=== PATIENT | male | born 1940 | race Caucasian/White ===

== ENCOUNTER 2016-12-07 12:02 | Emergency (ER) | payer BC, OTHER ==
[~2016-12-07] VITALS: Ht 170.2 cm; Wt 98.4 kg
[~2016-12-07 12:02] MED LIST: ALLO300T2 PO; CHOL100010 PO; CYAN100020 PO; FRS/40 PO; GLC/500 PO; LOSA50TA6 PO; NAPR1TAB9 PO; OMEP20CA9 PO; POTA10CA28 PO; SPIR25TA PO; maxair INH
[2016-12-07 12:09] VITALS: Ht 170.2 cm; Wt 98.4 kg
[2016-12-07] MEDS ORDERED: MECL1TAB40 PO (12:48)
[2016-12-07] MEDS ORDERED: ZLF/100 PO (12:48)
[2016-12-07] MEDS ORDERED: RBX500 PO (12:48)
[2016-12-07] MEDS ORDERED: LPR25 PO (12:48)
[2016-12-07] MEDS ORDERED: PSYL48.59 PO (12:50)
[2016-12-07] MEDS ORDERED: ASPI81TA28 PO (12:50)
[2016-12-07] MEDS ORDERED: SODIUM CHLORIDE 0.9% 1000ML 1,000 ML IV STA (13:46)
--- NOTE | 2016-12-07 14:16 | DIAGNOSTIC IMAGING REPORT ---
CHEST ONE VIEW PORTABLE CLINICAL HISTORY: Altered mental status. Weakness. Severe headache. Chills. COMPARISON STUDY: December 2014 FINDINGS: The heart is at the upper limits of normal in size. There are postsurgical changes of a midline sternotomy. Slight indistinctness of the left heart border is felt to be chronic. There is no failure. There is no focal pulmonary consolidation. There are no pleural effusions.[ IMPRESSION: No active disease in the chest. Electronically signed by: Gary East M.D. 12/07/2016 2:15 PM Dictated Date/Time: 12/07/2016 2:14 PM
--- NOTE | 2016-12-07 14:40 | DIAGNOSTIC IMAGING REPORT ---
HEAD CT NONCONTRAST CT DOSE: 614.27 mGy.cm HISTORY: Mental status change EVALUATE ALTERED MENTAL STATUS/WEAKNESS TECHNIQUE: Multiaxial CT images of the head were performed without the use of intravenous contrast. Comparison: None. Findings: The paranasal sinuses and mastoid air cells are clear. The calvarium and skull base are intact. The ventricles and sulci are within normal limits. There is no mass, hematoma, midline shift, or acute infarct. Impression: No acute intracranial abnormality. Electronically signed by: Hadley Paige M.D. 12/07/2016 2:38 PM Dictated Date/Time: 12/07/2016 2:37 PM
[2016-12-07 14:44] LABS: BASO % 0.3 %; BASO ABS # 0.03 K/uL (0-0.2); COMPLETE YES; EOS % 0.8 %; HEMATOCRIT 46.3 % (42-52); IG% 0.3 %; LYMPH % 16.7 %; MEAN CELL VOLUME 86.2 fL (80-100); MEAN CORPUSCULAR HEMOGLOBIN 28.7 pg (25-34); MEAN CORPUSCULAR HGB CONC 33.3 g/dl (32-36); MEAN PLATELET VOLUME 8.9 fL (7.4-10.4); MONO % 10.7 %; NEUT % 71.2 %; PLATELET COUNT 302 K/uL (130-400); RED BLOOD COUNT 5.37 M/uL (4.7-6.1)
[2016-12-07 14:45] LABS: PARTIAL THROMBOPLASTIN RATIO 1.1; PROTHROMBIN TIME (PATIENT) 10.9 SECONDS (9.0-12.0)
[2016-12-07 14:58] LABS: ALT/SGPT 27 U/L (12-78); AST/SGOT 17 U/L (15-37); BLOOD UREA NITROGEN 21 mg/dl (7-18); BUN/CREATININE RATIO 15.2 (10-20); CALCIUM 9.5 mg/dl (8.5-10.1); CARBON DIOXIDE 26 mmol/L (21-32); CHLORIDE 99 mmol/L (98-107); GLUCOSE 113 mg/dl (70-99); MAGNESIUM 2.1 mg/dl (1.8-2.4); POTASSIUM 3.8 mmol/L (3.5-5.1); SODIUM 136 mmol/L (136-145)
[2016-12-07 15:05] LABS: ALKALINE PHOSPHATASE 69 U/L (45-117); CKMB/CK RATIO 1.6 (0-3.0)
[2016-12-07 16:33] LABS: URINE APPEARANCE CLEAR (CLEAR); URINE COLOR DK YELLOW; URINE EPITHELIAL CELL AUTO 20-30 /lpf (0-5); URINE NITRITE NEG (NEG); URINE PH 5.5 (4.5-7.5); URINE SPECIFIC GRAVITY 1.032 (1.000-1.030); UROBILINOGEN NEG (NEG); ZZUR CULT IF INDIC CLEAN CATCH NO
[2016-12-07 16:43] LABS: MANUAL MICROSCOPIC REQUIRED? NO; REVIEW REQ? NO; URINE BILIRUBIN NEG (NEG)
--- NOTE | 2016-12-07 16:54 | EMERGENCY ROOM VISIT NOTE ---
History Report prepared by Jagjit: Roxanne Deluna Under the Supervision of: Dr. Italo Harris D.O. First contact with patient: 13:41 Chief Complaint: HEADACHE Stated Complaint: SEVERE SANCHEZ SINCE SUNDAY, CHILLS History of Present Illness The patient is a 76 year old male who presents to the Emergency Room with complaints of an intermittent headache for the past 2 days. The patient was mowing the grass [place] at [facility] two days ago. He was in a tractor with a roof on it, so he was not in direct sunlight, but he states that it was very hot that day. Around 9am he started to feel unwell, so he came home from work early. The patient reports dizziness, lightheadedness, and visual symptoms. He has felt off balance and reports seeing "yellow splotches." He lay in bed and rested throughout the day. His took his temperature and he had a fever of 102. The patient reports an intermittent headache since then. His pain goes up the back of his neck and into his ears bilaterally. He has occasional pain in the left ear. The patient had some urinary incontinence over the past couple of days. He denies cough, dysuria, rash, nausea, and vomiting. The patient rates her pain as a 7/10 in severity. Source of History: patient, spouse/significant other Onset: 2 days ago Position: head Symptom Intensity: 7/10 Timing: intermittent Associated Symptoms: + fevers, + neck pain, + urinary symptoms (+ incontinence, denies dysuria), No cough, No nausea, No vomiting, No rash Note: Pt notes dizziness, lightheadedness, and visual symptoms. Review of Systems See HPI for pertinent positives & negatives. A total of 10 systems reviewed and were otherwise negative. 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 Family History Unobtainable due to patient's condition Social History Smoking Status: Former Smoker Alcohol Use: occasionally Marital Status: Housing Status: lives with family Occupation Status: retired Current/Historical Medications Scheduled Allopurinol (Zyloprim), 1 TAB PO DAILY Aspirin (Aspirin Ec), 81 MG PO DAILY Cholecalciferol (Vitamin D), 1,000 INTER.UNIT PO DAILY Cyanocobalamin (Vitamin B12), 1 TAB PO DAILY Furosemide (Lasix), 40 MG PO DAILY Metformin Hcl (Glucophage), 500 MG PO BID Methocarbamol (Methocarbamol), 500 MG PO QPM Metoprolol Tartrate (Lopressor), 25 MG PO BID Omeprazole (Prilosec), 1 CAP PO QAM Potassium Chloride (Micro-K Ext Rel), 10 MEQ PO DAILY Psyllium (Metamucil), 1 DOSE PO QPM Sertraline HCl (Sertraline HCl), 100 MG PO DAILY Spironolactone (Aldactone), 25 MG PO DAILY Scheduled PRN Meclizine HCl (Meclizine HCl), 12.5 MG PO TID PRN for Dizziness or Vertigo Allergies Coded Allergies: Atorvastatin (Verified Allergy, Unknown, MUSCLE ACHES, 12/07/16) Statins (Unverified Allergy, Unknown, unknown, 12/07/16) Simvastatin (Verified Adverse Reaction, Mild, muscle weakness, 12/07/16) Aspirin (Verified Adverse Reaction, Unknown, GI UPSET, 12/07/16) Physical Exam Vital Signs Date Time Temp Pulse Resp B/P (MAP) Pulse Ox O2 Delivery O2 Flow Rate FiO2 12/07/16 17:25 36.4 78 18 161/78 96 12/07/16 16:35 78 18 161/78 12/07/16 14:54 161/81 12/07/16 14:46 161/81 12/07/16 14:30 64 12/07/16 13:17 58 18 134/67 96 Room Air 12/07/16 13:15 134/67 12/07/16 12:09 36.4 72 18 141/88 94 Room Air Physical Exam CONSTITUTIONAL/VITAL SIGNS: Reviewed / noted above. GENERAL: Non-toxic in appearance. INTEGUMENTARY: Warm, dry, and [place]. HEAD: Normocephalic. EYES: without scleral icterus or trauma. ENT/OROPHARYNX: clear and moist. LYMPHADENOPATHY/NECK: Is supple without lymphadenopathy or meningismus. RESPIRATORY: Lungs clear and equal. CARDIOVASCULAR: Regular rate and rhythm. GI/ABDOMEN: Soft and nontender. No organomegaly or pulsatile mass. No rebound or guarding. Normal bowel sounds. EXTREMITIES: Warm and well perfused. BACK: No CVA tenderness. NEUROLOGICAL: Intact without focal deficits. PSYCHIATRIC: normal affect. MUSCULOSKELETAL: Normally developed with good muscle tone. Medical Decision & Procedures ER Provider Diagnostic Interpretation: Radiology results as stated below per my review and radiologist interpretation: HEAD CT NONCONTRAST CT DOSE: 614.27 mGy.cm HISTORY: Mental status change EVALUATE ALTERED MENTAL STATUS/WEAKNESS TECHNIQUE: Multiaxial CT images of the head were performed without the use of intravenous contrast. Comparison: None. Findings: The paranasal sinuses and mastoid air cells are clear. The calvarium and skull base are intact. The ventricles and sulci are within normal limits. There is no mass, hematoma, midline shift, or acute infarct. Impression: No acute intracranial abnormality. Electronically signed by: Hadley Paige M.D. 12/07/2016 2:38 PM Dictated Date/Time: 12/07/2016 2:37 PM CHEST ONE VIEW PORTABLE CLINICAL HISTORY: Altered mental status. Weakness. Severe headache. Chills. COMPARISON STUDY: December 2014 FINDINGS: The heart is at the upper limits of normal in size. There are postsurgical changes of a midline sternotomy. Slight indistinctness of the left heart border is felt to be chronic. There is no failure. There is no focal pulmonary consolidation. There are no pleural effusions.[ IMPRESSION: No active disease in the chest. Electronically signed by: Gary East M.D. 12/07/2016 2:15 PM Dictated Date/Time: 12/07/2016 2:14 PM Laboratory Results 12/07/16 14:20 Red Blood Count 5.37, Mean Corpuscular Volume 86.2, Mean Corpuscular Hemoglobin 28.7, Mean Corpuscular Hemoglobin Concent 33.3, Mean Platelet Volume 8.9, Neutrophils (%) (Auto) 71.2, Lymphocytes (%) (Auto) 16.7, Monocytes (%) (Auto) 10.7, Eosinophils (%) (Auto) 0.8, Basophils (%) (Auto) 0.3, Neutrophils # (Auto ) 8.57, Lymphocytes # (Auto) 2.00, Monocytes # (Auto) 1.28, Eosinophils # (Auto ) 0.09, Basophils # (Auto) 0.03 12/07/16 14:20 Test 12/07/16 14:10 12/07/16 14:20 Urine Color DK YELLOW Urine Appearance CLEAR (CLEAR) Urine pH 5.5 (4.5-7.5) Urine Specific [place] 1.032 (1.000-1.030) Urine Protein TRACE (NEG) Urine Glucose (UA) NEG (NEG) Urine Ketones TRACE (NEG) Urine Occult Blood NEG (NEG) Urine Nitrite NEG (NEG) Urine Bilirubin NEG (NEG) Urine Urobilinogen NEG (NEG) Urine Leukocyte Esterase NEG (NEG) Urine WBC (Auto) 1-5 /hpf (0-5) Urine RBC (Auto) 0-4 /hpf (0-4) Urine Hyaline Casts (Auto) 5-10 /lpf (0-5) Urine Epithelial Cells (Auto) 20-30 /lpf (0-5) Urine Bacteria (Auto) NEG (NEG) White Blood Count 12.00 K/uL (4.8-10.8) Red Blood Count 5.37 M/uL (4.7-6.1) Hemoglobin 15.4 g/dL (14.0-18.0) Hematocrit 46.3 % (42-52) Mean Corpuscular Volume 86.2 fL (80-100) Mean Corpuscular Hemoglobin 28.7 pg (25-34) Mean Corpuscular Hemoglobin Concent 33.3 g/dl (32-36) Platelet Count 302 K/uL (130-400) Mean Platelet Volume 8.9 fL (7.4-10.4) Neutrophils (%) (Auto) 71.2 % Lymphocytes (%) (Auto) 16.7 % Monocytes (%) (Auto) 10.7 % Eosinophils (%) (Auto) 0.8 % Basophils (%) (Auto) 0.3 % Neutrophils # (Auto) 8.57 K/uL (1.4-6.5) Lymphocytes # (Auto) 2.00 K/uL (1.2-3.4) Monocytes # (Auto) 1.28 K/uL (0.11-0.59) Eosinophils # (Auto) 0.09 K/uL (0-0.5) Basophils # (Auto) 0.03 K/uL (0-0.2) RDW Standard Deviation 48.6 fL (36.4-46.3) RDW Coefficient of Variation 15.4 % (11.5-14.5) Immature Granulocyte % (Auto) 0.3 % Immature Granulocyte # (Auto) 0.03 K/uL (0.00-0.02) Prothrombin Time 10.9 SECONDS (9.0-12.0) Prothromb Time International Ratio 1.0 (0.9-1.1) Activated Partial Thromboplast Time 28.2 SECONDS (21.0-31.0) Partial Thromboplastin Ratio 1.1 Anion Gap 11.0 mmol/L (3-11) Est Creatinine Clear Calc Drug Dose 49.4 ml/min Estimated GFR () 55.8 Estimated GFR (Non- 48.1 BUN/Creatinine Ratio 15.2 (10-20) Calcium Level 9.5 mg/dl (8.5-10.1) Magnesium Level 2.1 mg/dl (1.8-2.4) Total Bilirubin 0.4 mg/dl (0.2-1) Direct Bilirubin 0.1 mg/dl (0-0.2) Aspartate Amino Transf (AST/SGOT) 17 U/L (15-37) Alanine Aminotransferase (ALT/SGPT) 27 U/L (12-78) Alkaline Phosphatase 69 U/L (45-117) Total Creatine Kinase 70 U/L (39-308) Creatine Kinase MB 1.1 ng/ml (0.5-3.6) Creatine Kinase MB Ratio 1.6 (0-3.0) Troponin I < 0.015 ng/ml (0-0.045) Total Protein 8.5 gm/dl (6.4-8.2) Albumin 3.4 gm/dl (3.4-5.0) Lipase 107 U/L (73-393) Thyroid Stimulating Hormone (TSH) 2.700 uIu/ml (0.300-4.500) Laboratory results as stated above per my review. Medications Administered Medications (Trade) Dose Ordered Sig/Rubén Route Start Time Stop Time Status Last Admin Dose Admin Sodium Chloride 1,000 ml @ 200 mls/hr Q5H STAT IV 12/07/16 13:46 12/07/16 18:45 12/07/16 13:46 200 MLS/HR ECG Indication: weakness Rate (beats per minute): 74 Rhythm: normal sinus Findings: no acute ischemic change, no ectopy ED Course 1341: Previous medical records were reviewed. The patient was evaluated in room A10. A complete history and physical examination was performed. 1346: NSS 1000 ml @ 200 mls/hr IV 1654: I reassessed the patient at this time. He is feeling better and resting comfortably. I discussed the results and treatment plan with the patient. I answered all pertaining questions that he had. He expressed understanding and verbalized agreement. The patient will be discharged home. Medical Decision Differential includes acute coronary syndrome, myocardial infarction, CVA, TIA, anemia, infection, pneumonia, UTI, pyelonephritis, poor nutrition, dehydration, electrolyte disturbance, hypoglycemia. Medication Reconciliation: I attest that I have personally reviewed the patient' s current medication list. Patient was found to have a slightly elevated blood pressure due to circumstances. I do not believe that the patient requires hypertension monitoring. This is a 76-year-old male who presents to the ED with a chief complaint of some dizziness that started Sunday around 9 AM in the morning. He reported some loss of balance and feeling lightheaded. He states that he had a headache over his whole head but this is actually gone now. He states the headache comes and goes. He reports that he had a fever of 102 on Sunday. It was 101 yesterday according to the . He had some urinary incontinence on Sunday as well. The patient's vital signs here are normal. He is afebrile. His physical exam was unremarkable. A CT scan of the brain did not show acute disease. Chest x-ray was clear. White blood cell count was 12. Complete metabolic panel is normal. The BUN is 21 and there are trace ketones in the urine. No evidence of urinary tract infection. Troponin is negative. The patient was hydrated with IV fluids. He was told the results of the test. He is felt to be stable for discharge and outpatient follow-up. Impression Primary Impression: Dehydration Scribe Attestation The scribe's documentation has been prepared under my direction and personally reviewed by me in its entirety. I confirm that the note above accurately reflects all work, treatment, procedures, and medical decision making performed by me. Departure Information Dispostion Home / Self-Care Referrals Tulio Azevedo D.O. (PCP) Forms HOME CARE DOCUMENTATION FORM, IMPORTANT VISIT INFORMATION Patient Instructions Dehydration, My [facility] Additional Instructions Follow-up with your doctor for further care and evaluation in 1-2 days. Return to the emergency department for worsening or new symptoms or any concerns. You have been examined and treated today on an emergency basis only. This is not a substitute for, or an effort to provide, complete comprehensive medical care. It is impossible to recognize and treat all injuries or illnesses in a single emergency department visit. It is therefore important that you follow up closely with your doctor. Call as soon as possible for an appointment. Increase daily fluid intake.
[2016-12-07 17:25] VITALS: BP 161/78; PULSE 78; TEMP 36.4; O2SAT 96
== END 2016-12-07 17:26 | disposition home or self-care (01) ==
LOC: C.EDB 12:07 → C.EDA 17:26
DX: E86.0 Dehydration (principal); J45.909 Unspecified asthma, uncomplicated; E11.9 Type 2 diabetes mellitus without complications; M51.36 Other intervertebral disc degeneration, lumbar region; K21.9 Gastro-esophageal reflux disease without esophagitis; E78.5 Hyperlipidemia, unspecified; I10 Essential (primary) hypertension; Z85.060 Personal history of malignant carcinoid tumor of small intestine; Z87.891 Personal history of nicotine dependence; Z96.659 Presence of unspecified artificial knee joint; Z79.82 Long term (current) use of aspirin; Z79.84 Long term (current) use of oral hypoglycemic drugs

== ENCOUNTER → 2017-10-24 | Day surgery (SDC) | payer BC ==
[2017-10-16 07:38] VITALS: Ht 172.7 cm; Wt 100.0 kg
[~2017-10-24] VITALS: Ht 172.7 cm; Wt 100.0 kg
[~2017-10-24] MED LIST changes: +500ML BSS 0.3ML EPI 1:1000PF IRRIG ONE; +ACETAMINOPHEN 325 MG TAB PO PRN; +AMOX500C3 PO; +AMVISC PLUS 0.8ML SYRINGE INT OCU ONE; +ASPI81TA28 PO; +ATROPINE SULFATE 0.1 MG/ML 5ML SYR IV PRN; +BSS FLUSH ONE; +CHOL1000 PO; -CHOL100010 PO; -CYAN100020 PO; +CYCLOPENTOLATE HCL 1% OP SOLN PER DROP CHARGE OPR ONE; +ENDOCOAT 0.85ML SYRINGE INT OCU ONE; +EpHEDrine SULFATE INJ 50 MG/ML AMP IV PRN; +EpINEphrine INJ 1MG/ML AMP 1 MG/ML AMP ONE; +FENTANYL CITRATE INJ 50 MCG/1 ML 2 ML VIAL ONE; +LACTATED RINGER'S 1000ML 500 ML IV SCH; +LIDOCAINE 4% OP SOLN DROP CHARGE ONE; +LIDOCAINE HCL 1% MPF 2 ML VIAL ONE; -LOSA50TA6 PO; +LPR25 PO; +MIDAZOLAM HCL 1 MG/ML 2ML VIAL ONE; +MIX: 4ML BSS 1ML EPI 1:1000 PF TOP ONE; +MOXIFLOXACIN OPH SOLN PER DROP CHARGE ONE; -NAPR1TAB9 PO; +NURSING VERBAL MED ORDER ONE; +OMEG10002 PO; +PHENYLEPHRINE HCL 10% OP SOLN PER DROP CHARGE OPR ONE; +POVIDONE-IODINE OP SOLN 30 ML BTL ONE; +PROPARACAINE 0.5% OP SOLN PER DROP CHARGE OPR SCH; +PSYL48.59 PO; +RBX500 PO; +TOBRAMYCIN/DEXAMETHASONE OPH OINT PER APPLN CHARGE ONE; +TROPICAMIDE 1% OP SOLN PER DROP CHARGE OPR ONE; +ZLF/100 PO; -maxair INH
[2017-10-24] MEDS: PHENYLEPHRINE HCL 10% OP SOLN PER DROP CHARGE OPR SCH ×3 (10:19→10:29)
[2017-10-24] MEDS: TROPICAMIDE 1% OP SOLN PER DROP CHARGE OPR SCH ×3 (10:20→10:30)
[2017-10-24] MEDS: CYCLOPENTOLATE HCL 1% OP SOLN PER DROP CHARGE OPR SCH ×3 (10:21→10:31)
[2017-10-24] MEDS: MOXIFLOXACIN OPH SOLN PER DROP CHARGE OPR SCH ×3 (10:22→10:32)
--- NOTE | 2017-10-24 10:28 | History & Physical Bridge - SC ---
H&P Re-Evaluation Bridge Note: I have examined the patient, reviewed the History & Physical and in the interval since the performance of the History & Physical I have noted the following changes of clinical significance: No changes noted
[2017-10-24] MEDS: LIDOCAINE 4% OP SOLN DROP CHARGE OPR SCH ×2 (10:33→10:40)
--- NOTE | 2017-10-24 11:39 | [facility] Post Operative Brief Note ---
Immediate Operative Summary Operative Date October 24, 2017. Pre-Operative Diagnosis Right Eye Cataract Post-Operative Diagnosis Same Procedure(s) Performed Right Eye Cataract Phacoemulsification With Intraocular Lens Implant Surgeon Dr. Cai [employer] Ware[employer] Supervisor Surgeon(s) None Estimated Blood Loss None Findings Consistent with Post-Op Diagnosis Specimens None Anesthesia Type MAC Complication(s) none Disposition Accompanied Pt To Recovery: no Disposition:
[2017-10-24 11:40] VITALS: TEMP 36.3
--- NOTE | 2017-10-24 11:42 | [facility] Operative Report ---
Operative Report Date of Service October 24, 2017. Operative Report DATE OF OPERATION: 10/24/17 PREOPERATIVE DIAGNOSIS: Senile nuclear cataract and astigmatism, right eye POSTOPERATIVE DIAGNOSIS: Senile nuclear cataract and astigmatism, right eye PROCEDURE PERFORMED: Phacoemulsification with toric intraocular lens implantation, right eye SURGEON: Dr. Ajit Cai ANESTHESIA: Topical with 1% intracameral lidocaine and monitored anesthesia care COMPLICATIONS: None DESCRIPTION OF PROCEDURE: After positively identifying the patient both verbally and by wristband in the preoperative area, the right eye was marked as the operative eye. Using a Robomarker, the 172 degree axis was marked after placing a drop of proparacaine. The patient was then brought back to the operating room by the anesthesia and nursing staff where they were given a drop of tetracaine and betadine into the operative eye. They were then sterilely prepped and draped in the standard fashion typical for ophthalmic surgery. Steri-strips were placed along the upper eyelids to keep the lashes back, and a lid speculum was placed into the operative eye. At this point, a documented time out was performed with members of the ophthalmology, nursing, and anesthesia staffs all agreeing upon the correct patient, correct location for surgery, correct procedure, and correct type and power of intraocular lens to be implanted. The microscope was then swung into position. Then, a paracentesis wound was made using a sideport blade. Then, in sequence, 1% preservative-free lidocaine followed by Endocoat viscoelastic was injected into the anterior chamber. Next , the main incision was made with a keratome blade in triplanar fashion. A Malyugin ring was inserted due to poor pupil dilation. A sharp cystotome was introduced into the eye and used to create a tear in the anterior capsule, which was directed into a continuous curvilinear capsulorrhexis using Utrata forceps. Hydrodissection was then performed with BSS on a flat-tip cannula. Next, the phacoemulsification handpiece was introduced into the eye and used to remove the nucleus in a [id number] fashion. This was done without complication and then the irrigation-aspiration handpiece was introduced into the eye and used to remove all remaining cortical and epinuclear material. Amvisc was then injected into the anterior chamber as well as into the capsular bag and using the lens injector system, a [id number] 19.5 D lens, serial number [id number], and expiration date 05/2019 was injected into the capsular bag and rotated into the correct position to correctly line up with the toric marking. The Malyugin ring was removed after removing the Amvisc posterior to the lens with the irrigation-aspiration handpiece. The toric lens was lined up with the marking, and then the I/A handpiece was used to remove all remaining Amvisc. BSS was used to hydrate the main wound, and then BSS was injected into the paracentesis site to reach physiologic pressure and then the main wound was checked and found to be watertight. The patient was given drops of Vigamox and tobradex ointment into the operative eye, and then the surrounding area was cleaned and dried. A clear plastic shield was placed over the eye and the patient was then sat up and taken from the operating room by the anesthesia staff having tolerated the procedure well and suffering no complications. DISPOSITION: The patient was returned to the recovery room in stable condition. I attest to the content of the Intraoperative Record and any orders documented therein. Any exceptions are noted below.
--- NOTE | 2017-10-24 11:43 | Discharge Instructions-SurgCtr ---
Discharge Instructions Date of Service October 24, 2017. Visit Reason for Visit: Cataract Right Eye Discharge Discharge Diagnosis / Problem: right cataract Discharge Goals Goal(s): Decrease discomfort, Improve function Medications Stopped Medications Name(s): METFORMIN LAST DOSE 2 DAYS AGO Activity Recommendations Activity Limitations: as noted below Anesthesia . Post Anesthesia Instructions: If you have had General Anesthesia or IV Sedation: * Do not drive today. * Resume driving when surgeon permits. * Do not make important decisions or sign legal documents today. * Call surgeon for: 1. Temperature elevations greater than 101 degrees F. 2. Uncontrollable pain. 3. Excessive bleeding. 4. Persistent nausea and vomiting. 5. Medication intolerance (nausea, vomiting or rash). * For nausea and vomiting use only clear liquids such as: tea, soda, bouillon until nausea subsides, then gradually increase diet as tolerated. * If you have any concerns or questions, call your surgeon's office. If physician is unavailable and it is an emergency, call 911 or go to the nearest emergency room. . Instructions / Follow-Up Instructions / Follow-Up ACTIVITY RECOMMENDATIONS: * Light activities. * You may walk outside, read, watch television. * You may notice redness on the white part of the eye and some blurry vision - this is normal. MEDICATIONS: Resume previous medications unless instructed otherwise by your surgeon. Start all eye drops at 2 pm today: * Eye drops (today): Prednisone - one drop in operative eye every 2 hours while awake Ofloxacin - one drop in operative eye every 2 hours while awake Ketorolac - one drop in operative eye 4 times daily SPECIAL CARE INSTRUCTIONS: * Tape plastic shield over eye to sleep at night. Call your doctor at with any concerns or problems. FOLLOW UP VISIT: Follow-up with Dr Cai at [place] office as scheduled. Diet Recommendations Home Diet: no limitations Procedures Procedures Performed: Right Eye Cataract Phacoemulsification With Intraocular Lens Implant Pending Studies Studies pending at discharge: no Medical Emergencies . Who to Call and When: Medical Emergencies: If at any time you feel your situation is an emergency, please call 911 immediately. . Non-Emergent Contact Non-Emergency issues call your: Surgeon . . "Provider Documentation" section prepared by Ajit Cai. .
--- NOTE | 2017-10-24 12:02 | Anesthesia Progress Nt - [facility] ---
Anesthesia Post Op Note Date & Time October 24, 2017 at 12:02 Vital Signs Pain Intensity: 0 Vital Signs Past 12 Hours Date Time Temp Pulse Resp B/P (MAP) Pulse Ox O2 Delivery O2 Flow Rate FiO2 10/24/17 11:40 36.3 69 12 187/103 (131) 96 Room Air 10/24/17 10:10 36.5 52 22 166/99 (121) 95 Room Air Notes Mental Status: alert / awake / arousable, participated in evaluation Pt Amnestic to Procedure: Yes Nausea / Vomiting: adequately controlled Pain: adequately controlled Airway Patency, RR, SpO2: stable & adequate BP & HR: stable & adequate Hydration State: stable & adequate Anesthetic Complications: no major complications apparent
[2017-10-24 12:07] VITALS: BP 163/71; PULSE 55; O2SAT 94
== END | disposition home or self-care (01) ==
LOC: X.SURG 09:36
PROVIDERS: ATTEND Ophthalmology
DX: H25.11 Age-related nuclear cataract, right eye (principal); I10 Essential (primary) hypertension; E11.9 Type 2 diabetes mellitus without complications; E78.00 Pure hypercholesterolemia, unspecified; I25.10 Atherosclerotic heart disease of native coronary artery without angina pectoris; G47.33 Obstructive sleep apnea (adult) (pediatric); K21.9 Gastro-esophageal reflux disease without esophagitis; Z88.8 Allergy status to other drugs, medicaments and biological substances; Z79.84 Long term (current) use of oral hypoglycemic drugs; I50.9 Heart failure, unspecified; Z95.5 Presence of coronary angioplasty implant and graft; M19.90 Unspecified osteoarthritis, unspecified site

== ENCOUNTER 2019-10-26 13:52 | Inpatient (IN) ==
--- OUTSIDE RECORDS SUMMARY | 2019-10-26 13:54 | External Medical Summary | Continuity of Care Document ---
:1940 Author Name Chris Petty, Provider Address Unavailable Unavailable , Care Team Providers Name Role Phone Umair Arita [email or web address] PCP, UNKNOWN Unavailable Unavailable Problems Active medical history not documented Allergies and Adverse Reactions Allergy history not documented Medications Medications not documented Procedures Procedures not documented Immunizations Immunizations not documented Plan of Treatment Planned Observations Planned Goals not documented Results No Known Results Results not documented
--- OUTSIDE RECORDS SUMMARY | 2019-10-26 13:54 | External Medical Summary | Continuity of Care Document ---
:1940 Author Name Chris Petty, Provider Address Unavailable Unavailable , Care Team Providers Name Role Phone Umair Arita [email or web address] PCP, UNKNOWN Unavailable Unavailable Problems Active medical history not documented Allergies and Adverse Reactions Allergy history not documented Medications Medications not documented Procedures Procedures not documented Immunizations Immunizations not documented Plan of Treatment Planned Observations Planned Goals not documented Results No Known Results Results not documented
--- NOTE | 2019-10-26 14:18 | Emergency Department Note ---
Impression & Plan Generalized weakness, Nausea, Epigastric abdominal pain ED Provider Note NAME: FADI BRIGGS AGE: 79 SEX: M ARRIVES VIA: Walk-In INFORMANT: [Patient] ED PROVIDER(S): Peng Escobedo MD CHIEF COMPLAINT: Generalized weakness PLAN: Disposition: Admitted Condition: [Good] MEDICAL DECISION MAKING: Patient presented with complaints of generalized weakness. He also had some abdominal discomfort on examination. He underwent blood work and CT imaging. His blood work was unremarkable. Chest x-ray was negative. CT imaging raised concerns for partial large bowel obstruction with a mass at the sigmoid. 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 I did discuss this with the patient. He will need further management in the hospital. I did consult with general surgery, Boo Be PA-C. He will consult with Dr. Dane Chand. I did discuss the case with Dr. Evans of internal medicine. He will admit the patient. Triage Nursing notes reviewed and agree them. Vital Signs: reviewed and remarkable for mild hypertension Differential diagnosis: Infection, dehydration, metabolic abnormality, intra-abdominal process, hypo/hyperglycemia, electrolyte disturbance, anemia, hypoxia, cardiac sources, intracerebral event, toxicologic, neurologic, as well as other pathologies. ER treatment provided: Saline hydration Patient declined analgesia Diagnostics interpreted by me: ECG: Rate: 72 Rhythm: SKIN: No lesions or rash, normal skin turgor. Thomas: Left axis deviation QRS: Normal ST segements: Anterior T wave inversions Other: Inferior posterior Q waves, no PACs or PVCs Cardiac Monitoring: Cardiac monitoring ordered by me: The patient was placed on continuous cardiac monitoring and observed. It revealed a normal sinus rhythm at 77 beats per minute without ectopy or evidence of dysrhythmia. Laboratory studies: [See below] an unremarkable CBC, chemistry panel, LFTs, lipase, troponin, and total CK. Lyme IgM negative. IgG positive. Imaging studies: CT imaging of the abdomen pelvis is concerning for large bowel obstruction, partial, likely related to mass in the sigmoid. I refer you to the EMR for further details. Consultation(s): General surgery Internal medicine See above HPI:The patient is a 79 year old male who presents to the Emergency Room with complaints of generalized weakness. This started today and is worsening. The patient also notes the following associated symptoms, nausea, epigastric abdominal pain, chronic cough. The patient has found no relieving factors. Current pain is rated as 2/10. Patient states he thinks he overdid it working in the garden 2 days ago. No known sick contacts for novel coronavirus. Pt denies LOC, headache, fevers, chills, diaphoresis, visual changes, neck pain, chest pain, breathing difficulties, vomiting,back pain, melena, hematochezia, urinary symptoms, numbness, , lymphadenopathy, rash, or other complaints. ROS: See above HPI for pertinent positives & negatives. A total of [10] systems reviewed and were otherwise negative. PAST MEDICAL HISTORY:[See Below] CAD PAST SURGICAL HISTORY:[See Below]CAB[facility] FAMILY HISTORY:[See Below] SOCIAL HISTORY:[See Below] lives with family HOME MEDICATIONS:[See Below] ALLERGIES:[See Below] VITALS:[See Below] PHYSICAL EXAMINATION: GENERAL: Awake, alert, well-appearing, in no distress HENT: Normocephalic, atraumatic. Oropharynx unremarkable. EYES: Normal conjunctiva. Sclera non-icteric. NECK: Inspection normal. Non-tender. Supple. No nuchal rigidity. FROM. No masses. RESPIRATORY: Clear to auscultation. No wheezes. No rales. Normal respiratory effort. CARDIAC: Normal rate. Normal rhythm. No murmurs. No rubs. Extremities warm and well perfused. Pulses equal. No JVD. GI: Soft, non-distended. Epigastric tenderness to palpation. No rebound or guarding. No masses. RECTAL: Deferred. MUSCULOSKELETAL: Atraumatic. Chest examination reveals no tenderness. The back is symmetrical on inspection without obvious abnormality. There is no CVA tenderness to palpation. No joint edema. LOWER EXTREMITIES: Calves are equal size bilaterally and non-tender. No edema. No discoloration. NEURO: Normal sensorium. No sensory or motor deficits noted. SKIN: No rash or jaundice noted. ED COURSE: [Critical Care:] [None] Peng Escobedo MD Past Med/Surg History Medical History (Updated 10/26/19 @ 19:47 by Guillermo Sifuentes RN) Family hx of colon cancer Fusion of spine Surgical History (Updated 10/26/19 @ 19:47 by Guillermo Sifuentes RN) History of carpal tunnel release 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 History of laminectomy History of prostatectomy History of total knee replacement Social History Preferred Language: Wolof Communication Ability: Effective Beliefs That Will Affect Care: None Current Living Situation: Spouse Other Information That Helps Us Care for You: No Feels Safe at Home: Yes Safety Concerns: Feels Safe At This Time Smoking Status: Former smoker Tobacco Type: pipe ; Smoking End Date: 1980 ; Second Hand Exposure: No ; Tobacco Cessation Education Requested by Patient: No Hx Alcohol Use: Yes Alcohol type: beer Hx Substance Use: No Allergies Allergies Allergy/AdvReac Type Severity Reaction Status Date / Time simvastatin AdvReac Mild muscle Verified 10/26/19 15:05 weakness aspirin AdvReac Unknown GI UPSET Verified 10/26/19 15:05 IN HIGH DOSES atorvastatin AdvReac Unknown MUSCLE Verified 10/26/19 15:05 ACHES [id number] Reductase AdvReac Unknown MUSCLE Unverified 10/26/19 15:05 Inhibitor ACHES AND WEAKNESS/DIARRHEA Home Meds Home Medications Medication Instructions Recorded Confirmed allopurinol 300 mg PO DAILY 10/26/19 10/26/19 aspirin [Aspir-81] 81 mg PO DAILY 10/26/19 10/26/19 furosemide 20 mg PO DAILY 10/26/19 10/26/19 gabapentin 300 mg PO HS 10/26/19 10/26/19 metoprolol succinate 25 mg PO DAILY 10/26/19 10/26/19 omeprazole 20 mg PO BID 10/26/19 10/26/19 sertraline 100 mg PO DAILY 10/26/19 10/26/19 spironolactone 25 mg PO DAILY 10/26/19 10/26/19 Results & Data (ED) Vital Signs Vital Signs - 24 hr 10/26/19 13:57 10/26/19 14:12 10/26/19 14:15 Temperature 36.8 C Temperature Source Oral Pulse Rate - Lying Pulse Rate - Sitting Pulse Rate - Standing Pulse Rate 75 83 72 Pulse Rate [Apical] Pulse Rate from SpO2 Sensor 83 73 Respiratory Rate 20 16 23 Respiratory Effort / Characteristics Non-Labored Spontaneous Respiratory Depth Normal Respiratory Pattern Regular Blood Pressure - Lying Blood Pressure - Sitting Blood Pressure- Standing Blood Pressure 185/87 H 146/93 H Blood Pressure [Left Arm] Blood Pressure Mean 119 122 Blood Pressure Mean [Left Arm] Blood Pressure Position Sitting Pulse Oximetry 95 95 94 Oxygen Delivery Method Room Air Sepsis Recent Fever Within 48 Hours No Sepsis New/Unexplained Change in Mental Status No Sepsis Action Taken by Nursing No Action Required 10/26/19 14:20 10/26/19 14:25 10/26/19 14:30 Temperature Temperature Source Pulse Rate - Lying 82 Pulse Rate - Sitting 88 Pulse Rate - Standing 90 Pulse Rate 75 75 Pulse Rate [Apical] 90 Pulse Rate from SpO2 Sensor 75 75 Respiratory Rate 15 17 Respiratory Effort / Characteristics Respiratory Depth Respiratory Pattern Blood Pressure - Lying 156/94 H Blood Pressure - Sitting 166/92 H Blood Pressure- Standing 160/88 H Blood Pressure 156/94 H Blood Pressure [Left Arm] 156/94 H Blood Pressure Mean 99 Blood Pressure Mean [Left Arm] 114 Blood Pressure Position Pulse Oximetry 96 96 93 Oxygen Delivery Method Room Air Room Air Sepsis Recent Fever Within 48 Hours Sepsis New/Unexplained Change in Mental Status Sepsis Action Taken by Nursing 10/26/19 14:40 10/26/19 14:50 10/26/19 14:51 Temperature Temperature Source Pulse Rate - Lying Pulse Rate - Sitting Pulse Rate - Standing Pulse Rate 79 79 70 Pulse Rate [Apical] Pulse Rate from SpO2 Sensor 79 76 70 Respiratory Rate 16 18 17 Respiratory Effort / Characteristics Respiratory Depth Respiratory Pattern Blood Pressure - Lying Blood Pressure - Sitting Blood Pressure- Standing Blood Pressure 166/112 H Blood Pressure [Left Arm] Blood Pressure Mean 133 Blood Pressure Mean [Left Arm] Blood Pressure Position Pulse Oximetry 93 94 94 Oxygen Delivery Method Sepsis Recent Fever Within 48 Hours Sepsis New/Unexplained Change in Mental Status Sepsis Action Taken by Nursing 10/26/19 15:00 10/26/19 15:10 10/26/19 15:20 Temperature Temperature Source Pulse Rate - Lying Pulse Rate - Sitting Pulse Rate - Standing Pulse Rate 67 74 78 Pulse Rate [Apical] Pulse Rate from SpO2 Sensor 72 72 78 Respiratory Rate 17 17 16 Respiratory Effort / Characteristics Respiratory Depth Respiratory Pattern Blood Pressure - Lying Blood Pressure - Sitting Blood Pressure- Standing Blood Pressure 167/109 H Blood Pressure [Left Arm] Blood Pressure Mean 123 Blood Pressure Mean [Left Arm] Blood Pressure Position Pulse Oximetry 94 94 96 Oxygen Delivery Method Sepsis Recent Fever Within 48 Hours Sepsis New/Unexplained Change in Mental Status Sepsis Action Taken by Nursing 10/26/19 15:30 10/26/19 15:40 10/26/19 15:50 Temperature Temperature Source Pulse Rate - Lying Pulse Rate - Sitting Pulse Rate - Standing Pulse Rate 69 73 73 Pulse Rate [Apical] Pulse Rate from SpO2 Sensor 70 76 76 Respiratory Rate 15 18 16 Respiratory Effort / Characteristics Respiratory Depth Respiratory Pattern Blood Pressure - Lying Blood Pressure - Sitting Blood Pressure- Standing Blood Pressure 144/90 H Blood Pressure [Left Arm] Blood Pressure Mean 92 Blood Pressure Mean [Left Arm] Blood Pressure Position Pulse Oximetry 95 94 95 Oxygen Delivery Method Sepsis Recent Fever Within 48 Hours Sepsis New/Unexplained Change in Mental Status Sepsis Action Taken by Nursing 10/26/19 16:00 10/26/19 16:10 10/26/19 16:20 Temperature Temperature Source Pulse Rate - Lying Pulse Rate - Sitting Pulse Rate - Standing Pulse Rate 83 68 77 Pulse Rate [Apical] Pulse Rate from SpO2 Sensor 82 63 75 Respiratory Rate 23 16 17 Respiratory Effort / Characteristics Respiratory Depth Respiratory Pattern Blood Pressure - Lying Blood Pressure - Sitting Blood Pressure- Standing Blood Pressure 135/109 H Blood Pressure [Left Arm] Blood Pressure Mean 117 Blood Pressure Mean [Left Arm] Blood Pressure Position Pulse Oximetry 95 94 95 Oxygen Delivery Method Sepsis Recent Fever Within 48 Hours Sepsis New/Unexplained Change in Mental Status Sepsis Action Taken by Nursing 10/26/19 16:30 10/26/19 16:49 10/26/19 16:50 Temperature Temperature Source Pulse Rate - Lying Pulse Rate - Sitting Pulse Rate - Standing Pulse Rate 80 82 85 Pulse Rate [Apical] Pulse Rate from SpO2 Sensor 81 81 Respiratory Rate 18 13 19 Respiratory Effort / Characteristics Respiratory Depth Respiratory Pattern Blood Pressure - Lying Blood Pressure - Sitting Blood Pressure- Standing Blood Pressure 168/123 H Blood Pressure [Left Arm] Blood Pressure Mean 147 Blood Pressure Mean [Left Arm] Blood Pressure Position Pulse Oximetry 94 96 Oxygen Delivery Method Sepsis Recent Fever Within 48 Hours Sepsis New/Unexplained Change in Mental Status Sepsis Action Taken by Nursing 10/26/19 17:00 10/26/19 17:10 10/26/19 17:20 Temperature Temperature Source Pulse Rate - Lying Pulse Rate - Sitting Pulse Rate - Standing Pulse Rate 81 84 85 Pulse Rate [Apical] Pulse Rate from SpO2 Sensor 79 83 81 Respiratory Rate 16 16 16 Respiratory Effort / Characteristics Respiratory Depth Respiratory Pattern Blood Pressure - Lying Blood Pressure - Sitting Blood Pressure- Standing Blood Pressure 152/91 H Blood Pressure [Left Arm] Blood Pressure Mean 97 Blood Pressure Mean [Left Arm] Blood Pressure Position Pulse Oximetry 93 94 93 Oxygen Delivery Method Sepsis Recent Fever Within 48 Hours Sepsis New/Unexplained Change in Mental Status Sepsis Action Taken by Nursing 10/26/19 17:30 10/26/19 17:40 10/26/19 17:50 Temperature Temperature Source Pulse Rate - Lying Pulse Rate - Sitting Pulse Rate - Standing Pulse Rate 79 80 83 Pulse Rate [Apical] Pulse Rate from SpO2 Sensor 81 79 Respiratory Rate 15 15 18 Respiratory Effort / Characteristics Respiratory Depth Respiratory Pattern Blood Pressure - Lying Blood Pressure - Sitting Blood Pressure- Standing Blood Pressure 149/78 H Blood Pressure [Left Arm] Blood Pressure Mean 96 Blood Pressure Mean [Left Arm] Blood Pressure Position Pulse Oximetry 93 94 Oxygen Delivery Method Sepsis Recent Fever Within 48 Hours Sepsis New/Unexplained Change in Mental Status Sepsis Action Taken by Nursing 10/26/19 18:00 10/26/19 18:10 10/26/19 18:20 Temperature Temperature Source Pulse Rate - Lying Pulse Rate - Sitting Pulse Rate - Standing Pulse Rate 88 84 76 Pulse Rate [Apical] Pulse Rate from SpO2 Sensor Respiratory Rate 20 13 17 Respiratory Effort / Characteristics Respiratory Depth Respiratory Pattern Blood Pressure - Lying Blood Pressure - Sitting Blood Pressure- Standing Blood Pressure 152/111 H Blood Pressure [Left Arm] Blood Pressure Mean 140 Blood Pressure Mean [Left Arm] Blood Pressure Position Pulse Oximetry Oxygen Delivery Method Sepsis Recent Fever Within 48 Hours Sepsis New/Unexplained Change in Mental Status Sepsis Action Taken by Nursing Laboratory Data Result diagrams: 10/26/19 14:09 10/26/19 15:58 Lab Results 10/26/19 10/26/19 10/26/19 Range/Units 14:09 14:09 14:09 WBC 9.60 (4.8-10.8) K/uL RBC 5.58 (4.7-6.1) M/uL Hgb 16.3 (14.0-18.0) g/dL Hct 48.4 (42-52) % MCV 86.7 (80-100) fL MCH 29.2 (25-34) pg MCHC 33.7 (32-36) g/dL RDW Std Deviation 47.7 H (36.4-46.3) fL RDW Coeff of Jeanette 15.1 H (11.5-14.5) % Plt Count 324 (130-400) K/uL MPV 9.1 (7.4-10.4) fL Immature Gran % (Auto) 0.2 % Neut % (Auto) 77.6 % Lymph % (Auto) 15.6 % Craig % (Auto) 5.5 % Eos % (Auto) 0.9 % Baso % (Auto) 0.2 % Immature Gran # (Auto) 0.02 (0.00-0.02) K/uL Neut # (Auto) 7.44 H (1.4-6.5) K/uL Lymph # (Auto) 1.50 (1.2-3.4) K/uL Craig # (Auto) 0.53 (0.11-0.59) K/uL Eos # (Auto) 0.09 (0-0.5) K/uL Baso # (Auto) 0.02 (0-0.2) K/uL Sodium 134 L (136-145) mmol/L Potassium (3.5-5.1) mmol/L Chloride 99 (98-107) mmol/L Carbon Dioxide 26 (21-32) mmol/L Anion Gap 9.0 (3-11) BUN 16 (7-18) mg/dl Creatinine 1.15 (0.6-1.4) mg/dl Est Cr Clr Drug Dosing 55.9 ml/min Est GFR ( Amer) 69.3 Est GFR (Non-Af Amer) 59.8 BUN/Creatinine Ratio 13.9 (10-20) Glucose 148 H (70-99) mg/dl Calcium 9.2 (8.5-10.1) mg/dl Magnesium (1.8-2.4) mg/dl Total Bilirubin 0.9 (0.2-1) mg/dl AST (15-37) U/L ALT 16 (12-78) U/L Alkaline Phosphatase 86 (45-117) U/L Total Creatine Kinase (39-308) U/L Troponin I < 0.015 (0-0.045) ng/ml Total Protein 8.2 (6.4-8.2) gm/dl Albumin 3.4 (3.4-5.0) gm/dl Globulin 4.8 H (2.5-4.0) gm/dl Albumin/Globulin Ratio 0.7 L (0.9-2) Lipase (73-393) U/L TSH 3.450 (0.300-4.500) uIu/ml Lyme Disease IgG Ab Positive A (Negative) Lyme Disease IgM Ab Negative (Negative) 10/26/19 Range/Units 15:58 WBC (4.8-10.8) K/uL RBC (4.7-6.1) M/uL Hgb (14.0-18.0) g/dL Hct (42-52) % MCV (80-100) fL MCH (25-34) pg MCHC (32-36) g/dL RDW Std Deviation (36.4-46.3) fL RDW Coeff of Jeanette (11.5-14.5) % Plt Count (130-400) K/uL MPV (7.4-10.4) fL Immature Gran % (Auto) % Neut % (Auto) % Lymph % (Auto) % Craig % (Auto) % Eos % (Auto) % Baso % (Auto) % Immature Gran # (Auto) (0.00-0.02) K/uL Neut # (Auto) (1.4-6.5) K/uL Lymph # (Auto) (1.2-3.4) K/uL Craig # (Auto) (0.11-0.59) K/uL Eos # (Auto) (0-0.5) K/uL Baso # (Auto) (0-0.2) K/uL Sodium (136-145) mmol/L Potassium 4.5 (3.5-5.1) mmol/L Chloride (98-107) mmol/L Carbon Dioxide (21-32) mmol/L Anion Gap (3-11) BUN (7-18) mg/dl Creatinine (0.6-1.4) mg/dl Est Cr Clr Drug Dosing ml/min Est GFR ( Amer) Est GFR (Non-Af Amer) BUN/Creatinine Ratio (10-20) Glucose (70-99) mg/dl Calcium (8.5-10.1) mg/dl Magnesium 2.0 (1.8-2.4) mg/dl Total Bilirubin (0.2-1) mg/dl AST 10 L (15-37) U/L ALT (12-78) U/L Alkaline Phosphatase (45-117) U/L Total Creatine Kinase 40 (39-308) U/L Troponin I (0-0.045) ng/ml Total Protein (6.4-8.2) gm/dl Albumin (3.4-5.0) gm/dl Globulin (2.5-4.0) gm/dl Albumin/Globulin Ratio (0.9-2) Lipase 55 L (73-393) U/L TSH (0.300-4.500) uIu/ml Lyme Disease IgG Ab (Negative) Lyme Disease IgM Ab (Negative) Administered Medications Sodium Chloride (Nss 1000ml) 1,000 mls @ 125 mls/hr IV .Q8H LISA Stop: 11/25/19 18:44 Last Admin: 10/26/19 19:13 Dose: 125 mls/hr Documented by: [id number] Discharge Plan Visit Data *Final* Discharge Date/Time: 10/26/19 18:42 Chief Complaint: Weakness Stated Complaint: WEAKNESS,ACHY ED Provider: Peng Escobedo Discharge Problem: Generalized weakness, Nausea, Epigastric abdominal pain Patient Disposition: Admitted As Inpatient Discharge Instructions Interventions: ED Discharge Assessment Last Done: 10/26/19 18:42
[2019-10-26 14:34] LABS: Basophils # (auto) 0.02 K/uL (0-0.2); Basophils % (auto) 0.2 %; Eosinophils # (auto) 0.09 K/uL (0-0.5); Eosinophils % (auto) 0.9 %; Hematocrit (blood only) 48.4 % (42-52); Hemoglobin 16.3 g/dL (14.0-18.0); Immature Granulocytes # (auto) 0.02 K/uL (0.00-0.02); Immature Granulocytes % (auto) 0.2 %; Lymphocytes % (auto) 15.6 %; Mean Corpuscular Hemoglobin 29.2 pg (25-34); Mean Corpuscular Hgb Conc 33.7 g/dL (32-36); Mean Corpuscular Volume 86.7 fL (80-100); Mean Platelet Volume 9.1 fL (7.4-10.4); Monocytes # (auto) 0.53 K/uL (0.11-0.59); Monocytes % (auto) 5.5 %; Neutrophils # (auto) 7.44 K/uL (1.4-6.5); Neutrophils % (auto) 77.6 %; Platelet Count 324 K/uL (130-400); RDW Coefficient of Variation 15.1 % (11.5-14.5); RDW Standard Deviation 47.7 fL (36.4-46.3); Red Blood Count 5.58 M/uL (4.7-6.1)
--- NOTE | 2019-10-26 14:57 | XRay Report ---
XR chest 1V portable HISTORY: weakness COMPARISON: Chest 12/07/2016. FINDINGS: No pneumothorax. No pleural effusions. The lungs are clear. No evidence for pulmonary edema . The heart is normal in size. Poststernotomy changes. Cervical spinal fusion hardware is partially v isualized. IMPRESSION: No significant change compared to the prior study. No acute process. ACT 112: Negative or not required by law. Electronically signed by: Bruce Jaramillo M.D. 10/26/2019 2:56 PM
[2019-10-26 15:21] LABS: Alanine Aminotransferase 16 U/L (12-78); Albumin Globulin Ratio 0.7 (0.9-2); Albumin Level 3.4 gm/dl (3.4-5.0); Alkaline Phosphatase 86 U/L (45-117); BUN Creatinine Ratio 13.9 (10-20); Bilirubin,Total 0.9 mg/dl (0.2-1); Blood Urea Nitrogen 16 mg/dl (7-18); Calcium 9.2 mg/dl (8.5-10.1); Carbon Dioxide 26 mmol/L (21-32); Chloride 99 mmol/L (98-107); Creatinine Clr Calc Pharmacy 55.9 ml/min; Est GFR (African American) 69.3; Est GFR (Non-African American) 59.8; Globulin 4.8 gm/dl (2.5-4.0); Glucose 148 mg/dl (70-99); Sodium 134 mmol/L (136-145); Total Protein 8.2 gm/dl (6.4-8.2); Troponin I < 0.015 ng/ml (0-0.045)
[2019-10-26 16:15] LABS: Lyme Ab IgM w/WB Rflx Negative (Negative)
[2019-10-26 16:26] LABS: Potassium 4.5 mmol/L (3.5-5.1)
[2019-10-26 16:29] LABS: Lyme Ab IgG w/WB Rflx Positive (Negative)
--- NOTE | 2019-10-26 17:02 | CT Scan Report ---
ABDOMEN AND PELVIS CT WITHOUT CONTRAST CT DOSE: 899.98 mGy.cm HISTORY: upper abd pain TECHNIQUE: Multiaxial CT images of the abdomen and pelvis were performed without contrast. A dose lo wering technique was utilized adhering to the principles of ALARA. COMPARISON STUDY: Abdomen and pelvis CT 02/19/2011. FINDINGS: The lung bases are clear. No pneumoperitoneum. No pneumatosis. No suspicious lytic are imtiaz tic osseous lesions. The unenhanced liver, spleen, adrenal glands, and pancreas are unremarkable. Nor mal caliber common bile duct. Distended gallbladder. No gallbladder wall thickening. No gallstones id entified. No retroperitoneal lymphadenopathy. Calcified plaque within the normal caliber abdominal ao rta. The bladder is unremarkable. The prostate gland is surgically absent. Small fat-containing bilat eral inguinal hernias. Left-sided nephrolithiasis. No hydronephrosis. Bilateral renal hypodense lesio ns are incompletely characterized on this noncontrast study but favor cysts. Partially calcified nodu le within the wall of the stomach best seen on image 111. This measures 1.6 cm. Moderate size fat-con taining midline ventral hernia. There is also a small amount of fluid and mild inflammatory change cordoba rrounding the ventral hernia. Prior right hemicolectomy with ileal colonic anastomosis. Gas and fluid -filled mildly distended loops of small bowel. No transition point identified. The majority of the co thao is also borderline distended and is filled with stool. There is thickening within the proximal si gmoid colon. Focal masslike area of thickening involving the mid sigmoid colon best seen on image 329 . This measures approximately 6 cm in length. Colonic diverticulosis. Mild inflammatory change surrou nding the thickened proximal colon. A few prominent pericolonic lymph nodes persist seen on image 319 with the largest measuring 7 mm. IMPRESSION: 1. Focal 6 cm segment of thickening within the mid sigmoid colon which is suspicious for a colonic ma ss. 2. Mildly dilated gas and fluid-filled loops of small bowel. The colon is also borderline distended w ith the transition point located at the masslike area of thickening within the mid sigmoid colon. The refore, findings favor a partial large bowel obstruction secondary to the suspected sigmoid mass. 3. There is also mild thickening within the proximal sigmoid colon with mild adjacent inflammatory ch edvonte. This raises the possibility of superimposed colitis. Follow-up colonoscopy recommended for furt her evaluation and decompression of the suspected large bowel obstruction. 4. Mildly distended gallbladder. No gallbladder wall thickening. 5. Left-sided nephrolithiasis. No hydronephrosis. 6. Partially calcified 1.6 cm mass within the gastric wall. [facility] 7. Additional findings as described above. ACT 112: Negative or not required by law. Electronically signed by: Bruce Jaramillo M.D. 10/26/2019 5:00 PM
[2019-10-26] MEDS ORDERED: D5W AND NSS 1,000 ML IV SCH (18:30)
--- NOTE | 2019-10-26 18:45 | History & Physical Report ---
Date of Service October 26, 2019 Assessment & Plan (1) Large bowel obstruction: 2 days history of constipation and abdominal distention with nausea CT of the abdomen and pelvis showed 6 cm sigmoid mass with partial obstruction of the intestine Will be admitted to telemetry unit with history of CAD and CABG Keep him n.p.o. and give intravenous fluid, antibiotic management Surgery has been consulted (2) Colonic mass: History of carcinoid tumor status post removal about 10 inch of colon about 10 years ago Current sigmoid mass could be a recurrence or new colonic mass rule out for any malignancy No associated symptoms of carcinoid tumor. We will consult GI for possible colonoscopy down the line (3) Epigastric abdominal pain: Complaint left lower cysts chest/epigastric pain without any associated symptoms EKG shows sinus rhythm rate of 72/min partial right bundle branch block with T inversion in anterior leads. No prior EKG to compare Doubt any ACS We will admit to telemetry unit and will get serial cardiac enzymes to rule out possibility of ACS (4) CAD (coronary artery disease): History of CAD and GA status post CABG x3 Minor epigastric/lower central discomfort but no angina (5) HTN (hypertension): Blood pressure seems to be elevated We will continue with intravenous Lopressor (6) Diabetes type 2, controlled: We will put him on sliding scale insulin coverage DVT prophylaxis Subcu heparin CODE STATUS Full Discussed with the son in detail History of Present Illness Chief Complaint: Abdominal discomfort with no bowel movement for last 2 days and lower chest tightness. 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 Apparently he has not had a bowel movement for the same period within normal bowel movement daily without any alteration of bowel habit. He complains some abdominal discomfort with nausea but no vomiting. He also complains to have lower central chest pressure associated with the symptoms but denies to have any chest pain. Denies any shortness of breath with usual activities. No fever and/or chills, no rash and no history of flushing or postural hypotension. Recently he has had cough without any fever and has been finishing tapering dose of steroid. Does not have any fever and/or chills or any increasing shortness of breath as of today. CT scan of the abdomen and pelvis did show sigmoid mass with partial obstruction of the colon from that point he was admitted to hospital for continuation of care. Allergies Allergy/AdvReac Type Severity Reaction Status Date / Time simvastatin AdvReac Mild muscle Verified 10/26/19 15:05 weakness aspirin AdvReac Unknown GI UPSET Verified 10/26/19 15:05 IN HIGH DOSES atorvastatin AdvReac Unknown MUSCLE Verified 10/26/19 15:05 ACHES Elvwvws-Xsk-Vch Reductase AdvReac Unknown MUSCLE Unverified 10/26/19 15:05 Inhibitor ACHES AND WEAKNESS/DIARRHEA Home Medications Home Medications Medication Instructions Recorded Confirmed Type allopurinol 300 mg PO DAILY 10/26/19 10/26/19 History aspirin [Aspir-81] 81 mg PO DAILY 10/26/19 10/26/19 History furosemide 20 mg PO DAILY 10/26/19 10/26/19 History gabapentin 300 mg PO HS 10/26/19 10/26/19 History metoprolol succinate 25 mg PO DAILY 10/26/19 10/26/19 History omeprazole 20 mg PO BID 10/26/19 10/26/19 History sertraline 100 mg PO DAILY 10/26/19 10/26/19 History spironolactone 25 mg PO DAILY 10/26/19 10/26/19 History Past Med/Surg History Social History Preferred Language: Icelandic Feels Safe at Home: Yes Smoking Status: Former smoker Review of Systems Review of Systems: All systems reviewed & are unremarkable except as noted in HPI & below Physical Exam Physical Exam: Lying in bed comfortably but looks anxious Constitutional: well developed, well nourished, + ill appearing and + obese; no acute distress Eyes: PERRL, conjunctivae normal, anicteric sclerae ENMT: external ear and nose normal, oropharynx normal Neck: trachea midline, no thyromegaly Respiratory: normal respiratory effort; no respiratory distress Auscultation: lungs clear to auscultation bilaterally Cardiovascular: Rate/Rhythm: regular rate and regular rhythm Heart Sounds: no murmur Extremities: + pedal edema (1+ bilateral) Gastrointestinal (Abdomen): Inspection/Auscultation: + abdomen distended and normal bowel sounds Percussion/Palpation: abdomen soft; abdomen nontender Has ventral hernia without any obstructive symptoms Musculoskeletal: No acute arthritis involving any joint Neurologic: moves all extremities; no focal motor deficits Lymphatic: no cervical or axillary lymphadenopathy Results & Data Results & Data ([facility]) Vital Signs (Past 12 Hours) Vital Signs Temp Pulse Pulse Resp BP BP Pulse Ox 10/26/19 16:50 85 19 96 10/26/19 16:49 82 13 10/26/19 16:30 80 18 168/123 H 94 10/26/19 16:20 77 17 95 10/26/19 16:10 68 16 94 10/26/19 16:00 83 23 135/109 H 95 10/26/19 15:50 73 16 95 10/26/19 15:40 73 18 94 10/26/19 15:30 69 15 144/90 H 95 10/26/19 15:20 78 16 96 10/26/19 15:10 74 17 94 10/26/19 15:00 67 17 167/109 H 94 10/26/19 14:51 70 17 94 10/26/19 14:50 79 18 166/112 H 94 10/26/19 14:40 79 16 93 10/26/19 14:30 75 90 17 156/94 H 156/94 H 93 10/26/19 14:25 96 10/26/19 14:20 75 15 96 10/26/19 14:15 72 23 94 10/26/19 14:12 83 16 146/93 H 95 10/26/19 13:57 36.8 C 75 20 185/87 H 95 Laboratory Results Short CBC 10/26/19 Range/Units 14:09 WBC 9.60 (4.8-10.8) K/uL Hgb 16.3 (14.0-18.0) g/dL Hct 48.4 (42-52) % Plt Count 324 (130-400) K/uL BMP 10/26/19 10/26/19 14:09 15:58 Sodium 134 L Potassium 4.5 Chloride 99 Carbon Dioxide 26 BUN 16 Creatinine 1.15 Glucose 148 H Calcium 9.2 Cardiac Enzymes 10/26/19 10/26/19 Range/Units 14:09 15:58 Total Creatine Kinase 40 (39-308) U/L Troponin I < 0.015 (0-0.045) ng/ml Liver Function 05/03/20 05/03/20 Range/Units 14:09 15:58 Total Bilirubin 0.9 (0.2-1) mg/dl AST 10 L (15-37) U/L ALT 16 (12-78) U/L Alkaline Phosphatase 86 (45-117) U/L Albumin 3.4 (3.4-5.0) gm/dl Medications Administered Current Inpatient Medications Heparin Sodium (Porcine) (Heparin Sodium (Porcine)) 5,000 units SQ Q12 LISA Stop: 11/25/19 20:59 Dextrose/Sodium Chloride (D5w And Nss) 1,000 mls @ 125 mls/hr IV .Q8H LISA Stop: 11/25/19 18:29 Pantoprazole Sodium 40 mg/ (Syringe) 10 mls @ 5 mls/min IV DAILY@1100 LISA Stop: 11/26/19 10:59 Metoprolol Tartrate (Lopressor) 5 mg IV Q6 LISA Stop: 11/26/19 00:00 Code Status & VTE Plan VTE Prophylaxis Plan VTE Prophylaxis will be ordered: Yes
[2019-10-26] MEDS: SODIUM CHLORIDE 0.9% 1000ML 1,000 ML IV SCH (19:13)
[2019-10-26] MEDS ORDERED: HYDROmorphone INJ 0.5 MG/0.5 ML SYR IV PRN (19:40)
[2019-10-26] MEDS: INSULIN ASPART 100 UNITS/ML 3 ML PEN SC SCH (19:55)
[2019-10-26] MEDS: PANTOprazole 40 MG in SYRINGE 0 ML IV SCH (19:56)
[2019-10-26] MEDS: HEPARIN SOD 5,000 UNIT/0.5 ML VIAL SQ SCH (20:00)
[2019-10-26] MEDS: ONDANSETRON INJ 2 MG/ML 2 ML VIAL IV SCH (20:03)
[2019-10-26 21:09] LABS: Appearance Urine Clear (Clear); Bacteria Urine Automated Negative (Negative); Blood Urine Negative (Negative); Color Urine Dark Yellow; Glucose Urine UA Negative (Negative); Ketones Urine Trace (Negative); Leukocyte Esterase Urine Negative (Negative); Nitrite Urine Negative (Negative); Protein Urine Trace (Negative); RBC Urine Automated 0-4 /hpf (0-4); Urobilinogen Urine Negative (Negative)
[2019-10-26 21:11] LABS: Bilirubin Urine Negative (Negative); Ictotest Urine Negative (Negative)
[2019-10-26] MEDS: METOPROLOL TARTRATE 1 MG/ML VIAL IV SCH (23:41)
[2019-10-27] MEDS: ONDANSETRON INJ 2 MG/ML 2 ML VIAL IV SCH ×4 (02:30→19:25)
[2019-10-27] MEDS: SODIUM CHLORIDE 0.9% 1000ML 1,000 ML IV SCH ×3 (02:30→19:24)
[2019-10-27 04:40] LABS: Basophils # (auto) 0.01 K/uL (0-0.2); Basophils % (auto) 0.1 %; Eosinophils # (auto) 0.11 K/uL (0-0.5); Eosinophils % (auto) 1.2 %; Hematocrit (blood only) 44.7 % (42-52); Hemoglobin 14.9 g/dL (14.0-18.0); Immature Granulocytes # (auto) 0.02 K/uL (0.00-0.02); Immature Granulocytes % (auto) 0.2 %; Lymphocytes # (auto) 1.56 K/uL (1.2-3.4); Lymphocytes % (auto) 17.5 %; Mean Corpuscular Hgb Conc 33.3 g/dL (32-36); Mean Platelet Volume 9.1 fL (7.4-10.4); Monocytes # (auto) 0.72 K/uL (0.11-0.59); Monocytes % (auto) 8.1 %; Neutrophils # (auto) 6.47 K/uL (1.4-6.5); Neutrophils % (auto) 72.9 %; Platelet Count 337 K/uL (130-400); Red Blood Count 5.14 M/uL (4.7-6.1); White Blood Count 8.89 K/uL (4.8-10.8)
[2019-10-27 05:06] LABS: Albumin Level 3.1 gm/dl (3.4-5.0); BUN Creatinine Ratio 17.2 (10-20); Calcium 8.7 mg/dl (8.5-10.1); Creatinine Clr Calc Pharmacy 63.8 ml/min; Est GFR (African American) 80.1; Est GFR (Non-African American) 69.1; Magnesium 1.8 mg/dl (1.8-2.4)
[2019-10-27] MEDS: METOPROLOL TARTRATE 1 MG/ML VIAL IV SCH ×4 (05:08→23:36)
[2019-10-27 05:11] LABS: Albumin Globulin Ratio 0.8 (0.9-2); Bilirubin,Total 0.9 mg/dl (0.2-1); Globulin 3.7 gm/dl (2.5-4.0); Total Protein 6.8 gm/dl (6.4-8.2)
[2019-10-27 06:43] LABS: Estimated Average Glucose 154 mg/dl
[2019-10-27] MEDS: INSULIN ASPART 100 UNITS/ML 3 ML PEN SC SCH ×4 (07:18→23:37)
--- NOTE | 2019-10-27 08:54 | Electrocardiogram Report ---
Test Reason : Blood Pressure : / mmHG Vent. 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
[2019-10-27] MEDS ORDERED: PANTOprazole 40 MG in SYRINGE 0 ML IV SCH (09:00)
--- NOTE | 2019-10-27 09:15 | Surgery Consultation ---
Date of Consultation October 27, 2019 Assessment & Plan (1) Colonic mass: Partially obstructing sigmoid mass, hopefully will tolerate prep for colonoscopy/sigmoidoscopy. Plan for eventual resection. Seen with Dr. Chand. History of Present Illness Attending Physician: Trevor Evans MD History of Present Illness 79 y/o male admitted last evening for 2 days constipation, bloating and nausea. Had TI carcinoid removed in 2009, and had one colonoscopy shortly after surgery at [facility] but was not able to tolerate the prep the next time. Appears now to have mass of sigmoid colon on CT. Allergies Allergy/AdvReac Type Severity Reaction Status Date / Time simvastatin AdvReac Mild muscle Verified 10/26/19 15:05 weakness aspirin AdvReac Unknown GI UPSET Verified 10/26/19 15:05 IN HIGH DOSES atorvastatin AdvReac Unknown MUSCLE Verified 10/26/19 15:05 ACHES Aebkbkf-Zzw-Sto Reductase AdvReac Unknown MUSCLE Unverified 10/26/19 15:05 Inhibitor ACHES AND WEAKNESS/DIARRHEA Home Medications Home Medications Medication Instructions Recorded Confirmed Type allopurinol 300 mg PO DAILY 10/26/19 10/26/19 History aspirin [Aspir-81] 81 mg PO DAILY 10/26/19 10/26/19 History furosemide 20 mg PO DAILY 10/26/19 10/26/19 History gabapentin 300 mg PO HS 10/26/19 10/26/19 History metoprolol succinate 25 mg PO DAILY 10/26/19 10/26/19 History omeprazole 20 mg PO BID 10/26/19 10/26/19 History sertraline 100 mg PO DAILY 10/26/19 10/26/19 History spironolactone 25 mg PO DAILY 10/26/19 10/26/19 History Patient History Medical History Family hx of colon cancer Fusion of spine Surgical History History of carpal tunnel release 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 History of laminectomy History of prostatectomy History of total knee replacement Social History Preferred Language: Japanese Communication Ability: Effective Beliefs That Will Affect Care: None Current Living Situation: Spouse Other Information That Helps Us Care for You: No Feels Safe at Home: Yes Safety Concerns: Feels Safe At This Time Smoking Status: Former smoker Tobacco Type: pipe ; Smoking End Date: 1980 ; Second Hand Exposure: No ; Tobacco Cessation Education Requested by Patient: No Hx Alcohol Use: Yes Alcohol type: beer Hx Substance Use: No Review of Systems Constitutional: no fever and no chills Gastrointestinal: + bloating, + nausea and + constipation Physical Exam Constitutional: WD/WN, vitals as above Respiratory: normal respiratory effort; no respiratory distress Cardiovascular: Rate/Rhythm: regular rate Gastrointestinal (Abdomen): Inspection/Auscultation: + abdomen distended (minimal) Percussion/Palpation: abdomen soft Results & Data Vital Signs (Past 12 Hours) Vital Signs Temp Pulse Resp BP Pulse Ox 10/27/19 08:00 67 15 91 10/27/19 07:59 37.0 C 66 15 148/88 H 92 10/27/19 07:00 71 15 96 10/27/19 06:59 69 16 146/76 H 92 10/27/19 06:45 68 15 92 10/27/19 04:02 36.8 C 74 22 94 10/27/19 04:01 80 18 158/149 H 95 10/27/19 03:59 86 15 97 10/27/19 03:50 78 19 92 10/27/19 03:40 82 16 92 10/27/19 03:30 80 21 92 10/27/19 03:20 80 22 93 10/27/19 03:10 71 20 94 10/27/19 03:00 75 18 92 10/27/19 02:59 74 22 151/88 H 92 10/27/19 02:50 76 20 92 10/27/19 02:40 72 16 93 10/27/19 02:30 76 15 93 10/27/19 02:20 70 18 93 10/27/19 02:10 75 16 93 10/27/19 02:00 83 23 92 10/27/19 01:59 81 18 132/80 91 10/27/19 01:50 83 18 92 10/27/19 01:40 86 14 93 10/27/19 01:30 81 18 92 10/27/19 01:20 82 26 H 92 10/27/19 01:10 81 22 92 05/04/20 01:00 76 17 93 10/27/19 00:59 72 14 147/91 H 96 10/27/19 00:50 97 H 21 94 10/27/19 00:40 85 20 93 10/27/19 00:30 85 19 91 10/27/19 00:20 66 17 91 10/27/19 00:10 70 14 91 10/27/19 00:00 36.8 C 72 20 94 10/26/19 23:59 78 23 130/69 95 10/26/19 23:50 74 18 92 10/26/19 23:41 54 L 10/26/19 23:40 85 20 93 10/26/19 23:30 73 17 93 10/26/19 23:20 78 17 90 10/26/19 23:10 67 23 93 10/26/19 23:01 54 L 14 95 10/26/19 23:00 71 18 116/70 93 10/26/19 22:50 70 20 92 10/26/19 22:40 75 26 H 91 10/26/19 22:30 74 18 91 10/26/19 22:20 71 17 93 10/26/19 22:10 75 18 90 10/26/19 22:00 70 17 92 10/26/19 21:59 73 21 126/67 94 10/26/19 21:50 70 19 93 10/26/19 21:40 88 16 94 10/26/19 21:30 94 H 19 95 10/26/19 21:20 79 15 91 10/26/19 21:10 79 16 94 PG Care Time/CCT Total # of Minutes Spent Total Time Spent with Patient: Total time spent is greater than 50% in coordination of care (as documented) at patient's floor/unit and/or counseling patient: Coding Level of Care Code 20530 Initial Inpt Care Lvl 1 Diagnoses Colonic mass K63.89
--- NOTE | 2019-10-27 09:28 | Hospitalist Progress Note ---
Date of Service October 27, 2019 Assessment & Plan (1) Large bowel obstruction: 2 days history of constipation and abdominal distention with nausea CT of the abdomen and pelvis showed 6 cm sigmoid mass with partial obstruction of the intestine Will be admitted to telemetry unit with history of CAD and CABG Keep him n.p.o. and give intravenous fluid, antibiotic management Surgery has been consulted-appreciate input and recommendation Denies any significant obstructive symptoms-we will continue current management (2) Colonic mass: History of carcinoid tumor status post removal about 10 inch of colon about 10 years ago Current sigmoid mass could be a recurrence or new colonic mass rule out for any malignancy No associated symptoms of carcinoid tumor. We will consult GI for possible colonoscopy down the line Appreciate GI input and recommendation Possible sigmoidoscopy and/or colonoscopy for therapeutic and/or diagnostic purposes (3) Epigastric abdominal pain: Complaint left lower cysts chest/epigastric pain without any associated symptoms EKG shows sinus rhythm rate of 72/min partial right bundle branch block with T inversion in anterior leads. No prior EKG to compare Doubt any ACS We will admit to telemetry unit and will get serial cardiac enzymes to rule out possibility of ACS Serial cardiac enzymes remained unremarkable for any ACS Return next dose has been increased (4) CAD (coronary artery disease): History of CAD and [place] status post CABG x3 Minor epigastric/lower central discomfort but no angina No cardiac symptoms (5) HTN (hypertension): Blood pressure seems to be elevated We will continue with intravenous Lopressor (6) Diabetes type 2, controlled: We will put him on sliding scale insulin coverage DVT prophylaxis Subcu heparin CODE STATUS Full Discussed with the son in detail Admission and Anticipated Discharge Date Admission Date: October 26, 2019 Subjective 10/27/2019 The patient was seen and examined in ICUtelemetry status He complains today of some nausea but denies any abdominal pain No chest pain and/or shortness of breath Has been passing gas but no bowel movement Review of Systems Review of Systems: All systems reviewed and are unremarkable except as noted below Gastrointestinal: + bloating and + nausea; no abdominal pain and no vomiting Physical Exam Physical Exam: Lying in bed comfortably Constitutional: well developed, well nourished, + ill appearing and + obese; no acute distress Eyes: PERRL, conjunctivae normal, anicteric sclerae ENMT: external ear and nose normal, oropharynx normal Neck: trachea midline, no thyromegaly Respiratory: normal respiratory effort; no respiratory distress Auscultation: lungs clear to auscultation bilaterally Cardiovascular: Rate/Rhythm: regular rate and regular rhythm Heart Sounds: no murmur Extremities: + pedal edema (1+ bilateral) Gastrointestinal (Abdomen): Inspection/Auscultation: + abdomen distended; + abnormal bowel sounds (Decreased bowel sounds) Percussion/Palpation: abdomen soft; abdomen nontender Musculoskeletal: No acute arthritis in any joints Neurologic: moves all extremities; no focal motor deficits Lymphatic: no cervical or axillary lymphadenopathy Results & Data Results & Data ([facility]) Vital Signs (Past 12 Hours) Vital Signs Temp Pulse Resp BP Pulse Ox 10/27/19 08:00 67 15 91 10/27/19 07:59 37.0 C 66 15 148/88 H 92 10/27/19 07:00 71 15 96 10/27/19 06:59 69 16 146/76 H 92 10/27/19 06:45 68 15 92 10/27/19 04:02 36.8 C 74 22 94 10/27/19 04:01 80 18 158/149 H 95 10/27/19 03:59 86 15 97 10/27/19 03:50 78 19 92 10/27/19 03:40 82 16 92 10/27/19 03:30 80 21 92 10/27/19 03:20 80 22 93 10/27/19 03:10 71 20 94 10/27/19 03:00 75 18 92 10/27/19 02:59 74 22 151/88 H 92 10/27/19 02:50 76 20 92 10/27/19 02:40 72 16 93 10/27/19 02:30 76 15 93 10/27/19 02:20 70 18 93 10/27/19 02:10 75 16 93 10/27/19 02:00 83 23 92 10/27/19 01:59 81 18 132/80 91 10/27/19 01:50 83 18 92 10/27/19 01:40 86 14 93 10/27/19 01:30 81 18 92 10/27/19 01:20 82 26 H 92 10/27/19 01:10 81 22 92 10/27/19 01:00 76 17 93 10/27/19 00:59 72 14 147/91 H 96 05/04/20 00:50 97 H 21 94 05/04/20 00:40 85 20 93 10/27/19 00:30 85 19 91 10/27/19 00:20 66 17 91 10/27/19 00:10 70 14 91 10/27/19 00:00 36.8 C 72 20 94 10/26/19 23:59 78 23 130/69 95 10/26/19 23:50 74 18 92 10/26/19 23:41 54 L 10/26/19 23:40 85 20 93 10/26/19 23:30 73 17 93 10/26/19 23:20 78 17 90 10/26/19 23:10 67 23 93 10/26/19 23:01 54 L 14 95 10/26/19 23:00 71 18 116/70 93 10/26/19 22:50 70 20 92 10/26/19 22:40 75 26 H 91 10/26/19 22:30 74 18 91 10/26/19 22:20 71 17 93 10/26/19 22:10 75 18 90 10/26/19 22:00 70 17 92 10/26/19 21:59 73 21 126/67 94 10/26/19 21:50 70 19 93 10/26/19 21:40 88 16 94 10/26/19 21:30 94 H 19 95 Laboratory Results Short CBC 10/26/19 10/27/19 Range/Units 14:09 04:18 WBC 9.60 8.89 (4.8-10.8) K/uL Hgb 16.3 14.9 (14.0-18.0) g/dL Hct 48.4 44.7 (42-52) % Plt Count 324 337 (130-400) K/uL BMP 10/26/19 10/26/19 10/27/19 14:09 15:58 04:18 Sodium 134 L 137 Potassium 4.5 4.0 Chloride 99 104 Carbon Dioxide 26 25 BUN 16 18 Creatinine 1.15 1.02 Glucose 148 H 142 H Calcium 9.2 8.7 Cardiac Enzymes 10/26/19 10/26/19 10/26/19 Range/Units 14:09 15:58 21:56 Total Creatine Kinase 40 (39-308) U/L Troponin I < 0.015 < 0.015 (0-0.045) ng/ml 10/27/19 Range/Units 04:18 Total Creatine Kinase (39-308) U/L Troponin I < 0.015 (0-0.045) ng/ml Liver Function 10/26/19 10/26/19 10/27/19 Range/Units 14:09 15:58 04:18 Total Bilirubin 0.9 0.9 (0.2-1) mg/dl AST 10 L 11 L (15-37) U/L ALT 16 13 (12-78) U/L Alkaline Phosphatase 86 70 (45-117) U/L Albumin 3.4 3.1 L (3.4-5.0) gm/dl Urine 10/26/19 Range/Units 20:36 Urine Color Dark Yellow Urine Appearance Clear (Clear) Urine pH 5.0 (4.5-7.5) Ur Specific [place] 1.030 (1.000-1.030) Urine Protein Trace H (Negative) Urine Glucose (UA) Negative (Negative) Medications Administered Current Inpatient Medications Heparin Sodium (Porcine) (Heparin Sodium (Porcine)) 5,000 units SQ Q12 LISA Stop: 11/25/19 20:59 Last Admin: 10/26/19 20:00 Dose: 5,000 units Documented by: Hydromorphone HCl (Dilaudid) 0.5 mg IV Q4H PRN PRN Reason: Pain Stop: 11/09/19 19:39 Pantoprazole Sodium 40 mg/ (Syringe) 10 mls @ 5 mls/min IV DAILY@2100 LISA Stop: 11/25/19 20:59 Last Admin: 10/26/19 19:56 Dose: 5 mls/min Documented by: Sodium Chloride (Nss 1000ml) 1,000 mls @ 125 mls/hr IV .Q8H LISA Stop: 11/25/19 18:44 Last Admin: 10/27/19 02:30 Dose: 125 mls/hr Documented by: Insulin Aspart (Novolog Flexpen) 0 units SC ACHS LISA Stop: 11/25/19 20:59 Last Admin: 10/27/19 07:18 Dose: Not Given Documented by: Metoprolol Tartrate (Lopressor) 5 mg IV Q6 LISA Stop: 11/26/19 00:00 Last Admin: 10/27/19 05:08 Dose: Not Given Documented by: Ondansetron HCl (Zofran) 4 mg IV Q6H LISA Stop: 11/25/19 19:59 Last Admin: 10/27/19 07:18 Dose: 4 mg Documented by:
--- NOTE | 2019-10-27 09:31 | Gastrointestinal Consultation ---
Date of Consultation October 27, 2019 Assessment & Plan (1) Large bowel obstruction: (2) Colonic mass: Pt is a 79 male currently admitted w partial large bowel obstruction, found to have 6cm sigmoid mass, also 1.6cm calcified gastric mass on non contrasted CT scan. He has hx of TI neuroendocrine tumor s/p resection in 2009 ,prostate ca. - Protonix 40mg IV lida y - Keep NPO - If N/V place NGT to decompress stomach - Kub today; if no sign of significant bowel distension/full obstruction, may try slow bowel prep today for potential EGD/colonoscopy tomorrow - Surgery following, appreciate recs Supervising Physician Co-Signing Physician Notes Attending attestation I have seen, examined this patient, and agree with the findings and above by our mid-level provider MILLIE Mercado, with the following additions -Soft but mildly distended abdomen, non-tympanetic, passing flatus. Has a history of Carcinoid tumor with right hemicolectomy. -Now with sigmoid transition concerning for neoplasm -Does not appear obstructed -Will plan on slow prep assuming he can tolerate it, if not stop. Plan on Colonosocpy tomorrow and EGD given calcified lesion in gastric area -If has any trouble with prep, then please stop and will do with Enemas only History of Present Illness Reason for Consultation: Colonic mass, hx of colon ca Requesting Physician: Dr. Trevor Evans Attending Physician: Dr. Daniele Odell History of Present Illness Pt is a 79 y/o male w hx of CABG, dyslipidemia, prostate ca, TI neuroendocrine tumor s/p resection in 2009 who presented w c/o constipation, diffuse abd pain, nausea w/o vomiting x 3 days. He denies any fever, chills, CP, SOB. He reports stools prior to 3 days ago was "flaky", denies any black tarry stools, rectal bleeding. CT abd/pelvis w.o contrast: 1. Focal 6 cm segment of thickening within the mid sigmoid colon which is suspicious for a colonic mass. 2. Mildly dilated gas and fluid-filled loops of small bowel. The colon is also borderline distended with the transition point located at the masslike area of thickening within the mid sigmoid colon. Therefore, findings favor a partial large bowel obstruction secondary to the suspected sigmoid mass. 3. There is also mild thickening within the proximal sigmoid colon with mild adjacent inflammatory change. This raises the possibility of superimposed colitis. Follow-up colonoscopy recommended for further evaluation and decompression of the suspected large bowel obstruction. 4. Mildly distended gallbladder. No gallbladder wall thickening. 5. Left-sided nephrolithiasis. No hydronephrosis. 6. Partially calcified 1.6 cm mass within the gastric wall. Follow-up endoscopy recommended for further evaluation. He denies significant weight loss. He is currently having mild diffuse abd pain, abd does appear distended but he report it being about same size as normal. He is passing flatus, no stools x 3 days Allergies Allergy/AdvReac Type Severity Reaction Status Date / Time simvastatin AdvReac Mild muscle Verified 10/26/19 15:05 weakness aspirin AdvReac Unknown GI UPSET Verified 10/26/19 15:05 IN HIGH DOSES atorvastatin AdvReac Unknown MUSCLE Verified 10/26/19 15:05 ACHES Rumcgxc-Xyu-Ibe Reductase AdvReac Unknown MUSCLE Unverified 10/26/19 15:05 Inhibitor ACHES AND WEAKNESS/DIARRHEA Home Medications Home Medications Medication Instructions Recorded Confirmed Type allopurinol 300 mg PO DAILY 10/26/19 10/26/19 History aspirin [Aspir-81] 81 mg PO DAILY 10/26/19 10/26/19 History furosemide 20 mg PO DAILY 10/26/19 10/26/19 History gabapentin 300 mg PO HS 10/26/19 10/26/19 History metoprolol succinate 25 mg PO DAILY 10/26/19 10/26/19 History omeprazole 20 mg PO BID 10/26/19 10/26/19 History sertraline 100 mg PO DAILY 10/26/19 10/26/19 History spironolactone 25 mg PO DAILY 10/26/19 10/26/19 History Patient History Medical History Family hx of colon cancer Fusion of spine Surgical History History of carpal tunnel release 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 History of laminectomy History of prostatectomy History of total knee replacement Social History Preferred Language: Norwegian Communication Ability: Effective Beliefs That Will Affect Care: None marital status: Current Living Situation: Spouse Other Information That Helps Us Care for You: No Feels Safe at Home: Yes Safety Concerns: Feels Safe At This Time Smoking Status: Former smoker Tobacco Type: pipe ; Smoking End Date: 1980 ; Second Hand Exposure: No ; Tobacco Cessation Education Requested by Patient: No Hx Alcohol Use: Yes Alcohol type: beer Hx Substance Use: No Review of Systems Review of Systems: All systems reviewed & are unremarkable except as noted in HPI & below Physical Exam Constitutional: WD/WN, vitals as above well groomed, cooperative and comfortable Eyes: PERRL, conjunctivae normal, anicteric sclerae ENMT: external ear and nose normal, oropharynx normal Respiratory: normal respiratory effort, lungs clear to auscultation Cardiovascular: RRR, no murmur, no edema Gastrointestinal (Abdomen): Inspection/Auscultation: + abdomen distended and + hypoactive bowel sounds Percussion/Palpation: + abdomen tender Skin: no rashes, warm and dry no jaundice Neurologic: Motor/Sensory: no asterixis Psychiatric: A+Ox3, euthymic affect Lymphatic: no lymphedema Results & Data ([facility]) Vital Signs (Past 12 Hours) Vital Signs Temp Pulse Resp BP Pulse Ox 10/27/19 08:00 67 15 91 10/27/19 07:59 37.0 C 66 15 148/88 H 92 10/27/19 07:00 71 15 96 10/27/19 06:59 69 16 146/76 H 92 10/27/19 06:45 68 15 92 10/27/19 04:02 36.8 C 74 22 94 10/27/19 04:01 80 18 158/149 H 95 10/27/19 03:59 86 15 97 10/27/19 03:50 78 19 92 10/27/19 03:40 82 16 92 10/27/19 03:30 80 21 92 10/27/19 03:20 80 22 93 10/27/19 03:10 71 20 94 10/27/19 03:00 75 18 92 10/27/19 02:59 74 22 151/88 H 92 10/27/19 02:50 76 20 92 10/27/19 02:40 72 16 93 10/27/19 02:30 76 15 93 10/27/19 02:20 70 18 93 10/27/19 02:10 75 16 93 05 02:00 83 23 92 05 01:59 81 18 132/80 91 05 01:50 83 18 92 05 01:40 86 14 93 05 01:30 81 18 92 10/27/19 01:20 82 26 H 92 05 01:10 81 22 92 05 01:00 76 17 93 10/27/19 00:59 72 14 147/91 H 96 10/27/19 00:50 97 H 21 94 10/27/19 00:40 85 20 93 05 00:30 85 19 91 05 00:20 66 17 91 05 00:10 70 14 91 10/27/19 00:00 36.8 C 72 20 94 10/26/19 23:59 78 23 130/69 95 0503 23:50 74 18 92 05 23:41 54 L 10/26/19 23:40 85 20 93 10/26/19 23:30 73 17 93 05 23:20 78 17 90 05 23:10 67 23 93 10/26/19 23:01 54 L 14 95 10/26/19 23:00 71 18 116/70 93 10/26/19 22:50 70 20 92 0520 22:40 75 26 H 91 20 22:30 74 18 91 050320 22:20 71 17 93 0503 22:10 75 18 90 05 22:00 70 17 92 0503 21:59 73 21 126/67 94 050320 21:50 70 19 93 050320 21:40 88 16 94 050320 21:30 94 H 19 95
--- NOTE | 2019-10-27 10:06 | XRay Report ---
XR KUB/Abdomen 1 view CLINICAL HISTORY: 79 years-old Male presenting with re-eval bowel obstruction, colonic distension. TECHNIQUE: Single supine view of the abdomen was obtained. COMPARISON: CT from 10/26/2019 and abdominal radiograph from 05/15/2010. FINDINGS: Mild gaseous distention of small bowel with a stacked configuration and evidence of mild wall thicken ing. This corresponds to the findings on CT from yesterday. Mild gaseous distention of large bowel. N o gross pneumoperitoneum. Surgical clips project over the pelvis indicating prior prostatectomy. Allowing for bowel gas and stool, no calcifications to suggest nephrolithiasis. Degenerative changes of the spine. Median sternotomy wires and mediastinal surgical clips. Lung bases clear. IMPRESSION: 1. Persistent gaseous distention of small bowel with suspected wall edema. An obstructive pattern wa s suspected on yesterday's CT with an obstruction at the level of the large bowel. Findings suggest p ersistent obstruction or small bowel ileus on today's study though only of mild large bowel distentio n is present radiographically. Radiographic findings do not strongly suggest a large bowel obstructio n. Follow-up advised. ACT 112: Negative or not required by law. Electronically signed by: Frederick Ham M.D. 10/27/2019 10:05 AM
[2019-10-27] MEDS ORDERED: bisacodyL 5 MG TABEC PO ONE (17:06)
[2019-10-27] MEDS ORDERED: Nursing to Pharmacy Communication ONE (19:16)
[2019-10-27] MEDS: HEPARIN SOD 5,000 UNIT/0.5 ML VIAL SQ SCH (20:14)
[2019-10-27] MEDS: PANTOprazole 40 MG in SYRINGE 0 ML IV SCH (20:15)
[2019-10-28] MEDS: SODIUM CHLORIDE 0.9% 1000ML 1,000 ML IV SCH ×2 (02:05→10:19)
[2019-10-28] MEDS: ONDANSETRON INJ 2 MG/ML 2 ML VIAL IV SCH ×4 (02:05→20:15)
[2019-10-28 04:24] LABS: Basophils # (auto) 0.01 K/uL (0-0.2); Basophils % (auto) 0.1 %; Eosinophils % (auto) 1.3 %; Hematocrit (blood only) 42.1 % (42-52); Hemoglobin 13.9 g/dL (14.0-18.0); Immature Granulocytes # (auto) 0.01 K/uL (0.00-0.02); Immature Granulocytes % (auto) 0.1 %; Lymphocytes # (auto) 1.38 K/uL (1.2-3.4); Lymphocytes % (auto) 18.5 %; Mean Corpuscular Hemoglobin 28.8 pg (25-34); Mean Corpuscular Volume 87.2 fL (80-100); Mean Platelet Volume 9.1 fL (7.4-10.4); Monocytes # (auto) 0.97 K/uL (0.11-0.59); Neutrophils # (auto) 4.98 K/uL (1.4-6.5); Platelet Count 311 K/uL (130-400); RDW Coefficient of Variation 15.1 % (11.5-14.5); RDW Standard Deviation 48.4 fL (36.4-46.3); Red Blood Count 4.83 M/uL (4.7-6.1); White Blood Count 7.45 K/uL (4.8-10.8)
[2019-10-28 04:41] LABS: BUN Creatinine Ratio 15.3 (10-20); Calcium 8.1 mg/dl (8.5-10.1); Creatinine Clr Calc Pharmacy 62.6 ml/min; Est GFR (African American) 78.2; Est GFR (Non-African American) 67.5; Magnesium 1.7 mg/dl (1.8-2.4); Phosphorus 2.4 mg/dl (2.5-4.9); Potassium 3.9 mmol/L (3.5-5.1)
[2019-10-28] MEDS: INSULIN ASPART 100 UNITS/ML 3 ML PEN SC SCH ×4 (05:19→20:16)
[2019-10-28] MEDS: METOPROLOL TARTRATE 1 MG/ML VIAL IV SCH ×2 (05:20→12:16)
--- NOTE | 2019-10-28 08:31 | Anesthesiology Consultation ---
Date of Service October 28, 2019 Assessment & Plan Chart Review Chart Review: Acceptable Risk for Surgery Consults Requested none History Surgery Operation Date: 10/28/19 08:30 Proposed Procedures p Colonoscopy EGD Dr Cass Odell Height/Weight Height: 5 ft 8 in Weight: 95.8 kg Allergies Allergy/AdvReac Type Severity Reaction Status Date / Time simvastatin AdvReac Mild muscle Verified 10/26/19 15:05 weakness aspirin AdvReac Unknown GI UPSET Verified 10/26/19 15:05 IN HIGH DOSES atorvastatin AdvReac Unknown MUSCLE Verified 10/26/19 15:05 ACHES Ubnycpw-Zar-Thd Reductase AdvReac Unknown MUSCLE Unverified 10/26/19 15:05 Inhibitor ACHES AND WEAKNESS/DIARRHEA Medications Home Medications Medication Instructions Recorded Confirmed Last Taken allopurinol 300 mg PO DAILY 10/26/19 10/26/19 Unknown aspirin [Aspir-81] 81 mg PO DAILY 10/26/19 10/26/19 Unknown furosemide 20 mg PO DAILY 10/26/19 10/26/19 Unknown gabapentin 300 mg PO HS 10/26/19 10/26/19 Unknown metoprolol succinate 25 mg PO DAILY 10/26/19 10/26/19 Unknown omeprazole 20 mg PO BID 10/26/19 10/26/19 Unknown sertraline 100 mg PO DAILY 10/26/19 10/26/19 Unknown spironolactone 25 mg PO DAILY 10/26/19 10/26/19 Unknown Active Medications Generic Name Dose Route Start Last Admin Trade Name Freq PRN Reason Stop Dose Admin Heparin Sodium (Porcine) 5,000 units 10/26/19 21:00 10/27/19 20:14 Heparin Sodium (Porcine) SQ 11/25/19 20:59 5,000 units Q12 LISA Administration Pantoprazole Sodium 40 mg/ 10 mls @ 5 mls/min 10/26/19 21:00 10/27/19 20:15 Syringe IV 11/25/19 20:59 5 mls/min DAILY@2100 LISA Administration Sodium Chloride 1,000 mls @ 125 mls/hr 10/26/19 18:45 10/28/19 02:05 Nss 1000ml IV 11/25/19 18:44 125 mls/hr .Q8H LISA Administration Insulin Aspart 0 units 10/28/19 00:00 10/28/19 05:19 Novolog Flexpen SC 11/27/19 00:00 Not Given Q6 LISA Metoprolol Tartrate 5 mg 10/27/19 00:00 10/28/19 05:20 Lopressor IV 11/26/19 00:00 5 mg Q6 LISA Administration Ondansetron HCl 4 mg 10/26/19 20:00 10/28/19 07:12 Zofran IV 11/25/19 19:59 4 mg Q6H LISA Administration NPO Date Last Intake of Fluids: 10/27/19 Time Last Intake of Fluids: 19:00 Date Last Intake of Solids: 10/25/19 Time Last Intake of Solids: 18:00 Past Medical History Medical History Family hx of colon cancer Fusion of spine Past Surgical History Surgical History History of carpal tunnel release 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 History of laminectomy History of prostatectomy History of total knee replacement Social History Smoking Status: Former smoker tobacco type: pipe Smoking End Date: 1980 Hx Alcohol Use: Yes Alcohol type: beer alcohol intake frequency: holidays/special occasions only Hx Substance Use: No substance use type: does not use Physical Exam Vital Signs Last Vital Signs Temp 36.7 C 10/28/19 08:05 Pulse 83 10/28/19 05:20 Resp 18 10/28/19 08:05 BP 130/71 10/28/19 08:05 Pulse Ox 96 10/28/19 08:05 Testing Laboratory Results 10/28/19 04:10 10/28/19 04:10 Hemoglobin A1c 7.0 % (4.5-5.6) H 10/27/19 04:18 Urine Color Dark Yellow 10/26/19 20:36 Urine Appearance Clear (Clear) 10/26/19 20:36 Urine pH 5.0 (4.5-7.5) 10/26/19 20:36 Ur Specific [place] 1.030 (1.000-1.030) 10/26/19 20:36 Urine Protein Trace (Negative) H 10/26/19 20:36 Urine Glucose (UA) Negative (Negative) 10/26/19 20:36 Urine Ketones Trace (Negative) H 10/26/19 20:36 Urine Nitrite Negative (Negative) 10/26/19 20:36 Ur Leukocyte Esterase Negative (Negative) 10/26/19 20:36 Urine WBC (Auto) 1-5 /hpf (0-5) 10/26/19 20:36 Urine RBC (Auto) 0-4 /hpf (0-4) 10/26/19 20:36 U Hyaline Cast (Auto) 1-5 /lpf (0-5) 10/26/19 20:36 U Epithel Cells (Auto) 10-20 /lpf (0-5) H 10/26/19 20:36 Urine Bacteria (Auto) Negative (Negative) 10/26/19 20:36 10/28/19 10/27/19 05:18 23:24 POC Glucose 104 H 122 H
--- NOTE | 2019-10-28 08:48 | Gastroenterology Progress Note ---
Date of Service October 28, 2019 Assessment & Plan (1) Colonic mass: Plan for colonosocpy today, plan for EGD based upon the calcified lesion which is likely submucosal on CT. Admission and Anticipated Discharge Date Admission Date: October 26, 2019 Subjective did well overnight, tolerated prep well Physical Exam Constitutional: WD/WN, vitals as above Cardiovascular: RRR, no murmur, no edema Gastrointestinal (Abdomen): normal bowel sounds, soft, nontender, no hepatosplenomegaly Results & Data ([facility]) Vital Signs (Past 12 Hours) Vital Signs Temp Pulse Pulse Resp BP BP BP 10/28/19 08:05 36.7 C 18 130/71 10/28/19 05:20 83 133/71 10/28/19 04:00 36.8 C 91 H 22 140/81 10/27/19 23:59 90 10/27/19 23:56 36.8 C 91 H 22 140/81 10/27/19 23:36 90 140/81 Pulse Ox 10/28/19 08:05 96 10/28/19 05:20 10/28/19 04:00 92 10/27/19 23:59 10/27/19 23:56 92 10/27/19 23:36
[2019-10-28] MEDS: HEPARIN SOD 5,000 UNIT/0.5 ML VIAL SQ SCH ×2 (08:53→20:15)
[2019-10-28] MEDS ORDERED: LIDOCAINE HCL 2% 2 ML VIAL/AMP(20MG/ML) INFIL ONE (09:11)
[2019-10-28] MEDS ORDERED: PROPOFOL IV EMULSION 10 MG/ML 20 ML VIAL IV ONE (09:11)
--- NOTE | 2019-10-28 09:26 | GI REPORT ---
Patient Name: Bo Casey Procedure Date: 10/28/2019 8:16 AM Date of : 1940 Admit Type: Inpatient Age: 79 Gender: Male Attending MD: Daniele Odell MD Procedure: Upper GI endoscopy Providers: Daniele Odell MD Referring MD: Dane Meyers Indications: Abnormal CT of the GI tract Medicines: Monitored Anesthesia Care Complications: No immediate complications. Estimated blood loss: None. Estimated Blood Loss: Estimated blood loss: none. Procedure: Pre-Anesthesia Assessment: - Pre-Anesthesia Assessment: - Prior to the procedure, a History and Physical was performed, and patient medications, allergies and sensitivities were reviewed. The patient's tolerance of previous anesthesia was reviewed. Please see [employer] for complete details. - The risks and benefits of the procedure and the sedation options and risks were discussed with the patient. All questions were answered and informed consent was obtained. - Patient identification and proposed procedure were verified prior to the procedure by the physician and the nurse. The procedure was verified in the pre-procedure area in the procedure room. After obtaining informed consent, the endoscope was passed carefully and meticuously under direct vision and only advanced when the lumen was clearly identified, C02 insuflation was utilized throughout the entirity of the procedure. Throughout the procedure, the patient's blood pressure, pulse, and oxygen saturations were monitored continuously. After obtaining informed consent, the endoscope was passed under direct vision. Throughout the procedure, the patient's blood pressure, pulse, and oxygen saturations were monitored continuously. The Endoscope was introduced through the mouth, and advanced to the second part of duodenum. The upper GI endoscopy was accomplished without difficulty. The patient tolerated the procedure well. Findings: The examined esophagus was normal. The entire examined stomach was normal. The examined duodenum was normal. Impression: - Normal esophagus. - Normal stomach. - Normal examined duodenum. - No specimens collected. Recommendation: - Return patient to [facility] for [facility] care. - Consider non-urgent outpatient EUS pending patients' desire and plan of surgery for sigmoid findings. Daniele Odell MD 10/28/2019 9:26:09 AM This report has been signed electronically. Note Initiated On: 10/28/2019 8:16 AM Number of Addenda: 0 I attest to the content of the Intraoperative Record and orders documented therein, exceptions below {[id number]}
--- NOTE | 2019-10-28 09:31 | GI REPORT ---
Patient Name: Bo Casey Procedure Date: 10/28/2019 8:14 AM Date of : 1940 Admit Type: Inpatient Age: 79 Gender: Male Attending MD: Daniele Odell MD Procedure: Colonoscopy Providers: Daniele Odell MD Referring MD: Dane Meyers Indications: Abnormal CT of the GI tract Medicines: Monitored Anesthesia Care Complications: No immediate complications. Estimated blood loss: None. Estimated Blood Loss: Estimated blood loss: none. Procedure: Pre-Anesthesia Assessment: - Pre-Anesthesia Assessment: - Prior to the procedure, a History and Physical was performed, and patient medications, allergies and sensitivities were reviewed. The patient's tolerance of previous anesthesia was reviewed. Please see [employer] for complete details. - The risks and benefits of the procedure and the sedation options and risks were discussed with the patient. All questions were answered and informed consent was obtained. - Patient identification and proposed procedure were verified prior to the procedure by the physician and the nurse. The procedure was verified in the pre-procedure area in the procedure room. After obtaining informed consent, the endoscope was passed carefully and meticuously under direct vision and only advanced when the lumen was clearly identified, C02 insuflation was utilized throughout the entirity of the procedure. Throughout the procedure, the patient's blood pressure, pulse, and oxygen saturations were monitored continuously. After I obtained informed consent, the scope was passed under direct vision. Throughout the procedure, the patient's blood pressure, pulse, and oxygen saturations were monitored continuously. The Colonoscope was introduced through the anus and advanced to the ileocolonic anastomosis. The colonoscopy was performed without difficulty. The patient tolerated the procedure well. The quality of the bowel preparation was poor. Findings: The terminal ileum appeared normal. Multiple small-mouthed diverticula were found in the sigmoid colon. A benign-appearing, intrinsic moderate stenosis/narrowing measuring 1 cm (in length) x 9 mm (inner diameter) was found at 20 cm proximal to the anus and was traversed. This was in the area of diverticuli and there appeared to be an area of transition consitent with CT findings. Mucosa was edematous, but not worrisome in appearances. The lumen seemed to have a transition point wtih an almost twisting of the lumen. Biopsies were taken with a cold forceps for histology. Internal hemorrhoids were found during retroflexion. The exam was otherwise without abnormality on direct and retroflexion views. Impression: - Preparation of the colon was poor. - The examined portion of the ileum was normal. - Diverticulosis in the sigmoid colon. - Stricture at 20 cm proximal to the anus. Biopsied. - Internal hemorrhoids. - The examination was otherwise normal on direct and retroflexion views. Recommendation: - Return patient to [facility] for ongoing care. - Bowel regimen with miralax once or twice daily. - Further care for possible determination of surgery pending surgical team opinion and biopsy results. Daniele Odell MD 10/28/2019 9:31:12 AM This report has been signed electronically. Note Initiated On: 10/28/2019 8:14 AM Number of Addenda: 0 I attest to the content of the Intraoperative Record and orders documented therein, exceptions below {[id number]}
--- NOTE | 2019-10-28 09:59 | Anesthesiology Progress Note ---
Date of Service October 28, 2019 Anesthesia Post Procedure Vital Signs Vital Signs: Temp Pulse Pulse Pulse Resp BP BP 10/28/19 09:41 63 18 10/28/19 09:26 72 18 10/28/19 08:05 36.7 C 18 10/28/19 07:00 36.8 C 76 12 10/28/19 06:45 79 13 10/28/19 05:20 83 133/71 10/28/19 04:00 36.8 C 91 H 22 140/81 10/27/19 23:59 90 10/27/19 23:56 36.8 C 91 H 22 140/81 10/27/19 23:36 90 140/81 10/27/19 19:36 36.6 C 67 16 152/80 H 10/27/19 18:20 73 18 10/27/19 18:10 66 19 10/27/19 18:00 73 17 10/27/19 17:50 80 17 10/27/19 17:45 71 16 10/27/19 17:35 73 160/89 H 10/27/19 17:30 68 17 10/27/19 17:25 101 H 19 10/27/19 17:10 70 19 10/27/19 17:00 81 17 10/27/19 16:50 83 18 10/27/19 16:40 75 15 10/27/19 16:30 80 17 10/27/19 16:20 77 20 10/27/19 16:10 73 17 10/27/19 16:01 69 16 10/27/19 15:59 72 14 160/89 H 10/27/19 15:50 70 16 10/27/19 15:40 95 H 25 H 10/27/19 15:30 81 21 10/27/19 15:20 68 17 10/27/19 15:10 71 15 10/27/19 15:00 37.0 C 77 16 160/89 H 10/27/19 14:02 59 L 18 10/27/19 13:00 56 L 18 10/27/19 12:23 58 L 123/73 10/27/19 12:00 65 15 10/27/19 11:30 62 20 10/27/19 11:25 62 17 10/27/19 11:24 65 21 123/73 10/27/19 11:00 65 18 10/27/19 10:59 36.6 C 66 17 164/95 H 10/27/19 10:00 67 15 BP Pulse Ox 10/28/19 09:41 131/67 98 10/28/19 09:26 106/63 97 10/28/19 08:05 130/71 96 10/28/19 07:00 96 10/28/19 06:45 10/28/19 05:20 10/28/19 04:00 92 10/27/19 23:59 10/27/19 23:56 92 10/27/19 23:36 10/27/19 19:36 92 10/27/19 18:20 10/27/19 18:10 10/27/19 18:00 10/27/19 17:50 10/27/19 17:45 10/27/19 17:35 10/27/19 17:30 10/27/19 17:25 10/27/19 17:10 10/27/19 17:00 10/27/19 16:50 10/27/19 16:40 10/27/19 16:30 10/27/19 16:20 10/27/19 16:10 10/27/19 16:01 10/27/19 15:59 10/27/19 15:50 10/27/19 15:40 10/27/19 15:30 10/27/19 15:20 10/27/19 15:10 10/27/19 15:00 96 10/27/19 14:02 10/27/19 13:00 10/27/19 12:23 10/27/19 12:00 10/27/19 11:30 10/27/19 11:25 10/27/19 11:24 94 10/27/19 11:00 96 10/27/19 10:59 92 10/27/19 10:00 92 Transfer of Care Handoff Completed per policy Notes Mental Status: alert / awake / arousable and participated in evaluation Patient Amnestic to Procedure: Yes Nausea / Vomiting: adequately controlled Pain: adequately controlled Airway Patency, RR, SpO2: stable & adequate BP & HR: stable & adequate Hydration State: stable & adequate Anesthetic Complications: no major complications apparent
--- NOTE | 2019-10-28 11:09 | Surgery Progress Note ---
Date of Service October 28, 2019 Assessment & Plan (1) Large bowel obstruction: Pt here with with abdominal pain and CT evidence w/ concern for colonic mass causing bowel obstruction - Today pt is s/p EGD and Colonoscopy with GI, please see below for full reports - Colonoscopy revealed a normal terminal ileum, multiple sigmoid diverticuli with a stricture proximal to the anus with an area of transition point with an almost twisting of the lumen, mucosa was edematous but did not seem worrisome in appearance, biopsies taken - Patient clinically feeling improvement in his symptoms - Will discuss colonoscopy findings with our surgeons. Prior to c-scope findings we have tentatively placed pt on the schedule for this for lap. sigmoidectomy for presumed sigmoid mass - We will continue to follow, would not advance diet further than clears for now Subjective Pt seen s/p EGD and colonoscopy. States he is feeling well. Denies nausea/vomiting or abdominal pain. Passing BM's now after prep, not much flatus. Physical Exam Physical Exam: awake/alert Respiratory: normal respiratory effort Gastrointestinal (Abdomen): Inspection/Auscultation: + abdomen distended (minimal) and + abdominal surgical scar Percussion/Palpation: abdomen soft; abdomen nontender Results & Data Vital Signs (Past 12 Hours) Vital Signs Temp Pulse Pulse Pulse Resp BP BP 10/28/19 09:59 63 18 10/28/19 09:41 63 18 10/28/19 09:26 72 18 10/28/19 08:05 36.7 C 18 10/28/19 07:00 36.8 C 76 12 10/28/19 06:45 79 13 10/28/19 05:20 83 133/71 10/28/19 04:00 36.8 C 91 H 22 140/81 10/27/19 23:59 90 10/27/19 23:56 36.8 C 91 H 22 140/81 10/27/19 23:36 90 140/81 BP Pulse Ox 10/28/19 09:59 107/69 97 10/28/19 09:41 131/67 98 10/28/19 09:26 106/63 97 10/28/19 08:05 130/71 96 10/28/19 07:00 96 10/28/19 06:45 10/28/19 05:20 10/28/19 04:00 92 10/27/19 23:59 10/27/19 23:56 92 10/27/19 23:36 Procedure: Colonoscopy Providers: Daniele Odell MD Referring MD: Dane Meyers Indications: Abnormal CT of the GI tract Medicines: Monitored Anesthesia Care Complications: No immediate complications. Estimated blood loss: None. Estimated Blood Loss: Estimated blood loss: none. Procedure: Pre-Anesthesia Assessment: - Pre-Anesthesia Assessment: - Prior to the procedure, a History and Physical was performed, and patient medications, allergies and sensitivities were reviewed. The patient's tolerance of previous anesthesia was reviewed. Please see [facility] for complete details. - The risks and benefits of the procedure and the sedation options and risks were discussed with the patient. All questions were answered and informed consent was obtained. - Patient identification and proposed procedure were verified prior to the procedure by the physician and the nurse. The procedure was verified in the pre-procedure area in the procedure room. After obtaining informed consent, the endoscope was passed carefully and meticuously under direct vision and only advanced when the lumen was clearly identified, C02 insuflation was utilized throughout the entirity of the procedure. Throughout the procedure, the patient's blood pressure, pulse, and oxygen saturations were monitored continuously. After I obtained informed consent, the scope was passed under direct vision. Throughout the procedure, the patient's blood pressure, pulse, and oxygen saturations were monitored continuously. The Colonoscope was introduced through the anus and advanced to the ileocolonic anastomosis. The colonoscopy was performed without difficulty. The patient tolerated the procedure well. The quality of the bowel preparation was poor. Findings: The terminal ileum appeared normal. Multiple small-mouthed diverticula were found in the sigmoid colon. A benign-appearing, intrinsic moderate stenosis/narrowing measuring 1 cm (in length) x 9 mm (inner diameter) was found at 20 cm proximal to the anus and was traversed. This was in the area of diverticuli and there appeared to be an area of transition consitent with CT findings. Mucosa was edematous, but not worrisome in appearances. The lumen seemed to have a transition point wtih an almost twisting of the lumen. Biopsies were taken with a cold forceps for histology. Internal hemorrhoids were found during retroflexion. The exam was otherwise without abnormality on direct and retroflexion views. Impression: - Preparation of the colon was poor. - The examined portion of the ileum was normal. - Diverticulosis in the sigmoid colon. - Stricture at 20 cm proximal to the anus. Biopsied. - Internal hemorrhoids. - The examination was otherwise normal on direct and retroflexion views. Recommendation: - Return patient to [facility] for [facility] care. - Bowel regimen with miralax once or twice daily. - Further care for possible determination of surgery pending surgical team opinion and biopsy results. Daniele Odell MD 10/28/2019 9:31:12 AM Procedure: Upper GI endoscopy Providers: Daniele Odell MD Referring MD: Dane Meyers Indications: Abnormal CT of the GI tract Medicines: Monitored Anesthesia Care Complications: No immediate complications. Estimated blood loss: None. Estimated Blood Loss: Estimated blood loss: none. Procedure: Pre-Anesthesia Assessment: - Pre-Anesthesia Assessment: - Prior to the procedure, a History and Physical was performed, and patient medications, allergies and sensitivities were reviewed. The patient's tolerance of previous anesthesia was reviewed. Please see [facility] for complete details. - The risks and benefits of the procedure and the sedation options and risks were discussed with the patient. All questions were answered and informed consent was obtained. - Patient identification and proposed procedure were verified prior to the procedure by the physician and the nurse. The procedure was verified in the pre-procedure area in the procedure room. After obtaining informed consent, the endoscope was passed carefully and meticuously under direct vision and only advanced when the lumen was clearly identified, C02 insuflation was utilized throughout the entirity of the procedure. Throughout the procedure, the patient's blood pressure, pulse, and oxygen saturations were monitored continuously. After obtaining informed consent, the endoscope was passed under direct vision. Throughout the procedure, the patient's blood pressure, pulse, and oxygen saturations were monitored continuously. The Endoscope was introduced through the mouth, and advanced to the second part of duodenum. The upper GI endoscopy was accomplished without difficulty. The patient tolerated the procedure well. Findings: The examined esophagus was normal. The entire examined stomach was normal. The examined duodenum was normal. Impression: - Normal esophagus. - Normal stomach. - Normal examined duodenum. - No specimens collected. Recommendation: - Return patient to [facility] for ongoing care. - Consider non-urgent outpatient EUS pending patients' desire and plan of surgery for sigmoid findings. Daniele Odell MD 10/28/2019 9:26:09 AM PG Care Time/CCT Total # of Minutes Spent Total Time Spent with Patient: Total time spent is greater than 50% in coordination of care (as documented) at patient's floor/unit and/or counseling patient: Coding Level of Care Code 61567 Subseq Hosp Care Lvl 1 Diagnoses Large bowel obstruction K56.609
--- NOTE | 2019-10-28 11:55 | Hospitalist Progress Note ---
Date of Service October 28, 2019 Assessment & Plan (1) Large bowel obstruction: 2 days history of constipation and abdominal distention with nausea CT of the abdomen and pelvis showed 6 cm sigmoid mass with partial obstruction of the intestine Will be admitted to telemetry unit with history of CAD and CABG Keep him n.p.o. 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 We will consult GI for possible colonoscopy down the line Appreciate GI input and recommendation Status post colonoscopy which showed benign looking stricture about 20 cm proximal to the anus, biopsy taken Will start clear liquids today (3) Epigastric abdominal pain: Complaint left lower cysts chest/epigastric pain without any associated symptoms EKG shows sinus rhythm rate of 72/min partial right bundle branch block with T inversion in anterior leads. No prior EKG to compare Doubt any ACS We will admit to telemetry unit and will get serial cardiac enzymes to rule out possibility of ACS Serial cardiac enzymes remained unremarkable for any ACS Return next dose has been increased Status post EGD-unremarkable Remains free of symptoms (4) CAD (coronary artery disease): History of CAD and CT status post CABG x3 Minor epigastric/lower central discomfort but no angina No cardiac symptoms (5) HTN (hypertension): Blood pressure seems to be elevated We will continue with intravenous Lopressor (6) Diabetes type 2, controlled: We will put him on sliding scale insulin coverage DVT prophylaxis Subcu heparin CODE STATUS Full Discussed with the son in detail We will transfer patient to medical floor to continue care Admission and Anticipated Discharge Date Admission Date: October 26, 2019 Subjective 10/27/2019 The patient was seen and examined in ICUtelemetry status He complains today of some nausea but denies any abdominal pain No chest pain and/or shortness of breath Has been passing gas but no bowel movement 10/28/2019 The patient was seen in telemetry unit He is a status post EGD and colonoscopy Denies any significant symptoms Will start clears orally and advance as tolerated Review of Systems Review of Systems: All systems reviewed and are unremarkable except as noted below Gastrointestinal: no abdominal pain, no bloating, no nausea and no vomiting Physical Exam Physical Exam: Lying in bed comfortably Constitutional: well developed, well nourished, + ill appearing and + obese; no acute distress Eyes: PERRL, conjunctivae normal, anicteric sclerae ENMT: external ear and nose normal, oropharynx normal Neck: trachea midline, no thyromegaly Respiratory: normal respiratory effort; no respiratory distress Auscultation: lungs clear to auscultation bilaterally Cardiovascular: Rate/Rhythm: regular rate and regular rhythm Heart Sounds: no murmur Extremities: + pedal edema (1+ bilateral) Gastrointestinal (Abdomen): Inspection/Auscultation: + abdomen distended and normal bowel sounds Percussion/Palpation: abdomen soft; abdomen nontender Musculoskeletal: No acute arthritis in any joints Neurologic: moves all extremities; no focal motor deficits Lymphatic: no cervical or axillary lymphadenopathy Results & Data Results & Data ([facility]) Vital Signs (Past 12 Hours) Vital Signs Temp Pulse Pulse Pulse Resp BP BP 10/28/19 09:59 63 18 10/28/19 09:41 63 18 10/28/19 09:26 72 18 10/28/19 08:05 36.7 C 18 10/28/19 07:00 36.8 C 76 12 10/28/19 06:45 79 13 10/28/19 05:20 83 133/71 10/28/19 04:00 36.8 C 91 H 22 140/81 10/27/19 23:59 90 10/27/19 23:56 36.8 C 91 H 22 140/81 BP Pulse Ox 10/28/19 09:59 107/69 97 10/28/19 09:41 131/67 98 10/28/19 09:26 106/63 97 10/28/19 08:05 130/71 96 10/28/19 07:00 96 10/28/19 06:45 10/28/19 05:20 10/28/19 04:00 92 10/27/19 23:59 10/27/19 23:56 92 Laboratory Results Short CBC 10/28/19 Range/Units 04:10 WBC 7.45 (4.8-10.8) K/uL Hgb 13.9 L (14.0-18.0) g/dL Hct 42.1 (42-52) % Plt Count 311 (130-400) K/uL BMP 10/28/19 04:10 Sodium 141 Potassium 3.9 Chloride 111 H Carbon Dioxide 22 BUN 16 Creatinine 1.04 Glucose 112 H Calcium 8.1 L Medications Administered Current Inpatient Medications Heparin Sodium (Porcine) (Heparin Sodium (Porcine)) 5,000 units SQ Q12 LISA Stop: 11/25/19 20:59 Last Admin: 10/28/19 08:53 Dose: Not Given Documented by: Hydromorphone HCl (Dilaudid) 0.5 mg IV Q4H PRN PRN Reason: Pain Stop: 11/09/19 19:39 Pantoprazole Sodium 40 mg/ (Syringe) 10 mls @ 5 mls/min IV DAILY@2100 LISA Stop: 11/25/19 20:59 Last Admin: 10/27/19 20:15 Dose: 5 mls/min Documented by: Sodium Chloride (Nss 1000ml) 1,000 mls @ 125 mls/hr IV .Q8H LISA Stop: 11/25/19 18:44 Last Admin: 10/28/19 10:19 Dose: 125 mls/hr Documented by: Insulin Aspart (Novolog Flexpen) 0 units SC Q6 LISA Stop: 11/27/19 00:00 Last Admin: 10/28/19 05:19 Dose: Not Given Documented by: Metoprolol Tartrate (Lopressor) 5 mg IV Q6 LISA Stop: 11/26/19 00:00 Last Admin: 10/28/19 05:20 Dose: 5 mg Documented by: Ondansetron HCl (Zofran) 4 mg IV Q6H LISA Stop: 11/25/19 19:59 Last Admin: 10/28/19 07:12 Dose: 4 mg Documented by:
[2019-10-28] MEDS ORDERED: Nursing to Pharmacy Communication ONE (14:19)
[2019-10-28] MEDS: METOPROLOL SUCC 25MG EXT REL TAB PO SCH (14:24)
[2019-10-28] MEDS: GABAPENTIN 300 MG CAP PO SCH (20:15)
[2019-10-28] MEDS: PANTOprazole 40 MG TAB PO SCH (20:16)
[2019-10-29] MEDS: ONDANSETRON INJ 2 MG/ML 2 ML VIAL IV SCH ×4 (01:48→20:21)
[2019-10-29] MEDS ORDERED: CALCIUM CARBONATE 500 MG CHEWABLE TAB PO PRN (04:46)
[2019-10-29 06:37] LABS: Hematocrit (blood only) 41.4 % (42-52); Hemoglobin 13.6 g/dL (14.0-18.0); Mean Corpuscular Hgb Conc 32.9 g/dL (32-36); Mean Corpuscular Volume 88.3 fL (80-100); Mean Platelet Volume 8.9 fL (7.4-10.4); Platelet Count 294 K/uL (130-400); RDW Coefficient of Variation 15.2 % (11.5-14.5); RDW Standard Deviation 48.9 fL (36.4-46.3); Red Blood Count 4.69 M/uL (4.7-6.1); White Blood Count 6.15 K/uL (4.8-10.8)
[2019-10-29] MEDS: ASPIRIN 81 MG ECTAB PO SCH (08:14)
[2019-10-29] MEDS: allopurinoL 300 MG TAB PO SCH (08:14)
[2019-10-29] MEDS: PANTOprazole 40 MG TAB PO SCH ×2 (08:14→20:25)
[2019-10-29] MEDS: SERTRALINE HCL 100 MG TABLET PO SCH (08:14)
[2019-10-29] MEDS: METOPROLOL SUCC 25MG EXT REL TAB PO SCH (08:14)
[2019-10-29] MEDS: HEPARIN SOD 5,000 UNIT/0.5 ML VIAL SQ SCH ×2 (08:15→20:23)
[2019-10-29] MEDS: INSULIN ASPART 100 UNITS/ML 3 ML PEN SC SCH ×4 (08:16→20:21)
[2019-10-29] MEDS ORDERED: SPIRONOLACTONE 25 MG TAB PO SCH (09:00)
[2019-10-29] MEDS ORDERED: FUROSEMIDE 20 MG TAB PO SCH (09:00)
--- NOTE | 2019-10-29 10:28 | Surgery Progress Note ---
Date of Service October 29, 2019 Assessment & Plan (1) Large bowel obstruction: Pt here with with abdominal pain and CT evidence w/ concern for colonic mass causing bowel obstruction - Colonoscopy yesterday revealed a normal terminal ileum, multiple sigmoid diverticuli with a stricture proximal to the anus with an area of transition point with an almost twisting of the lumen, mucosa was edematous but did not seem worrisome in appearance, biopsies taken - Patient clinically feeling improvement in his symptoms - Biopsies have been rushed and hopefully will be back in next 24-48 hrs - Options have been explained to pt with operative vs non-operative management. At this time he is opting to try conservative measures, we will advance him to low fiber diet and start on a bowel regimen (miralax qd, senna bid) - We will continue to follow as above. pt seen. case discussed with Dr. Odell. suspect benign biopsies though still pending. pt has not had chronic issues with cramping/small caliber stools..it was relatively acute. feeling fine now. we discussed resection of the strictured area vs attempt at conservative management. with his age, comorbidities, and relatively mild symptoms, I think an attempt at conservative management first would be the best course. will add stool softeners bid, mild laxative daily, increased fluid intake and low residue diet. will have dieticians see him as well. if symptoms recur/worsen we would then have to seriously consider resection of the structured area. pt agrees with plan. will continue to follow along now as well as after discharge. Subjective Pt feeling well. Tolerating liquids without nausea/vomiting or abdominal pain. Passing loose stools after bowel prep. Physical Exam Physical Exam: awake/alert Gastrointestinal (Abdomen): Percussion/Palpation: abdomen soft; abdomen nontender Results & Data Vital Signs (Past 12 Hours) Vital Signs Temp Pulse Pulse Resp BP BP Pulse Ox 10/29/19 07:51 79 10/29/19 07:22 36.8 C 74 18 150/83 H 95 10/29/19 03:02 36.7 C 72 18 110/53 L 92 10/29/19 00:03 37.0 C 76 20 129/76 91 10/28/19 23:55 72 PG Care Time/CCT Total # of Minutes Spent Total Time Spent with Patient: Total time spent is greater than 50% in coordination of care (as documented) at patient's floor/unit and/or counseling patient: Coding Level of Care Code 07553 Subseq Hosp Care Lvl 1 Diagnoses Large bowel obstruction K56.609
--- NOTE | 2019-10-29 10:47 | Gastroenterology Progress Note ---
Date of Service October 29, 2019 Assessment & Plan (1) Large bowel obstruction: (2) Colonic mass: Pt is a 79 male currently admitted w partial large bowel obstruction, found to have 6cm sigmoid mass, also 1.6cm calcified gastric mass on non contrasted CT scan. He has hx of TI neuroendocrine tumor s/p resection in 2009 ,prostate ca. EGD/Colonoscopy performed 10/28/2019: EGD unremarkable. Colonoscopy showed normal ileum, diverticulosis at sigmoid colon w stricture/narrowing 20cm proximal to an us (bx pending), w twisting of lumen, int hemorrhoids. No signs of concerning mass lesion. - Awaiting colon bx results - Surgery following, pt opted for conservative measure and bowel regimen had be en ordered - Plan for outpt upper EUS To further eval calcified gastric mass not seen on EGD but noted on prior CT scan. - No new GI plans at this time Admission and Anticipated Discharge Date Admission Date: October 26, 2019 Supervising Physician Co-Signing Physician Notes Attending attestation I have seen, examined this patient, and agree with the findings and above by our mid-level provider MILLIE Mercado, with the following additions: - Doing well, eating solid food and having no signs of obstruction - Pathology pending - Surgical dispostion per symptoms and surgical follow up - Would do outpt visit prior to potential EUS for gastric nodule Subjective Pt reports feeling well, continued to pass yellowish liquid stools yesterday. Denies any abd pain, n/v. Colonoscopy bx not back yet. Review of Systems Review of Systems: All systems reviewed & are unremarkable except as noted in HPI & below Physical Exam Constitutional: WD/WN, vitals as above well groomed, cooperative and comfortable Eyes: PERRL, conjunctivae normal, anicteric sclerae ENMT: external ear and nose normal, oropharynx normal Respiratory: normal respiratory effort, lungs clear to auscultation Cardiovascular: RRR, no murmur, no edema Gastrointestinal (Abdomen): Inspection/Auscultation: + abdomen distended and normal bowel sounds Percussion/Palpation: abdomen nontender Skin: no rashes, warm and dry no jaundice Psychiatric: A+Ox3, euthymic affect Lymphatic: no lymphedema Results & Data ([facility]) Vital Signs (Past 12 Hours) Vital Signs Temp Pulse Pulse Resp BP BP Pulse Ox 10/29/19 07:51 79 10/29/19 07:22 36.8 C 74 18 150/83 H 95 10/29/19 03:02 36.7 C 72 18 110/53 L 92 10/29/19 00:03 37.0 C 76 20 129/76 91 10/28/19 23:55 72
[2019-10-29] MEDS: SENNA 8.6 MG TAB PO SCH ×2 (11:26→20:26)
--- NOTE | 2019-10-29 18:23 | Hospitalist Progress Note ---
Date of Service October 29, 2019 Assessment & Plan (1) Large bowel obstruction: per Dr. Evans's notes (previous attending): 2 days history of constipation and abdominal distention with nausea CT of the abdomen and pelvis showed 6 cm sigmoid mass with partial obstruction of the intestine Colonoscopy did not show any any significant mass 10/29/19 Biopsy of colonic stricture: no malignancy diet advanced Gen surg: conservative management for now, laxatives, outpatient ff up (2) Colonic mass: Status post colonoscopy which showed benign looking stricture about 20 cm proximal to the anus, biopsy taken Biopsy: negative for malignancy (3) Epigastric abdominal pain: per Dr. Evans's notes (previous attending): Complaint left lower cysts chest/epigastric pain without any associated symptoms EKG shows sinus rhythm rate of 72/min partial right bundle branch block with T inversion in anterior leads. No prior EKG to compare Serial cardiac enzymes remained unremarkable for any ACS Return next dose has been increased Status post EGD-unremarkable 10/29/19 ACS ruled out EGD unremarkable resolved (4) CAD (coronary artery disease): History of CAD and SC status post CABG x3 ACS ruled out (5) HTN (hypertension): improved continue usual Metoprolol PO (6) Diabetes type 2, controlled: ISS DVT prophylaxis Subcu heparin possible d/c home tomorrow when cleared by Gen Surg and GI Admission and Anticipated Discharge Date Admission Date: October 26, 2019 Subjective ff up for large bowel obstruction seen sitting up in bedside chair, comfortable not in distress states he feels improved today had 3 loose BMS so far, no blood no abdominal pain denies other symptoms Review of Systems Review of Systems: All systems reviewed & are unremarkable except as noted in HPI & below Physical Exam Physical Exam: General- oriented x 3, not in distress, speaks in sentences with no effort or accessory muscle use Head- atraumatic Eyes- PERRL, EOMI, anicteric ENT- oropharynx clear Neck- supple, no JVD, no adenopathy, no thyromegaly; carotids +2/2, no bruits appreciated Lungs-mild crackles at the bases, no wheezing Heart- normal rate, regular rhythm; no murmur, no gallop, no rub appreciated Abdomen- hypoactive bowel sounds, nondistended, soft, nontender, no masses or hepatosplenomegaly Extremities- no pretibial edema, no calf tenderness; peripheral pulses intact Neuro- alert, oriented x 3; CN 2-12 grossly intact; motor 5/5 bilaterally;sensation 100% on all extremities; no other gross focal neurologic deficits Skin- warm & dry Results & Data Results & Data ([facility]) Vital Signs (Past 12 Hours) Vital Signs Temp Pulse Pulse Resp BP BP Pulse Ox 10/29/19 16:25 36.6 C 73 18 152/77 H 96 10/29/19 15:29 67 10/29/19 11:33 36.4 C L 57 L 18 121/72 94 10/29/19 07:51 79 10/29/19 07:22 36.8 C 74 18 150/83 H 95 Laboratory Results Laboratory Results - last 24 hr 10/28/19 10/29/19 10/29/19 19:46 06:06 07:32 WBC 6.15 RBC 4.69 L Hgb 13.6 L Hct 41.4 L MCV 88.3 MCH 29.0 MCHC 32.9 RDW Std Deviation 48.9 H RDW Coeff of Jeanette 15.2 H Plt Count 294 MPV 8.9 POC Glucose 113 H 93 10/29/19 10/29/19 11:47 16:43 WBC RBC Hgb Hct MCV MCH MCHC RDW Std Deviation RDW Coeff of Jeanette Plt Count MPV POC Glucose 129 H 86
[2019-10-29] MEDS: GABAPENTIN 300 MG CAP PO SCH (20:23)
[2019-10-29] MEDS ORDERED: ACETAMINOPHEN 325 MG TAB PO PRN (22:30)
--- NOTE | 2019-10-29 22:46 | XRay Report ---
XR chest 1V portable CLINICAL HISTORY: fever COMPARISON STUDY: 10/26/2019 FINDINGS: Prior median sternotomy. Diaphragms are smooth. Lungs are clear. IMPRESSION: No acute process. No change from the prior exam. ACT 112: Negative or not required by law. The above report was generated using voice recognition software. It may contain grammatical, syntax or spelling errors. Electronically signed by: Hadley Paige M.D. 10/29/2019 10:45 PM
[2019-10-29 23:45] LABS: BUN Creatinine Ratio 10.4 (10-20); Calcium 8.5 mg/dl (8.5-10.1); Creatinine Clr Calc Pharmacy 65.5 ml/min; Est GFR (Non-African American) 69.9; Magnesium 1.4 mg/dl (1.8-2.4); Potassium 3.2 mmol/L (3.5-5.1)
[2019-10-30 00:05] LABS: Appearance Urine Clear (Clear); Bilirubin Urine Negative (Negative); Blood Urine Negative (Negative); Color Urine Yellow; Glucose Urine UA Negative (Negative); Ketones Urine Trace (Negative); Leukocyte Esterase Urine Negative (Negative); Nitrite Urine Negative (Negative); Protein Urine Negative (Negative); Specific Gravity Urine 1.018 (1.000-1.030); Urobilinogen Urine Negative (Negative)
--- NOTE | 2019-10-30 02:07 | Communication Note ---
Date of Service: October 30, 2019 Made aware by RN of fever spike. No other complaints as per RN. UA showed ketones AP Fever ? Secondary to clinical dehydration IVF Hold home diuretics for now until volume status improved. Will relay to AM provider.
[2019-10-30] MEDS: ONDANSETRON INJ 2 MG/ML 2 ML VIAL IV SCH ×3 (02:29→14:02)
[2019-10-30] MEDS ORDERED: POTASSIUM CHLORIDE 40 MEQ in SODIUM CHLORIDE 0.9% 1000ML 1,000 ML IV ONE (02:30)
[2019-10-30] MEDS: INSULIN ASPART 100 UNITS/ML 3 ML PEN SC SCH ×2 (08:32→13:07)
[2019-10-30] MEDS: HEPARIN SOD 5,000 UNIT/0.5 ML VIAL SQ SCH (08:33)
[2019-10-30] MEDS: allopurinoL 300 MG TAB PO SCH (08:34)
[2019-10-30] MEDS: SENNA 8.6 MG TAB PO SCH (08:34)
[2019-10-30] MEDS: METOPROLOL SUCC 25MG EXT REL TAB PO SCH (08:34)
[2019-10-30] MEDS: SERTRALINE HCL 100 MG TABLET PO SCH (08:34)
[2019-10-30] MEDS: ASPIRIN 81 MG ECTAB PO SCH (08:34)
[2019-10-30] MEDS: PANTOprazole 40 MG TAB PO SCH (08:35)
[2019-10-30] MEDS ORDERED: POLYETHYLENE (MIRALAX) 17 GM PACK PO SCH (09:00)
--- NOTE | 2019-10-30 09:12 | Surgery Progress Note ---
Date of Service October 30, 2019 Assessment & Plan (1) Stricture of sigmoid colon: doing well clinically home on bowel regiment--senna bid +/- miralax qday. low residue diet and increased fluid intake f/u with me in office bx benign. surgery only if becomes more asymptomatic Subjective pt feeling well. no abdominal pain or distension Physical Exam Physical Exam: alert. nad abd: soft. nt. nd. Results & Data Vital Signs (Past 12 Hours) Vital Signs Temp Pulse Pulse Resp BP BP Pulse Ox 10/30/19 07:26 37 C 91 H 18 105/64 91 10/30/19 03:41 95 H 10/30/19 03:27 36.9 C 75 18 114/69 93 10/29/19 22:25 38.5 C H 96 H 18 154/79 H 94 PG Care Time/CCT Total # of Minutes Spent Total Time Spent with Patient: Total time spent is greater than 50% in coordination of care (as documented) at patient's floor/unit and/or counseling patient: Coding Level of Care Code 22767 Subseq Hosp Care Lvl 2 Diagnoses Stricture of sigmoid colon K56.699
[2019-10-30 09:45] LABS: 18KDIGG Band REACTIVE; 23KDIGG Band REACTIVE; 23KDIGM Band NON-REACTIVE; 28KDIGG Band NON-REACTIVE; 30KDIGG Band NON-REACTIVE; 39KDIGG Band NON-REACTIVE; 39KDIGM Band NON-REACTIVE; 41KDIGG Band NON-REACTIVE; 41KDIGM Band NON-REACTIVE; 45KDIGG Band NON-REACTIVE; 58KDIGG Band NON-REACTIVE; 66KDIGG Band NON-REACTIVE; 93KDIGG Band REACTIVE; Lyme Antibodies, WB IgG NEGATIVE (NEGATIVE); Lyme Antibodies, WB IgM NEGATIVE (NEGATIVE)
[2019-10-30] MEDS ORDERED: DOXYCYCLINE HYCLATE 100 MG CAP PO SCH (09:45)
[2019-10-30 10:27] LABS: Basophils # (auto) 0.02 K/uL (0-0.2); Basophils % (auto) 0.3 %; Eosinophils # (auto) 0.02 K/uL (0-0.5); Eosinophils % (auto) 0.3 %; Hematocrit (blood only) 40.7 % (42-52); Hemoglobin 13.5 g/dL (14.0-18.0); Immature Granulocytes # (auto) 0.04 K/uL (0.00-0.02); Immature Granulocytes % (auto) 0.6 %; Lymphocytes # (auto) 0.72 K/uL (1.2-3.4); Lymphocytes % (auto) 10.4 %; Mean Corpuscular Hemoglobin 28.9 pg (25-34); Mean Corpuscular Hgb Conc 33.2 g/dL (32-36); Mean Corpuscular Volume 87.2 fL (80-100); Mean Platelet Volume 8.9 fL (7.4-10.4); Monocytes % (auto) 10.1 %; Neutrophils # (auto) 5.44 K/uL (1.4-6.5); Neutrophils % (auto) 78.3 %; Platelet Count 288 K/uL (130-400); RDW Coefficient of Variation 15.2 % (11.5-14.5); RDW Standard Deviation 48.4 fL (36.4-46.3); Red Blood Count 4.67 M/uL (4.7-6.1); White Blood Count 6.94 K/uL (4.8-10.8)
[2019-10-30 10:51] LABS: BUN Creatinine Ratio 9.7 (10-20); Calcium 8.4 mg/dl (8.5-10.1); Creatinine Clr Calc Pharmacy 62.6 ml/min; Est GFR (African American) 77.3; Est GFR (Non-African American) 66.7; Potassium 3.2 mmol/L (3.5-5.1)
--- NOTE | 2019-10-30 12:58 | Hospitalist Progress Note ---
Date of Service October 30, 2019 Assessment & Plan (1) Large bowel obstruction: 2 days history of constipation and abdominal distention with nausea hx of TI neuroendocrine tumor s/p resection in 2009 ,prostate ca. CT of the abdomen and pelvis showed 6 cm sigmoid mass with partial obstruction of the intestine s/p Colonoscopy: - Preparation of the colon was poor. - The examined portion of the ileum was normal. - Diverticulosis in the sigmoid colon. - Stricture at 20 cm proximal to the anus. Biopsied. - Internal hemorrhoids. - The examination was otherwise normal on direct and retroflexion views. Biopsy of colonic stricture: no malignancy clinically improved, diet advanced Gen surg: conservative management for now- bowel regimen with laxatives, low res idue diet, outpatient ff up ff up with Gen Surg in 1-[address] Ramirez Babcock [facility] [place] Surgeon (2) Epigastric abdominal pain: per Dr. Evans's notes (previous attending): Complaint left lower cysts chest/epigastric pain without any associated symptoms EKG shows sinus rhythm rate of 72/min partial right bundle branch block with T inversion in anterior leads. No prior EKG to compare Serial cardiac enzymes remained unremarkable ACS ruled out CT abdomen/pelvis: Partially calcified 1.6 cm mass within the gastric wall. GI consulted s/p EGD: Normal esophagus. - Normal stomach. - Normal examined duodenum. - No specimens collected. Plan for outpt upper EUS To further eval calcified gastric mass not seen on EGD but noted on prior CT scan. ff up with GI in 1-2 weeks (3) CAD (coronary artery disease): History of CAD and [place] status post CABG x3 ACS ruled out (4) HTN (hypertension): improved continue usual Metoprolol PO hold Lasix and Spironolactone x 2 days monitor as outpatient (5) Diabetes type 2, controlled: a1c 7.0 outpatient ff up d/c home ff up with PCP in 1 week ff up with General Surgeon and GI in 1-2 weeks Admission and Anticipated Discharge Date Admission Date: October 26, 2019 Subjective ff up for large bowel obstruction seen resting in bed, comfortable in good spirits states he feels fine overall tolerating diet well last BM yesterday no abdominal pain ,nausea, melena/hematochezia no cough, sputum, chills, problems with urination, headache no other symptoms states he is ready and would like to be discharged today Review of Systems Review of Systems: All systems reviewed & are unremarkable except as noted in HPI & below Physical Exam Physical Exam: General- oriented x 3, not in distress, speaks in sentences with no effort or accessory muscle use Eyes- anicteric Neck- no JVD Lungs- clear breath sounds bilaterally, no rales/wheezes Heart- normal rate, regular rhythm; no murmurs Abdomen- normal bowel sounds, nondistended, soft, nontender Extremities- no pretibial edema, no calf tenderness Neuro- alert, oriented x 3; no gross focal neurologic deficits Skin- warm & dry Results & Data Results & Data ([facility]) Vital Signs (Past 12 Hours) Vital Signs Temp Pulse Pulse Resp BP BP Pulse Ox 10/30/19 12:04 36.8 C 79 18 139/73 91 10/30/19 07:26 37 C 91 H 18 105/64 91 10/30/19 03:41 95 H 10/30/19 03:27 36.9 C 75 18 114/69 93
[2019-10-30] MEDS ORDERED: POTASSIUM CHLORIDE 20 MEQ TABCR PO STA (14:43)
--- NOTE | 2019-10-30 14:50 | Discharge Summary ---
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 Apparently he has not had a bowel movement for the same period within normal bowel movement daily without any alteration of bowel habit. He complains some abdominal discomfort with nausea but no vomiting. He also complains to have lower central chest pressure associated with the symptoms but denies to have any chest pain. Denies any shortness of breath with usual activities. No fever and/or chills, no rash and no history of flushing or postural hypotension. Recently he has had cough without any fever and has been finishing tapering dose of steroid. Does not have any fever and/or chills or any increasing shortness of breath as of today. CT scan of the abdomen and pelvis did show sigmoid mass with partial obstruction of the colon from that point he was admitted to hospital for continuation of care. Admission Exam Per Admitting Provider Physical Exam: Lying in bed comfortably but looks anxious Constitutional: well developed, well nourished, + ill appearing and + obese; no acute distress Eyes: PERRL, conjunctivae normal, anicteric sclerae ENMT: external ear and nose normal, oropharynx normal Neck: trachea midline, no thyromegaly Respiratory: normal respiratory effort; no respiratory distress Auscultation: lungs clear to auscultation bilaterally Cardiovascular: Rate/Rhythm: regular rate and regular rhythm Heart Sounds: no murmur Extremities: + pedal edema (1+ bilateral) Gastrointestinal (Abdomen): Inspection/Auscultation: + abdomen distended and normal bowel sounds Percussion/Palpation: abdomen soft; abdomen nontender Has ventral hernia without any obstructive symptoms Musculoskeletal: No acute arthritis involving any joint Neurologic: moves all extremities; no focal motor deficits Lymphatic: no cervical or axillary lymphadenopathy Principal Diagnosis PARTIAL LARGE BOWEL OBSTRUCTIONS, COLONIC STRICTURE Discharge Exam General- oriented x 3, not in distress, speaks in sentences with no effort or accessory muscle use Eyes- anicteric Neck- no JVD Lungs- clear breath sounds bilaterally, no rales/wheezes Heart- normal rate, regular rhythm; no murmurs Abdomen- normal bowel sounds, nondistended, soft, nontender Extremities- no pretibial edema, no calf tenderness Neuro- alert, oriented x 3; no gross focal neurologic deficits Skin- warm & dry Discharge Data Allergies Allergy/AdvReac Type Severity Reaction Status Date / Time simvastatin AdvReac Mild muscle Verified 10/26/19 15:05 weakness aspirin AdvReac Unknown GI UPSET Verified 10/26/19 15:05 IN HIGH DOSES atorvastatin AdvReac Unknown MUSCLE Verified 10/26/19 15:05 ACHES Sudgigv-Xez-Lhd Reductase AdvReac Unknown MUSCLE Unverified 10/26/19 15:05 Inhibitor ACHES AND WEAKNESS/DIARRHEA Consultations 10/26/19 17:58 ED Decision to Admit Stat 10/26/19 18:59 Consult Gastroenterology Routine Consult General Surgery Routine Procedures Performed Operation Date: 10/28/19 08:30 Actual Procedures p Esophagogastroduodenoscopy - Daniele Odell s Colonoscopy Biopsy Cytology - Daniele Odell Operation Date: 10/30/19 08:10 <No data on this case meets the specified criteria> Ordered Studies 10/26/19 15:47 CT abd pelvis wo con Stat FINDINGS: The lung bases are clear. No pneumoperitoneum. No pneumatosis. No suspicious lytic are blastic osseous lesions. The unenhanced liver, spleen, adrenal glands, and pancreas are unremarkable. Normal caliber common bile duct. Distended gallbladder. No gallbladder wall thickening. No gallstones identified. No retroperitoneal lymphadenopathy. Calcified plaque within the normal caliber abdominal aorta. The bladder is unremarkable. The prostate gland is surgically absent. Small fat-containing bilateral inguinal hernias. Left-sided nephrolithiasis. No hydronephrosis. Bilateral renal hypodense lesions are incompletely characterized on this noncontrast study but favor cysts. Partially calcified nodule within the wall of the stomach best seen on image 111. This measures 1.6 cm. Moderate size fat-containing midline ventral hernia. There is also a small amount of fluid and mild inflammatory change surrounding the ventral hernia. Prior right hemicolectomy with ileal colonic anastomosis. Gas and fluid-filled mildly distended loops of small bowel. No transition point identified. The majority of the colon is also borderline distended and is filled with stool. There is thickening within the proximal sigmoid colon. Focal masslike area of thickening involving the mid sigmoid colon best seen on image 329. This measures approximately 6 cm in length. Colonic diverticulosis. Mild inflammatory change surrounding the thickened proximal colon. A few prominent pericolonic lymph nodes persist seen on image 319 with the largest measuring 7 mm. IMPRESSION: 1. Focal 6 cm segment of thickening within the mid sigmoid colon which is suspicious for a colonic mass. 2. Mildly dilated gas and fluid-filled loops of small bowel. The colon is also borderline distended with the transition point located at the masslike area of thickening within the mid sigmoid colon. Therefore, findings favor a partial large bowel obstruction secondary to the suspected sigmoid mass. 3. There is also mild thickening within the proximal sigmoid colon with mild adjacent inflammatory change. This raises the possibility of superimposed colitis. Follow-up colonoscopy recommended for further evaluation and decompress ion of the suspected large bowel obstruction. 4. Mildly distended gallbladder. No gallbladder wall thickening. 5. Left-sided nephrolithiasis. No hydronephrosis. 6. Partially calcified 1.6 cm mass within the gastric wall. Follow-up endoscopy recommended for further evaluation. 7. Additional findings as described above. Hospital Course (1) Large bowel obstruction: 2 days history of constipation and abdominal distention with nausea hx of TI neuroendocrine tumor s/p resection in 2009 ,prostate ca. CT of the abdomen and pelvis showed 6 cm sigmoid mass with partial obstruction of the intestine s/p Colonoscopy: - Preparation of the colon was poor. - The examined portion of the ileum was normal. - Diverticulosis in the sigmoid colon. - Stricture at 20 cm proximal to the anus. Biopsied. - Internal hemorrhoids. - The examination was otherwise normal on direct and retroflexion views. Biopsy of colonic stricture: no malignancy clinically improved, diet advanced Gen surg consulted: conservative management for now- bowel regimen with laxatives, low residue diet, outpatient ff up ff up with Gen Surg in 1-[address] Ramirez Babcock [facility] [place] (2) Epigastric abdominal pain: per Dr. Evans's notes (previous attending): Complaint left lower cysts chest/epigastric pain without any associated symptoms EKG shows sinus rhythm rate of 72/min partial right bundle branch block with T inversion in anterior leads. No prior EKG to compare Serial cardiac enzymes remained unremarkable ACS ruled out CT abdomen/pelvis: Partially calcified 1.6 cm mass within the gastric wall. GI consulted - Dr. Odell s/p EGD: Normal esophagus. - Normal stomach. - Normal examined duodenum. - No specimens collected. Plan for outpt upper EUS To further eval calcified gastric mass not seen on EGD but noted on prior CT scan. ff up with GI in 1-2 weeks (3) Hypokalemia: mild, 3.2 Mg 1.4 given IV and PO K Mg supplement prescribed likely from being NPO, clear liquids while inpatient repeat BMP and Mg on ff up with PCP as outpatient (4) CAD (coronary artery disease): History of CAD and [place] status post CABG x3 ACS ruled out (5) HTN (hypertension): improved continue usual Metoprolol PO patient on the dry side, hold Lasix and Spironolactone x 2 days monitor as outpatient (6) Diabetes type 2, controlled: a1c 7.0 outpatient ff up (7) Fever, low grade: 1 episode of fever 38.5, the night prior to discharge day no signs of infection identified no leukocytosis Total Time Total Time Spent Total Time Spent (In Minutes): 60 minutes Discharge Plan Discharge Items Patient Disposition: Home - Self-Care Reason For Visit: PARTIAL LARGE BOWEL OBSTRUCTION,SIGMOID COLON MASS Discharge Diagnosis: PARTIAL LARGE BOWEL OBSTRUCTION SECONDARY TO COLONIC STRICTURE Activity: Resume your previous activity Activity Comment: gradually as tolerated Lifting: Wait until after follow-up appointment Exercise/Sports: Wait until after follow-up appointment Driving/Machine Use: no driving until re-evaluated and allowed by primary care physician Non-emergency contact: Primary Care Provider Call non-emergency contact if: you have any medication questions, your symptoms worsen and you have a fever Follow-up/Referrals: Ramirez Babcock DO [Surgeon] - (Call to make an appt in 2 weeks ) Daniele Odell [Physician] - Tulio Azevedo DO [Primary Care Provider] - 11/05/19 12:00 pm (11/05/2019 12:00 PM Irving Bueno MD General Internal Medicine [facility] ) Diet: Low Fiber Fluids: 2000ml (8 cups) Addtl Attending Provider Instructions: Increase your fluid intake You should take senna twice daily and miralax as needed if you can tolerate it. Hold Lasix and Spironolactone x 2 days. Resume on Saturday November 02, 2019 or earlier if you are having leg swelling. Call your primary care physician or return to the ER immediately if you are having worsening of symptoms, constipation for more than 2 days, abdominal pain or distention, nausea/vomiting, fever/chills, black or bloody stools. Follow up with your Primary care provider next week as noted above. Follow up with General Surgeon Dr. Babcock and [employer] Dr. Odell in 1-2 weeks. Please call their office to set up an appointment. Contact information as outlined above. Pending Studies at Discharge: Yes Studies:: Endoscopic Ultrasound c/o [facility] Stand-Alone Forms: My [facility], Smoking Cessation Medications and DC Order Prescriptions: New sennosides [senna] 8.6 mg tablet 8.6 mg PO BID Qty: 60 RF: 0 polyethylene glycol 3350 [Miralax] 17 gram powder in packet 17 gm PO DAILY PRN (Reason: constipation) Qty: 30 RF: 0 Continued sertraline 100 mg tablet 100 mg PO DAILY RF: 0 gabapentin 300 mg capsule 300 mg PO HS RF: 0 omeprazole 20 mg capsule,delayed release(DR/EC) 20 mg PO BID RF: 0 allopurinol 300 mg tablet 300 mg PO DAILY RF: 0 metoprolol succinate 25 mg tablet extended release 24 hr 25 mg PO DAILY RF: 0 aspirin [Aspir-81] 81 mg Tablet,Delayed Release (Dr/Ec) 81 mg PO DAILY RF: 0 Discontinued spironolactone 25 mg tablet 25 mg PO DAILY RF: 0 furosemide 20 mg tablet 20 mg PO DAILY RF: 0 Discharge Orders: Discharge Order (Routine); Ordered 10/30/19 Ordered By: Kike Javed/Other Patient Handouts: Hyperglycemia, Hypoglycemia, Diabetes Type 2 Managing, Blood Sugar Check Admission Data Admit Date/Time: 10/26/19 18:24 Attending Provider: Kike Dacosta Admit Provider: Trevor Evans Primary Care Provider: Tulio Azevedo Other Providers: Trevor Evans ; Anastasia Grimes ; Lory Sewell ; Gonzalez Florian ; Yessica Klein ; Daniele Odell ; Arthur Dolan ; Anna Marcial ; Bertha Daniels ; Adrián Umana ; Tulio Chavez ; Avril Alex ; Mary Lou Cordova ; Amparo Griffith ; Karla Layton ; Kathe Reynolds ; Dane Chand Other Interventions: Discharge Summary Assessment (RN) Last Done: 10/30/19 14:45 DC Date/Time DO NOT enter until pt leaves facility: 10/30/19 15:10
[2019-10-31] MEDS ORDERED: FUROSEMIDE 20 MG TAB PO SCH (09:00)
[2019-10-31] MEDS ORDERED: SPIRONOLACTONE 25 MG TAB PO SCH (09:00)
== END 2019-10-30 15:10 | disposition home or self-care (01) | DRG 390 ==
LOC: ED 13:52 → SUATTDRO 18:24 → 1E 18:24 → 2N 10-28 11:55

== ENCOUNTER 2020-11-10 21:48 | Inpatient (IN) ==
[2020-11-10] MEDS ORDERED: ONDANSETRON INJ 2 MG/ML 2 ML VIAL IV STA (21:59)
--- NOTE | 2020-11-10 22:04 | Emergency Department Note ---
History of Present Illness General Chief complaint: Illness Time Seen by Provider: 11/10/20 21:53 Source: patient Mode of arrival: EMS History of Present Illness Provider complaint: Vomiting and abdominal pain Onset (ago): day(s) Location: abdomen Radiation: non-radiation Pain Consistency: + constant Quality: + aching Relieved By: + other (After vomiting) Associated symptoms: + nausea/vomiting; no chest pain, no cough, no fever/chills and no shortness of breath This is an 80-year-old male who presents with abdominal pain with vomiting for the past 2 days. He states his pain is in the epigastric region and feels like an ache. It is better after he vomits. He states that he last had a bowel movement about 2 days ago which was normal. He denies any melena or blood in hi s stool. He denies any chest pain or shortness of breath. He has had no fever cough or cold symptoms or urinary symptoms other than problems initiating a stream from prostate issues. He stated that he had a colonoscopy and this demonstrated scar tissue in his colon. He states that he feels generalized weakness as he has not been able to eat or drink very much over the past 2 days. He does state that he has been able to pass a small amount of gas today. Home Medications Medication Instructions Recorded Confirmed Type metoprolol succinate 25 mg PO DAILY 10/26/19 11/10/20 History omeprazole 20 mg PO [facility] 10/26/19 11/10/20 History sertraline 100 mg PO DAILY 10/26/19 11/10/20 History aspirin [Aspirin Low Dose] 81 mg PO AMP 11/10/20 11/10/20 History docusate sodium 100 mg PO DAILY 11/10/20 11/10/20 History furosemide 20 mg PO DAILY 11/10/20 11/10/20 History ibuprofen 200 mg PO 11/10/20 11/10/20 History melatonin 10 mg PO 11/10/20 11/10/20 History potassium chloride 20 meq PO DAILY 11/10/20 11/10/20 History ropinirole 1 mg PO 11/10/20 11/10/20 History spironolactone 25 mg PO DAILY 11/10/20 11/10/20 History tamsulosin 0.4 mg PO DAILY 11/10/20 11/10/20 History Allergies Allergy/AdvReac Type Severity Reaction Status Date / Time simvastatin AdvReac Mild muscle Verified 11/10/20 23:30 weakness aspirin AdvReac Unknown GI UPSET Verified 11/10/20 23:30 IN HIGH DOSES atorvastatin AdvReac Unknown MUSCLE Verified 11/10/20 23:30 ACHES Sslqjjg-Egu-Anq Reductase AdvReac Unknown MUSCLE Unverified 11/10/20 23:30 Inhibitor ACHES AND WEAKNESS/DIARRHEA Past Med/Surg History Medical History (Updated 11/10/20 @ 23:39 by Cornelio Cedeño MD) Family hx of colon cancer Fusion of spine Surgical History History of carpal tunnel release 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 and A total of 10 systems reviewed and were otherwise negative Physical Exam Vital Signs Vital Signs - 24 hr 11/10/20 21:54 11/10/20 21:57 11/10/20 22:00 Temperature Temperature Source Pulse Rate 88 91 H 92 H Pulse Rate from SpO2 Sensor 88 91 H 92 H Pulse Rhythm Pulse Strength Respiratory Rate 17 18 24 Respiratory Effort / Characteristics Respiratory Depth Respiratory Pattern Blood Pressure 164/85 H 139/113 H Blood Pressure Mean 111 121 Blood Pressure Position Pulse Oximetry 98 97 97 Oxygen Delivery Method Room Air Sepsis Recent Fever Within 48 Hours Sepsis New/Unexplained Change in Mental Status Sepsis Action Taken by Nursing 11/10/20 22:24 11/10/20 22:25 11/10/20 22:27 Temperature Temperature Source Pulse Rate 87 90 88 Pulse Rate from SpO2 Sensor 79 76 85 Pulse Rhythm Pulse Strength Respiratory Rate 22 20 21 Respiratory Effort / Characteristics Respiratory Depth Respiratory Pattern Blood Pressure 149/97 H 144/88 H 138/91 Blood Pressure Mean 114 106 106 Blood Pressure Position Pulse Oximetry 91 96 96 Oxygen Delivery Method Sepsis Recent Fever Within 48 Hours Sepsis New/Unexplained Change in Mental Status Sepsis Action Taken by Nursing 11/10/20 22:29 11/10/20 22:30 11/10/20 22:32 Temperature Temperature Source Pulse Rate 87 87 87 Pulse Rate from SpO2 Sensor 77 81 75 Pulse Rhythm Pulse Strength Respiratory Rate 22 23 18 Respiratory Effort / Characteristics Respiratory Depth Respiratory Pattern Blood Pressure 144/89 H 142/94 H Blood Pressure Mean 107 110 Blood Pressure Position Pulse Oximetry 96 94 97 Oxygen Delivery Method Sepsis Recent Fever Within 48 Hours Sepsis New/Unexplained Change in Mental Status Sepsis Action Taken by Nursing 11/10/20 22:37 11/10/20 23:00 Temperature 36.4 C L Temperature Source Oral Pulse Rate 87 88 Pulse Rate from SpO2 Sensor 84 Pulse Rhythm Regular Pulse Strength Normal Respiratory Rate 16 19 Respiratory Effort / Characteristics Non-Labored Spontaneous Accessory Muscle Use Respiratory Depth Normal Respiratory Pattern Regular Blood Pressure 152/89 H 126/87 Blood Pressure Mean 110 100 Blood Pressure Position Sitting Pulse Oximetry 98 97 Oxygen Delivery Method Room Air Sepsis Recent Fever Within 48 Hours No Sepsis New/Unexplained Change in Mental Status No Sepsis Action Taken by Nursing No Action Required Constitutional: Vital signs reviewed. Eyes: Pupils are equal round reactive to light. Conjunctiva are noninjected. ENT: Pharynx is clear without erythema or exudate. Mucous membranes are slightly dry. Neck supple without meningeal signs. Respiratory: Clear to auscultation bilaterally. Breath sounds are equal bilaterally. Cardiovascular: Regular rate and rhythm. No rubs or gallops. GI: Soft, nondistended and nontender. Bowel sounds are present. Musculoskeletal: No peripheral edema. No lower extremity tenderness. Integumentary: No cyanosis. or jaundice. Neurological: The patient is awake and alert. No focal deficits. Psychiatric: Normal affect. Not anxious appearing. Course Administered Medications Discontinued Medications Ondansetron HCl (Ondansetron Inj 2 Mg/Ml 2 Ml Vial) 4 mg IV NOW STA Stop: 11/10/20 22:00 Last Admin: 11/10/20 22:16 Dose: 4 mg Documented by: [id number] Medical Decision Making Differential Diagnosis Gastritis, dehydration, bowel obstruction, constipation, fecal impaction, panc reatitis Medical Records Attestation: I reviewed the patient's medical records. I did perform a limited focused review of portions of the patient's old chart on the electronic medical record. The patient was admitted a year ago for partial large bowel obstruction. He had a colonoscopy on October 28, 2019 which showed a stricture at 20 cm proximal to the anus.. This was biopsied and found to be benign without malignancy. Home Medications Current Medication List: was personally reviewed by me Laboratory Data Attestation: I reviewed the patient's lab results. Result diagrams: 11/10/20 22:30 11/10/20 22:30 Lab Results 11/10/20 11/10/20 Range/Units 22:30 22:30 WBC 12.83 H (4.8-10.8) K/uL RBC 6.30 H (4.7-6.1) M/uL Hgb 18.4 H (14.0-18.0) g/dL Hct 53.0 H (42-52) % MCV 84.1 (80-100) fL MCH 29.2 (25-34) pg MCHC 34.7 (32-36) g/dL RDW Std Deviation 44.6 (36.4-46.3) fL RDW Coeff of Jeanette 14.4 (11.5-14.5) % Plt Count 375 (130-400) K/uL MPV 9.8 (7.4-10.4) fL Immature Gran % (Auto) 0.4 % Neut % (Auto) 79.6 % Lymph % (Auto) 13.3 % Alcorn % (Auto) 6.6 % Eos % (Auto) 0.0 % Baso % (Auto) 0.1 % Neut # (Auto) 10.22 H (1.4-6.5) K/uL Lymph # (Auto) 1.70 (1.2-3.4) K/uL Alcorn # (Auto) 0.85 H (0.11-0.59) K/uL Eos # (Auto) 0.00 (0-0.5) K/uL Baso # (Auto) 0.01 (0-0.2) K/uL Immature Gran # (Auto) 0.05 H (0.00-0.02) K/uL Sodium 137 (136-145) mmol/L Chloride 104 (98-107) mmol/L Carbon Dioxide 22 (21-32) mmol/L Anion Gap 11.0 (3-11) BUN 23 H (7-18) mg/dl Creatinine 1.06 (0.6-1.4) mg/dl Est Cr Clr Drug Dosing 53.8 ml/min Est GFR ( Amer) 75.9 ml/min Est GFR (Non-Af Amer) 65.5 ml/min BUN/Creatinine Ratio 21.4 H (10-20) Glucose 147 H (70-99) mg/dl Calcium 9.7 (8.5-10.1) mg/dl Total Bilirubin 1.5 H (0.2-1) mg/dl ALT 53 (12-78) U/L Alkaline Phosphatase 285 H (45-117) U/L Troponin I < 0.015 (0-0.045) ng/ml Total Protein 8.2 (6.4-8.2) gm/dl Albumin 3.6 (3.4-5.0) gm/dl Globulin 4.6 H (2.5-4.0) gm/dl Albumin/Globulin Ratio 0.8 L (0.9-2) Lipase 58 L (73-393) U/L Imaging Data Radiologist's Impression: Preliminary Findings Only See Final Report For Complete Findings CT ABDOMEN & PELVIS Without Contrast: Compared to 10/26/19 As noted previously, there is a region of masslike thickening to the sigmoid colon. Resulting high-grade bowel obstruction with distention extending back to the proximal small bowel. Intact ileocolic anastomosis. Prostatectomy. No pathologic urinary bladder distention or hydronephrosis. Nonobstructing upper pole left renal calculus. 8 cm mid zone right renal cyst. Redemonstrated fatty inguinal and paraumbilical ventral hernias. Radiologist: Brandon Galaviz M.D. Study ready at 22:58 and initial results transmitted at 23:39 Communications: Clear Time Type Notes 11/10/20 23:23 Call Doctor Regarding Above results, called Dr. Cedeño on 11/10 23:23 (-04:00) ECG Data Attestation: I personally reviewed and interpreted this ECG as follows: Indication: + abdominal pain Rate (beats per minute): 86 Rhythm: + normal sinus ECG [place]: + Left axis deviation ECG ST segments: + T-wave inversions; no ST elevation ECG Findings: + PVCs Comparison ECG Date: from (October 26, 2019) Change: no significant change MDM Narrative I did evaluate the patient as noted above. The patient is presenting with vomiting and epigastric pain for the past 2 days. IV access was established. I did treat him with Zofran IV. I did place an order for continuous cardiac monitoring. The monitor showed normal sinus rhythm at a rate of 87 bpm. I did order and personally review the patient's 12-lead EKG as described above. He has a PVC without any acute ischemic changes. There are some T wave inversions which were present on his previous EKG from October 2019. I did order and review the patient's blood work as noted in the electronic medical record. His white count is elevated at 12.8. Hemoglobin is 18.4. Electrolytes are unremarkable although potassium hemolyzed. I did order a CT of the abdomen and pelvis. I di d review the images myself as well as the radiology report as described above. He has a high-grade obstruction from scarring in the colon. I did discuss the results with the radiologist over the telephone. I did inform the patient. On reassessment he states he is feeling better. I did discuss the test results with the patient. An NG tube was placed. I did consult surgery who will evaluate him in the ED. I did discuss case with the hospitalist and disease case manager. A Covid test was ordered. Impression & Plan Large bowel obstruction Discharge Plan Visit Data Chief Complaint: Illness ED Provider: Cornelio Cedeño Discharge Problem: Large bowel obstruction Patient Disposition: Being Evaluated by Surgeon Forms Stand Alone Forms: My [facility] Prescriptions Prescriptions: No Action sertraline 100 mg tablet 100 mg PO DAILY RF: 0 omeprazole 20 mg capsule,delayed release(DR/EC) 20 mg PO QAM RF: 0 metoprolol succinate 25 mg tablet extended release 24 hr 25 mg PO DAILY RF: 0 spironolactone 25 mg tablet 25 mg PO DAILY RF: 0 tamsulosin 0.4 mg capsule 0.4 mg PO DAILY RF: 0 furosemide 20 mg tablet 20 mg PO DAILY RF: 0 ropinirole 1 mg tablet 1 mg PO HS RF: 0 aspirin [Aspirin Low Dose] 81 mg Tablet,Delayed Release (Dr/Ec) 81 mg PO AMPM RF: 0 potassium chloride 20 mEq tablet,ER particles/crystals 20 meq PO DAILY RF: 0 ibuprofen 200 mg Tablet 200 mg PO HS RF: 0 docusate sodium 100 mg Capsule 100 mg PO DAILY RF: 0 melatonin 10 mg Tablet 10 mg PO HS RF: 0 Referrals Referrals: Tulio Azevedo DO [Primary Care Provider] -
[2020-11-10 22:40] LABS: Basophils # (auto) 0.01 K/uL (0-0.2); Basophils % (auto) 0.1 %; Hemoglobin 18.4 g/dL (14.0-18.0); Immature Granulocytes # (auto) 0.05 K/uL (0.00-0.02); Immature Granulocytes % (auto) 0.4 %; Lymphocytes % (auto) 13.3 %; Mean Corpuscular Hemoglobin 29.2 pg (25-34); Mean Corpuscular Hgb Conc 34.7 g/dL (32-36); Mean Corpuscular Volume 84.1 fL (80-100); Mean Platelet Volume 9.8 fL (7.4-10.4); Monocytes # (auto) 0.85 K/uL (0.11-0.59); Monocytes % (auto) 6.6 %; Neutrophils # (auto) 10.22 K/uL (1.4-6.5); Neutrophils % (auto) 79.6 %; Platelet Count 375 K/uL (130-400); RDW Coefficient of Variation 14.4 % (11.5-14.5); RDW Standard Deviation 44.6 fL (36.4-46.3); White Blood Count 12.83 K/uL (4.8-10.8)
[2020-11-10 23:18] LABS: Alanine Aminotransferase 53 U/L (12-78); Albumin Globulin Ratio 0.8 (0.9-2); Albumin Level 3.6 gm/dl (3.4-5.0); Alkaline Phosphatase 285 U/L (45-117); BUN Creatinine Ratio 21.4 (10-20); Bilirubin,Total 1.5 mg/dl (0.2-1); Blood Urea Nitrogen 23 mg/dl (7-18); Calcium 9.7 mg/dl (8.5-10.1); Carbon Dioxide 22 mmol/L (21-32); Chloride 104 mmol/L (98-107); Creatinine Clr Calc Pharmacy 53.8 ml/min; Est GFR (African American) 75.9 ml/min; Est GFR (Non-African American) 65.5 ml/min; Globulin 4.6 gm/dl (2.5-4.0); Glucose 147 mg/dl (70-99); Lipase 58 U/L (73-393); Sodium 137 mmol/L (136-145); Total Protein 8.2 gm/dl (6.4-8.2); Troponin I < 0.015 ng/ml (0-0.045)
[2020-11-10 23:56] LABS: Aspartate Aminotransferase 25 U/L (15-37); Potassium 4.4 mmol/L (3.5-5.1)
--- NOTE | 2020-11-11 00:26 | Surgery Consultation ---
Date of Consultation November 11, 2020 Assessment & Plan (1) Large bowel obstruction: Patient's large bowel obstruction is likely due to previously noted sigmoid colon stricture. I discussed with the treating emergency room physician and he has requested the patient be admitted on the hospitalist service. We will proceed as follows: The treating emergency room physician has ordered an NG tube to be placed which will be placed to low continuous suction We will maintain the patient on n.p.o. status We will hydrate her with IV fluids Analgesics will be provided Antiemetics will be provided May be beneficial to consult gastroenterology to consider repeat colonoscopy to see if there have been any changes noted on the patient's colonoscopic examination At the present time the patient's abdomen is nondistended and he has no pain with palpation. Therefore emergency surgical intervention does not appear to be indicated Prior to entertaining any surgical resection of his sigmoid stricture will be ideal to have the patient undergo an appropriate bowel prep so if surgical resection is performed a 1 stage procedure can be attempted. We will continue to follow along with the patient is hospitalized Supervising Physician Co-Signing Physician Notes Patient seen and examined, labs and image reviewed, agree with above. 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 He was here a year ago and was treated with a colonoscopy which improved his symptoms. He was to follow-up with general surgery for an elective resection, however he was lost to follow-up. He presented with a few days of abdominal bloating and discomfort. Since admission he is has had a bowel movement and is passing small amount of flatus. On exam he is afebrile with stable vitals. His abdomen is soft, mildly distended, nontender. CT was personally reviewed and showed moderate bowel obstruction tapers down in the area of the known sigmoid stricture. I did review the pathology results from prior stay and it appears to be benign. 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 He also has a calcified nodule in his stomach. We have asked GI to see the patient for potential colonoscopy and decompression. I did discuss with him the recommendation for elective laparoscopic sigmoidectomy. It would greatly benefit us if the colon could be decompressed and he could have an appropriate bowel prep. Surgery will follow, plan for possible resection next week or as an outpatient if his symptoms improve. History of Present Illness Reason for Consultation: Colonic obstruction History of Present Illness This is an 80-year-old male who presented to the emergency department secondary to nausea vomiting and abdominal pain for approximately 3 days. Patient says that prior to 3 days ago he was in his usual state of health. He says that he had a normal appetite and his bowels were functioning normally for him. However approximately 3 days ago he developed some generalized abdominal pain with ensuing nausea vomiting. Patient says that he has not had a bowel movement approximately 3 days. He notes that for this time he has very limited oral intake as he has had nausea vomiting. Patient does not note any modifying factors with his discomfort and he also denies any radiation of the discomfort. He does note he is passing small amounts of flatus. Patient's records were reviewed and he had a similar presentation in October 2019. During this time the patient underwent an EGD which is essentially normal. He also underwent a colonoscopy which revealed a colonic stricture approximately 20 cm proximal to the anus. Biopsies were taken of this strictured area and pathology was negative for malignancy. Patient did not require surgery at that time. He was discharged home with plans to follow-up with Dr. Babcock in the office and at that time surgery was to be considered if patient became symptomatic. Despite recommendations to follow-up with general surgery the patient did not follow-up with Dr. Babcock. Patient does note that he has been doing fine up until 3 days ago. In addition the patient says that he has not undergone any other endoscopic evaluation since that time. 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 This evening in the emergency department the patient had labs and imaging which I independently reviewed.CBC revealed a white blood cell count of 12.8. His hemoglobin and hematocrit are 18.4 and 53. Patient's platelet count was noted to be within normal range. Patient's chemistry profile revealed his sodium and potassium were both normal. BUN had a slight elevation at 23 with a normal creatinine. CT scan of the abdomen and pelvis was performed without any contrast. There is an area of masslike thickening noted in the sigmoid colon which was felt to result in a high-grade bowel obstruction with distention of the colon extending to the level of the small bowel. A Covid test has been requested and is pending. At the time of my interview the patient is resting comfortably in bed. He was not complaining abdominal pain at the time of my interview and he was in no distress. Allergies Allergy/AdvReac Type Severity Reaction Status Date / Time simvastatin AdvReac Mild muscle Verified 11/10/20 23:30 weakness aspirin AdvReac Unknown GI UPSET Verified 11/10/20 23:30 IN HIGH DOSES atorvastatin AdvReac Unknown MUSCLE Verified 11/10/20 23:30 ACHES Jdgvpiq-Oym-Qod Reductase AdvReac Unknown MUSCLE Unverified 11/10/20 23:30 Inhibitor ACHES AND WEAKNESS/DIARRHEA Home Medications Medication Instructions Recorded Confirmed Type metoprolol succinate 25 mg PO DAILY 10/26/19 11/10/20 History omeprazole 20 mg PO QAM 10/26/19 11/10/20 History sertraline 100 mg PO DAILY 10/26/19 11/10/20 History aspirin [Aspirin Low Dose] 81 mg PO AMPM 11/10/20 11/10/20 History docusate sodium 100 mg PO DAILY 11/10/20 11/10/20 History furosemide 20 mg PO DAILY 11/10/20 11/10/20 History ibuprofen 200 mg PO HS 11/10/20 11/10/20 History melatonin 10 mg PO HS 11/10/20 11/10/20 History potassium chloride 20 meq PO DAILY 11/10/20 11/10/20 History ropinirole 1 mg PO HS 11/10/20 11/10/20 History spironolactone 25 mg PO DAILY 11/10/20 11/10/20 History tamsulosin 0.4 mg PO DAILY 11/10/20 11/10/20 History Patient History Medical History (Updated 11/11/20 @ 11:30 by Catrachita Carrero DO) Family hx of colon cancer Fusion of spine Surgical History History of carpal tunnel release 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 History of laminectomy History of prostatectomy History of total knee replacement Social History Smoking Status: Former smoker Second Hand Exposure: No; Hx Alcohol Use: Yes Alcohol type: beer Hx Substance Use: No Preferred Language: Central [place] Communication Ability: Effective It Assistant Required: No Beliefs That Will Affect Care: None marital status: Current Living Situation: Alone How many Children do You have: 3 Feels Safe at Home: Yes Safety Concerns: Feels Safe At This Time Assistive Devices: Walker Review of Systems Constitutional: no fever and no chills Eyes: no diplopia Ear, Nose, Mouth, Throat: no ear pain Respiratory: no cough and no dyspnea Cardiovascular: no chest pain Gastrointestinal: + abdominal pain, + nausea, + vomiting and + constipation; no coffee ground emesis and no blood in stools Genitourinary: no dysuria Musculoskeletal: no back pain Integumentary: no rash Neurologic: no localized weakness Physical Exam Constitutional: well developed and well nourished; no acute distress Eyes: no conjunctival abnormality ENMT: Ears: no hearing impairment Neck: trachea midline Respiratory: normal respiratory effort, lungs clear to auscultation Cardiovascular: Rate/Rhythm: regular rate and regular rhythm Gastrointestinal (Abdomen): Patient's abdomen was soft and nondistended. Bowel sounds are present. There is no pain with palpation. There is no rebound tenderness or guarding. Patient had a well-healed midline incision from previous surgery. Was unable to palpate any hernias or fascial defects. Musculoskeletal: No calf tenderness Skin: no rashes, warm and dry Neurologic: moves all extremities Psychiatric: A+Ox3, euthymic affect Results & Data ([facility]) Vital Signs (Past 12 Hours) Vital Signs Temp Pulse Resp BP Pulse Ox 11/10/20 23:00 88 19 126/87 97 11/10/20 22:37 36.4 C L 87 16 152/89 H 98 11/10/20 22:32 87 18 97 11/10/20 22:30 87 23 142/94 H 94 11/10/20 22:29 87 22 144/89 H 96 11/10/20 22:27 88 21 138/91 96 11/10/20 22:25 90 20 144/88 H 96 11/10/20 22:24 87 22 149/97 H 91 11/10/20 22:00 92 H 24 139/113 H 97 11/10/20 21:57 91 H 18 97 11/10/20 21:54 88 17 164/85 H 98 PG Care Time/CCT Total # of Minutes Spent Total Time Spent with Patient: Total time spent is greater than 50% in coordination of care (as documented) at patient's floor/unit and/or counseling patient: Coding Level of Care Code 30288 Inpt Consult Level 5 Diagnoses Large bowel obstruction K56.609
--- NOTE | 2020-11-11 00:54 | History & Physical Report ---
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 Continue NGT decompression, bowel rest General surgery consult Re: Bowel obstruction (Patient already seen at the ER by provider machine stone polisher apprentice who recommends GI consultation for recurrent large bowel obstruction.) ISS BG goal 1 10-1 40 DVT prophylaxis per Lovenox subcu Full code Patient requests for his son to be updated by providers of plan of care. Mr. Hadley Casey, contact #[phone]. Text document was generated using [employer] voice recognition software. It may contain grammatical or spelling errors. Kindly contact undersigned for clarification of any documentation item in question. History of Present Illness Chief Complaint: Abdominal pain Primary Care Provider: Tulio Azevedo, History obtained from patient and records. 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 Last confinement October 2019 for large bowel obstruction. CT abdomen pelvis at that time showed 6 cm sigmoid mass with partial obstruction of the intestine. Colonoscopic biopsy done of stricture yielding no malignancy on pathology. Bowel obstruction resolved with conservative management. 3 days history of achy epigastric pain, nausea, dark brown emesis, constipation for 3 days without fever, chills. Patient denies chest pain, S OB. At the ER, NGT inserted for bowel obstruction. Medical History as above Abnormal LFTs noted on outpatient lab work 2 months ago. Gallbladder ultrasound last month showed 5.6 cm mass with vascularity in the gallbladder lumen. Neoplastic etiology is a consideration. Dilated CBD measuring 9 mm in diameter. Distal obstruction not excluded. No evidence of cholelithiasis or cholecystitis. Consider fatty infiltration of liver. Pancreas is not visualized. [facility] surgeon requested CT abdomen pelvis as additional work-up for possible gallbladder mass last month. CT abdomen pelvis results as follows : 1. No enhancing mass identified in the gallbladder by CT evaluation. Spe cifically, the filling defect seen on recent abdominal ultrasound is not identified. The finding on recent ultrasound may be related to tumefactive sludge with the apparent focal areas of increased vascularity artifactual related to focal calcifications/gallbladder calculi. Alternatively, this may be a true neoplasm which is not well evaluated on the CT scan. 2. Approximately 2.3 x 1.9 cm subtle isodense masslike area involving the pancreatic body, may represent a prominent normal pancreatic tissue, however, focal neoplasm is on the imaging differential diagnosis. Recommend further evaluation with MRI of the abdomen without and with contrast (pancreas mass protocol). Prominent peripancreatic lymph node, indeterminate. Patient given option between EUS versus MRI for work-up for pancreatic mass. Patient still contemplating options although EUS has been scheduled next month. Surgical History : Knee surgeries, CABG, neck surgery, radical prostatectomy Family History : Heart disease, stroke, prostate cancer Personal/Social history : Past pipe smoker, occasional EtOH intake, retired mailman Allergies Allergy/AdvReac Type Severity Reaction Status Date / Time simvastatin AdvReac Mild muscle Verified 11/10/20 23:30 weakness aspirin AdvReac Unknown GI UPSET Verified 11/10/20 23:30 IN HIGH DOSES atorvastatin AdvReac Unknown MUSCLE Verified 11/10/20 23:30 ACHES [id number] Reductase AdvReac Unknown MUSCLE Unverified 11/10/20 23:30 Inhibitor ACHES AND WEAKNESS/DIARRHEA Home Medications Medication Instructions Recorded Confirmed Type metoprolol succinate 25 mg PO DAILY 10/26/19 11/10/20 History omeprazole 20 mg PO [facility] 10/26/19 11/10/20 History sertraline 100 mg PO DAILY 10/26/19 11/10/20 History aspirin [Aspirin Low Dose] 81 mg PO AMP 11/10/20 11/10/20 History docusate sodium 100 mg PO DAILY 11/10/20 11/10/20 History furosemide 20 mg PO DAILY 11/10/20 11/10/20 History ibuprofen 200 mg PO HS 11/10/20 11/10/20 History melatonin 10 mg PO HS 11/10/20 11/10/20 History potassium chloride 20 meq PO DAILY 11/10/20 11/10/20 History ropinirole 1 mg PO HS 11/10/20 11/10/20 History spironolactone 25 mg PO DAILY 11/10/20 11/10/20 History tamsulosin 0.4 mg PO DAILY 11/10/20 11/10/20 History Past Med/Surg History Medical History Family hx of colon cancer Fusion of spine Surgical History History of carpal tunnel release 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 History of laminectomy History of prostatectomy History of total knee replacement Social History Smoking Status: Former smoker Second Hand Exposure: No; Hx Alcohol Use: Yes Alcohol type: beer Hx Substance Use: No Preferred Language: Mohawk Communication Ability: Effective Custodial Supervisor Required: No Beliefs That Will Affect Care: None marital status: Current Living Situation: Alone How many Children do You have: 3 Feels Safe at Home: Yes Safety Concerns: Feels Safe At This Time Assistive Devices: Denture - Upper and Denture - Lower Review of Systems Review of Systems: As per HPI, all 10 systems reviewed, all other ROS negative Physical Exam Physical Exam: GENERAL: Comfortable, pleasant, no respiratory distress SKIN: Normal color, warm HEENT: Alopecia, pink palpebral conjunctivae, no ptosis, dry buccal mucosa, NGT in place NECK : Supple, no tenderness CHEST : Decreased breath sounds, no tenderness HEART : RRR, no obvious murmurs ABDOMEN: Some distention, minimal central abdominal tenderness RECTAL : Intact sphincter, yellow brown stool (FOBT negative) EXTREMITIES : No LE swelling/tenderness, no other conspicuous deformities noted NEUROLOGIC : Coherent, no facial asymmetry, no other gross focality Results & Data Results & Data ([facility]) Vital Signs (Past 12 Hours) Vital Signs Temp Pulse Resp BP Pulse Ox 11/11/20 00:00 92 H 19 124/95 98 11/10/20 23:30 94 H 26 H 134/85 98 11/10/20 23:00 88 19 126/87 97 11/10/20 22:37 36.4 C L 87 16 152/89 H 98 11/10/20 22:32 87 18 97 11/10/20 22:30 87 23 142/94 H 94 05/19/21 22:29 87 22 144/89 H 96 11/10/20 22:27 88 21 138/91 96 11/10/20 22:25 90 20 144/88 H 96 11/10/20 22:24 87 22 149/97 H 91 11/10/20 22:00 92 H 24 139/113 H 97 11/10/20 21:57 91 H 18 97 11/10/20 21:54 88 17 164/85 H 98 Laboratory Results Laboratory Results WBC 12.83 K/uL (4.8-10.8) H 11/10/20 22:30 RBC 6.30 M/uL (4.7-6.1) H 11/10/20 22:30 Hgb 18.4 g/dL (14.0-18.0) H 11/10/20 22:30 Hct 53.0 % (42-52) H 11/10/20 22:30 MCV 84.1 fL (80-100) 11/10/20 22:30 MCH 29.2 pg (25-34) 11/10/20 22:30 MCHC 34.7 g/dL (32-36) 11/10/20 22:30 RDW Std Deviation 44.6 fL (36.4-46.3) 11/10/20 22:30 RDW Coeff of Jeanette 14.4 % (11.5-14.5) 11/10/20 22:30 Plt Count 375 K/uL (130-400) 11/10/20 22:30 MPV 9.8 fL (7.4-10.4) 11/10/20 22:30 Immature Gran % (Auto) 0.4 % 11/10/20 22:30 Neut % (Auto) 79.6 % 11/10/20 22:30 Lymph % (Auto) 13.3 % 11/10/20 22:30 [place] % (Auto) 6.6 % 11/10/20 22:30 Eos % (Auto) 0.0 % 11/10/20 22:30 Baso % (Auto) 0.1 % 11/10/20 22:30 Neut # (Auto) 10.22 K/uL (1.4-6.5) H 11/10/20 22:30 Lymph # (Auto) 1.70 K/uL (1.2-3.4) 11/10/20 22:30 [place] # (Auto) 0.85 K/uL (0.11-0.59) H 11/10/20 22:30 Eos # (Auto) 0.00 K/uL (0-0.5) 11/10/20 22:30 Baso # (Auto) 0.01 K/uL (0-0.2) 11/10/20 22:30 Immature Gran # (Auto) 0.05 K/uL (0.00-0.02) H 11/10/20 22:30 Sodium 137 mmol/L (136-145) 11/10/20 22:30 Potassium 4.4 mmol/L (3.5-5.1) 11/10/20 22:30 Chloride 104 mmol/L (98-107) 11/10/20 22: Carbon Dioxide 22 mmol/L (21-32) 11/10/20 22:30 Anion Gap 11.0 (3-11) 11/10/20:30 BUN 23 mg/dl (7-18) H 11/10/20 22:30 Creatinine 1.06 mg/dl (0.6-1.4) 11/10/20 22:30 Est Cr Clr Drug Dosing 53.8 ml/min 11/10/20 22:30 Est GFR ( Amer) 75.9 ml/min 11/10/20 22:30 Est GFR (Non-Af Amer) 65.5 ml/min 11/10/20 22:30 BUN/Creatinine Ratio 21.4 (10-20) H 11/10/20 22:30 Glucose 147 mg/dl (70-99) H 11/10/20 22:30 Calcium 9.7 mg/dl (8.5-10.1) 11/10/20 22:30 Total Bilirubin 1.5 mg/dl (0.2-1) H 11/10/20 22:30 AST 25 U/L (15-37) 11/10/20 22:30 ALT 53 U/L (12-78) 11/10/20 22:30 Alkaline Phosphatase 285 U/L (45-117) H 11/10/20 22:30 Troponin I < 0.015 ng/ml (0-0.045) 05/19/21 22:30 Total Protein 8.2 gm/dl (6.4-8.2) 11/10/20 22:30 Albumin 3.6 gm/dl (3.4-5.0) 11/10/20 22:30 Globulin 4.6 gm/dl (2.5-4.0) H 11/10/20 22:30 Albumin/Globulin Ratio 0.8 (0.9-2) L 11/10/20 22:30 Lipase 58 U/L (73-393) L 11/10/20 22:30 COVID-19 Eval Order Covid19 at [facility] 11/10/20 23:[address] abdomen pelvis initial read: As noted previously, there is a region of masslike thickening to the sigmoid colon. Resulting highgrade bowel obstruction with distention extending back to the proximal small bowel. Intact ileocolic anastomosis. Prostatectomy. No pathologic urinary bladder distention or hydronephrosis. Nonobstructing upper pole left renal calculus. 8 cm mid zone right renal cyst. Redemonstrated fatty inguinal and paraumbilical ventral hernias. EKG as per my interpretation rate 80, NSR, LAD, LAFB, diffuse T wave abnormalities
[2020-11-11] MEDS ORDERED: METOPROLOL TARTRATE 1 MG/ML VIAL IV STA (01:12)
[2020-11-11 02:07] LABS: Magnesium 1.9 mg/dl (1.8-2.4)
[2020-11-11] MEDS ORDERED: traMADol HCL 50 MG TABLET PO PRN (03:01)
[2020-11-11] MEDS ORDERED: MoRPHine SULFATE 2 MG/ML CARP IV PRN (03:01)
[2020-11-11] MEDS ORDERED: GLUCOSE 10 TABS/TUBE PO PRN (03:01)
[2020-11-11] MEDS ORDERED: GLUCOSE 40% GEL 15 GM TUBE PO PRN (03:01)
[2020-11-11] MEDS ORDERED: GLUCAGON FOR INJ 1 MG VIAL SQ PRN (03:01)
[2020-11-11] MEDS ORDERED: PROMETHAZINE HCL 6.25 MG in SODIUM CHLORIDE 0.9% 50 ML IV PRN (03:01)
[2020-11-11] MEDS ORDERED: ASPIRIN 81 MG ECTAB PO SCH (03:01)
[2020-11-11] MEDS ORDERED: bisacodyL 10 MG SUPP PR STA (03:01)
[2020-11-11] MEDS ORDERED: CARBOHYDRATES FOR HYPOGLYCEMIA PO PRN (03:01)
[2020-11-11] MEDS ORDERED: ACETAMINOPHEN 325 MG TAB PO PRN (03:01)
[2020-11-11] MEDS ORDERED: ACETAMINOPHEN 1,000 MG/100 ML VIAL IV PRN (03:01)
[2020-11-11] MEDS ORDERED: DEXTROSE 50% 50 ML SYRINGE IV PRN (03:01)
[2020-11-11] MEDS: SODIUM CHLORIDE 0.9% 1000ML 1,000 ML IV SCH ×2 (03:57→15:30)
[2020-11-11] MEDS: INSULIN ASPART 100 UNITS/ML 3 ML PEN SC SCH ×5 (04:01→23:41)
[2020-11-11] MEDS ORDERED: bisacodyL 10 MG SUPP PR ONE (05:31)
[2020-11-11] MEDS: METOPROLOL TARTRATE 1 MG/ML VIAL IV SCH ×4 (05:49→23:44)
[2020-11-11 07:09] LABS: Basophils # (auto) 0.02 K/uL (0-0.2); Basophils % (auto) 0.2 %; Eosinophils # (auto) 0.01 K/uL (0-0.5); Eosinophils % (auto) 0.1 %; Hematocrit (blood only) 51.2 % (42-52); Hemoglobin 17.6 g/dL (14.0-18.0); Immature Granulocytes # (auto) 0.03 K/uL (0.00-0.02); Immature Granulocytes % (auto) 0.3 %; Lymphocytes # (auto) 2.35 K/uL (1.2-3.4); Lymphocytes % (auto) 21.1 %; Mean Corpuscular Hgb Conc 34.4 g/dL (32-36); Mean Corpuscular Volume 84.3 fL (80-100); Mean Platelet Volume 9.8 fL (7.4-10.4); Monocytes # (auto) 1.05 K/uL (0.11-0.59); Monocytes % (auto) 9.4 %; Neutrophils # (auto) 7.66 K/uL (1.4-6.5); Neutrophils % (auto) 68.9 %; Platelet Count 375 K/uL (130-400); RDW Coefficient of Variation 14.5 % (11.5-14.5); RDW Standard Deviation 44.5 fL (36.4-46.3); Red Blood Count 6.07 M/uL (4.7-6.1); White Blood Count 11.12 K/uL (4.8-10.8)
[2020-11-11 07:40] LABS: BUN Creatinine Ratio 23.3 (10-20); Calcium 9.4 mg/dl (8.5-10.1); Creatinine Clr Calc Pharmacy 51.3 ml/min; Est GFR (African American) 71.8 ml/min; Est GFR (Non-African American) 61.9 ml/min; Potassium 3.8 mmol/L (3.5-5.1)
--- NOTE | 2020-11-11 08:00 | CT Scan Report ---
CT SCAN OF THE ABDOMEN AND PELVIS WITHOUT IV CONTRAST CLINICAL HISTORY: Generalized abdominal pain. Vomiting. COMPARISON STUDY: Abdominal CT dated 10/26/2019. TECHNIQUE: CT scan of the abdomen and pelvis is performed from the lung bases to the proximal femora. Images are reviewed in the axial, sagittal, and coronal planes. IV contrast was not administered for this examination. Note that the examination was performed in suboptimal fashion without oral and IV contrast. A dose lowering technique was utilized adhering to the principles of ALARA. CT DOSE: 496.80 mGy.cm FINDINGS: Lung bases: The patient is status post midline sternotomy. The heart is normal in size and without pe ricardial effusion. The coronary arteries are densely calcified. The lung bases are clear noting righ t basilar atelectasis. A small hiatal hernia is identified. Liver: The unenhanced liver is normal in size, contour, and attenuation. There is mild intrahepatic b iliary ductal dilatation. A calcified granuloma is noted in the left lobe. Gallbladder: Mildly distended but otherwise normal in appearance. Spleen: Normal in size and attenuation. Pancreas: The unenhanced pancreas is atrophic and grossly unremarkable. Adrenal glands: Unremarkable. Kidneys: The unenhanced kidneys are atrophic and without hydronephrosis. There is a 3 mm nonobstructi ng left renal calculus. No right renal calculi are identified. There are bilateral renal cysts. The l argest cyst is on the right and measures 8 cm. Abdominal vasculature: There is advanced atherosclerotic calcification and mild ectasia of the abdomi nal aorta. Bowel: Again seen is evidence of colonic obstruction at the level of the sigmoid. The transition poin t is best seen on axial image #309. The upstream colon is distended and fluid-filled. The small bowel loops are dilated with air-fluid levels, with small bowel loops measuring up to 4 cm diameter. There is diverticulosis of the sigmoid colon without CT evidence of acute diverticulitis. There is evidenc e of ileocecal anastomosis. The appendix is surgically absent. Question mild pneumatosis of the right colon. There is no portal venous or mesenteric venous gas. A 1.6 cm partially calcified gastric lesi on is again suggested on image #96. Peritoneum: There is no intraperitoneal free air or abdominal ascites. There is a large fat-containin g supraumbilical hernia. Lymphadenopathy: None. Pelvic viscera: The prostate gland is surgically absent. The bladder is normal as visualized. Surgica l clips are seen throughout the pelvis. There are bilateral fat-containing inguinal hernias. Skeletal structures: The skeletal structures are osteopenic. There is moderate to advanced lumbosacra l spondylosis. No lytic or blastic lesions are seen. IMPRESSION: 1. Findings are consistent with colonic obstruction at the level of the sigmoid. This is similar to t 10/26/2019 examination. Although this could be related to stricture, findings are concerning for und erlying neoplasm/obstructing mass. Correlation with colonoscopy is recommended. 2. There is persistent distention of the upstream colon and small bowel loops. 3. Question mild pneumatosis of the right colon. 4. No intraperitoneal free air is identified. 5. Left-sided nephrolithiasis. 6. A 1.6 cm partially calcified gastric lesion is again suggested. This can be further evaluated with endoscopy. 7. Additional findings as above. ACT 112: Negative or not required by law. Electronically signed by: Dillon Flores M.D. 11/11/2020 7:59 AM
[2020-11-11] MEDS: ENOXAPARIN INJ 30 MG/0.3 ML SYR SQ SCH (08:54)
[2020-11-11] MEDS: SERTRALINE HCL 100 MG TABLET PO SCH (08:55)
[2020-11-11] MEDS ORDERED: TAMSULOSIN HCL 0.4 MG CAP PO SCH (09:00)
[2020-11-11] MEDS ORDERED: PANTOprazole 40 MG TAB PO SCH (09:00)
--- NOTE | 2020-11-11 09:51 | Gastrointestinal Consultation ---
Date of Consultation November 11, 2020 Assessment & Plan (1) Large bowel obstruction: Pt is a 80 y/o male admitted w large bowel obstruction, at sigmoid level, also possible pneumatosis on R colon. 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 Currently also getting evaluation by GI surgery for possible gallbladder mass, pancreas mass, eventually getting upper EUS. He presented similarly 1 year ago, at that time colonoscopy revealed stenosis/narrowing 20cm from anus that is benign, sigmoid diverticulosis, possible twisting of lumen. No plans for repeat colonoscopy at this time. He is passing BM as of this AM but at risk for obstruction recurrence and thus would recommend surgery to consider surgical resection. Keeping pt NPO and NGT in place for now. Pls recall GI prn Supervising Physician Co-Signing Physician Notes I have seen and examined the patient with MILLIE Morales whose note reflects our findings and plan. Recurrent (1 yr ago for same presentation) sigmoid obstruction in patient who had EGD and colonoscopy 10/2019 - benign diverticular stricture. Patient opted for conservative mgt. Here now with obstructive symptoms and CT showing sigmoid obstruction and ?right colon pneumatosis. Passing stool today. No role for colonoscopy at t his time. Surgery following. Workup in progress as outpatient for calcified gastric mass, ?GB mass. has a history of carcinoid TI. History of Present Illness Reason for Consultation: Bowel obstruction Requesting Physician: Dr. Catrachita Carrero Attending Physician: Dr. Mary Lou Cordova History of Present Illness Pt is a 80 y/o male w significant PMHx including CAD s/p CABG, HTN, HLD, prostate ca, carcinoid tumor in distal ileum s/p resection in 2009, currently getting workup (established w GI surgery Dr. Kevyn Healy) for ? gallbladder mass and pancreas mass. He presented to ED yesterday w c/o achy abdominal pain, nausea, vomiting, and constipation. Denies fever, chills, CP, SOB. Labs w mild WBC elevation, LFTs normal w exception of elevated alk phos in 200s, lipase normal. CT abd/pelvis w findings of colonic obstruction in sigmoid level w distension of upstream colon, small bowel loops, ? mild pneumatosis of R colon but no intraperitoneal free air. 1.6cm partially calcified gastric lesion noted. Pt was admitted about 1 year for bowel obstruction symptoms. At that point, had EGD/Colonoscopy by Dr. Odell. EGD was unremarkable but recommended to have f/u EUS to further eval calcified gastric lesion seen on prior CT but pt declined f/u. Colonoscopy showed benign narrowing/stenosis 20cm from anus and diverticulosis of sigmoid colon, there also appears to be twisting of lumen. Pt recommended to have surgical eval for possible resection of that area. Seen by Dr. Babcock then, surgery was deferred. Overnight pt w/o acute events. Had NGT placement. He passes solid BM this AM w/o rectal bleeding but no flatus. Allergies Allergy/AdvReac Type Severity Reaction Status Date / Time simvastatin AdvReac Mild muscle Verified 11/10/20 23:30 weakness aspirin AdvReac Unknown GI UPSET Verified 11/10/20 23:30 IN HIGH DOSES atorvastatin AdvReac Unknown MUSCLE Verified 11/10/20 23:30 ACHES [id number]-[id number]-Mcc Reductase AdvReac Unknown MUSCLE Unverified 11/10/20 23:30 Inhibitor ACHES AND WEAKNESS/DIARRHEA Home Medications Medication Instructions Recorded Confirmed Type metoprolol succinate 25 mg PO DAILY 10/26/19 11/10/20 History omeprazole 20 mg PO QAM 10/26/19 11/10/20 History sertraline 100 mg PO DAILY 10/26/19 11/10/20 History aspirin [Aspirin Low Dose] 81 mg PO AMPM 11/10/20 11/10/20 History docusate sodium 100 mg PO DAILY 11/10/20 11/10/20 History furosemide 20 mg PO DAILY 11/10/20 11/10/20 History ibuprofen 200 mg PO HS 11/10/20 11/10/20 History melatonin 10 mg PO HS 11/10/20 11/10/20 History potassium chloride 20 meq PO DAILY 11/10/20 11/10/20 History ropinirole 1 mg PO HS 11/10/20 11/10/20 History spironolactone 25 mg PO DAILY 11/10/20 11/10/20 History tamsulosin 0.4 mg PO DAILY 11/10/20 11/10/20 History Patient History Medical History (Updated 11/11/20 @ 11:30 by Catrachita Carrero DO) Family hx of colon cancer Fusion of spine Surgical History History of carpal tunnel release 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 History of laminectomy History of prostatectomy History of total knee replacement Social History Smoking Status: Former smoker Second Hand Exposure: No; Hx Alcohol Use: Yes Alcohol type: beer Hx Substance Use: No Preferred Language: Ukrainian Communication Ability: Effective Opinion Polls Survey Worker Required: No Beliefs That Will Affect Care: None marital status: Current Living Situation: Alone How many Children do You have: 3 Feels Safe at Home: Yes Safety Concerns: Feels Safe At This Time Assistive Devices: Walker Review of Systems Review of Systems: All systems reviewed & are unremarkable except as noted in HPI & below Physical Exam Constitutional: WD/WN, vitals as above well groomed, cooperative and comfortable Eyes: PERRL, conjunctivae normal, anicteric sclerae ENMT: external ear and nose normal, oropharynx normal Respiratory: normal respiratory effort, lungs clear to auscultation Cardiovascular: RRR, no murmur, no edema Gastrointestinal (Abdomen): Percussion/Palpation: abdomen soft; abdomen nontender no bowel sounds Skin: no rashes, warm and dry no jaundice Psychiatric: A+Ox3, euthymic affect Lymphatic: no lymphedema Results & Data ([facility]) Vital Signs (Past 12 Hours) Vital Signs Temp Pulse Pulse Resp BP BP BP 11/11/20 09:28 36.5 C 57 L 18 166/91 H 11/11/20 08:07 36.4 C L 77 19 131/86 11/11/20 07:42 72 11/11/20 05:49 77 156/96 H 11/11/20 03:01 36.6 C 84 77 18 156/96 H 11/11/20 02:00 79 18 134/84 11/11/20 01:30 82 18 141/95 H 11/11/20 01:00 97 H 21 149/97 H 11/11/20 00:30 89 19 156/94 H 11/11/20 00:00 92 H 19 124/95 11/10/20 23:30 94 H 26 H 134/85 11/10/20 23:00 88 19 126/87 11/10/20 22:37 36.4 C L 87 16 152/89 H 11/10/20 22:32 87 18 11/10/20 22:30 87 23 142/94 H 11/10/20 22:29 87 22 144/89 H 11/10/20 22:27 88 21 138/91 11/10/20 22:25 90 20 144/88 H 11/10/20 22:24 87 22 149/97 H 11/10/20 22:00 92 H 24 139/113 H 11/10/20 21:57 91 H 18 11/10/20 21:54 88 17 164/85 H Pulse Ox Pulse Ox 11/11/20 09:28 99 11/11/20 08:07 93 11/11/20 07:42 11/11/20 05:49 11/11/20 03:01 97 97 11/11/20 02:00 94 11/11/20 01:30 97 11/11/20 01:00 92 11/11/20 00:30 11/11/20 00:00 98 11/10/20 23:30 98 11/10/20 23:00 97 11/10/20 22:37 98 11/10/20 22:32 97 11/10/20 22:30 94 11/10/20 22:29 96 11/10/20 22:27 96 11/10/20 22:25 96 11/10/20 22:24 91 11/10/20 22:00 97 11/10/20 21:57 97 11/10/20 21:54 98
--- NOTE | 2020-11-11 11:36 | Hospitalist Progress Note ---
Date of Service November 11, 2020 Assessment & Plan (1) Large bowel obstruction: Likely due to previously identified sigmoid colon stricture. Recent colonoscopy one month ago wtih biopsy of stricture area that was benign. GI not recommending repeat colonoscopy at this time and patient is moving his bowels this morning somewhat. However, he is at risk for recurring issues so surgical intervention must be considered. General Surgery did see patient this morning and feels emergency surgical intervention is not needed given the patient's abdomen is nondistended and he has no pain with palpation. May consider bowel prep followed by surgical resection of area in next few days. For now cont NPO status, NG tube to low intermittent suction , analgesics and antiemetics as needed. (2) Stricture of sigmoid colon: plan as above. 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 Will cont insulin coverage as needed. Last A1C one year ago was 7. Repeat in am. (6) HTN (hypertension): Around goal. Currently 153/97. Cont metoprolol via IV while NPO for now. Holding home Lasix and aldactone while NPO to avoid dehydration. (7) CAD (coronary artery disease): chronic, stable. Cont medical management with aspirin, BB. Noted statin allergy on file. (8) DVT prophylaxis: Lovenox Full Code Dispo-to home when medically stable. May need surgery, will await decision on that. Catrachita Carrero DO [facility] Hospitalist Admission and Anticipated Discharge Date Admission Date: November 11, 2020 Physical Exam Physical Exam: CONSTITUTIONAL: WNWD, vitals as above, generally well- appearing EYES: normal conjunctivae, no scleral icterus ENT: external ear and nose normal, MMM, +NG tube in place. RESPIRATORY: clear to auscultation bilaterally, no crackles, rales or wheezes, normal respiratory effort CARDIOVASCULAR: regular rate and rhythm, S1 and 2 heard without murmurs, gallops or rubs, no JVD, no peripheral edema GASTROINTESTINAL: soft, nontender, slight distension in periumbilical area, no guarding MUSCULOSKELETAL: strength 5/5 throughout, head is normocephalic and atraumatic SKIN: warm and dry NEUROLOGIC: CN 2-12 grossly intact, normal cognition, normal speech, no tremor, no gross focal deficits. PSYCHIATRIC: alert cooperative and oriented to person, place and time. Results & Data Results & Data ([facility]) Vital Signs (Past 12 Hours) Vital Signs Temp Pulse Pulse Resp BP BP BP 11/11/20 10:23 197/77 H 11/11/20 09:28 36.5 C 57 L 18 166/91 H 11/11/20 08:07 36.4 C L 77 19 131/86 11/11/20 07:42 72 11/11/20 05:49 77 156/96 H 11/11/20 03:01 36.6 C 84 77 18 156/96 H 11/11/20 02:00 79 18 134/84 11/11/20 01:30 82 18 141/95 H 11/11/20 01:00 97 H 21 149/97 H 11/11/20 00:30 89 19 156/94 H 11/11/20 00:00 92 H 19 124/95 11/10/20 23:30 94 H 26 H 134/85 Pulse Ox Pulse Ox 11/11/20 10:23 11/11/20 09:28 99 11/11/20 08:07 93 11/11/20 07:42 11/11/20 05:49 11/11/20 03:01 97 97 11/11/20 02:00 94 11/11/20 01:30 97 11/11/20 01:00 92 11/11/20 00:30 11/11/20 00:00 98 11/10/20 23:30 98 Laboratory Results Short CBC 11/10/20 11/11/20 Range/Units 22:30 06:31 WBC 12.83 H 11.12 H (4.8-10.8) K/uL Hgb 18.4 H 17.6 (14.0-18.0) g/dL Hct 53.0 H 51.2 (42-52) % Plt Count 375 375 (130-400) K/uL BMP 11/10/20 11/11/20 22:30 06:31 Sodium 137 138 Potassium 4.4 3.8 Chloride 104 104 Carbon Dioxide 22 26 BUN 23 H 26 H Creatinine 1.06 1.11 Glucose 147 H 121 H Calcium 9.7 9.4 Cardiac Enzymes 11/10/20 Range/Units 22:30 Troponin I < 0.015 (0-0.045) ng/ml Liver Function 11/10/20 Range/Units 22:30 Total Bilirubin 1.5 H (0.2-1) mg/dl AST 25 (15-37) U/L ALT 53 (12-78) U/L Alkaline Phosphatase 285 H (45-117) U/L Albumin 3.6 (3.4-5.0) gm/dl Medications Administered Current Inpatient Medications Acetaminophen (Acetaminophen 325 Mg Tab) 650 mg PO Q4H PRN PRN Reason: Pain or Fever Stop: 12/11/20 03:00 Aspirin (Aspirin 81 Mg Ectab) 81 mg PO BID LISA Stop: 12/11/20 03:00 Last Admin: 11/11/20 05:51 Dose: 81 mg Documented by: Dextrose (Dextrose 50% 50 Ml Syringe) 25 - 50 ml IV UD PRN; Protocol PRN Reason: Hypoglycemia Protocol Stop: 12/11/20 03:00 Enoxaparin Sodium (Enoxaparin Inj 30 Mg/0.3 Ml Syr) 30 mg SQ QAM LISA Stop: 12/11/20 08:59 Last Admin: 11/11/20 08:54 Dose: 30 mg Documented by: Glucagon (Glucagon For Inj 1 Mg Vial) 1 mg SQ UD PRN; Protocol PRN Reason: Hypoglycemia Protocol Stop: 12/11/20 03:00 Glucose (Glucose 10 Tabs/Tube) 4 - 8 tabs PO UD PRN; Protocol PRN Reason: Hypoglycemia Protocol Stop: 12/11/20 03:00 Glucose (Glucose 40% Gel 15 Gm Tube) 15 - 30 gm PO UD PRN; Protocol PRN Reason: Hypoglycemia Protocol Stop: 12/11/20 03:00 Sodium Chloride (Nss 1000ml) 1,000 mls @ 75 mls/hr IV .[id number] LISA Stop: 12/11/20 03:00 Last Admin: 11/11/20 03:57 Dose: 75 mls/hr Documented by: Promethazine HCl 6.25 mg/ (Sodium Chloride) 50.25 mls @ 201 mls/hr IV Q6H PRN PRN Reason: Nausea And Vomiting Stop: 12/11/20 03:00 Last Infusion: 11/11/20 04:15 Dose: Infused Documented by: Acetaminophen (Ofirmev) 1,000 mg in 100 mls @ 400 mls/hr IV Q8H PRN PRN Reason: pain/fever Stop: 11/14/20 03:00 Insulin Aspart (Insulin Aspart 100 Units/Ml 3 Ml Pen) 0 units SC Q6 LISA Stop: 12/11/20 03:00 Last Admin: 11/11/20 06:17 Dose: Not Given Documented by: Melatonin (Melatonin 3 Mg Tab) 9 mg PO HS [facility] Stop: 12/11/20 20:59 Metoprolol Tartrate (Metoprolol Tartrate 1 Mg/Ml Vial) 2.5 mg IV Q6 LISA Stop: 12/11/20 05:59 Last Admin: 11/11/20 05:49 Dose: 2.5 mg Documented by: Miscellaneous (Carbohydrates For Hypoglycemia ) 15 - 30 gm PO UD PRN PRN Reason: Hypoglycemia Protocol Stop: 12/11/20 03:00 Morphine Sulfate (Morphine Sulfate 2 Mg/Ml Carp) 2 mg IV Q6H PRN PRN Reason: Pain Stop: 11/25/20 03:00 Pantoprazole Sodium (Pantoprazole 40 Mg Tab) 40 mg PO QAM LISA Stop: 12/11/20 08:59 Last Admin: 11/11/20 08:55 Dose: 40 mg Documented by: Ropinirole HCl (Ropinirole Hcl 1 Mg Tablet) 1 mg PO HS [facility] Stop: 12/11/20 20:59 Sertraline HCl (Sertraline Hcl 100 Mg Tablet) 100 mg PO DAILY LISA Stop: 12/11/20 08:59 Last Admin: 11/11/20 08:55 Dose: 100 mg Documented by: Tamsulosin HCl (Tamsulosin Hcl 0.4 Mg Cap) 0.4 mg PO DAILY LISA Stop: 12/11/20 08:59 Last Admin: 11/11/20 08:55 Dose: 0.4 mg Documented by: Tramadol HCl (Tramadol Hcl 50 Mg Tablet) 25 mg PO Q4H PRN PRN Reason: Pain Stop: 12/11/20 03:00
--- NOTE | 2020-11-11 17:55 | Communication Note ---
Date of Service: November 11, 2020 Case discussed with regarding possible endoscopic colonic decompression. Will plan for a Flex sig tomorrow to re-evaluate the patient's stricture..
--- NOTE | 2020-11-11 18:35 | Electrocardiogram Report ---
Test Reason : Blood Pressure : / mmHG Vent. Rate : 086 BPM Atrial Rate : 086 BPM P-R Int : 142 ms QRS Dur : 084 ms QT Int : 394 ms P-R-T Axes : 029 -62 029 degrees QTc Int : 471 ms Poor data quality, interpretation may be adversely affected Sinus rhythm with occasional Premature ventricular complexes Left axis deviation Possible Lateral infarct , age undetermined Abnormal ECG When compared with ECG of 26-OCT-2019 14:09, Premature ventricular complexes are now Present Borderline criteria for Lateral infarct are now Present QT has lengthened Confirmed by Addi Handy ([id number]) on 11/11/2020 6:35:34 PM Referred By: REFERRED SELF Confirmed By:Nii Handy
--- NOTE | 2020-11-11 18:40 | Electrocardiogram Report ---
Test Reason : Blood Pressure : / mmHG Vent. Rate : 049 BPM Atrial Rate : 049 BPM P-R Int : 162 ms QRS Dur : 088 ms QT Int : 468 ms P-R-T Axes : 005 -50 069 degrees QTc Int : 422 ms Sinus bradycardia Left axis deviation Abnormal ECG When compared with ECG of 10-NOV-2020 22:20, (unconfirmed) Premature ventricular complexes are no longer Present Vent. rate has decreased BY 37 BPM Borderline criteria for Lateral infarct are no longer Present Inverted T waves have replaced nonspecific T wave abnormality in Lateral leads Confirmed by Addi Handy ([id number]) on 11/11/2020 6:39:47 PM Referred By: REFERRED SELF Confirmed By:Nii Handy
--- NOTE | 2020-11-11 19:43 | Communication Note ---
Date of Service: November 11, 2020 New onset atrial fibrillation with RVR began this evening. Patient is asymptomatic reporting no palpitations, chest pain or SOB. He is normotensive at 125/80. HR was 115 and Lopressor 2.5mg IV given with rate improved to 83. The patient admits to significant emotional stress since losing his in Jul. He is not currently septic, but has an NG tube in place. He is NPO in preparation for upcoming surgery to his bowel. He has a h/o CAD s/p CABG. Most recent echo was 2014 with preserved EF and no significant valve disease. On exam VSS, he is well appearing. NG tube is in place. Cardiac auscultation reveals irregular rhythm with a normal rate, S1/2 hears without murmurs, gallops or rubs, lungs are clear to auscultation throughout. Abdomen is soft with mild distension and no changes since morning exam. Euvolemic on exam. Labwork reveals a normal BMP anc CBC with a normal MG and Phos. TSH WNL and trop is negative. EKG without evidence of active ischemia. CXR reveals no acute intrapulmonary changes. Cardiology consult placed. Will continue Lopressor IV scheduled and cont telemetry overnight. Hold on any anticoagulation at this point given upcoming procedure in am. sleep medicine physician anticoagulation is indicated with CHADS Vasc score 5. I updated son by phone this evening who verbalized understanding of the plan. DO Magan
[2020-11-11 20:04] LABS: Hematocrit (blood only) 47.3 % (42-52); Hemoglobin 16.2 g/dL (14.0-18.0); Mean Corpuscular Hemoglobin 29.6 pg (25-34); Mean Corpuscular Hgb Conc 34.2 g/dL (32-36); Mean Corpuscular Volume 86.5 fL (80-100); Mean Platelet Volume 9.5 fL (7.4-10.4); Platelet Count 377 K/uL (130-400); RDW Coefficient of Variation 14.7 % (11.5-14.5); RDW Standard Deviation 46.9 fL (36.4-46.3); Red Blood Count 5.47 M/uL (4.7-6.1); White Blood Count 9.13 K/uL (4.8-10.8)
--- NOTE | 2020-11-11 20:11 | XRay Report ---
XR chest 1V portable HISTORY: 80 years-old Male new onset atrial fibrillation acute atypical chest pain with atrial fibri llation COMPARISON: Chest radiograph 10/29/2019 TECHNIQUE: Portable upright AP view of the chest FINDINGS: Cardiac silhouette is mildly enlarged. Prior median sternotomy with CABG. An enteric tube is present with side-port near the gastroesophageal junction and distal tip projected over the proximal stomach. No pneumothorax, pleural effusion, airspace consolidation or overt pulmonary edema. Bones appear carlos ssly intact. IMPRESSION: 1. Cardiomegaly without acute process. 2. Distal tip of enteric tube projects over the proximal stomach. ACT 112: Negative or not required by law. The above report was generated using voice recognition software. It may contain grammatical, syntax o r spelling errors. Electronically signed by: Du Ceballos M.D. 11/11/2020 8:09 PM
[2020-11-11 20:28] LABS: BUN Creatinine Ratio 27.7 (10-20); Blood Urea Nitrogen 28 mg/dl (7-18); Calcium 9.5 mg/dl (8.5-10.1); Carbon Dioxide 24 mmol/L (21-32); Chloride 103 mmol/L (98-107); Creatinine Clr Calc Pharmacy 56.9 ml/min; Est GFR (African American) 81.4 ml/min; Est GFR (Non-African American) 70.3 ml/min; Glucose 110 mg/dl (70-99); Magnesium 1.8 mg/dl (1.8-2.4); Potassium 3.5 mmol/L (3.5-5.1); Sodium 138 mmol/L (136-145)
[2020-11-11 20:38] LABS: Phosphorus 2.9 mg/dl (2.5-4.9); Troponin I < 0.015 ng/ml (0-0.045)
[2020-11-11] MEDS: rOPINIRole HCL 1 MG TABLET NG SCH (20:57)
[2020-11-11] MEDS: ASPIRIN 81 MG CHEW PO SCH (20:57)
[2020-11-11] MEDS ORDERED: rOPINIRole HCL 1 MG TABLET PO SCH (21:00)
[2020-11-11] MEDS ORDERED: MELATONIN 3 MG TAB PO SCH (21:00)
[2020-11-11 22:36] LABS: Appearance Urine Clear (Clear); Blood Urine Negative (Negative); Color Urine Dark Yellow; Glucose Urine UA Negative (Negative); Ketones Urine 1+ (Negative); Leukocyte Esterase Urine Negative (Negative); Nitrite Urine Negative (Negative); Protein Urine Negative (Negative); Specific Gravity Urine 1.028 (1.000-1.030); Urobilinogen Urine Negative (Negative); pH Urine 5.5 (4.5-7.5)
[2020-11-11 22:39] LABS: Bilirubin Urine 1+ (Negative)
[2020-11-12] MEDS: SODIUM CHLORIDE 0.9% 1000ML 1,000 ML IV SCH ×2 (03:57→15:54)
[2020-11-12] MEDS: INSULIN ASPART 100 UNITS/ML 3 ML PEN SC SCH ×4 (06:04→21:10)
[2020-11-12] MEDS: METOPROLOL TARTRATE 1 MG/ML VIAL IV SCH ×3 (06:18→18:06)
[2020-11-12 06:57] LABS: Hematocrit (blood only) 46.4 % (42-52); Hemoglobin 15.5 g/dL (14.0-18.0); Mean Corpuscular Hemoglobin 28.8 pg (25-34); Mean Corpuscular Hgb Conc 33.4 g/dL (32-36); Mean Corpuscular Volume 86.2 fL (80-100); Mean Platelet Volume 9.4 fL (7.4-10.4); Platelet Count 352 K/uL (130-400); RDW Coefficient of Variation 14.6 % (11.5-14.5); RDW Standard Deviation 46.7 fL (36.4-46.3); Red Blood Count 5.38 M/uL (4.7-6.1); White Blood Count 9.28 K/uL (4.8-10.8)
[2020-11-12 07:47] LABS: BUN Creatinine Ratio 29.4 (10-20); Calcium 9.1 mg/dl (8.5-10.1); Creatinine Clr Calc Pharmacy 71.2 ml/min; Est GFR (African American) 97.1 ml/min; Est GFR (Non-African American) 83.8 ml/min; Potassium 3.4 mmol/L (3.5-5.1)
[2020-11-12] MEDS: SERTRALINE HCL 100 MG TABLET PO SCH (08:09)
[2020-11-12] MEDS: ENOXAPARIN INJ 30 MG/0.3 ML SYR SQ SCH (08:09)
[2020-11-12] MEDS: LANSOPRAZOLE 30 MG SOLTAB NG SCH (08:09)
[2020-11-12] MEDS: ASPIRIN 81 MG CHEW PO SCH ×2 (08:12→21:09)
--- NOTE | 2020-11-12 09:35 | Gastroenterology Progress Note ---
Date of Service November 12, 2020 Assessment & Plan (1) Large bowel obstruction: Pt is a 80 y/o male admitted w large bowel obstruction, at sigmoid level, also possible pneumatosis on R colon. 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 Currently also getting evaluation by GI surgery for possible gallbladder mass, pancreas mass, eventually getting upper EUS. He presented similarly 1 year ago, at that time colonoscopy revealed stenosis/narrowing 20cm from anus that is benign, sigmoid diverticulosis, possible twisting of lumen. He is passing BM & flatus. Surgery would like re- evaluation of stricture area prior to surgical resection. - Keep NPO; NGT to LIS - Plan for flex sigmoidscopy w Dr. Reynolds today, prep w tap water enema prior - Surgery following Admission and Anticipated Discharge Date Admission Date: November 11, 2020 Supervising Physician Co-Signing Physician Notes I performed a history and physical examination of the patient today, including specifically on physical exam - soft abdomen. I have discussed the patient's management with the advanced practitioner. Please refer to the nurse practitioner's note for the documented findings and plan of care. Subjective Pt having some abdominal pressure discomfort. No n/v, is passing BM and flatus Review of Systems Review of Systems: All systems reviewed & are unremarkable except as noted in HPI & below Physical Exam Constitutional: WD/WN, vitals as above well groomed, cooperative and comfortable Eyes: PERRL, conjunctivae normal, anicteric sclerae ENMT: external ear and nose normal, oropharynx normal Respiratory: normal respiratory effort, lungs clear to auscultation Cardiovascular: RRR, no murmur, no edema Gastrointestinal (Abdomen): Percussion/Palpation: abdomen soft; abdomen nontender No BS noted Skin: no rashes, warm and dry no jaundice Psychiatric: A+Ox3, euthymic affect Lymphatic: no lymphedema Results & Data ([facility]) Vital Signs (Past 12 Hours) Vital Signs Temp Pulse Pulse Resp BP BP BP 11/12/20 07:21 36.5 C 64 18 125/73 11/12/20 06:18 81 129/75 11/12/20 06:13 81 129/75 11/12/20 03:54 36.5 C 77 20 129/77 11/12/20 03:39 83 11/11/20 23:44 85 114/79 11/11/20 23:42 85 114/79 11/11/20 23:17 36.3 C L 65 20 114/76 11/11/20 22:45 102 H Pulse Ox 11/12/20 07:21 93 11/12/20 06:18 11/12/20 06:13 11/12/20 03:54 91 11/12/20 03:39 11/11/20 23:44 11/11/20 23:42 11/11/20 23:17 92 11/11/20 22:45
--- NOTE | 2020-11-12 10:06 | Surgery Progress Note ---
Date of Service November 12, 2020 Assessment & Plan (1) Stricture of sigmoid colon: for flex sig today repeat KUB, can probably d/c NG and start clears after procedure Admission and Anticipated Discharge Date Admission Date: November 11, 2020 Supervising Physician Co-Signing Physician Notes Patient seen and examined, agree with above. Patient admitted with recurrent large bowel obstruction likely secondary to benign diverticular stricture. Plan for flex sig today by Dr. Jossie Ba. On exam he is afebrile with stable vitals. Abdomen is moderately distended but nontender. If patient has successful decompression with flex sig today, he may be able to have the NG tube removed and advance his diet. If he is doing well over the weekend, he may be discharged with plans for follow-up in the clinic for elective sigmoidectomy. Or he may choose to stay in-house and have the procedure sometime next week. Dr. Magdaleno reyes on the weekend. Subjective no abdominal symptoms, no BM since admission Physical Exam Gastrointestinal (Abdomen): Percussion/Palpation: abdomen soft; abdomen nontender NG 75 cc Results & Data ([facility]) Vital Signs (Past 12 Hours) Vital Signs Temp Pulse Pulse Resp BP BP BP 11/12/20 08:00 79 11/12/20 07:21 36.5 C 64 18 125/73 11/12/20 06:18 81 129/75 11/12/20 06:13 81 129/75 11/12/20 03:54 36.5 C 77 20 129/77 11/12/20 03:39 83 11/11/20 23:44 85 114/79 11/11/20 23:42 85 114/79 11/11/20 23:17 36.3 C L 65 20 114/76 11/11/20 22:45 102 H Pulse Ox 11/12/20 08:00 11/12/20 07:21 93 11/12/20 06:18 11/12/20 06:13 11/12/20 03:54 91 11/12/20 03:39 11/11/20 23:44 11/11/20 23:42 11/11/20 23:17 92 11/11/20 22:45 PG Care Time/CCT Total # of Minutes Spent Total Time Spent with Patient: Total time spent is greater than 50% in coordination of care (as documented) at patient's floor/unit and/or counseling patient: Coding Level of Care Code 47457 Subseq Hosp Care Lvl 1 Diagnoses Stricture of sigmoid colon K56.699
[2020-11-12] MEDS: POTASSIUM CHLORIDE / WTR 10 MEQ/100 ML PLCT IV SCH ×4 (10:30→13:44)
--- NOTE | 2020-11-12 10:55 | XRay Report ---
KUB CLINICAL HISTORY: colonic stricture COMPARISON STUDY: CT of the abdomen and pelvis November 10, 2020. FINDINGS: Tip of nasogastric tube is within the body of the stomach. Persistent small large bowel dil atation is noted. Gaseous distention of the colon has increased. Prostatectomy clips are noted. IMPRESSION: Increase in gaseous distention of the colon. Persistent small bowel dilatation. The find ings suggest a persistent colonic obstruction, likely at the sigmoid as shown on CT. ACT 112: Negative or not required by law. Electronically signed by: Tobi Santiago M.D. 11/12/2020 10:54 AM
--- NOTE | 2020-11-12 11:32 | Electrocardiogram Report ---
Test Reason : Blood Pressure : / mmHG Vent. Rate : 115 BPM Atrial Rate : 416 BPM P-R Int : 000 ms QRS Dur : 092 ms QT Int : 348 ms P-R-T Axes : 000 -57 023 degrees QTc Int : 481 ms Atrial fibrillation with rapid ventricular response with premature ventricular or aberrantly conducte d complexes Left anterior fascicular block Inferior-posterior infarct Abnormal ECG When compared with ECG of 11-NOV-2020 09:39, Atrial fibrillation has replaced Sinus rhythm Vent. rate has increased BY 66 BPM T wave inversion less evident in Anterolateral leads Confirmed by Addi Handy ([id number]) on 11/12/2020 11:32:01 AM Referred By: REFERRED SELF Confirmed By:Nii Handy
--- NOTE | 2020-11-12 11:48 | Cardiology Consultation ---
Date of Consultation November 12, 2020 Assessment & Plan (1) Paroxysmal atrial fibrillation: Telemetry reviewed demonstrating episodes of atrial flutter with ECG evidence of atrial fibrillation. Patient spontaneously converted at approximately 3 AM. Hypokalemia in the setting of bowel obstruction and emesis inciting events. Recommend electrolyte replacement and restarting of beta- carmen therapy. Titrate metoprolol to 5 mg IV every 6 hours. Resume 25 mg daily when able. continue to monitor telemetry. Refrain from adding anticoagulation at this time due to potential reversible causes and monitor telemetry. 2D transthoracic echocardiogram pending. (2) Atrial flutter, paroxysmal: As above. (3) Hypokalemia: Replace as indicated. (4) CAD (coronary artery disease): History of coronary artery bypass grafting. Currently stable without exertional anginal symptoms. (5) Large bowel obstruction: History of Present Illness Reason for Consultation: Paroxysmal atrial fibrillation Requesting Physician: Dr. Carrero Attending Physician: Catrachita Carrero, History of Present Illness 80-year-old patient with history of prior coronary artery bypass grafting presented to the emergency department 11/10/2020 with chief complaint of abdominal pain and vomiting. Diagnosed with large bowel obstruction and NG tube placed. 11/12/2019 when he developed atrial fibrillation/flutter with elevated heart rates. Denies any palpitations or lightheadedness. Spontaneously converted to sinus rhythm at approximately 3 AM. Electrolyte derangement in cluding hypokalemia and borderline hypomagnesemia noted. Patient reports "all my heart meds discontinued 1 month ago". Per review of records, it appears Toprol-XL was discontinued approximately 4 weeks ago. Currently resting comfortably. No chest discomfort or unusual shortness of breath. Prior to his current admission he was in his usual state of health and functional capacity. Able to complete activities of daily living and chores without restriction. No orthopnea, PND, or lower extremity edema. Denies any lightheadedness, dizziness, syncope, or near-syncope. Allergies Allergy/AdvReac Type Severity Reaction Status Date / Time simvastatin AdvReac Mild muscle Verified 11/10/20 23:30 weakness aspirin AdvReac Unknown GI UPSET Verified 11/10/20 23:30 IN HIGH DOSES atorvastatin AdvReac Unknown MUSCLE Verified 11/10/20 23:30 ACHES Anizywh-Rpt-Dvh Reductase AdvReac Unknown MUSCLE Unverified 11/10/20 23:30 Inhibitor ACHES AND WEAKNESS/DIARRHEA Home Medications Medication Instructions Recorded Confirmed Type metoprolol succinate 25 mg PO DAILY 10/26/19 11/10/20 History omeprazole 20 mg PO QAM 10/26/19 11/10/20 History sertraline 100 mg PO DAILY 10/26/19 11/10/20 History aspirin [Aspirin Low Dose] 81 mg PO AMPM 11/10/20 11/10/20 History docusate sodium 100 mg PO DAILY 11/10/20 11/10/20 History furosemide 20 mg PO DAILY 11/10/20 11/10/20 History ibuprofen 200 mg PO HS 11/10/20 11/10/20 History melatonin 10 mg PO HS 11/10/20 11/10/20 History potassium chloride 20 meq PO DAILY 11/10/20 11/10/20 History ropinirole 1 mg PO HS 11/10/20 11/10/20 History spironolactone 25 mg PO DAILY 11/10/20 11/10/20 History tamsulosin 0.4 mg PO DAILY 11/10/20 11/10/20 History Patient History Medical History (Updated 11/12/20 @ 11:45 by Cornelio Norwood DO) Family hx of colon cancer Fusion of spine Surgical History History of carpal tunnel release 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 History of laminectomy History of prostatectomy History of total knee replacement Social History Smoking Status: Former smoker Second Hand Exposure: No; Hx Alcohol Use: Yes Alcohol type: beer Hx Substance Use: No Preferred Language: Romanian Communication Ability: Effective Hand Profiler Required: No Beliefs That Will Affect Care: None marital status: Current Living Situation: Alone How many Children do You have: 3 Feels Safe at Home: Yes Safety Concerns: Feels Safe At This Time Assistive Devices: Walker Review of Systems Review of Systems: All systems reviewed & are unremarkable except as noted in Subjective Physical Exam Constitutional: well developed and well nourished; no acute distress Respiratory: normal respiratory effort; no respiratory distress and no labored breathing Auscultation: no crackles, no rales, no rhonchi and no wheezes Cardiovascular: Rate/Rhythm: regular rate and regular rhythm Heart Sounds: normal S1 and normal S2; no murmur Vessels: no JVD and no carotid bruit Extremities: no edema Gastrointestinal (Abdomen): Inspection/Auscultation: + abdomen distended; + abnormal bowel sounds (Hypoactive) Percussion/Palpation: abdomen nontender, no guarding and abdomen not rigid Neurologic: CN's II-XI intact bilaterally and moves all extremities; no focal motor deficits Motor/Sensory: no tremor Psychiatric: A+Ox3, euthymic affect Results & Data ([facility]) Vital Signs (Past 12 Hours) Vital Signs Temp Pulse Pulse Resp BP BP BP 11/12/20 11:33 84 128/82 11/12/20 11:28 36.4 C L 84 20 128/82 11/12/20 08:00 79 11/12/20 07:21 36.5 C 64 18 125/73 11/12/20 06:18 81 129/75 11/12/20 06:13 81 129/75 11/12/20 03:54 36.5 C 77 20 129/77 11/12/20 03:39 83 11/11/20 23:44 85 114/79 11/11/20 23:42 85 114/79 Pulse Ox 11/12/20 11:33 11/12/20 11:28 93 11/12/20 08:00 11/12/20 07:21 93 11/12/20 06:18 11/12/20 06:13 11/12/20 03:54 91 11/12/20 03:39 11/11/20 23:44 11/11/20 23:42
--- NOTE | 2020-11-12 14:37 | Hospitalist Progress Note ---
Date of Service November 12, 2020 Assessment & Plan (1) Large bowel obstruction: Likely due to previously identified sigmoid colon stricture. Recent colonoscopy one month ago wtih biopsy of stricture area that was benign. GI not recommending repeat colonoscopy at this time and patient is moving his bowels this morning somewhat. However, he is at risk for recurring issues so surgical intervention must be considered. General Surgery did see patient this morning and feels emergency surgical intervention is not needed given the patient's abdomen is nondistended and he has no pain with palpation. May consider bowel prep followed by surgical resection of area in next few days. For now cont NPO status, NG tube to low intermittent suction , analgesics and antiemetics as needed. (2) Stricture of sigmoid colon: plan as above. 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 Will cont insulin coverage as needed. Last A1C one year ago was 7. Repeat in am. (6) HTN (hypertension): Around goal. Currently 153/97. Cont metoprolol via IV while NPO for now. Holding home Lasix and aldactone while NPO to avoid dehydration. (7) CAD (coronary artery disease): chronic, stable. Cont medical management with aspirin, BB. Noted statin allergy on file. (8) DVT prophylaxis: Lovenox Full Code Dispo-to home when medically stable. May need surgery, will await decision on that. Catrachita Carrero DO [facility] Hospitalist Admission and Anticipated Discharge Date Admission Date: November 11, 2020 Physical Exam Physical Exam: CONSTITUTIONAL: WNWD, vitals as above, generally well- appearing EYES: normal conjunctivae, no scleral icterus ENT: external ear and nose normal, MMM, +NG tube in place. RESPIRATORY: clear to auscultation bilaterally, no crackles, rales or wheezes, normal respiratory effort CARDIOVASCULAR: regular rate and rhythm, S1 and 2 heard without murmurs, gallops or rubs, no JVD, no peripheral edema GASTROINTESTINAL: soft, nontender, slight distension in periumbilical area, no guarding MUSCULOSKELETAL: strength 5/5 throughout, head is normocephalic and atraumatic SKIN: warm and dry NEUROLOGIC: CN 2-12 grossly intact, normal cognition, normal speech, no tremor, no gross focal deficits. PSYCHIATRIC: alert cooperative and oriented to person, place and time. Results & Data Results & Data ([facility]) Vital Signs (Past 12 Hours) Vital Signs Temp Pulse Pulse Resp BP BP BP 11/12/20 11:33 84 128/82 11/12/20 11:28 36.4 C L 84 20 128/82 11/12/20 08:00 79 11/12/20 07:21 36.5 C 64 18 125/73 11/12/20 06:18 81 129/75 11/12/20 06:13 81 129/75 11/12/20 03:54 36.5 C 77 20 129/77 11/12/20 03:39 83 Pulse Ox 11/12/20 11:33 11/12/20 11:28 93 11/12/20 08:00 11/12/20 07:21 93 11/12/20 06:18 11/12/20 06:13 11/12/20 03:54 91 11/12/20 03:39 Laboratory Results Short CBC 11/11/20 11/12/20 Range/Units 19:55 06:29 WBC 9.13 9.28 (4.8-10.8) K/uL Hgb 16.2 15.5 (14.0-18.0) g/dL Hct 47.3 46.4 (42-52) % Plt Count 377 352 (130-400) K/uL BMP 11/11/20 11/12/20 19:55 06:29 Sodium 138 138 Potassium 3.5 3.4 L Chloride 103 106 Carbon Dioxide 24 24 BUN 28 H 24 H Creatinine 1.00 0.80 Glucose 110 H 98 Calcium 9.5 9.1 Cardiac Enzymes 11/11/20 Range/Units 19:55 Troponin I < 0.015 (0-0.045) ng/ml Urine 11/11/20 Range/Units 22:20 Urine Color Dark Yellow Urine Appearance Clear (Clear) Urine pH 5.5 (4.5-7.5) Ur Specific [place] 1.028 (1.000-1.030) Urine Protein Negative (Negative) Urine Glucose (UA) Negative (Negative) Medications Administered Current Inpatient Medications Aspirin (Aspirin 81 Mg Chew) 81 mg PO AMHS LISA Stop: 12/11/20 20:59 Last Admin: 11/12/20 08:12 Dose: 81 mg Documented by: Dextrose (Dextrose 50% 50 Ml Syringe) 25 - 50 ml IV UD PRN; Protocol PRN Reason: Hypoglycemia Protocol Stop: 12/11/20 03:00 Enoxaparin Sodium (Enoxaparin Inj 30 Mg/0.3 Ml Syr) 30 mg SQ QAM LISA Stop: 12/11/20 08:59 Last Admin: 11/12/20 08:09 Dose: 30 mg Documented by: Glucagon (Glucagon For Inj 1 Mg Vial) 1 mg SQ UD PRN; Protocol PRN Reason: Hypoglycemia Protocol Stop: 12/11/20 03:00 Glucose (Glucose 10 Tabs/Tube) 4 - 8 tabs PO UD PRN; Protocol PRN Reason: Hypoglycemia Protocol Stop: 12/11/20 03:00 Glucose (Glucose 40% Gel 15 Gm Tube) 15 - 30 gm PO UD PRN; Protocol PRN Reason: Hypoglycemia Protocol Stop: 12/11/20 03:00 Sodium Chloride (Nss 1000ml) 1,000 mls @ 75 mls/hr IV .[id number] [facility] Stop: 12/11/20 03:00 Last Admin: 11/12/20 03:57 Dose: 75 mls/hr Documented by: Promethazine HCl 6.25 mg/ (Sodium Chloride) 50.25 mls @ 201 mls/hr IV Q6H PRN PRN Reason: Nausea And Vomiting Stop: 12/11/20 03:00 Last Infusion: 11/11/20 04:15 Dose: Infused Documented by: Acetaminophen (Ofirmev) 1,000 mg in 100 mls @ 400 mls/hr IV Q8H PRN PRN Reason: pain/fever Stop: 11/14/20 03:00 Insulin Aspart (Insulin Aspart 100 Units/Ml 3 Ml Pen) 0 units SC Q6 LISA Stop: 12/11/20 03:00 Last Admin: 11/12/20 11:25 Dose: Not Given Documented by: Lansoprazole (Lansoprazole 30 Mg Soltab) 30 mg NG QAM [facility] Stop: 12/12/20 08:59 Last Admin: 11/12/20 08:09 Dose: 30 mg Documented by: Melatonin (Melatonin 3 Mg Tab) 9 mg PO HS [facility] Stop: 06/19/21 20:59 Metoprolol Tartrate (Metoprolol Tartrate 1 Mg/Ml Vial) 5 mg IV Q6 LISA Stop: 12/12/20 11:59 Last Admin: 11/12/20 11:33 Dose: 5 mg Documented by: Miscellaneous (Carbohydrates For Hypoglycemia ) 15 - 30 gm PO UD PRN PRN Reason: Hypoglycemia Protocol Stop: 12/11/20 03:00 Morphine Sulfate (Morphine Sulfate 2 Mg/Ml Carp) 2 mg IV Q6H PRN PRN Reason: Pain Stop: 11/25/20 03:00 Ropinirole HCl (Ropinirole Hcl 1 Mg Tablet) 1 mg NG HS LISA Stop: 12/11/20 20:59 Last Admin: 11/11/20 20:57 Dose: 1 mg Documented by: Sertraline HCl (Sertraline Hcl 100 Mg Tablet) 100 mg PO DAILY LISA Stop: 12/11/20 08:59 Last Admin: 11/12/20 08:09 Dose: 100 mg Documented by: Tamsulosin HCl (Tamsulosin Hcl 0.4 Mg Cap) 0.4 mg PO DAILY LISA Stop: 12/11/20 08:59 Last Admin: 11/11/20 08:55 Dose: 0.4 mg Documented by: Tramadol HCl (Tramadol Hcl 50 Mg Tablet) 25 mg PO Q4H PRN PRN Reason: Pain Stop: 12/11/20 03:00
--- NOTE | 2020-11-12 16:09 | History & Physical Bridge Note ---
Date of Service November 12, 2020 History & Physical Bridge Note I have examined the patient, reviewed the History & Physical and in the interval since the performance of the History & Physical I have noted the following changes of clinical significance: no changes noted
--- NOTE | 2020-11-12 17:03 | GI REPORT ---
Patient Name: Bo Casey Procedure Date: 11/12/2020 4:22 PM Date of : 1940 Admit Type: Inpatient Age: 80 Gender: Male Attending MD: Kathe Reynolds MD Procedure: Flexible Sigmoidoscopy Providers: Kathe Reynolds MD Referring MD: Catrachita Carrero Do, Lucas Graves Do Indications: Abnormal CT of the GI tract Medicines: None Complications: No immediate complications. Estimated Blood Loss: Estimated blood loss: none. Procedure: Pre-Anesthesia Assessment: - Prior to the procedure, a History and Physical was performed, and patient medications, allergies and sensitivities were reviewed. The patient's tolerance of previous anesthesia was reviewed. - The risks and benefits of the procedure and the sedation options and risks were discussed with the patient. All questions were answered and informed consent was obtained. - Patient identification and proposed procedure were verified prior to the procedure by the physician and the nurse. The procedure was verified in the procedure room. - Pre-procedure physical examination revealed no contraindications to sedation. After obtaining informed consent, the endoscope was passed under direct vision. Throughout the procedure, the patient's blood pressure, pulse, and oxygen saturations were monitored continuously. The Endoscope was introduced through the anus and advanced to the left transverse colon. The flexible sigmoidoscopy was accomplished without difficulty. The patient tolerated the procedure well. The quality of the bowel preparation was poor. Findings: The perianal and digital rectal examinations were normal. Multiple small and large-mouthed diverticula were found in the sigmoid colon. A benign-appearing, intrinsic mild luminal narrowing (diverticular related) was found at 25 cm proximal to the anus and was easily traversed. There was stool distal to this area indicating resolution of prior obstruction, likely had a transient obstruction from fecal impaction in this area. No upstream colonic dilation. Impression: - Preparation of the colon was poor. Stool in the rectum indicates resolution of prior obstruction. - Diverticulosis in the sigmoid colon. - No evidence of colonic obstruction. Similarly unchanged mild narrowing at 25 cm proximal to the anus, diverticular related. Recommendation: - Return patient to [facility] for ongoing care. - Remove the NG tube. - Advance diet as tolerated. - Miralax 1 capful (17 grams) in 8 ounces of water PO BID. This will prevent future fecal impaction in the narrowed area and help defer surgical resection. - Recall GI if needed. Kathe Reynolds MD 11/12/2020 5:02:50 PM This report has been signed electronically. Note Initiated On: 11/12/2020 4:22 PM Number of Addenda: 0 I attest to the content of the Intraoperative Record and orders documented therein, exceptions below {[id number]}
[2020-11-12] MEDS: POLYETHYLENE (MIRALAX) 17 GM PACK PO SCH (21:09)
[2020-11-12] MEDS: rOPINIRole HCL 1 MG TABLET NG SCH (21:09)
[2020-11-12] MEDS ORDERED: METOPROLOL TARTRATE 25 MG TAB PO STA (22:47)
--- NOTE | 2020-11-12 23:29 | Hospitalist Progress Note ---
Date of Service November 12, 2020 Assessment & Plan (1) Large bowel obstruction: Likely due to previously identified sigmoid colon stricture. Recent colonoscopy one month ago wt biopsy of stricture area that was benign. GI not recommending repeat colonoscopy at this time and patient is moving his bowels this morning somewhat. However, he is at risk for recurring issues so surgical intervention must be considered. Underwent flex sig with results pending. He feels much better and got the tube out of his nose. (2) Stricture of sigmoid colon: plan as above. 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 Will cont insulin coverage as needed. Last A1C one year ago was 7. Repeat in am. (6) HTN (hypertension): Around goal. Currently 153/97. Cont metoprolol via IV while NPO for now. Holding home Lasix and aldactone while NPO to avoid dehydration. (7) CAD (coronary artery disease): chronic, stable. Cont medical management with aspirin, BB. Noted statin allergy on file. (8) DVT prophylaxis: Lovenox Full Code Dispo-to home when medically stable. May need surgery, will await decision on that. Catrachita Carrero DO [facility] Hospitalist Admission and Anticipated Discharge Date Admission Date: November 11, 2020 Subjective 80 yo M with large bowel obstruction difficulty wtih NGT tube today NG tube was pulled in endo sweet after a bath. denies pain and feels abdomen is less boated. Review of Systems Review of Systems: All systems reviewed & are unremarkable except as noted in Subjective Physical Exam Physical Exam: CONSTITUTIONAL: WNWD, vitals as above, generally well- appearing EYES: normal conjunctivae, no scleral icterus ENT: external ear and nose normal, MMM, +NG tube in place. RESPIRATORY: clear to auscultation bilaterally, no crackles, rales or wheezes, normal respiratory effort CARDIOVASCULAR: regular rate and rhythm, S1 and 2 heard without murmurs, gallops or rubs, no JVD, no peripheral edema GASTROINTESTINAL: soft, nontender, slight distension in periumbilical area, no guarding MUSCULOSKELETAL: strength 5/5 throughout, head is normocephalic and atraumatic SKIN: warm and dry NEUROLOGIC: CN 2-12 grossly intact, normal cognition, normal speech, no tremor, no gross focal deficits. PSYCHIATRIC: alert cooperative and oriented to person, place and time. Results & Data Results & Data ([facility]) Vital Signs (Past 12 Hours) Vital Signs Temp Pulse Pulse Resp BP BP BP 11/12/20 23:15 82 147/80 H 11/12/20 19:29 36.5 C 58 L 17 151/65 H 11/12/20 18:06 83 140/70 11/12/20 16:51 88 16 136/95 11/12/20 16:13 36.6 C 86 16 157/75 H 11/12/20 16:00 63 11/12/20 15:30 36.7 C 80 20 143/84 H 11/12/20 11:33 84 128/82 11/12/20 11:28 36.4 C L 84 20 128/82 Pulse Ox 11/12/20 23:15 11/12/20 19:29 93 11/12/20 18:06 11/12/20 16:51 99 11/12/20 16:13 94 11/12/20 16:00 11/12/20 15:30 94 11/12/20 11:33 11/12/20 11:28 93
[2020-11-13 00:31] LABS: Basophils # (auto) 0.01 K/uL (0-0.2); Basophils % (auto) 0.1 %; Eosinophils # (auto) 0.04 K/uL (0-0.5); Eosinophils % (auto) 0.3 %; Hematocrit (blood only) 45.5 % (42-52); Hemoglobin 15.5 g/dL (14.0-18.0); Immature Granulocytes # (auto) 0.02 K/uL (0.00-0.02); Immature Granulocytes % (auto) 0.2 %; Lymphocytes # (auto) 0.55 K/uL (1.2-3.4); Lymphocytes % (auto) 4.7 %; Mean Corpuscular Hemoglobin 29.2 pg (25-34); Mean Corpuscular Hgb Conc 34.1 g/dL (32-36); Mean Corpuscular Volume 85.8 fL (80-100); Mean Platelet Volume 9.4 fL (7.4-10.4); Monocytes # (auto) 0.28 K/uL (0.11-0.59); Monocytes % (auto) 2.4 %; Neutrophils # (auto) 10.89 K/uL (1.4-6.5); Neutrophils % (auto) 92.3 %; Platelet Count 234 K/uL (130-400); RDW Coefficient of Variation 14.4 % (11.5-14.5); White Blood Count 11.79 K/uL (4.8-10.8)
[2020-11-13] MEDS: SODIUM CHLORIDE 0.9% 1000ML 1,000 ML IV SCH ×2 (05:37→18:25)
--- NOTE | 2020-11-13 06:52 | Hospitalist Progress Note ---
Date of Service November 13, 2020 Assessment & Plan (1) Large bowel obstruction: Likely due to previously identified sigmoid colon stricture/diverticular stricture. Recent colonoscopy one month ago with biopsy of stricture area that was benign. GI not recommending repeat colonoscopy at this time and patient is moving his bowels somewhat. However, he is at risk for recurring issues so surgical intervention must be considered. Underwent flex sig yesterday (11/12) with Dr. Reynolds - Impression: Stool in the rectum indicates resolution of prior obstruction. Diverticulosis in the sigmoid colon. No evidence of colonic obstruction. Similarly unchanged mild narrowing at 25 cm proximal to the anus, diverticular related. Recommendation: Advance diet as tolerated. Miralax 1 capful (17 grams) in 8 ounces of water PO BID. This will prevent future fecal impaction in the narrowed area and help defer surgical resection. Pt feels much better and NGT was removed Seen by surgery today (11/13), diet advanced to low fiber, patient on MiraLAX now (2) Stricture of sigmoid colon: plan as above. Hypokalemia -Current potassium 2.9 -Secondary to n.p.o. 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 Will cont insulin coverage as needed. A1C one year ago was 7. Current Hb A1c 7.0% (6) HTN (hypertension): Around goal/ low. Was on metoprolol via IV while NPO, now switched to PO. Holding home Lasix and aldactone for now to avoid dehydration. (7) CAD (coronary artery disease): chronic, stable. Cont medical management with aspirin, BB. Noted statin allergy on file. (8) DVT prophylaxis: Lovenox Full Code Dispo-to home when medically stable. May need surgery, will await decision on that. Admission and Anticipated Discharge Date Admission Date: November 11, 2020 Subjective Patient seen in follow-up of colonic obstruction Underwent flex sig yesterday with GI Currently feeling well, in acute distress Denies any abdominal pain, denies any fevers chills chest pain shortness of breath No BM yet after procedure Denies any nausea vomiting NGT removed yesterday Review of Systems Review of Systems: All systems reviewed & are unremarkable except as noted in HPI & below Constitutional: no fever and no chills Respiratory: no cough and no dyspnea Cardiovascular: no chest pain and no palpitations Gastrointestinal: no abdominal pain, no nausea and no vomiting Physical Exam 2 Physical Exam: CONSTITUTIONAL: WNWD male in NAD EYES: normal conjunctivae, no scleral icterus ENT: external ear and nose normal, MMM RESPIRATORY: clear to auscultation bilaterally, no crackles, rales or wheezes, normal respiratory effort CARDIOVASCULAR: regular rate and rhythm, S1 and 2 heard without murmurs, gallops or rubs, no JVD, no peripheral edema GASTROINTESTINAL: soft, nontender, slight distension in periumbilical area, no guarding, + bowel sounds MUSCULOSKELETAL: normocephalic, atraumatic, moves extremities w/o difficulty NEUROLOGIC: Alert and oriented x3, no facial asymmetry, speech fluent, moves extremities without difficulty SKIN: warm and dry Results & Data Results & Data ([facility]) Vital Signs (Past 12 Hours) Vital Signs Temp Pulse Pulse Resp BP Pulse Ox 11/13/20 04:03 36.6 C 81 20 112/63 98 11/12/20 23:34 36.6 C 87 20 147/80 H 95 11/12/20 23:15 82 147/80 H 11/12/20 22:20 81 11/12/20 19:29 36.5 C 58 L 17 151/65 H 93 Laboratory Results 11/13/20 11/13/20 11/13/20 Range/Units 11:44 07:21 07:21 WBC (4.8-10.8) K/uL RBC (4.7-6.1) M/uL Hgb (14.0-18.0) g/dL Hct (42-52) % MCV (80-100) fL MCH (25-34) pg MCHC (32-36) g/dL RDW Std Deviation (36.4-46.3) fL RDW Coeff of Jeanette (11.5-14.5) % Plt Count (130-400) K/uL MPV (7.4-10.4) fL Immature Gran % (Auto) % Neut % (Auto) % Lymph % (Auto) % [place] % (Auto) % Eos % (Auto) % Baso % (Auto) % Neut # (Auto) (1.4-6.5) K/uL Lymph # (Auto) (1.2-3.4) K/uL [place] # (Auto) (0.11-0.59) K/uL Eos # (Auto) (0-0.5) K/uL Baso # (Auto) (0-0.2) K/uL Immature Gran # (Auto) (0.00-0.02) K/uL Sodium 136 (136-145) mmol/L Potassium 2.9 L (3.5-5.1) mmol/L Chloride 106 (98-107) mmol/L Carbon Dioxide 21 (21-32) mmol/L Anion Gap 9.0 (3-11) BUN 16 (7-18) mg/dl Creatinine 0.77 (0.6-1.4) mg/dl Est Cr Clr Drug Dosing 73.9 ml/min Est GFR ( Amer) 98.6 ml/min Est GFR (Non-Af Amer) 85.1 ml/min BUN/Creatinine Ratio 21.0 H (10-20) Glucose 95 (70-99) mg/dl POC Glucose 100 H 99 (70-99) mg/dl Calcium 8.2 L (8.5-10.1) mg/dl 11/13/20 11/12/20 11/12/20 Range/Units 00:03 20:17 17:07 WBC 11.79 H (4.8-10.8) K/uL RBC 5.30 (4.7-6.1) M/uL Hgb 15.5 (14.0-18.0) g/dL Hct 45.5 (42-52) % MCV 85.8 (80-100) fL MCH 29.2 (25-34) pg MCHC 34.1 (32-36) g/dL RDW Std Deviation 45.0 (36.4-46.3) fL RDW Coeff of Jeanette 14.4 (11.5-14.5) % Plt Count 234 (130-400) K/uL MPV 9.4 (7.4-10.4) fL Immature Gran % (Auto) 0.2 % Neut % (Auto) 92.3 % Lymph % (Auto) 4.7 % [place] % (Auto) 2.4 % Eos % (Auto) 0.3 % Baso % (Auto) 0.1 % Neut # (Auto) 10.89 H (1.4-6.5) K/uL Lymph # (Auto) 0.55 L (1.2-3.4) K/uL [place] # (Auto) 0.28 (0.11-0.59) K/uL Eos # (Auto) 0.04 (0-0.5) K/uL Baso # (Auto) 0.01 (0-0.2) K/uL Immature Gran # (Auto) 0.02 (0.00-0.02) K/uL Sodium (136-145) mmol/L Potassium (3.5-5.1) mmol/L Chloride (98-107) mmol/L Carbon Dioxide (21-32) mmol/L Anion Gap (3-11) BUN (7-18) mg/dl Creatinine (0.6-1.4) mg/dl Est Cr Clr Drug Dosing ml/min Est GFR ( Amer) ml/min Est GFR (Non-Af Amer) ml/min BUN/Creatinine Ratio (10-20) Glucose (70-99) mg/dl POC Glucose 102 H 72 (70-99) mg/dl Calcium (8.5-10.1) mg/dl Medications Administered Current Inpatient Medications Aspirin (Aspirin 81 Mg Chew) 81 mg PO AMHS LISA Stop: 12/11/20 20:59 Last Admin: 11/12/20 21:09 Dose: 81 mg Documented by: Dextrose (Dextrose 50% 50 Ml Syringe) 25 - 50 ml IV UD PRN; Protocol PRN Reason: Hypoglycemia Protocol Stop: 12/11/20 03:00 Enoxaparin Sodium (Enoxaparin Inj 30 Mg/0.3 Ml Syr) 30 mg SQ QAM [facility]ISA Stop: 12/11/20 08:59 Last Admin: 11/12/20 08:09 Dose: 30 mg Documented by: Glucagon (Glucagon For Inj 1 Mg Vial) 1 mg SQ UD PRN; Protocol PRN Reason: Hypoglycemia Protocol Stop: 12/11/20 03:00 Glucose (Glucose 10 Tabs/Tube) 4 - 8 tabs PO UD PRN; Protocol PRN Reason: Hypoglycemia Protocol Stop: 12/11/20 03:00 Glucose (Glucose 40% Gel 15 Gm Tube) 15 - 30 gm PO UD PRN; Protocol PRN Reason: Hypoglycemia Protocol Stop: 12/11/20 03:00 Sodium Chloride (Nss 1000ml) 1,000 mls @ 75 mls/hr IV .[id number] LISA Stop: 12/11/20 03:00 Last Admin: 11/13/20 05:37 Dose: 75 mls/hr Documented by: Promethazine HCl 6.25 mg/ (Sodium Chloride) 50.25 mls @ 201 mls/hr IV Q6H PRN PRN Reason: Nausea And Vomiting Stop: 12/11/20 03:00 Last Infusion: 11/11/20 04:15 Dose: Infused Documented by: Acetaminophen (Ofirmev) 1,000 mg in 100 mls @ 400 mls/hr IV Q8H PRN PRN Reason: pain/fever Stop: 11/14/20 03:00 Insulin Aspart (Insulin Aspart 100 Units/Ml 3 Ml Pen) 0 units SC ACHS [facility] Stop: 12/12/20 20:59 Last Admin: 11/12/20 21:10 Dose: Not Given Documented by: Lansoprazole (Lansoprazole 30 Mg Soltab) 30 mg NG QAM [facility] Stop: 12/12/20 08:59 Last Admin: 11/12/20 08:09 Dose: 30 mg Documented by: Melatonin (Melatonin 3 Mg Tab) 9 mg PO HS [facility] Stop: 12/11/20 20:59 Metoprolol Succinate (Metoprolol Succ 25mg Ext Rel Tab) 25 mg PO QAM [facility] Stop: 12/13/20 08:59 Miscellaneous (Carbohydrates For Hypoglycemia ) 15 - 30 gm PO UD PRN PRN Reason: Hypoglycemia Protocol Stop: 12/11/20 03:00 Morphine Sulfate (Morphine Sulfate 2 Mg/Ml Carp) 2 mg IV Q6H PRN PRN Reason: Pain Stop: 11/25/20 03:00 Polyethylene Glycol (Polyethylene (Miralax) 17 Gm Pack) 17 gm PO BID [facility]ISA Stop: 12/12/20 20:59 Last Admin: 11/12/20 21:09 Dose: 17 gm Documented by: Ropinirole HCl (Ropinirole Hcl 1 Mg Tablet) 1 mg NG HS [facility] Stop: 12/11/20 20:59 Last Admin: 11/12/20 21:09 Dose: 1 mg Documented by: Sertraline HCl (Sertraline Hcl 100 Mg Tablet) 100 mg PO DAILY [facility] Stop: 12/11/20 08:59 Last Admin: 11/12/20 08:09 Dose: 100 mg Documented by: Tamsulosin HCl (Tamsulosin Hcl 0.4 Mg Cap) 0.4 mg PO DAILY [facility] Stop: 12/11/20 08:59 Last Admin: 11/11/20 08:55 Dose: 0.4 mg Documented by: Tramadol HCl (Tramadol Hcl 50 Mg Tablet) 25 mg PO Q4H PRN PRN Reason: Pain Stop: 12/11/20 03:00
[2020-11-13] MEDS: ASPIRIN 81 MG CHEW PO SCH ×2 (07:53→20:31)
[2020-11-13] MEDS: SERTRALINE HCL 100 MG TABLET PO SCH (07:53)
[2020-11-13] MEDS: METOPROLOL SUCC 25MG EXT REL TAB PO SCH (07:53)
[2020-11-13] MEDS: LANSOPRAZOLE 30 MG SOLTAB NG SCH (07:53)
[2020-11-13] MEDS: ENOXAPARIN INJ 30 MG/0.3 ML SYR SQ SCH (07:53)
[2020-11-13] MEDS: POLYETHYLENE (MIRALAX) 17 GM PACK PO SCH ×2 (07:53→20:31)
[2020-11-13 08:16] LABS: Calcium 8.2 mg/dl (8.5-10.1); Creatinine Clr Calc Pharmacy 73.9 ml/min; Est GFR (African American) 98.6 ml/min; Est GFR (Non-African American) 85.1 ml/min; Potassium 2.9 mmol/L (3.5-5.1)
[2020-11-13] MEDS: INSULIN ASPART 100 UNITS/ML 3 ML PEN SC SCH ×4 (08:19→20:32)
--- NOTE | 2020-11-13 11:57 | Surgery Progress Note ---
Date of Service November 13, 2020 Assessment & Plan (1) Stricture of sigmoid colon: Likely secondary to diverticular disease. Appeared to be nonobstructing at time of flex sig. Agree with advancement of diet (low fiber ordered) and miralax. Discussed importance of keeping stools soft to prevent fecal impaction. No new recommendations. Present on Admission?: Yes Admission and Anticipated Discharge Date Admission Date: November 11, 2020 Subjective Sitting at bedside. passing flatus but no bowel movement. tolerated diet. No nausea/ vomiting. Flex sig yesterday showed diverticular stricture which was easily traversed with camera. On miralax. Review of Systems Review of Systems: All systems reviewed & are unremarkable except as noted in HPI & below Physical Exam Constitutional: WD/WN, vitals as above Respiratory: normal respiratory effort, lungs clear to auscultation Gastrointestinal (Abdomen): Inspection/Auscultation: abdomen normal to inspection, + abdomen distended (mild) and normal bowel sounds Percussion/Palpation: abdomen soft; abdomen nontender and no guarding Neurologic: moves all extremities; no focal motor deficits Psychiatric: A+Ox3, euthymic affect Results & Data ([facility]) Vital Signs (Past 12 Hours) Vital Signs Temp Pulse Pulse Resp BP Pulse Ox 11/13/20 11:27 36.5 C 59 L 20 104/63 93 11/13/20 08:00 81 11/13/20 06:57 36.6 C 87 20 93/50 L 90 11/13/20 04:03 36.6 C 81 20 112/63 98 Laboratory Results Abnormal lab results 11/12/20 11/13/20 11/13/20 Range/Units 20:17 00:03 07:21 WBC 11.79 H (4.8-10.8) K/uL Neut # (Auto) 10.89 H (1.4-6.5) K/uL Lymph # (Auto) 0.55 L (1.2-3.4) K/uL Potassium 2.9 L (3.5-5.1) mmol/L BUN/Creatinine Ratio 21.0 H (10-20) POC Glucose 102 H (70-99) mg/dl Calcium 8.2 L (8.5-10.1) mg/dl 11/13/20 Range/Units 11:44 WBC (4.8-10.8) K/uL Neut # (Auto) (1.4-6.5) K/uL Lymph # (Auto) (1.2-3.4) K/uL Potassium (3.5-5.1) mmol/L BUN/Creatinine Ratio (10-20) POC Glucose 100 H (70-99) mg/dl Calcium (8.5-10.1) mg/dl
[2020-11-13] MEDS ORDERED: POTASSIUM CHLORIDE CRTAB 20 MEQ TABCR PO ONE (13:15)
[2020-11-13 13:36] LABS: Magnesium 1.5 mg/dl (1.8-2.4); Phosphorus 3.6 mg/dl (2.5-4.9)
[2020-11-13] MEDS: POTASSIUM CHLORIDE / WTR 10 MEQ/100 ML PLCT IV SCH ×2 (14:00→15:01)
--- NOTE | 2020-11-13 16:12 | Cardiology Progress Note ---
Date of Service November 13, 2020 Assessment & Plan (1) Paroxysmal atrial fibrillation: (2) Hypokalemia: (3) CAD (coronary artery disease): (1) Paroxysmal atrial fibrillation: -No additional A. fib noted since 11/11/2020. -Continue metoprolol succinate 25 mg daily. -Continue to observe on aspirin 81 mg daily without anticoagulation for now. (2) Hypokalemia: -Being replaced IV. (3) CAD (coronary artery disease): Status post CABG x3 with CASTELLON to LAD, SVG OM, SVG to PDA, December,, having completed and RCA territory infarct. -Patient has not had a repeat echocardiogram since shortly after CABG in 2014. We will update this admission. DVT prophylaxis: Continue Lovenox. Stricture of the sigmoid colon. General surgery updates noted and appreciated. Nonobstructive at time of flex sigmoidoscopy. Admission and Anticipated Discharge Date Admission Date: November 11, 2020 Subjective Patient seen in cardiology follow-up. He feels well. He had a regular diet earlier today. Telemetry reveals sinus rhythm in the 60s. Physical Exam Physical Exam: Temp Pulse Resp BP Pulse Ox 36.4 C L 65 20 136/79 100 11/13/20 15:33 11/13/20 15:33 11/13/20 15:33 11/13/20 15:33 11/13/20 15:33 Constitutional: WD/WN, vitals as above Respiratory: normal respiratory effort, lungs clear to auscultation Cardiovascular: RRR, no murmur, no edema Neurologic: PERRL, EOMI, accommodation nl, no face palsy, no dysarthria Results & Data ([facility]) Vital Signs (Past 12 Hours) Vital Signs Temp Pulse Pulse Resp BP Pulse Ox 11/13/20 15:33 36.4 C L 65 20 136/79 100 11/13/20 15:04 57 L 11/13/20 11:27 36.5 C 59 L 20 104/63 93 11/13/20 08:00 81 11/13/20 06:57 36.6 C 87 20 93/50 L 90 Laboratory Results CBC 11/13/20 Range/Units 00:03 WBC 11.79 H (4.8-10.8) K/uL RBC 5.30 (4.7-6.1) M/uL Hgb 15.5 (14.0-18.0) g/dL Hct 45.5 (42-52) % Plt Count 234 (130-400) K/uL Neut # (Auto) 10.89 H (1.4-6.5) K/uL Lymph # (Auto) 0.55 L (1.2-3.4) K/uL [place] # (Auto) 0.28 (0.11-0.59) K/uL Eos # (Auto) 0.04 (0-0.5) K/uL Baso # (Auto) 0.01 (0-0.2) K/uL Comprehensive Metabolic Panel 11/13/20 Range/Units 07:21 Sodium 136 (136-145) mmol/L Potassium 2.9 L (3.5-5.1) mmol/L Chloride 106 (98-107) mmol/L Carbon Dioxide 21 (21-32) mmol/L BUN 16 (7-18) mg/dl Creatinine 0.77 (0.6-1.4) mg/dl Glucose 95 (70-99) mg/dl Calcium 8.2 L (8.5-10.1) mg/dl Intake and Output 11/13/20 11/13/20 11/13/20 06:59 14:59 22:59 Intake Total 1240 / 2776.25 340 / 440 100 / 440 Output Total 450 / 650 Balance 790 / 2126.25 340 / 440 100 / 440 Intake: IV 1000 / 2296.25 100 / 100 Potassium Chloride / Wtr 10 meq 100 / 100 In 100 ml @ 100 mls/hr IV Q1H LISA Rx#:[id number] Sodium Chloride 0.9% 1000ML 1, 1000 / 1896.25 000 ml @ 75 mls/hr IV .[id number] LISA Rx#:[id number] Oral 240 / 480 340 / 340 Output: Urine 450 / 650 Other: Weight 78 kg Weight Measurement Method Built in [facility]
[2020-11-13] MEDS: rOPINIRole HCL 1 MG TABLET NG SCH (20:31)
[2020-11-14] MEDS: MAGNESIUM SULFATE / D5W 1 GM/100 ML BAG IV SCH ×2 (06:25→08:05)
[2020-11-14] MEDS: SODIUM CHLORIDE 0.9% 1000ML 1,000 ML IV SCH (06:26)
[2020-11-14 06:30] LABS: Hematocrit (blood only) 42.8 % (42-52); Hemoglobin 14.7 g/dL (14.0-18.0); Mean Corpuscular Hemoglobin 29.3 pg (25-34); Mean Corpuscular Hgb Conc 34.3 g/dL (32-36); Mean Corpuscular Volume 85.3 fL (80-100); Mean Platelet Volume 9.4 fL (7.4-10.4); Platelet Count 288 K/uL (130-400); RDW Coefficient of Variation 14.5 % (11.5-14.5); RDW Standard Deviation 45.2 fL (36.4-46.3); Red Blood Count 5.02 M/uL (4.7-6.1)
[2020-11-14 07:05] LABS: BUN Creatinine Ratio 18.7 (10-20); Calcium 8.8 mg/dl (8.5-10.1); Creatinine Clr Calc Pharmacy 75.1 ml/min; Est GFR (African American) 99.2 ml/min; Est GFR (Non-African American) 85.6 ml/min; Phosphorus 2.2 mg/dl (2.5-4.9); Potassium 3.8 mmol/L (3.5-5.1)
[2020-11-14] MEDS: ENOXAPARIN INJ 30 MG/0.3 ML SYR SQ SCH (08:02)
[2020-11-14] MEDS: LANSOPRAZOLE 30 MG SOLTAB NG SCH (08:02)
[2020-11-14] MEDS: SERTRALINE HCL 100 MG TABLET PO SCH (08:02)
[2020-11-14] MEDS: METOPROLOL SUCC 25MG EXT REL TAB PO SCH (08:02)
[2020-11-14] MEDS: POLYETHYLENE (MIRALAX) 17 GM PACK PO SCH (08:02)
[2020-11-14] MEDS: ASPIRIN 81 MG CHEW PO SCH (08:02)
[2020-11-14] MEDS: INSULIN ASPART 100 UNITS/ML 3 ML PEN SC SCH ×2 (08:04→11:41)
--- NOTE | 2020-11-14 09:43 | Surgery Progress Note ---
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 Appeared to be nonobstructing at time of flex sig. Tolerating diet (low fiber) and miralax. Discussed importance of keeping stools soft to prevent fecal impaction. No new recommendations. Stable for discharge from surgical standpoint. Admission and Anticipated Discharge Date Admission Date: November 11, 2020 Subjective Sitting in chair. Reports he tolerated diet. Had a bowel movement this morning. No complaints of bloating, abdominal pain or nausea. Feels ready to go home. Review of Systems Review of Systems: All systems reviewed & are unremarkable except as noted in HPI & below Physical Exam Constitutional: WD/WN, vitals as above Respiratory: normal respiratory effort, lungs clear to auscultation Gastrointestinal (Abdomen): Inspection/Auscultation: abdomen normal to inspection and normal bowel sounds; abdomen not distended Percussion/Palpation: abdomen soft; abdomen nontender and no guarding Neurologic: moves all extremities; no focal motor deficits Psychiatric: A+Ox3, euthymic affect Results & Data ([facility]) Vital Signs (Past 12 Hours) Vital Signs Temp Pulse Pulse Resp BP BP Pulse Ox 11/14/20 08:00 99 H 11/14/20 06:59 36.5 C 100 H 18 153/99 H 92 11/14/20 04:05 36.5 C 97 H 18 132/75 93 11/13/20 23:23 36.8 C 96 H 20 156/68 H 94 11/13/20 22:20 83 Laboratory Results Abnormal lab results 11/13/20 11/13/20 11/13/20 Range/Units 11:44 13:10 20:14 WBC (4.8-10.8) K/uL Chloride (98-107) mmol/L Glucose (70-99) mg/dl POC Glucose 100 H 103 H (70-99) mg/dl Phosphorus (2.5-4.9) mg/dl Magnesium 1.5 L (1.8-2.4) mg/dl 11/14/20 11/14/20 11/14/20 Range/Units 06:17 06:17 06:17 WBC 14.20 H (4.8-10.8) K/uL Chloride 108 H (98-107) mmol/L Glucose 110 H (70-99) mg/dl POC Glucose (70-99) mg/dl Phosphorus 2.2 L D (2.5-4.9) mg/dl Magnesium 1.6 L (1.8-2.4) mg/dl 11/14/20 Range/Units 07:35 WBC (4.8-10.8) K/uL Chloride (98-107) mmol/L Glucose (70-99) mg/dl POC Glucose 102 H (70-99) mg/dl Phosphorus (2.5-4.9) mg/dl Magnesium (1.8-2.4) mg/dl
[2020-11-14] MEDS ORDERED: MAGNESIUM SULFATE / D5W 1 GM/100 ML BAG IV STA (10:46)
[2020-11-14] MEDS ORDERED: POTASSIUM CHLORIDE CRTAB 20 MEQ TABCR PO STA (10:49)
--- NOTE | 2020-11-14 10:49 | Hospitalist Progress Note ---
Date of Service November 14, 2020 Assessment & Plan (1) Large bowel obstruction: Likely due to previously identified sigmoid colon stricture/diverticular stricture. Recent colonoscopy one month ago with biopsy of stricture area that was benign. GI not recommending repeat colonoscopy at this time and patient is moving his bowels somewhat. However, he is at risk for recurring issues so surgical intervention must be considered. Underwent flex sig (11/12) with Dr. Reynolds - Impression: Stool in the rectum indicates resolution of prior obstruction. Diverticulosis in the sigmoid colon. No evidence of colonic obstruction. Similarly unchanged mild narrowing at 25 cm proximal to the anus, diverticular related. Recommendation: Advance diet as tolerated. Miralax 1 capful (17 grams) in 8 ounces of water PO BID. This will prevent future fecal impaction in the narrowed area and help defer surgical resection. Pt feels much better and NGT was removed Seen by surgery today (11/13), diet advanced to low fiber, patient on MiraLAX now 11/14 -patient is tolerating diet, had BM this morning, feeling well, no bloating or abdominal pain (2) Stricture of sigmoid colon: plan as above. Hypokalemia -potassium 2.9 -Secondary to n.p.o. status -Replace and monitor closely, obtain Mag and Phos as well Hypokalemia resolved, magnesium low, replaced -We will start him on magnesium supplement, recommend to follow-up as outpatient Paroxysmal A. 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 Will cont insulin coverage as needed. A1C one year ago was 7. Current Hb A1c 7.0% Follow up as outp (6) HTN (hypertension): Around goal/ low. Was on metoprolol via IV while NPO, now switched to PO. Holding home Lasix and aldactone for now to avoid dehydration. (7) CAD (coronary artery disease): chronic, stable. Cont medical management with aspirin, BB. Noted statin allergy on file. (8) DVT prophylaxis: Lovenox Full Code Dispo-to home when medically stable. Admission and Anticipated Discharge Date Admission Date: November 11, 2020 Subjective Patient seen in follow-up of colonic obstruction Underwent flex sig with GI Currently feeling well, in acute distress, had BM this AM Denies any abdominal pain, denies any fevers chills chest pain shortness of breath Denies any nausea vomiting He is sitting in chair, comfortable, tolerating diet. Feels ready to go home. Per surgery, no outpatient follow-up at this point needed. Review of Systems Review of Systems: All systems reviewed & are unremarkable except as noted in HPI & below Constitutional: no fever and no chills Respiratory: no cough and no dyspnea Cardiovascular: no chest pain and no palpitations Gastrointestinal: no abdominal pain, no nausea and no vomiting Physical Exam Physical Exam: CONSTITUTIONAL: WNWD male in NAD EYES: normal conjunctivae, no scleral icterus ENT: external ear and nose normal, MMM RESPIRATORY: clear to auscultation bilaterally, no crackles, rales or wheezes, normal respiratory effort CARDIOVASCULAR: regular rate and rhythm, S1 and 2 heard without murmurs, gallops or rubs, no JVD, no peripheral edema GASTROINTESTINAL: soft, nontender, slight distension in periumbilical area, no guarding, + bowel sounds MUSCULOSKELETAL: normocephalic, atraumatic, moves extremities w/o difficulty NEUROLOGIC: Alert and oriented x3, no facial asymmetry, speech fluent, moves extremities without difficulty SKIN: warm and dry Results & Data Results & Data ([facility]) Vital Signs (Past 12 Hours) Vital Signs Temp Pulse Pulse Resp BP BP Pulse Ox 11/14/20 08:00 99 H 11/14/20 06:59 36.5 C 100 H 18 153/99 H 92 11/14/20 04:05 36.5 C 97 H 18 132/75 93 11/13/20 23:23 36.8 C 96 H 20 156/68 H 94 Laboratory Results 11/14/20 11/14/20 11/14/20 Range/Units 07:35 06:17 06:17 WBC 14.20 H (4.8-10.8) K/uL RBC 5.02 (4.7-6.1) M/uL Hgb 14.7 (14.0-18.0) g/dL Hct 42.8 (42-52) % MCV 85.3 (80-100) fL MCH 29.3 (25-34) pg MCHC 34.3 (32-36) g/dL RDW Std Deviation 45.2 (36.4-46.3) fL RDW Coeff of Jeanette 14.5 (11.5-14.5) % Plt Count 288 (130-400) K/uL MPV 9.4 (7.4-10.4) fL Sodium (136-145) mmol/L Potassium (3.5-5.1) mmol/L Chloride (98-107) mmol/L Carbon Dioxide (21-32) mmol/L Anion Gap (3-11) BUN (7-18) mg/dl Creatinine (0.6-1.4) mg/dl Est Cr Clr Drug Dosing ml/min Est GFR ( Amer) ml/min Est GFR (Non-Af Amer) ml/min BUN/Creatinine Ratio (10-20) Glucose (70-99) mg/dl POC Glucose 102 H (70-99) mg/dl Calcium (8.5-10.1) mg/dl Phosphorus (2.5-4.9) mg/dl Magnesium 1.6 L (1.8-2.4) mg/dl 11/14/20 11/13/20 11/13/20 Range/Units 06:17 20:14 16:20 WBC (4.8-10.8) K/uL RBC (4.7-6.1) M/uL Hgb (14.0-18.0) g/dL Hct (42-52) % MCV (80-100) fL MCH (25-34) pg MCHC (32-36) g/dL RDW Std Deviation (36.4-46.3) fL RDW Coeff of Jeanette (11.5-14.5) % Plt Count (130-400) K/uL MPV (7.4-10.4) fL Sodium 138 (136-145) mmol/L Potassium 3.8 D (3.5-5.1) mmol/L Chloride 108 H (98-107) mmol/L Carbon Dioxide 24 (21-32) mmol/L Anion Gap 6.0 (3-11) BUN 14 (7-18) mg/dl Creatinine 0.76 (0.6-1.4) mg/dl Est Cr Clr Drug Dosing 75.1 ml/min Est GFR ( Amer) 99.2 ml/min Est GFR (Non-Af Amer) 85.6 ml/min BUN/Creatinine Ratio 18.7 (10-20) Glucose 110 H (70-99) mg/dl POC Glucose 103 H 97 (70-99) mg/dl Calcium 8.8 (8.5-10.1) mg/dl Phosphorus 2.2 L D (2.5-4.9) mg/dl Magnesium (1.8-2.4) mg/dl 11/13/20 11/13/20 Range/Units 13:10 11:44 WBC (4.8-10.8) K/uL RBC (4.7-6.1) M/uL Hgb (14.0-18.0) g/dL Hct (42-52) % MCV (80-100) fL MCH (25-34) pg MCHC (32-36) g/dL RDW Std Deviation (36.4-46.3) fL RDW Coeff of Jeanette (11.5-14.5) % Plt Count (130-400) K/uL MPV (7.4-10.4) fL Sodium (136-145) mmol/L Potassium (3.5-5.1) mmol/L Chloride (98-107) mmol/L Carbon Dioxide (21-32) mmol/L Anion Gap (3-11) BUN (7-18) mg/dl Creatinine (0.6-1.4) mg/dl Est Cr Clr Drug Dosing ml/min Est GFR ( Amer) ml/min Est GFR (Non-Af Amer) ml/min BUN/Creatinine Ratio (10-20) Glucose (70-99) mg/dl POC Glucose 100 H (70-99) mg/dl Calcium (8.5-10.1) mg/dl Phosphorus 3.6 (2.5-4.9) mg/dl Magnesium 1.5 L (1.8-2.4) mg/dl Medications Administered Current Inpatient Medications Aspirin (Aspirin 81 Mg Chew) 81 mg PO AMHS LISA Stop: 12/11/20 20:59 Last Admin: 11/14/20 08:02 Dose: 81 mg Documented by: Dextrose (Dextrose 50% 50 Ml Syringe) 25 - 50 ml IV UD PRN; Protocol PRN Reason: Hypoglycemia Protocol Stop: 12/11/20 03:00 Enoxaparin Sodium (Enoxaparin Inj 30 Mg/0.3 Ml Syr) 30 mg SQ QAM [facility] Stop: 12/11/20 08:59 Last Admin: 11/14/20 08:02 Dose: 30 mg Documented by: Glucagon (Glucagon For Inj 1 Mg Vial) 1 mg SQ UD PRN; Protocol PRN Reason: Hypoglycemia Protocol Stop: 12/11/20 03:00 Glucose (Glucose 10 Tabs/Tube) 4 - 8 tabs PO UD PRN; Protocol PRN Reason: Hypoglycemia Protocol Stop: 12/11/20 03:00 Glucose (Glucose 40% Gel 15 Gm Tube) 15 - 30 gm PO UD PRN; Protocol PRN Reason: Hypoglycemia Protocol Stop: 12/11/20 03:00 Promethazine HCl 6.25 mg/ (Sodium Chloride) 50.25 mls @ 201 mls/hr IV Q6H PRN PRN Reason: Nausea And Vomiting Stop: 12/11/20 03:00 Last Infusion: 11/11/20 04:15 Dose: Infused Documented by: Magnesium Sulfate/Dextrose (Magnesium Sulfate / D5w) 1 gm in 100 mls @ 50 mls/hr IV Q2H STA Stop: 11/14/20 12:45 Insulin Aspart (Insulin Aspart 100 Units/Ml 3 Ml Pen) 0 units SC ACHS [facility] Stop: 12/12/20 20:59 Last Admin: 11/14/20 08:04 Dose: Not Given Documented by: Lansoprazole (Lansoprazole 30 Mg Soltab) 30 mg NG QAM [facility] Stop: 12/12/20 08:59 Last Admin: 11/14/20 08:02 Dose: 30 mg Documented by: Magnesium Oxide (Magnesium Oxide 400 Mg Tab) 400 mg PO QAM [facility] Stop: 12/15/20 08:59 Melatonin (Melatonin 3 Mg Tab) 9 mg PO HS [facility] Stop: 12/11/20 20:59 Metoprolol Succinate (Metoprolol Succ 25mg Ext Rel Tab) 25 mg PO QAM [facility] Stop: 12/13/20 08:59 Last Admin: 11/14/20 08:02 Dose: 25 mg Documented by: Miscellaneous (Carbohydrates For Hypoglycemia ) 15 - 30 gm PO UD PRN PRN Reason: Hypoglycemia Protocol Stop: 12/11/20 03:00 Morphine Sulfate (Morphine Sulfate 2 Mg/Ml Carp) 2 mg IV Q6H PRN PRN Reason: Pain Stop: 11/25/20 03:00 Polyethylene Glycol (Polyethylene (Miralax) 17 Gm Pack) 17 gm PO BID LISA Stop: 12/12/20 20:59 Last Admin: 11/14/20 08:02 Dose: 17 gm Documented by: Ropinirole HCl (Ropinirole Hcl 1 Mg Tablet) 1 mg NG HS LISA Stop: 12/11/20 20:59 Last Admin: 11/13/20 20:31 Dose: 1 mg Documented by: Sertraline HCl (Sertraline Hcl 100 Mg Tablet) 100 mg PO DAILY LISA Stop: 12/11/20 08:59 Last Admin: 11/14/20 08:02 Dose: 100 mg Documented by: Tamsulosin HCl (Tamsulosin Hcl 0.4 Mg Cap) 0.4 mg PO DAILY LISA Stop: 12/11/20 08:59 Last Admin: 11/11/20 08:55 Dose: 0.4 mg Documented by: Tramadol HCl (Tramadol Hcl 50 Mg Tablet) 25 mg PO Q4H PRN PRN Reason: Pain Stop: 12/11/20 03:00
--- NOTE | 2020-11-14 12:03 | Discharge Summary ---
Date of Service November 14, 2020 Admission HPI Per Admitting Provider History obtained from patient and records. 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 Last confinement October 2019 for large bowel obstruction. CT abdomen pelvis at that time showed 6 cm sigmoid mass with partial obstruction of the intestine. Colonoscopic biopsy done of stricture yielding no malignancy on pathology. Bowel obstruction resolved with conservative management. 3 days history of achy epigastric pain, nausea, dark brown emesis, constipation for 3 days without fever, chills. Patient denies chest pain, S OB. At the ER, NGT inserted for bowel obstruction. Medical History as above Abnormal LFTs noted on outpatient lab work 2 months ago. Gallbladder ultrasound last month showed 5.6 cm mass with vascularity in the gallbladder lumen. Neoplastic etiology is a consideration. Dilated CBD measuring 9 mm in diameter. Distal obstruction not excluded. No evidence of cholelithiasis or cholecystitis. Consider fatty infiltration of liver. Pancreas is not visualized. [facility] [place] surgeon requested CT abdomen pelvis as additional work-up for possible gallbladder mass last month. CT abdomen pelvis results as follows : 1. No enhancing mass identified in the gallbladder by CT evaluation. Specifically, the filling defect seen on recent abdominal ultrasound is not identified. The finding on recent ultrasound may be related to tumefactive sludge with the apparent focal areas of increased vascularity artifactual related to focal calcifications/gallbladder calculi. Alternatively, this may be a true neoplasm which is not well evaluated on the CT scan. 2. Approximately 2.3 x 1.9 cm subtle isodense masslike area involving the pancreatic body, may represent a prominent normal pancreatic tissue, however, focal neoplasm is on the imaging differential diagnosis. Recommend further evaluation with MRI of the abdomen without and with contrast (pancreas mass protocol). Prominent peripancreatic lymph node, indeterminate. Patient given option between EUS versus MRI for work-up for pancreatic mass. Patient still contemplating options although EUS has been scheduled next month. Surgical History : Knee surgeries, CABG, neck surgery, radical prostatectomy Family History : Heart disease, stroke, prostate cancer Personal/Social history : Past pipe smoker, occasional EtOH intake, retired mailman Admission Exam Per Admitting Provider GENERAL: Comfortable, pleasant, no respiratory distress SKIN: Normal color, warm HEENT: Alopecia, pink palpebral conjunctivae, no ptosis, dry buccal mucosa, NGT in place NECK : Supple, no tenderness CHEST : Decreased breath sounds, no tenderness HEART : RRR, no obvious murmurs ABDOMEN: Some distention, minimal central abdominal tenderness RECTAL : Intact sphincter, yellow brown stool (FOBT negative) EXTREMITIES : No LE swelling/tenderness, no other conspicuous deformities noted NEUROLOGIC : Coherent, no facial asymmetry, no other gross focality Principal Diagnosis Colonic obstruction, diverticular stricture of sigmoid colon Paroxysmal A. fib Hypokalemia, hypomagnesemia Discharge Exam CONSTITUTIONAL: WNWD male in NAD EYES: normal conjunctivae, no scleral icterus ENT: external ear and nose normal, MMM RESPIRATORY: clear to auscultation bilaterally, no crackles, rales or wheezes, normal respiratory effort CARDIOVASCULAR: regular rate and rhythm, S1 and 2 heard without murmurs, gallops or rubs, no JVD, no peripheral edema GASTROINTESTINAL: soft, nontender, slight distension in periumbilical area, no guarding, + bowel sounds MUSCULOSKELETAL: normocephalic, atraumatic, moves extremities w/o difficulty NEUROLOGIC: Alert and oriented x3, no facial asymmetry, speech fluent, moves extremities without difficulty SKIN: warm and dry Discharge Data Allergies Allergy/AdvReac Type Severity Reaction Status Date / Time simvastatin AdvReac Mild muscle Verified 11/10/20 23:30 weakness aspirin AdvReac Unknown GI UPSET Verified 11/10/20 23:30 IN HIGH DOSES atorvastatin AdvReac Unknown MUSCLE Verified 11/10/20 23:30 ACHES [id number] Reductase AdvReac Unknown MUSCLE Unverified 11/10/20 23:30 Inhibitor ACHES AND WEAKNESS/DIARRHEA Consultations 11/11/20 00:12 ED Decision to Admit Stat 11/11/20 03:01 Consult Gastroenterology Routine 11/11/20 21:47 Consult Cardiology Routine Procedures Performed Operation Date: 11/12/20 16:30 Actual Procedures p Flexible Sigmoidoscopy - Kathe Reynolds MD Ordered Studies 11/10/20 21:59 CT abd pelvis wo con Urgent IMPRESSION: 1. Findings are consistent with colonic obstruction at the level of the sigmoid. This is similar to the 10/26/2019 examination. Although this could be related to stricture, findings are concerning for underlying neoplasm/obstructing mass. Correlation with colonoscopy is recommended. 2. There is persistent distention of the upstream colon and small bowel loops. 3. Question mild pneumatosis of the right colon. 4. No intraperitoneal free air is identified. 5. Left-sided nephrolithiasis. 6. A 1.6 cm partially calcified gastric lesion is again suggested. This can be further evaluated with endoscopy. 7. Additional findings in full report Hospital Course (1) Large bowel obstruction: Likely due to previously identified sigmoid colon stricture/diverticular stricture. Recent colonoscopy one month ago with biopsy of stricture area that was benign. GI not recommending repeat colonoscopy at this time and patient is moving his bowels somewhat. However, he is at risk for recurring issues so surgical intervention must be considered. Underwent flex sig (11/12) with Dr. Reynolds - Impression: Stool in the rectum indicates resolution of prior obstruction. Diverticulosis in the sigmoid colon. No evidence of colonic obstruction. Similarly unchanged mild narrowing at 25 cm proximal to the anus, diverticular related. Recommendation: Advance diet as tolerated. Miralax 1 capful (17 grams) in 8 ounces of water PO BID. This will prevent future fecal impaction in the narrowed area and help defer surgical resection. Pt feels much better and NGT was removed Seen by surgery today (11/13), diet advanced to low fiber, patient on MiraLAX now 11/14 -patient is tolerating diet, had BM this morning, feeling well, no bloating or abdominal pain (2) Stricture of sigmoid colon: plan as above. Hypokalemia -potassium 2.9 -Secondary to n.p.o. status -Replace and monitor closely, obtain Mag and Phos as well Hypokalemia resolved, magnesium low, replaced -We will start him on magnesium supplement, recommend to follow-up as outpatient Paroxysmal A. 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 Will cont insulin coverage as needed. A1C one year ago was 7. Current Hb A1c 7.0% Follow up as outp (6) HTN (hypertension): Around goal/ low. Was on metoprolol via IV while NPO, now switched to PO. Holding home Lasix and aldactone for now to avoid dehydration. (7) CAD (coronary artery disease): chronic, stable. Cont medical management with aspirin, BB. Noted statin allergy on file. (8) DVT prophylaxis: Lovenox Dispo- Plsn to DC home and follow up w/ primary dosctor.. Total Time Total Time Spent Total Time Spent (In Minutes): 40 Total Time Includes: Examination of the Patient, Discharge Planning, Medication Reconciliation and Communication With Other Providers Discharge Plan Discharge Items Patient Disposition: Home - Self-Care Reason For Visit: TACHY, BOWEL OBS Discharge Diagnosis: Colonic obstruction, diverticular stricture of sigmoid colon Paroxysmal A. fib Hypokalemia, hypomagnesemia Activity: Per Instructions section Non-emergency contact: Primary Care Provider Call non-emergency contact if: you have any medication questions and your symptoms worsen Follow-up/Referrals: Tulio Azevedo, [Primary Care Provider] - Diet: Low Fiber Addtl Attending Provider Instructions: Follow-up with your primary care doctor, within 1 week. Take MiraLAX twice a day to make sure that your stools are soft. Make sure to take aspirin daily and metoprolol succinate daily as prescribed, for your heart. Magnesium supplement was also prescribed for you, please take it as directed. It is recommended that your family doctor checks your potassium and magnesium levels at your next visit. While you were in the hospital, you were not getting Lasix and spironolactone, to avoid dehydration. Do not take this medication at home until you see your primary care doctor and discuss this with them. If you are able to, please check your blood pressure at home and write down those numbers. Make sure you bring the log of these numbers to your family doctor. It is also recommended that you weigh yourself daily and record these numbers as well. Pending Studies at Discharge: No Stand-Alone Forms: My [employer], Smoking Cessation Medications and DC Order Prescriptions: New magnesium oxide 400 mg (241.3 mg magnesium) Tablet 400 mg PO QAM Qty: 14 RF: 0 polyethylene glycol 3350 [Miralax] 17 gram Powder In Packet 17 g PO BID Qty: 30 RF: 0 Continued sertraline 100 mg tablet 100 mg PO DAILY RF: 0 omeprazole 20 mg capsule,delayed release(DR/EC) 20 mg PO QAM RF: 0 metoprolol succinate 25 mg tablet extended release 24 hr 25 mg PO DAILY RF: 0 tamsulosin 0.4 mg capsule 0.4 mg PO DAILY RF: 0 ropinirole 1 mg tablet 1 mg PO HS RF: 0 aspirin [Aspirin Low Dose] 81 mg Tablet,Delayed Release (Dr/Ec) 81 mg PO AMPM RF: 0 ibuprofen 200 mg Tablet 200 mg PO HS RF: 0 melatonin 10 mg Tablet 10 mg PO HS RF: 0 Discontinued spironolactone 25 mg tablet 25 mg PO DAILY RF: 0 furosemide 20 mg tablet 20 mg PO DAILY RF: 0 potassium chloride 20 mEq tablet,ER particles/crystals 20 meq PO DAILY RF: 0 docusate sodium 100 mg Capsule 100 mg PO DAILY RF: 0 Discharge Orders: Discharge Order (Routine); Ordered 11/14/20 Ordered By: Dat Hong Admission Data Admit Date/Time: 11/11/20 01:16 Attending Provider: Dat Hong Admit Provider: Kevyn Garcia Primary Care Provider: Tulio Azevedo Other Providers: Kevyn Garcia ; Anastasia Grimes ; Lory Sewell ; Gonzalez Florian ; Yessica Klein ; Daniele Odell ; Arthur Dolan ; Anna Marcial ; Tulio Chavez ; Avril Alex ; Mary Lou Cordova ; Amparo Griffith ; Karla Layton ; Kathe Reynolds ; Cornelio Norwood Sabrina M.
--- NOTE | 2020-11-14 14:05 | Communication Note ---
Date of Service: November 14, 2020 Patient discharged earlier today. Per review of telemetry he reverted to a rate controlled atrial fibrillation / flutter a 21:50 on 11/13/20. This was present during echocardiogram today. Summary of echocardiogram: The study was technically adequate. Rate controlled atrial fibrillation / flutter was present during the echocardiogram. There is mild concentric left ventricular hypertrophy. There is a small sized posterior and basal inferior wall motion abnormality with hypokinesis to akinesis of the basal posterior and basal inferior segments. Left ventricular systolic function is normal. The LV Ejection Fraction = 55-60%. Mild valvular aortic stenosis. The aortic root and proximal ascending aorta are normal sized. -The posterior / basal inferior wall motion abnormality is not felt to be an acute change. -Will arrange outpatient cardiology follow up for reassessment of atrial arrhythmias. -Today is not an ideal time to start new anticoagulation , pending recovery from bowel obstruction.
[2020-11-15] MEDS ORDERED: MAGNESIUM OXIDE 400 MG TAB PO SCH (09:00)
== END 2020-11-14 13:45 | disposition home or self-care (01) | DRG 392 ==
LOC: ED 21:48 → SUATTDRO 11-11 01:16 → 2N 11-11 01:16

== ENCOUNTER 2021-08-04 21:29 | Inpatient (IN) ==
[2021-08-04] MEDS ORDERED: SODIUM CHLORIDE 0.9% 1000ML 1,000 ML IV STA (21:51)
[2021-08-04] MEDS ORDERED: ONDANSETRON INJ 2 MG/ML 2 ML VIAL IV STA (21:51)
--- NOTE | 2021-08-04 22:07 | XRay Report ---
XR chest 1V portable CLINICAL HISTORY: Nausea and vomiting. Evaluate lung bases. COMPARISON STUDY: 11/11/2020 TECHNIQUE: 1 view of the chest FINDINGS: Single frontal view of the chest demonstrates the cardiomediastinal silhouette to be within normal li mits. The patient is status post previous cardiothoracic surgery. The lungs are clear of alveolar opa cities. There is no evidence for pleural effusion. There is no evidence for vascular congestion. Ther e is no acute osseous pathology. IMPRESSION: No acute cardiopulmonary disease. ACT 112: Negative or not required by law. Electronically signed by: Maurice Frank M.D. 08/04/2021 10:06 PM
--- NOTE | 2021-08-04 22:14 | Emergency Department Note ---
Impression & Plan SBO (small bowel obstruction), Vomiting ED Provider Note NAME: FADI BRIGGS AGE: 80 SEX: M : 1940 ARRIVES VIA: Walk-In INFORMANT: Patient, ED PROVIDER(S): Adrián Li DO CHIEF COMPLAINT: Vomiting HPI: The patient is an 80-year-old male who presented to emergency department with his family member for an evaluation of abdominal pain. The patient describes lower abdominal pain which has been associated with nausea and vomiting. He denies having any chest pain. He denies having any difficulty breathing. He presented with his son who is very concerned because the patient appeared very diaphoretic and appeared to be having severe discomfort. He has had some loose bowel movements recently. He does have a history of a ventral hernia but this is not worse than usual. He denies having any inguinal swelling. He denies having any back pain or difficulty breathing. He states when the pain became worse he started having diaphoresis and has had multiple episodes of emesis. The pain is mildly improved after he has episodes of emesis. ROS: See above HPI for pertinent positives & negatives. A total of 10 systems reviewed and were otherwise negative. PAST MEDICAL HISTORY: See Below PAST SURGICAL HISTORY: See Below FAMILY HISTORY: See Below SOCIAL HISTORY: See Below HOME MEDICATIONS: See Below ALLERGIES: See Below VITALS: See Below PHYSICAL EXAMINATION: GENERAL: The patient is awake and alert. The patient is very anxious appearing and diaphoretic. EYES: The conjunctivae are clear. The pupils are round and reactive. EARS, NOSE, MOUTH AND THROAT: The nose is without any evidence of any deformity. . NECK: The neck is nontender and supple. RESPIRATORY: Normal respiratory effort is noted there is no evidence of wheezing rhonchi or rales CARDIOVASCULAR: Regular rate and rhythm noted there no murmurs rubs or gallops normal S1 normal S2. GASTROINTESTINAL: The abdomen was distended and diffusely tender. There is lower abdominal tenderness to palpation which is moderate. There is a ventral hernia noted which is not incarcerated. There is no skin changes overlying. MUSCULOSKELETAL/EXTREMITIES: There is no evidence of gross deformity full range of motion is noted in the hips and shoulders. SKIN: Pedal edema was noted bilaterally. Skin was diaphoretic and cold. NEUROLOGIC: Patient is awake alert and oriented x3. MEDICAL DECISION MAKING: The patient is an 80-year-old male who presented to emergency department for an evaluation of nausea vomiting. He presented with his family member. He appeared to be very uncomfortable. The patient's abdominal exam revealed significant distention but was not consistent with a surgical abdomen. I discussed the patient's laboratory and radiographic studies with him. He was found to have signs of small bowel obstruction on CT the abdomen pelvis. NG tube was placed. The patient was treated with IV fluids and IV antiemetics. He was also treated with IV antibiotics. He was reevaluated multiple times. I discussed this case with the on-call general surgical group [facility] They have agreed to evaluate the patient in the emergency department for further management and disposition. Triage Nursing notes reviewed. Prior medical records reviewed Vital Signs: reviewed and remarkable for hypertension. Differential diagnosis: Gastroenteritis, food borne illness, infections, appendicitis, diverticulitis, inflammatory bowel disease, obstruction, GI bleed, biliary pathology, volvulus, as well as other pathologies. ER treatment provided: See below Diagnostics interpreted by me: ECG: EKG was obtained in the emergency department. My interpretation is normal sinus rhythm at 66 bpm. There is no ectopy. Apical and lateral T wave inversions were noted. This was compared to a tracing from November 112020. The T wave abnormalities are new compared to the earlier tracing. Cardiac Monitoring: An order was placed for continuous cardiac monitoring. The monitor shows a rate of 65 bpm with sinus rhythm. Laboratory studies: As stated above and show below. Imaging studies: See below Consultation(s): I discussed this case with Ad Liang who is on for the general surgical group. He will evaluate the patient in the emergency department. I discussed this case with Dr. Grove [facility] He will evaluate the patient in the emergency department for further management and disposition. 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 History of laminectomy History of prostatectomy History of total knee replacement Social History Smoking Status: Never smoker Second Hand Exposure: No; Hx Alcohol Use: Yes Alcohol type: beer Hx Substance Use: No Preferred Language: Cuban Communication Ability: Effective Motion Picture Equipment Supervisor Required: No Beliefs That Will Affect Care: None marital status: Current Living Situation: Alone How many Children do You have: 3 Feels Safe at Home: Yes Assistive Devices: None Allergies Allergies Allergy/AdvReac Type Severity Reaction Status Date / Time enalapril Allergy Unknown Cough Verified 08/04/21 21:55 simvastatin AdvReac Mild muscle Verified 08/04/21 21:55 weakness aspirin AdvReac Unknown GI UPSET Verified 11/10/20 23:30 IN HIGH DOSES atorvastatin AdvReac Unknown MUSCLE Verified 08/04/21 21:55 ACHES [id number] Reductase AdvReac Unknown MUSCLE Unverified 08/04/21 21:55 Inhibitor ACHES AND [Vjbeblk-Mkc-Juv Reductase WEAKNESS/DIARRHEA Inhibitor] Home Meds Home Medications Medication Instructions Recorded Confirmed omeprazole 20 mg capsule,delayed 20 mg PO QAM 10/26/19 08/04/21 release sertraline 100 mg tablet 100 mg PO DAILY 10/26/19 08/04/21 aspirin 81 mg tablet,delayed 81 mg PO AMPM 11/10/20 08/04/21 release (Aspirin Low Dose) melatonin 10 mg tablet 10 mg PO HS 11/10/20 08/04/21 ropinirole 1 mg tablet 1 mg PO HS 11/10/20 08/04/21 tamsulosin 0.4 mg capsule 0.4 mg PO DAILY 11/10/20 08/04/21 albuterol sulfate 90 mcg/actuation 2 puff INHALATION Q4 PRN 08/04/21 08/04/21 aerosol inhaler (ProAir HFA) amoxicillin 500 mg capsule 2,000 mg PO ONCE PRN 08/04/21 08/04/21 apixaban 5 mg tablet (Eliquis) 5 mg PO BID 08/04/21 08/04/21 cholecalciferol (vitamin D3) 25 25 mcg PO DAILY 08/04/21 08/04/21 mcg (1,000 unit) tablet (Vitamin D3) docusate sodium 100 mg capsule 100 mg PO BID 08/04/21 08/04/21 furosemide 20 mg tablet See Rx Instructions .ROUTE .COMPLEX 08/04/21 08/04/21 metoprolol succinate 50 mg 50 mg PO DAILY 08/04/21 08/04/21 tablet,extended release 24 hr polyethylene glycol 3350 17 gram 17 g PO DAILY 08/04/21 08/04/21 oral powder packet (Miralax) spironolactone 25 mg tablet 25 mg PO DAILY 08/04/21 08/04/21 Results & Data (ED) Vital Signs Vital Signs - 24 hr 08/04/21 21:33 08/04/21 21:51 08/04/21 22:43 Temperature 35.2 C L Temperature Source Oral Pulse Rate 72 Pulse Rate [Apical] 65 Respiratory Rate 16 24 Respiratory Effort / Characteristics Non-Labored Spontaneous Respiratory Depth Normal Blood Pressure 126/75 Blood Pressure [Right Arm] 170/85 H Blood Pressure Mean 92 Blood Pressure Mean [Right Arm] 113 Blood Pressure Position Sitting Pulse Oximetry 94 97 99 Oxygen Delivery Method Room Air Sepsis Recent Fever Within 48 Hours No Sepsis New/Unexplained Change in Mental Status N/A Sepsis Action Taken by Nursing No Action Required Home Medications Current Medication List: was personally reviewed by me Laboratory Data Attestation: I reviewed the patient's lab results. Result diagrams: 08/04/21 22:10 08/04/21 22:10 Lab Results 08/04/21 08/04/21 08/04/21 Range/Units 22:10 22:10 22:10 WBC 26.66 H (4.8-10.8) K/uL RBC 6.05 (4.7-6.1) M/uL Hgb 18.3 H (14.0-18.0) g/dL POC Hgb (14.0-18.0) g/dl Hct 53.3 H (42-52) % POC Hct (42-52) % MCV 88.1 (80-100) fL MCH 30.2 (25-34) pg MCHC 34.3 (32-36) g/dL RDW Std Deviation 46.9 H (36.4-46.3) fL RDW Coeff of Jeanette 14.6 H (11.5-14.5) % Plt Count 318 (130-400) K/uL MPV 9.5 (7.4-10.4) fL Immature Gran % (Auto) 0.4 % Neut % (Auto) 90.1 % Lymph % (Auto) 6.9 % Lynn % (Auto) 2.5 % Eos % (Auto) 0.0 % Baso % (Auto) 0.1 % Neut # (Auto) 24.00 H (1.4-6.5) K/uL Lymph # (Auto) 1.85 (1.2-3.4) K/uL Lynn # (Auto) 0.67 H (0.11-0.59) K/uL Eos # (Auto) 0.01 (0-0.5) K/uL Baso # (Auto) 0.02 (0-0.2) K/uL Immature Gran # (Auto) 0.11 H (0.00-0.02) K/uL RBC Morphology Unremarkable PT Cancelled INR Cancelled APTT Cancelled PTT Ratio Cancelled POC Sodium (135-144) mmol/L Sodium 135 L (136-145) mmol/L POC Potassium (3.3-5.0) mmol/L Potassium (3.5-5.1) mmol/L POC Chloride (101-112) mmol/L Chloride 98 (98-107) mmol/L Carbon Dioxide 21 (21-32) mmol/L POC Total CO2 (24-31) mmol/L Anion Gap 16 H (3-11) POC Anion Gap (16-25) mmol/L POC BUN (7-18) mg/dl BUN 25 H (6-23) mg/dl Creatinine 0.98 (0.6-1.4) mg/dl POC Creatinine (0.6-1.3) mg/dl Est Cr Clr Drug Dosing Not Reportable Est GFR ( Amer) 83.5 ml/min Est GFR (Non-Af Amer) 72.0 ml/min BUN/Creatinine Ratio 25.5 H (10-20) Glucose 174 H (70-99(Fasting)) mg/dl POC Glucose (other) (70-99) mg/dl Calcium 9.5 (8.5-10.1) mg/dl POC Ioniz Calcium Dario (1.12-1.32) mmol/l Total Bilirubin 1.1 H (0.2-1.0) mg/dl AST (13-39) U/L ALT 10 (7-52) U/L Alkaline Phosphatase 49 (34-104) U/L Troponin I < 0.03 (0-0.04) ng/ml Total Protein 7.6 (6.0-8.3) gm/dl Albumin 4.2 (3.4-5.0) gm/dl Globulin 3.4 (2.5-4.0) gm/dl Albumin/Globulin Ratio 1.2 (0.9-2) Lipase 15 (11-82) U/L 08/04/21 Range/Units 22:34 WBC (4.8-10.8) K/uL RBC (4.7-6.1) M/uL Hgb (14.0-18.0) g/dL POC Hgb 19.4 H (14.0-18.0) g/dl Hct (42-52) % POC Hct 57 H (42-52) % MCV (80-100) fL MCH (25-34) pg MCHC (32-36) g/dL RDW Std Deviation (36.4-46.3) fL RDW Coeff of Jeanette (11.5-14.5) % Plt Count (130-400) K/uL MPV (7.4-10.4) fL Immature Gran % (Auto) % Neut % (Auto) % Lymph % (Auto) % Lynn % (Auto) % Eos % (Auto) % Baso % (Auto) % Neut # (Auto) (1.4-6.5) K/uL Lymph # (Auto) (1.2-3.4) K/uL Lynn # (Auto) (0.11-0.59) K/uL Eos # (Auto) (0-0.5) K/uL Baso # (Auto) (0-0.2) K/uL Immature Gran # (Auto) (0.00-0.02) K/uL RBC Morphology PT INR APTT PTT Ratio POC Sodium 133 L (135-144) mmol/L Sodium (136-145) mmol/L POC Potassium 6.4 H* (3.3-5.0) mmol/L Potassium (3.5-5.1) mmol/L POC Chloride 102 (101-112) mmol/L Chloride (98-107) mmol/L Carbon Dioxide (21-32) mmol/L POC Total CO2 23 L (24-31) mmol/L Anion Gap (3-11) POC Anion Gap 15.0 L (16-25) mmol/L POC BUN 39 H (7-18) mg/dl BUN (6-23) mg/dl Creatinine (0.6-1.4) mg/dl POC Creatinine 0.9 (0.6-1.3) mg/dl Est Cr Clr Drug Dosing Est GFR ( Amer) ml/min Est GFR (Non-Af Amer) ml/min BUN/Creatinine Ratio (10-20) Glucose (70-99(Fasting)) mg/dl POC Glucose (other) 176 H (70-99) mg/dl Calcium (8.5-10.1) mg/dl POC Ioniz Calcium Dario 0.95 L (1.12-1.32) mmol/l Total Bilirubin (0.2-1.0) mg/dl AST (13-39) U/L ALT (7-52) U/L Alkaline Phosphatase (34-104) U/L Troponin I (0-0.04) ng/ml Total Protein (6.0-8.3) gm/dl Albumin (3.4-5.0) gm/dl Globulin (2.5-4.0) gm/dl Albumin/Globulin Ratio (0.9-2) Lipase (11-82) U/L Administered Medications Discontinued Medications Sodium Chloride (Nss 1000ml) 1,000 mls @ 999 mls/hr IV .Q1H1M STA Stop: 08/04/21 22:51 Last Infusion: 08/04/21 23:42 Dose: 0 mls/hr Documented by: [id number] Admin: 08/04/21 22:12 Dose: 999 mls/hr Documented by: [id number] Piperacillin Sod/Tazobactam Sod (Zosyn) 4.5 gm in 120 mls @ 240 mls/hr IV NOW ONE Stop: 08/04/21 23:08 Last Infusion: 08/04/21 23:42 Dose: 0 mls/hr Documented by: [id number] Admin: 08/04/21 23:08 Dose: 240 mls/hr Documented by: [id number] Ioversol (Optiray 320 100ml) 96 ml IV ONCE ONE Stop: 08/04/21 23:00 Last Admin: 08/04/21 22:59 Dose: 1 ml Documented by: [id number] Ondansetron HCl (Ondansetron Inj 2 Mg/Ml 2 Ml Vial) 4 mg IV NOW STA Stop: 08/04/21 21:52 Last Admin: 08/04/21 22:12 Dose: 4 mg Documented by: [id number] Imaging Data Radiologist's Impression: Abdomen/Pelvis CT 08/04/21 21:51 CT abd pelvis IV con only CLINICAL HISTORY: Nausea and vomiting COMPARISON STUDY: 11/10/2020 CT DOSE: 516.43 mGy.cm TECHNIQUE: Standard CT of the Abdomen and Pelvis was performed with IV contrast. A dose lowering technique was utilized adhering to the principles of ALARA. Contrast Volume: Optiray 320, 95 ml. The patient did not receive oral contrast. FINDINGS: Lung base: The lung bases are clear. Heart size is mildly enlarged status post previous cardiothoracic surgery. Coronary artery calcifications present. Abdominal cavity: There is no evidence for abdominal mass, adenopathy or ascites. There is again a large ventral hernia containing mesenteric fat. No bowel loop herniation is seen. Liver: There is homogeneous attenuation of the liver parenchyma. There is no evidence for enhancing mass lesion. Spleen: There is homogeneous attenuation of the splenic parenchyma. There is no enhancing mass lesion. Pancreas: There is homogeneous attenuation of the pancreatic parenchyma. There is no evidence for mass lesion or peripancreatic fluid collection. Gall Bladder: The gallbladder is well distended with no evidence for intraluminal calculi, wall thickening or pericholecystic edema. There is dilatation of the common bile duct measuring 8 to 9 mm. It is unchanged. Adrenal glands: The adrenal glands are normal in size and attenuation. There is no evidence for enhancing mass lesion. Kidneys: There is homogeneous attenuation of the renal parenchyma bilaterally. There is no evidence for renal calculus or hydronephrosis. There is no evidence for enhancing mass. There are again bilateral renal cysts, right greater than left. Bowel: Compared to the previous examination, there is again evidence for partial colonic obstruction at the level of the sigmoid colon as seen on image 353. The transition is present with findings highly suspicious for an apple core lesion. The colon proximal to this site is again fluid-filled and distended. There is also again noted to be fluid-filled and distended small bowel. There are no inflammatory changes present. There is no evidence for free air. Bladder: The bladder is within normal limits with no evidence for focal mass, calculus or diverticulum. : There is no evidence for pelvic mass or adenopathy. There is no evidence for pelvic ascites. Vasculature: There is no evidence for aneurysmal dilatation of the abdominal aorta. Atherosclerotic calcification is present. Osseous structures: There is no acute osseous pathology. Degenerative changes are seen within the spine. IMPRESSION: 1. Compared to the previous examination, there is again evidence for an obstructing lesion of the sigmoid colon having the appearance of an apple core lesion. There is associated fluid-filled and dilated small and large bowel without evidence for disproportionate dilatation. 2. Additional nonacute findings are delineated above. ACT 112: Negative or not required by law. Electronically signed by: Maurice Frank M.D. 08/04/2021 11:16 PM Chest X-Ray 08/04/21 21:51 XR chest 1V portable CLINICAL HISTORY: Nausea and vomiting. Evaluate lung bases. COMPARISON STUDY: 11/11/2020 TECHNIQUE: 1 view of the chest FINDINGS: Single frontal view of the chest demonstrates the cardiomediastinal silhouette to be within normal limits. The patient is status post previous cardiothoracic surgery. The lungs are clear of alveolar opacities. There is no evidence for pleural effusion. There is no evidence for vascular congestion. There is no acute osseous pathology. IMPRESSION: No acute cardiopulmonary disease. ACT 112: Negative or not required by law. Electronically signed by: Maurice Frank M.D. 08/04/2021 10:06 PM Discharge Plan Visit Data Chief Complaint: GI Assessment Stated Complaint: WEAKNESS, VOMITING, ABD PAIN ED Provider: Adrián Li Discharge Problem: SBO (small bowel obstruction), Vomiting Patient Disposition: Being Evaluated by Hospitalist Forms Stand Alone Forms: [facility] Prescriptions Prescriptions: No Action sertraline 100 mg tablet 100 mg PO DAILY RF: 0 omeprazole 20 mg capsule,delayed release(DR/EC) 20 mg PO QAM RF: 0 tamsulosin 0.4 mg capsule 0.4 mg PO DAILY RF: 0 ropinirole 1 mg tablet 1 mg PO HS RF: 0 aspirin [Aspirin Low Dose] 81 mg Tablet,Delayed Release (Dr/Ec) 81 mg PO AMPM RF: 0 melatonin 10 mg Tablet 10 mg PO HS RF: 0 polyethylene glycol 3350 [Miralax] 17 gram powder in packet 17 g PO DAILY RF: 0 metoprolol succinate 50 mg tablet extended release 24 hr 50 mg PO DAILY RF: 0 spironolactone 25 mg tablet 25 mg PO DAILY RF: 0 Eliquis 5 mg tablet 5 mg PO BID RF: 0 amoxicillin [Amoxil] 500 mg Capsule 2,000 mg PO ONCE PRN (Reason: 1 hour prior to dentist) RF: 0 furosemide 20 mg tablet See Rx Instructions .ROUTE .COMPLEX RF: 0 albuterol sulfate [ProAir HFA] 90 mcg/actuation Hfa Aerosol Inhaler 2 puff INHALATION Q4 PRN (Reason: Wheezing) RF: 0 cholecalciferol (vitamin D3) [Vitamin D3] 25 mcg (1,000 unit) Tablet 25 mcg PO DAILY RF: 0 docusate sodium 100 mg Capsule 100 mg PO BID RF: 0 Referrals Referrals: Tulio Azevedo, [Primary Care Provider] -
[2021-08-04] MEDS: fentaNYL citrate 100 MCG/2 ML VIAL IV PRN (22:15)
[2021-08-04 22:26] LABS: Hematocrit (blood only) 53.3 % (42-52); Hemoglobin 18.3 g/dL (14.0-18.0); Mean Corpuscular Hemoglobin 30.2 pg (25-34); Mean Corpuscular Hgb Conc 34.3 g/dL (32-36); Mean Corpuscular Volume 88.1 fL (80-100); Mean Platelet Volume 9.5 fL (7.4-10.4); Platelet Count 318 K/uL (130-400); RDW Coefficient of Variation 14.6 % (11.5-14.5); RDW Standard Deviation 46.9 fL (36.4-46.3); Red Blood Count 6.05 M/uL (4.7-6.1); White Blood Count 26.66 K/uL (4.8-10.8)
[2021-08-04] MEDS ORDERED: PIPERACILLIN/TAZOBACTAM 4.5 GM/120 ML BAG IV ONE (22:39)
[2021-08-04] MEDS ORDERED: PIPERACILL/TAZOBAC CONSULT ACTIVE PRN (22:39)
[2021-08-04 22:43] LABS: Basophils # (auto) 0.02 K/uL (0-0.2); Basophils % (auto) 0.1 %; Eosinophils # (auto) 0.01 K/uL (0-0.5); Immature Granulocytes # (auto) 0.11 K/uL (0.00-0.02); Immature Granulocytes % (auto) 0.4 %; Lymphocytes # (auto) 1.85 K/uL (1.2-3.4); Lymphocytes % (auto) 6.9 %; Monocytes # (auto) 0.67 K/uL (0.11-0.59); Monocytes % (auto) 2.5 %; Neutrophils % (auto) 90.1 %; RBC Morphology Unremarkable
[2021-08-04 22:47] LABS: Troponin I < 0.03 ng/ml (0-0.04)
[2021-08-04 22:49] LABS: iSTAT Creatinine 0.9 mg/dl (0.6-1.3); iSTAT Hemoglobin 19.4 g/dl (14.0-18.0); iSTAT Ionized Calcium 0.95 mmol/l (1.12-1.32); iSTAT Potassium 6.4 mmol/L (3.3-5.0)
[2021-08-04] MEDS ORDERED: OPTIRAY 320 100ml IV ONE (22:59)
[2021-08-04 23:07] LABS: Alanine Aminotransferase 10 U/L (7-52); Albumin Globulin Ratio 1.2 (0.9-2); Albumin Level 4.2 gm/dl (3.4-5.0); Alkaline Phosphatase 49 U/L (34-104); Anion Gap 16 (3-11); BUN Creatinine Ratio 25.5 (10-20); Bilirubin,Total 1.1 mg/dl (0.2-1.0); Blood Urea Nitrogen 25 mg/dl (6-23); Calcium 9.5 mg/dl (8.5-10.1); Carbon Dioxide 21 mmol/L (21-32); Chloride 98 mmol/L (98-107); Est GFR (African American) 83.5 ml/min; Globulin 3.4 gm/dl (2.5-4.0); Glucose 174 mg/dl (70-99(Fasting)); Lipase 15 U/L (11-82); Sodium 135 mmol/L (136-145); Total Protein 7.6 gm/dl (6.0-8.3)
--- NOTE | 2021-08-04 23:17 | CT Scan Report ---
CT abd pelvis IV con only CLINICAL HISTORY: Nausea and vomiting COMPARISON STUDY: 11/10/2020 CT DOSE: 516.43 mGy.cm TECHNIQUE: Standard CT of the Abdomen and Pelvis was performed with IV contrast. A dose lowering fidencio hnique was utilized adhering to the principles of ALARA. Contrast Volume: Optiray 320, 95 ml. The patient did not receive oral contrast. FINDINGS: Lung base: The lung bases are clear. Heart size is mildly enlarged status post previous cardiothoraci c surgery. Coronary artery calcifications present. Abdominal cavity: There is no evidence for abdominal mass, adenopathy or ascites. There is again a la rge ventral hernia containing mesenteric fat. No bowel loop herniation is seen. Liver: There is homogeneous attenuation of the liver parenchyma. There is no evidence for enhancing m ass lesion. Spleen: There is homogeneous attenuation of the splenic parenchyma. There is no enhancing mass lesion . Pancreas: There is homogeneous attenuation of the pancreatic parenchyma. There is no evidence for mas s lesion or peripancreatic fluid collection. Gall Bladder: The gallbladder is well distended with no evidence for intraluminal calculi, wall thick ening or pericholecystic edema. There is dilatation of the common bile duct measuring 8 to 9 mm. It i s unchanged. Adrenal glands: The adrenal glands are normal in size and attenuation. There is no evidence for enhan cing mass lesion. Kidneys: There is homogeneous attenuation of the renal parenchyma bilaterally. There is no evidence f or renal calculus or hydronephrosis. There is no evidence for enhancing mass. There are again bilater al renal cysts, right greater than left. Bowel: Compared to the previous examination, there is again evidence for partial colonic obstruction at the level of the sigmoid colon as seen on image 353. The transition is present with findings highl y suspicious for an apple core lesion. The colon proximal to this site is again fluid-filled and dist ended. There is also again noted to be fluid-filled and distended small bowel. There are no inflammat ory changes present. There is no evidence for free air. Bladder: The bladder is within normal limits with no evidence for focal mass, calculus or diverticulu m. : There is no evidence for pelvic mass or adenopathy. There is no evidence for pelvic ascites. Vasculature: There is no evidence for aneurysmal dilatation of the abdominal aorta. Atherosclerotic c alcification is present. Osseous structures: There is no acute osseous pathology. Degenerative changes are seen within the spi ne. IMPRESSION: 1. Compared to the previous examination, there is again evidence for an obstructing lesion of the sig moid colon having the appearance of an apple core lesion. There is associated fluid-filled and dilate d small and large bowel without evidence for disproportionate dilatation. 2. Additional nonacute findings are delineated above. ACT 112: Negative or not required by law. Electronically signed by: Maurice Frank M.D. 08/04/2021 11:16 PM
[2021-08-04] MEDS ORDERED: SODIUM CHLORIDE 0.9% 1000ML 1,000 ML IV ONE (23:20)
--- NOTE | 2021-08-04 23:53 | Surgery Consultation ---
Date of Consultation August 04, 2021 Assessment & Plan (1) Large bowel obstruction: Patient is being admitted to the hospital service. We recommend proceeding as follows: The treating emergency room physician has ordered an NG tube. Recommend continuous modality with NG tube to low continuous suction for symptomatic relief Maintain n.p.o. status Provide antiemetics if needed Provide analgesics if needed Implement IV fluids for hydration We will initiate antibiotics in the form of Zosyn Follow serial labs Based on the patient's CAT scan it appears that patient's presenting symptoms are again likely noted to sigmoid colon stricture/lesion. I discussed with the patient and his son at bedside that prior to entertaining any surgical resection it would be preferable for patient to undergo an appropriate bowel prep which would allow for a 1 stage surgical procedure. That being said it may be beneficial to have gastroenterology evaluate the patient for possible decompression and/or colon stent placement in order for patient to undergo a bowel prep. Patient does have a previous history of coronary artery disease and paroxysmal atrial fibrillation we will ask the medical service to ensure that these conditions are optimized prior to entertaining any surgical intervention. Supervising Physician Co-Signing Physician Notes Dr. Torres-patient with recurrent colonic obstruction-last episode was October 2019 this is not felt to be a malignant lesion Does not appear to be larger in nature but obstruction is somewhat worse than last time. Patient does not have an acute abdomen He does not have any significant tenderness or pain. At the present time he has significant reflux. I have discussed with him the likelihood of surgery at some point and possibly a colostomy. He is very reluctant for any surgery which is why he did not return or have follow-up after the last episode.. He does not require an emergent operation and in all likelihood he will require a diverting colostomy. There is always a chance of stenting and delayed surgery with a 1 stage operation. He is also on Eliquis which we will obviously hold I will discuss the plan with the medical team and GI team I have ordered some Protonix and Maalox History of Present Illness Reason for Consultation: Colon obstruction History of Present Illness This is an 80-year-old male who is known to the surgical service. The patient was hospitalized in October 2019 secondary to a stricture of the sigmoid colon lo cated about 20 cm proximal to the anus.. He underwent endoscopic evaluation by gastroenterology and biopsies showed benign findings. Patient did not require surgery at that time and he was discharged home with plans to follow-up with Dr. Babcock of [facility] general surgery in order to discuss possible surgical intervention. Patient not follow-up with Dr. Babcock during that visit and was lost to follow-up and he was doing fine until October 2019. At that time the patient was admitted to [facility] secondary to nausea vomiting 3 days prior to admission. At that time the patient was found to have a large bowel obstruction felt to be likely related to patient's previously noted sigmoid colon stricture. During this course the patient underwent a flexible sigmoidoscopy with decompression. At this time narrowing of the sigmoid colon approximately 2024 cm proximal to the anus was noted. Gastroenterology recommended that the patient take MiraLAX twice daily to prevent future fecal impactions and also recommended surgical evaluation. Records were reviewed and patient has not followed up with [facility] general surgery. Patient presents to the emergency department today secondary to worsening nausea vomiting. I discussed with the patient he notes over the proximately past 2 to 3 weeks he has been having on and off nausea vomiting that usually self resolves. Patient notes that his nausea vomiting became worse over the past 24 hours so he presented to the emergency department. He does note some generalized abdominal pain without radiation or palliative or provocative factors. He notes that his abdomen is slightly distended/bloated compared to his normal state. He also notes that his most recent bowel movement was approximately 24 hours ago at which time he had this drained significantly in order to go and he notes that his feces at that time were very hard and formed. He denies any hematemesis. He denies any melena. He denies any bright red blood per rectum. In addition the patient denies any chest pain or shortness of breath. He denies any fevers, shakes, chills. Today in the emergency department the patient had labs and imaging which I independently reviewed. He did have a chest x-ray that showed no evidence of pneumonia or congestive heart failure. A CT scan of the abdomen and pelvis showed the patient had evidence for an obstructing lesion in the sigmoid colon that had the appearance of an apple core lesion. There is fluid-filled and dilated small and large bowel proximal to the above-noted lesion. No inflammatory changes were noted and there is no evidence of intraperitoneal free air. A ventral hernia was noted which did not contain any bowel or evidence of obstruction related to the hernia. Labs consisted of a CBC her white blood cell count was 26.6. Hemoglobin and hematocrit were 18.3 and 53.3. Platelet count was noted to be within normal range. Chemistry profile showed sodium was 133 and potassium 6.4. His BUN and creatinine were 25 and 0.9. There is no significant elevation of LFTs or lipase. A Covid test has been ordered and is pending. At the time of my interview the patient was resting in bed and he was in no distress. Allergies Allergy/AdvReac Type Severity Reaction Status Date / Time enalapril Allergy Unknown Cough Verified 08/04/21 21:55 simvastatin AdvReac Mild muscle Verified 08/04/21 21:55 weakness aspirin AdvReac Unknown GI UPSET Verified 11/10/20 23:30 IN HIGH DOSES atorvastatin AdvReac Unknown MUSCLE Verified 08/04/21 21:55 ACHES Zgtzcbz-GIH-JbT Reductase AdvReac Unknown MUSCLE Unverified 08/04/21 21:55 Inhibitor ACHES AND [Agvicte-Rot-Htn Reductase WEAKNESS/DIARRHEA Inhibitor] Home Medications Medication Instructions Recorded Confirmed Type omeprazole 20 mg capsule,delayed 20 mg PO QAM 10/26/19 08/04/21 History release sertraline 100 mg tablet 100 mg PO DAILY 10/26/19 08/04/21 History aspirin 81 mg tablet,delayed 81 mg PO AMPM 11/10/20 08/04/21 History release (Aspirin Low Dose) melatonin 10 mg tablet 10 mg PO HS 11/10/20 08/04/21 History ropinirole 1 mg tablet 1 mg PO HS 11/10/20 08/04/21 History tamsulosin 0.4 mg capsule 0.4 mg PO DAILY 11/10/20 08/04/21 History albuterol sulfate 90 mcg/actuation 2 puff INHALATION Q4 PRN 08/04/21 08/04/21 History aerosol inhaler (ProAir HFA) amoxicillin 500 mg capsule 2,000 mg PO ONCE PRN 08/04/21 08/04/21 History apixaban 5 mg tablet (Eliquis) 5 mg PO BID 08/04/21 08/04/21 History cholecalciferol (vitamin D3) 25 25 mcg PO DAILY 08/04/21 08/04/21 History mcg (1,000 unit) tablet (Vitamin D3) docusate sodium 100 mg capsule 100 mg PO BID 08/04/21 08/04/21 History furosemide 20 mg tablet See Rx Instructions .ROUTE .COMPLEX 08/04/21 08/04/21 History metoprolol succinate 50 mg 50 mg PO DAILY 08/04/21 08/04/21 History tablet,extended release 24 hr polyethylene glycol 3350 17 gram 17 g PO DAILY 08/04/21 08/04/21 History oral powder packet (Miralax) spironolactone 25 mg tablet 25 mg PO DAILY 08/04/21 08/04/21 History Patient History Medical History Family hx of colon cancer Fusion of spine Surgical History History of carpal tunnel release 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 History of laminectomy History of prostatectomy History of total knee replacement Social History Smoking Status: Never smoker Second Hand Exposure: No; Hx Alcohol Use: Yes Alcohol type: beer Hx Substance Use: No Preferred Language: Panamanian Communication Ability: Effective Conveyor Worker Required: No Beliefs That Will Affect Care: None marital status: Current Living Situation: Alone How many Children do You have: 3 Feels Safe at Home: Yes Assistive Devices: None Review of Systems Constitutional: no fever and no chills Eyes: no diplopia Ear, Nose, Mouth, Throat: no ear pain Respiratory: no cough and no dyspnea Cardiovascular: no chest pain Gastrointestinal: as per Subjective / HPI, + abdominal pain, + nausea, + vomiting and + change in bowel habits Genitourinary: no dysuria Musculoskeletal: no back pain Integumentary: no rash Neurologic: no localized weakness Physical Exam Constitutional: well developed and well nourished; no acute distress Eyes: no conjunctival abnormality ENMT: Ears: no hearing impairment Mouth: no oropharynx abnormality Neck: trachea midline Respiratory: normal respiratory effort; no respiratory distress and no labored breathing Cardiovascular: Rate/Rhythm: regular rate and regular rhythm Gastrointestinal (Abdomen): Abdomen is soft with mild to moderate distention. There is slightly tympanic to percussion. There is no rebound tenderness or guarding. Not appreciate any palpable hernias. There is a small amount of pain noted with palpation. Musculoskeletal: No calf tenderness Skin: no rashes Neurologic: moves all extremities Psychiatric: A+Ox3, euthymic affect Results & Data ([facility]) Vital Signs (Past 12 Hours) Vital Signs Temp Pulse Pulse Resp BP BP Pulse Ox 08/04/21 22:43 65 24 170/85 H 99 08/04/21 21:51 97 08/04/21 21:33 35.2 C L 72 16 126/75 94 PG Care Time/CCT Total # of Minutes Spent Total Time Spent with Patient: Total time spent is greater than 50% in coordination of care (as documented) at patient's floor/unit and/or counseling patient: Coding Level of Care Code 54958 Inpt Consult Level 5 Diagnoses Large bowel obstruction K56.609
[2021-08-05] MEDS ORDERED: METOPROLOL TARTRATE 1 MG/ML VIAL IV STA (00:05)
[2021-08-05 00:07] LABS: INR 1.1 (0.9-1.1); Partial Thromboplastin Time 26.2 Seconds (21.0-31.0); Prothrombin Time 10.9 Seconds (9.0-12.0)
[2021-08-05] MEDS ORDERED: PIPERACILL/TAZOBAC CONSULT ACTIVE PRN (00:12)
[2021-08-05 00:19] LABS: Potassium 4.5 mmol/L (3.5-5.1)
[2021-08-05 01:14] LABS: Appearance Urine Clear (Clear); Blood Urine Negative (Negative); Color Urine Dark Yellow; Glucose Urine UA Negative (Negative); Ketones Urine Trace (Negative); Leukocyte Esterase Urine Negative (Negative); Nitrite Urine Negative (Negative); Protein Urine Negative (Negative); Specific Gravity Urine > 1.045 (1.000-1.030); Urobilinogen Urine Negative (Negative)
[2021-08-05 01:17] LABS: Bilirubin Urine 1+ (Negative)
[2021-08-05] MEDS: fentaNYL citrate 100 MCG/2 ML VIAL IV PRN (01:26)
[2021-08-05] MEDS ORDERED: LACTATED RINGER'S 1,000 ML IV STA (03:54)
--- NOTE | 2021-08-05 04:20 | History & Physical Report ---
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 Continue NGT decompression, bowel rest General surgery consult Re: Bowel obstruction (Patient already seen at the ER by provider retention specialist who recommends Zosyn and GI consultation for recurrent large bowel obstruction.) Hold patient NOAC in anticipation of procedure. ISS BG goal 1 10-1 40 DVT prophylaxis. SCDs while anticoagulation on hold in anticipation of procedure. Full code Patient requests for his son to be updated by providers of plan of care. Mr. Hadley Casey, contact #[phone]. Text document was generated using [employer] voice recognition software. It may contain grammatical or spelling errors. Kindly contact undersigned for clarification of any documentation item in question. History of Present Illness Chief Complaint: Abdominal pain, vomiting Primary Care Provider: Tulio Azevedo DO History obtained from patient and records. 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 Last confinement October 2020 for large bowel obstruction secondary to sigmoid colon stricture/diverticular stricture. Patient underwent flex sigmoidoscopy. MiraLAX twice daily recommended. 3 weeks ago, patient noted nausea/emesis symptoms. The last few days, patient noted achy abdominal pain mostly upper with loose stools. No fever, no chills, no chest pain, no S OB. Patient brought to ER for evaluation. NGT inserted for bowel obstruction. IV Zosyn administered at the ER. Medical Historyas above Surgical History : Knee surgeries, CABG, neck surgery, radical prostatectomy Family History : Heart disease, stroke, prostate cancer Personal/Social history : Past pipe smoker, occasional EtOH intake, retired mailman Allergies Allergy/AdvReac Type Severity Reaction Status Date / Time enalapril Allergy Unknown Cough Verified 08/05/21 12:57 simvastatin AdvReac Mild muscle Verified 08/05/21 12:57 weakness aspirin AdvReac Unknown GI UPSET Verified 08/05/21 12:57 IN HIGH DOSES atorvastatin AdvReac Unknown MUSCLE Verified 08/05/21 12:57 ACHES Vkuckra-QHB-HoY Reductase AdvReac Unknown MUSCLE Verified 08/05/21 12:57 Inhibitor ACHES AND [Wqrbrdl-Wqy-Ozn Reductase WEAKNESS/DIARRHEA Inhibitor] Home Medications Medication Instructions Recorded Confirmed Type omeprazole 20 mg capsule,delayed 20 mg PO QAM 10/26/19 08/04/21 History release sertraline 100 mg tablet 100 mg PO DAILY 10/26/19 08/04/21 History aspirin 81 mg tablet,delayed 81 mg PO AMPM 11/10/20 08/04/21 History release (Aspirin Low Dose) melatonin 10 mg tablet 10 mg PO HS 11/10/20 08/04/21 History ropinirole 1 mg tablet 1 mg PO HS 11/10/20 08/04/21 History tamsulosin 0.4 mg capsule 0.4 mg PO DAILY 11/10/20 08/04/21 History albuterol sulfate 90 mcg/actuation 2 puff INHALATION Q4 PRN 08/04/21 08/04/21 History aerosol inhaler (ProAir HFA) amoxicillin 500 mg capsule 2,000 mg PO ONCE PRN 08/04/21 08/04/21 History apixaban 5 mg tablet (Eliquis) 5 mg PO BID 08/04/21 08/04/21 History cholecalciferol (vitamin D3) 25 25 mcg PO DAILY 08/04/21 08/04/21 History mcg (1,000 unit) tablet (Vitamin D3) docusate sodium 100 mg capsule 100 mg PO BID 08/04/21 08/04/21 History furosemide 20 mg tablet See Rx Instructions .ROUTE .COMPLEX 08/04/21 08/04/21 History metoprolol succinate 50 mg 50 mg PO DAILY 08/04/21 08/04/21 History tablet,extended release 24 hr polyethylene glycol 3350 17 gram 17 g PO DAILY 08/04/21 08/04/21 History oral powder packet (Miralax) spironolactone 25 mg tablet 25 mg PO DAILY 08/04/21 08/04/21 History Past Med/Surg History Medical History (Updated 08/05/21 @ 14:32 by Kevyn Garcia MD) Family hx of colon cancer Fusion of spine Surgical History History of carpal tunnel release 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 History of laminectomy History of prostatectomy History of total knee replacement Social History Smoking Status: Former smoker Second Hand Exposure: No; Do You Dip or Chew Tobacco: No; Tobacco Cessation Education Requested by Patient: No Hx Alcohol Use: Yes Alcohol type: hard liquor Hx Substance Use: No Preferred Language: Serbian Communication Ability: Effective Radiology Orderly Required: No Beliefs That Will Affect Care: None marital status: Current Living Situation: Family Current Living Situation Comment: lives with grandson and his family. How many Children do You have: 3 Other Information That Helps Us Care for You: No Feels Safe at Home: Yes Safety Concerns: Feels Safe At This Time Assistive Devices: Denture - Upper, Denture - Lower and Glasses Review of Systems Review of Systems: As per HPI, all 10 systems reviewed, all other ROS negative Physical Exam Physical Exam: GENERAL: Slightly uncomfortable, no respiratory distress SKIN: Normal color, warm HEENT: Alopecia, pink palpebral conjunctivae, no ptosis, dry buccal mucosa, NGT in place NECK : Supple, no tenderness CHEST : Decreased breath sounds, no tenderness HEART : RRR, no obvious murmurs ABDOMEN: Some distention, minimal central abdominal tenderness EXTREMITIES : No LE swelling/tenderness, no other conspicuous deformities noted NEUROLOGIC : Coherent, no facial asymmetry, no other gross focality Results & Data Results & Data ([facility]) Vital Signs (Past 12 Hours) Vital Signs Temp Pulse Pulse Resp BP BP Pulse Ox 08/05/21 02:00 67 18 152/77 H 97 08/05/21 01:29 68 162/93 H 08/05/21 00:43 66 18 158/85 H 95 08/04/21 22:43 65 24 170/85 H 99 08/04/21 21:51 97 08/04/21 21:33 35.2 C L 72 16 126/75 94 Laboratory Results Laboratory Results WBC 26.66 K/uL (4.8-10.8) H 08/04/21 22:10 RBC 6.05 M/uL (4.7-6.1) 08/04/21 22:10 Hgb 18.3 g/dL (14.0-18.0) H 08/04/21 22:10 POC Hgb 19.4 g/dl (14.0-18.0) H 08/04/21 22:34 Hct 53.3 % (42-52) H 08/04/21 22:10 POC Hct 57 % (42-52) H 08/04/21 22:34 MCV 88.1 fL (80-100) 08/04/21 22:10 MCH 30.2 pg (25-34) 08/04/21 22:10 MCHC 34.3 g/dL (32-36) 08/04/21 22:10 RDW Std Deviation 46.9 fL (36.4-46.3) H 08/04/21 22:10 RDW Coeff of Jeanette 14.6 % (11.5-14.5) H 08/04/21 22:10 Plt Count 318 K/uL (130-400) 08/04/21 22:10 MPV 9.5 fL (7.4-10.4) 08/04/21 22:10 Immature Gran % (Auto) 0.4 % 08/04/21 22:10 Neut % (Auto) 90.1 % 08/04/21 22:10 Lymph % (Auto) 6.9 % 08/04/21 22:10 [place] % (Auto) 2.5 % 08/04/21 22:10 Eos % (Auto) 0.0 % 08/04/21 22:10 Baso % (Auto) 0.1 % 08/04/21 22:10 Neut # (Auto) 24.00 K/uL (1.4-6.5) H 08/04/21 22:10 Lymph # (Auto) 1.85 K/uL (1.2-3.4) 08/04/21 22:10 [place] # (Auto) 0.67 K/uL (0.11-0.59) H 08/04/21 22:10 Eos # (Auto) 0.01 K/uL (0-0.5) 08/04/21 22:10 Baso # (Auto) 0.02 K/uL (0-0.2) 08/04/21 22:10 Immature Gran # (Auto) 0.11 K/uL (0.00-0.02) H 08/04/21 22:10 RBC Morphology Unremarkable 08/04/21 22:10 PT 10.9 Seconds (9.0-12.0) 08/04/21 23:42 INR 1.1 (0.9-1.1) 08/04/21 23:42 APTT 26.2 Seconds (21.0-31.0) 08/04/21 23:42 PTT Ratio 1.0 08/04/21 23:42 POC Sodium 133 mmol/L (135-144) L 08/04/21 22:34 Sodium 135 mmol/L (136-145) L 08/04/21 22:10 POC Potassium 6.4 mmol/L (3.3-5.0) H* 08/04/21 22:34 Potassium 4.5 mmol/L (3.5-5.1) 08/04/21 23:42 POC Chloride 102 mmol/L (101-112) 08/04/21 22:34 Chloride 98 mmol/L (98-107) 08/04/21 22:10 Carbon Dioxide 21 mmol/L (21-32) 08/04/21 22:10 POC Total CO2 23 mmol/L (24-31) L 08/04/21 22:34 Anion Gap 16 (3-11) H 08/04/21 22:10 POC Anion Gap 15.0 mmol/L (16-25) L 08/04/21 22:34 POC BUN 39 mg/dl (7-18) H 08/04/21 22:34 BUN 25 mg/dl (6-23) H 08/04/21 22:10 Creatinine 0.98 mg/dl (0.6-1.4) 08/04/21 22:10 POC Creatinine 0.9 mg/dl (0.6-1.3) 08/04/21 22:34 Est Cr Clr Drug Dosing Not Reportable 08/04/21 22:10 Est GFR ( Amer) 83.5 ml/min 08/04/21 22:10 Est GFR (Non-Af Amer) 72.0 ml/min 08/04/21 22:10 BUN/Creatinine Ratio 25.5 (10-20) H 08/04/21 22:10 Glucose 174 mg/dl (70-99(Fasting)) H 08/04/21 22:10 POC Glucose (other) 176 mg/dl (70-99) H 08/04/21 22:34 Calcium 9.5 mg/dl (8.5-10.1) 08/04/21 22:10 POC Ioniz Calcium Dario 0.95 mmol/l (1.12-1.32) L 08/04/21 22:34 Total Bilirubin 1.1 mg/dl (0.2-1.0) H 08/04/21 22:10 AST 11 U/L (13-39) L 08/04/21 23:42 ALT 10 U/L (7-52) 08/04/21 22:10 Alkaline Phosphatase 49 U/L (34-104) 08/04/21 22:10 Troponin I < 0.03 ng/ml (0-0.04) 08/04/21 22:10 Total Protein 7.6 gm/dl (6.0-8.3) 08/04/21 22:10 Albumin 4.2 gm/dl (3.4-5.0) 08/04/21 22:10 Globulin 3.4 gm/dl (2.5-4.0) 08/04/21 22:10 Albumin/Globulin Ratio 1.2 (0.9-2) 08/04/21 22:10 Lipase 15 U/L (11-82) 08/04/21 22:10 Procalcitonin < 0.05 ng/ml (0-0.5) 08/04/21 23:47 TSH 3.521 uIu/ml (0.300-4.500) 08/04/21 23:47 Urine Color Dark Yellow 08/05/21 00:50 Urine Appearance Clear (Clear) 08/05/21 00:50 Urine pH 5.0 (4.5-7.5) 08/05/21 00:50 Ur Specific [place] > 1.045 (1.000-1.030) H 08/05/21 00:50 Urine Protein Negative (Negative) 08/05/21 00:50 Urine Glucose (UA) Negative (Negative) 08/05/21 00:50 Urine Ketones Trace (Negative) H 08/05/21 00:50 Urine Blood Negative (Negative) 08/05/21 00:50 Urine Nitrite Negative (Negative) 08/05/21 00:50 Urine Bilirubin 1+ (Negative) H 08/05/21 00:50 Urine Urobilinogen Negative (Negative) 08/05/21 00:50 Ur Leukocyte Esterase Negative (Negative) 08/05/21 00:50 SARS-CoV-2, RNA, NAAT NEGATIVE (NEGATIVE) 08/04/21 23:33 Impressions Abdomen/Pelvis CT 08/04/21 21:51 CT abd pelvis IV con only CLINICAL HISTORY: Nausea and vomiting COMPARISON STUDY: 11/10/2020 CT DOSE: 516.43 mGy.cm TECHNIQUE: Standard CT of the Abdomen and Pelvis was performed with IV contrast. A dose lowering technique was utilized adhering to the principles of ALARA. Contrast Volume: Optiray 320, 95 ml. The patient did not receive oral contras t. FINDINGS: Lung base: The lung bases are clear. Heart size is mildly enlarged status post previous cardiothoracic surgery. Coronary artery calcifications present. Abdominal cavity: There is no evidence for abdominal mass, adenopathy or ascites. There is again a large ventral hernia containing mesenteric fat. No bowel loop herniation is seen. Liver: There is homogeneous attenuation of the liver parenchyma. There is no evidence for enhancing mass lesion. Spleen: There is homogeneous attenuation of the splenic parenchyma. There is no enhancing mass lesion. Pancreas: There is homogeneous attenuation of the pancreatic parenchyma. There is no evidence for mass lesion or peripancreatic fluid collection. Gall Bladder: The gallbladder is well distended with no evidence for intralumi nal calculi, wall thickening or pericholecystic edema. There is dilatation of the common bile duct measuring 8 to 9 mm. It is unchanged. Adrenal glands: The adrenal glands are normal in size and attenuation. There is no evidence for enhancing mass lesion. Kidneys: There is homogeneous attenuation of the renal parenchyma bilaterally. There is no evidence for renal calculus or hydronephrosis. There is no evidence for enhancing mass. There are again bilateral renal cysts, right greater than left. Bowel: Compared to the previous examination, there is again evidence for partial colonic obstruction at the level of the sigmoid colon as seen on image 353. The transition is present with findings highly suspicious for an apple core lesion. The colon proximal to this site is again fluid-filled and distended. There is also again noted to be fluid-filled and distended small bowel. There are no inflammatory changes present. There is no evidence for free air. Bladder: The bladder is within normal limits with no evidence for focal mass, calculus or diverticulum. : There is no evidence for pelvic mass or adenopathy. There is no evidence for pelvic ascites. Vasculature: There is no evidence for aneurysmal dilatation of the abdominal aorta. Atherosclerotic calcification is present. Osseous structures: There is no acute osseous pathology. Degenerative changes are seen within the spine. IMPRESSION: 1. Compared to the previous examination, there is again evidence for an obstructing lesion of the sigmoid colon having the appearance of an apple core lesion. There is associated fluid-filled and dilated small and large bowel without evidence for disproportionate dilatation. 2. Additional nonacute findings are delineated above. ACT 112: Negative or not required by law. Electronically signed by: Maurice Frank M.D. 08/04/2021 11:16 PM Chest X-Ray 08/04/21 21:51 XR chest 1V portable CLINICAL HISTORY: Nausea and vomiting. Evaluate lung bases. COMPARISON STUDY: 11/11/2020 TECHNIQUE: 1 view of the chest FINDINGS: Single frontal view of the chest demonstrates the cardiomediastinal silhouette to be within normal limits. The patient is status post previous cardiothoracic surgery. The lungs are clear of alveolar opacities. There is no evidence for pleural effusion. There is no evidence for vascular congestion. There is no acu te osseous pathology. IMPRESSION: No acute cardiopulmonary disease. ACT 112: Negative or not required by law. Electronically signed by: Maurice Frank M.D. 08/04/2021 10:06 PM Diagnostic Findings EKG as per my interpretation rate 65, NSR, LAD, LAFB, incomplete RBBB, diffuse T wave abnormalities
[2021-08-05] MEDS: PIPERACILLIN/TAZOBACTAM 3.375 GM in DEXTROSE 5% 100 ML IV SCH ×3 (04:22→20:10)
[2021-08-05] MEDS ORDERED: ACETAMINOPHEN 1,000 MG/100 ML VIAL IV PRN (05:46)
[2021-08-05] MEDS ORDERED: SODIUM CHLORIDE 0.9% 1000ML 1,000 ML IV SCH (05:46)
[2021-08-05] MEDS ORDERED: GLUCAGON FOR INJ 1 MG VIAL SQ PRN (05:46)
[2021-08-05] MEDS ORDERED: GLUCOSE 10 TABS/TUBE PO PRN (05:46)
[2021-08-05] MEDS ORDERED: GLUCOSE 40% GEL 15 GM TUBE PO PRN (05:46)
[2021-08-05] MEDS ORDERED: CARBOHYDRATES FOR HYPOGLYCEMIA PO PRN (05:46)
[2021-08-05] MEDS ORDERED: DEXTROSE 50% 50 ML SYRINGE IV PRN (05:46)
[2021-08-05] MEDS ORDERED: ALUMINUM/MAGNESIUM/SIMETH (MAALOX MAX) 30 ML UDC PO STA (06:00)
[2021-08-05] MEDS ORDERED: MELATONIN 3 MG TAB PO PRN (06:21)
[2021-08-05] MEDS: METOPROLOL TARTRATE 1 MG/ML VIAL IV SCH ×3 (06:32→18:21)
[2021-08-05] MEDS: INSULIN ASPART PER UNIT SC SCH ×3 (06:45→18:09)
[2021-08-05 07:59] LABS: Estimated Average Glucose 134 mg/dl; Hemoglobin A1C 6.3 % (4.5-5.6)
--- NOTE | 2021-08-05 08:11 | XRay Report ---
KUB CLINICAL HISTORY: Vomiting. COMPARISON STUDY: CT of the abdomen and pelvis August 04, 2021. FINDINGS: Tip of nasogastric tube is within the gastric fundus. There is persistent small and large b owel dilatation, better depicted on CT. Contrast within the bladder is from recent CT. Surgical clips from prostatectomy are noted. Sensitivity for detection of free air is diminished on this supine exa m. IMPRESSION: 1. Tip of nasogastric tube within the gastric fundus. 2. Persistent small and large bowel dilatation suggestive of a large bowel obstruction better depicte d on CT. ACT 112: Negative or not required by law. Electronically signed by: Tobi Santiago M.D. 08/05/2021 8:09 AM
[2021-08-05] MEDS: PANTOprazole 40 MG in SYRINGE 0 ML IV SCH ×2 (08:14→21:19)
--- NOTE | 2021-08-05 08:34 | Gastrointestinal Consultation ---
Date of Consultation August 05, 2021 Assessment & Plan (1) Large bowel obstruction: (2) Stricture of sigmoid colon: This is an 80 y/o male admitted w/ worsening n/v, abd discomfort. CT findings c/w sigmoid stricture/obstruction, ? apple core lesion. GI consulted for bowel obstruction. Abd soft but modertely distended, tender; not passing flatus or BM. Based on his history it seems his recurrent symptoms are likely due to known sigmoid stricture. - Keep NPO - NGT as per surgery service - ABX - IVF - Analgesia PRN - Will plan for flex sig today for possible decompression/stent - Tap water enema now and in 2 hours - Surgery also following for possible definitive therapy Thank you for allowing us to participate in the care of this patient. Please call with any acute changes, questions or concerns. Please see addendum below with additional recommendation from my supervising physician. Supervising Physician Co-Signing Physician Notes I performed a history and physical examination of the patient today, including specifically on physical exam - soft abdomen. I have discussed the patient's management with the advanced practitioner. Please refer to the nurse practitioner's note for the documented findings and plan of care. 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 Follow up with Surgery for resection. History of Present Illness Reason for Consultation: colon obstruction; Requesting Physician: Anastacio Liang PA-C Attending Physician: Brandan Sánchez DO History of Present Illness Pt is a 80 y/o male w significant PMHx including CAD s/p CABG, HTN, HLD, prostate ca, distal ileal carcinoid tumor s/p resection in 2009, history of ? gallbladder mass and pancreas mass, and others who presented to the ER w/ history of vomiting, abd discomfort, lack of BMs. N/v started several weeks ago and has been intermittent; worsening over the last few days. Last BM was yesterday. CT suggestive of sigmoid stricture/obstruction, ? apple core lesion. Labs notable for leukocytosis, elevated HGB, mild hyponatremia. He has been started on IVF, Zosyn, PPI. NGT placed. Currently he is not passing stool or flatus. Symptoms remain largely unchanged. Surgery is following. Has abd pain "all over." Did not eat today. Pt has been admitted here before for similar bowel obstruction symptoms. Last Flex sig and colonoscopy as below, c/w diverticular stricture. He has been referred to surgery multiple times to consider definitive tx. No hematemesis, melena, hematochezia, fever, chills, CP, SOB, dysphagia, falls, syncope. He does have some heartburn. Last GI procedures: Flex sig 11/2020: Preparation of the colon was poor. Stool in the rectum indicates resolution of prior obstruction. - Diverticulosis in the sigmoid colon. - No evidence of colonic obstruction. Similarly unchanged mild narrowing at 25 cm proximal to the anus, diverticular related Colonoscopy 2019: Preparation of the colon was poor. - The examined portion of the ileum was normal. - Diverticulosis in the sigmoid colon. - Stricture at 20 cm proximal to the anus. Biopsied. - Internal hemorrhoids. - The examination was otherwise normal on direct and retroflexion views. Impression: - Allergies Allergy/AdvReac Type Severity Reaction Status Date / Time enalapril Allergy Unknown Cough Verified 08/05/21 12:57 simvastatin AdvReac Mild muscle Verified 08/05/21 12:57 weakness aspirin AdvReac Unknown GI UPSET Verified 08/05/21 12:57 IN HIGH DOSES atorvastatin AdvReac Unknown MUSCLE Verified 08/05/21 12:57 ACHES [id number] Reductase AdvReac Unknown MUSCLE Verified 08/05/21 12:57 Inhibitor ACHES AND [Bcagbew-Uch-Fex Reductase WEAKNESS/DIARRHEA Inhibitor] Home Medications Medication Instructions Recorded Confirmed Type omeprazole 20 mg capsule,delayed 20 mg PO QAM 10/26/19 08/04/21 History release sertraline 100 mg tablet 100 mg PO DAILY 10/26/19 08/04/21 History aspirin 81 mg tablet,delayed 81 mg PO AMPM 11/10/20 08/04/21 History release (Aspirin Low Dose) melatonin 10 mg tablet 10 mg PO HS 11/10/20 08/04/21 History ropinirole 1 mg tablet 1 mg PO HS 11/10/20 08/04/21 History tamsulosin 0.4 mg capsule 0.4 mg PO DAILY 11/10/20 08/04/21 History albuterol sulfate 90 mcg/actuation 2 puff INHALATION Q4 PRN 08/04/21 08/04/21 History aerosol inhaler (ProAir HFA) amoxicillin 500 mg capsule 2,000 mg PO ONCE PRN 08/04/21 08/04/21 History apixaban 5 mg tablet (Eliquis) 5 mg PO BID 08/04/21 08/04/21 History cholecalciferol (vitamin D3) 25 25 mcg PO DAILY 08/04/21 08/04/21 History mcg (1,000 unit) tablet (Vitamin D3) docusate sodium 100 mg capsule 100 mg PO BID 08/04/21 08/04/21 History furosemide 20 mg tablet See Rx Instructions .ROUTE .COMPLEX 08/04/21 08/04/21 History metoprolol succinate 50 mg 50 mg PO DAILY 08/04/21 08/04/21 History tablet,extended release 24 hr polyethylene glycol 3350 17 gram 17 g PO DAILY 08/04/21 08/04/21 History oral powder packet (Miralax) spironolactone 25 mg tablet 25 mg PO DAILY 08/04/21 08/04/21 History Patient History Medical History Family hx of colon cancer Fusion of spine Surgical History History of carpal tunnel release 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 History of laminectomy History of prostatectomy History of total knee replacement Social History Smoking Status: Never smoker Second Hand Exposure: No; Hx Alcohol Use: Yes Alcohol type: beer Hx Substance Use: No Preferred Language: Tamazight Communication Ability: Effective Golf Course Keeper Required: No Beliefs That Will Affect Care: None marital status: Current Living Situation: Alone How many Children do You have: 3 Feels Safe at Home: Yes Assistive Devices: Cane and Walker Review of Systems Review of Systems: All systems reviewed & are unremarkable except as noted in HPI & below Physical Exam Constitutional: WD/WN, vitals as above Eyes: PERRL, conjunctivae normal, anicteric sclerae Neck: trachea midline, no thyromegaly Respiratory: normal respiratory effort, lungs clear to auscultation Cardiovascular: Rate/Rhythm: regular rate and regular rhythm Heart Sounds: normal S1, normal S2 and + murmur Extremities: no edema Gastrointestinal (Abdomen): Intermittent tinkling sounds, abd is soft but moderately distended, mild-moderate TTP diffusely but not focally. No rebound or guarding Skin: no rashes, warm and dry Psychiatric: A+Ox3, euthymic affect Results & Data ([facility]) Vital Signs (Past 12 Hours) Vital Signs Temp Pulse Pulse Resp BP BP Pulse Ox 08/05/21 08:29 72 20 142/81 H 96 08/05/21 06:32 70 171/118 H 08/05/21 06:02 65 18 176/102 H 95 08/05/21 05:53 68 18 148/88 H 95 08/05/21 04:00 68 18 122/97 95 08/05/21 02:00 67 18 152/77 H 97 08/05/21 01:29 68 162/93 H 08/05/21 00:43 66 18 158/85 H 95 08/04/21 22:43 65 24 170/85 H 99 08/04/21 21:51 97 08/04/21 21:33 35.2 C L 72 16 126/75 94 Pulse Ox 08/05/21 08:29 08/05/21 06:32 08/05/21 06:02 95 08/05/21 05:53 08/05/21 04:00 08/05/21 02:00 08/05/21 01:29 08/05/21 00:43 08/04/21 22:43 08/04/21 21:51 08/04/21 21:33 Laboratory Results 08/05/21 08/05/21 08/04/21 Range/Units 06:38 00:50 23:47 WBC (4.8-10.8) K/uL RBC (4.7-6.1) M/uL Hgb (14.0-18.0) g/dL POC Hgb (14.0-18.0) g/dl Hct (42-52) % POC Hct (42-52) % MCV (80-100) fL MCH (25-34) pg MCHC (32-36) g/dL RDW Std Deviation (36.4-46.3) fL RDW Coeff of Jeanette (11.5-14.5) % Plt Count (130-400) K/uL MPV (7.4-10.4) fL Immature Gran % (Auto) % Neut % (Auto) % Lymph % (Auto) % Divide % (Auto) % Eos % (Auto) % Baso % (Auto) % Neut # (Auto) (1.4-6.5) K/uL Lymph # (Auto) (1.2-3.4) K/uL Divide # (Auto) (0.11-0.59) K/uL Eos # (Auto) (0-0.5) K/uL Baso # (Auto) (0-0.2) K/uL Immature Gran # (Auto) (0.00-0.02) K/uL RBC Morphology PT INR APTT PTT Ratio POC Sodium (135-144) mmol/L Sodium (136-145) mmol/L POC Potassium (3.3-5.0) mmol/L Potassium (3.5-5.1) mmol/L POC Chloride (101-112) mmol/L Chloride (98-107) mmol/L Carbon Dioxide (21-32) mmol/L POC Total CO2 (24-31) mmol/L Anion Gap (3-11) POC Anion Gap (16-25) mmol/L POC BUN (7-18) mg/dl BUN (6-23) mg/dl Creatinine (0.6-1.4) mg/dl POC Creatinine (0.6-1.3) mg/dl Est Cr Clr Drug Dosing Est GFR ( Amer) ml/min Est GFR (Non-Af Amer) ml/min BUN/Creatinine Ratio (10-20) Glucose (70-99(Fasting)) mg/dl POC Glucose 187 H (70-99) mg/dl POC Glucose (other) (70-99) mg/dl Estimat Average Glucose 134 mg/dl Hemoglobin A1c 6.3 H (4.5-5.6) % Calcium (8.5-10.1) mg/dl POC Ioniz Calcium Dario (1.12-1.32) mmol/l Total Bilirubin (0.2-1.0) mg/dl AST (13-39) U/L ALT (7-52) U/L Alkaline Phosphatase (34-104) U/L Troponin I (0-0.04) ng/ml Total Protein (6.0-8.3) gm/dl Albumin (3.4-5.0) gm/dl Globulin (2.5-4.0) gm/dl Albumin/Globulin Ratio (0.9-2) Lipase (11-82) U/L Procalcitonin (0-0.5) ng/ml TSH (0.300-4.500) uIu/ml Urine Color Dark Yellow Urine Appearance Clear (Clear) Urine pH 5.0 (4.5-7.5) Ur Specific [place] > 1.045 H (1.000-1.030) Urine Protein Negative (Negative) Urine Glucose (UA) Negative (Negative) Urine Ketones Trace H (Negative) Urine Blood Negative (Negative) Urine Nitrite Negative (Negative) Urine Bilirubin 1+ H (Negative) Urine Urobilinogen Negative (Negative) Ur Leukocyte Esterase Negative (Negative) SARS-CoV-2, RNA, NAAT (NEGATIVE) 08/04/21 08/04/21 08/04/21 Range/Units 23:47 23:47 23:42 WBC (4.8-10.8) K/uL RBC (4.7-6.1) M/uL Hgb (14.0-18.0) g/dL POC Hgb (14.0-18.0) g/dl Hct (42-52) % POC Hct (42-52) % MCV (80-100) fL MCH (25-34) pg MCHC (32-36) g/dL RDW Std Deviation (36.4-46.3) fL RDW Coeff of Jeanette (11.5-14.5) % Plt Count (130-400) K/uL MPV (7.4-10.4) fL Immature Gran % (Auto) % Neut % (Auto) % Lymph % (Auto) % Divide % (Auto) % Eos % (Auto) % Baso % (Auto) % Neut # (Auto) (1.4-6.5) K/uL Lymph # (Auto) (1.2-3.4) K/uL Divide # (Auto) (0.11-0.59) K/uL Eos # (Auto) (0-0.5) K/uL Baso # (Auto) (0-0.2) K/uL Immature Gran # (Auto) (0.00-0.02) K/uL RBC Morphology PT INR APTT PTT Ratio POC Sodium (135-144) mmol/L Sodium (136-145) mmol/L POC Potassium (3.3-5.0) mmol/L Potassium 4.5 (3.5-5.1) mmol/L POC Chloride (101-112) mmol/L Chloride (98-107) mmol/L Carbon Dioxide (21-32) mmol/L POC Total CO2 (24-31) mmol/L Anion Gap (3-11) POC Anion Gap (16-25) mmol/L POC BUN (7-18) mg/dl BUN (6-23) mg/dl Creatinine (0.6-1.4) mg/dl POC Creatinine (0.6-1.3) mg/dl Est Cr Clr Drug Dosing Est GFR ( Amer) ml/min Est GFR (Non-Af Amer) ml/min BUN/Creatinine Ratio (10-20) Glucose (70-99(Fasting)) mg/dl POC Glucose (70-99) mg/dl POC Glucose (other) (70-99) mg/dl Estimat Average Glucose mg/dl Hemoglobin A1c (4.5-5.6) % Calcium (8.5-10.1) mg/dl POC Ioniz Calcium Dario (1.12-1.32) mmol/l Total Bilirubin (0.2-1.0) mg/dl AST 11 L (13-39) U/L ALT (7-52) U/L Alkaline Phosphatase (34-104) U/L Troponin I (0-0.04) ng/ml Total Protein (6.0-8.3) gm/dl Albumin (3.4-5.0) gm/dl Globulin (2.5-4.0) gm/dl Albumin/Globulin Ratio (0.9-2) Lipase (11-82) U/L Procalcitonin < 0.05 (0-0.5) ng/ml TSH 3.521 (0.300-4.500) uIu/ml Urine Color Urine Appearance (Clear) Urine pH (4.5-7.5) Ur Specific [place] (1.000-1.030) Urine Protein (Negative) Urine Glucose (UA) (Negative) Urine Ketones (Negative) Urine Blood (Negative) Urine Nitrite (Negative) Urine Bilirubin (Negative) Urine Urobilinogen (Negative) Ur Leukocyte Esterase (Negative) SARS-CoV-2, RNA, NAAT (NEGATIVE) 08/04/21 08/04/21 08/04/21 Range/Units 23:42 23:33 22:34 WBC (4.8-10.8) K/uL RBC (4.7-6.1) M/uL Hgb (14.0-18.0) g/dL POC Hgb 19.4 H (14.0-18.0) g/dl Hct (42-52) % POC Hct 57 H (42-52) % MCV (80-100) fL MCH (25-34) pg MCHC (32-36) g/dL RDW Std Deviation (36.4-46.3) fL RDW Coeff of Jeanette (11.5-14.5) % Plt Count (130-400) K/uL MPV (7.4-10.4) fL Immature Gran % (Auto) % Neut % (Auto) % Lymph % (Auto) % Divide % (Auto) % Eos % (Auto) % Baso % (Auto) % Neut # (Auto) (1.4-6.5) K/uL Lymph # (Auto) (1.2-3.4) K/uL Divide # (Auto) (0.11-0.59) K/uL Eos # (Auto) (0-0.5) K/uL Baso # (Auto) (0-0.2) K/uL Immature Gran # (Auto) (0.00-0.02) K/uL RBC Morphology PT 10.9 INR 1.1 APTT 26.2 PTT Ratio 1.0 POC Sodium 133 L (135-144) mmol/L Sodium (136-145) mmol/L POC Potassium 6.4 H* (3.3-5.0) mmol/L Potassium (3.5-5.1) mmol/L POC Chloride 102 (101-112) mmol/L Chloride (98-107) mmol/L Carbon Dioxide (21-32) mmol/L POC Total CO2 23 L (24-31) mmol/L Anion Gap (3-11) POC Anion Gap 15.0 L (16-25) mmol/L POC BUN 39 H (7-18) mg/dl BUN (6-23) mg/dl Creatinine (0.6-1.4) mg/dl POC Creatinine 0.9 (0.6-1.3) mg/dl Est Cr Clr Drug Dosing Est GFR ( Amer) ml/min Est GFR (Non-Af Amer) ml/min BUN/Creatinine Ratio (10-20) Glucose (70-99(Fasting)) mg/dl POC Glucose (70-99) mg/dl POC Glucose (other) 176 H (70-99) mg/dl Estimat Average Glucose mg/dl Hemoglobin A1c (4.5-5.6) % Calcium (8.5-10.1) mg/dl POC Ioniz Calcium Dario 0.95 L (1.12-1.32) mmol/l Total Bilirubin (0.2-1.0) mg/dl AST (13-39) U/L ALT (7-52) U/L Alkaline Phosphatase (34-104) U/L Troponin I (0-0.04) ng/ml Total Protein (6.0-8.3) gm/dl Albumin (3.4-5.0) gm/dl Globulin (2.5-4.0) gm/dl Albumin/Globulin Ratio (0.9-2) Lipase (11-82) U/L Procalcitonin (0-0.5) ng/ml TSH (0.300-4.500) uIu/ml Urine Color Urine Appearance (Clear) Urine pH (4.5-7.5) Ur Specific [place] (1.000-1.030) Urine Protein (Negative) Urine Glucose (UA) (Negative) Urine Ketones (Negative) Urine Blood (Negative) Urine Nitrite (Negative) Urine Bilirubin (Negative) Urine Urobilinogen (Negative) Ur Leukocyte Esterase (Negative) SARS-CoV-2, RNA, NAAT NEGATIVE (NEGATIVE) 08/04/21 08/04/21 08/04/21 Range/Units 22:10 22:10 22:10 WBC 26.66 H (4.8-10.8) K/uL RBC 6.05 (4.7-6.1) M/uL Hgb 18.3 H (14.0-18.0) g/dL POC Hgb (14.0-18.0) g/dl Hct 53.3 H (42-52) % POC Hct (42-52) % MCV 88.1 (80-100) fL MCH 30.2 (25-34) pg MCHC 34.3 (32-36) g/dL RDW Std Deviation 46.9 H (36.4-46.3) fL RDW Coeff of Jeanette 14.6 H (11.5-14.5) % Plt Count 318 (130-400) K/uL MPV 9.5 (7.4-10.4) fL Immature Gran % (Auto) 0.4 % Neut % (Auto) 90.1 % Lymph % (Auto) 6.9 % Divide % (Auto) 2.5 % Eos % (Auto) 0.0 % Baso % (Auto) 0.1 % Neut # (Auto) 24.00 H (1.4-6.5) K/uL Lymph # (Auto) 1.85 (1.2-3.4) K/uL Divide # (Auto) 0.67 H (0.11-0.59) K/uL Eos # (Auto) 0.01 (0-0.5) K/uL Baso # (Auto) 0.02 (0-0.2) K/uL Immature Gran # (Auto) 0.11 H (0.00-0.02) K/uL RBC Morphology Unremarkable PT Cancelled INR Cancelled APTT Cancelled PTT Ratio Cancelled POC Sodium (135-144) mmol/L Sodium 135 L (136-145) mmol/L POC Potassium (3.3-5.0) mmol/L Potassium (3.5-5.1) mmol/L POC Chloride (101-112) mmol/L Chloride 98 (98-107) mmol/L Carbon Dioxide 21 (21-32) mmol/L POC Total CO2 (24-31) mmol/L Anion Gap 16 H (3-11) POC Anion Gap (16-25) mmol/L POC BUN (7-18) mg/dl BUN 25 H (6-23) mg/dl Creatinine 0.98 (0.6-1.4) mg/dl POC Creatinine (0.6-1.3) mg/dl Est Cr Clr Drug Dosing Not Reportable Est GFR ( Amer) 83.5 ml/min Est GFR (Non-Af Amer) 72.0 ml/min BUN/Creatinine Ratio 25.5 H (10-20) Glucose 174 H (70-99(Fasting)) mg/dl POC Glucose (70-99) mg/dl POC Glucose (other) (70-99) mg/dl Estimat Average Glucose mg/dl Hemoglobin A1c (4.5-5.6) % Calcium 9.5 (8.5-10.1) mg/dl POC Ioniz Calcium Dario (1.12-1.32) mmol/l Total Bilirubin 1.1 H (0.2-1.0) mg/dl AST (13-39) U/L ALT 10 (7-52) U/L Alkaline Phosphatase 49 (34-104) U/L Troponin I < 0.03 (0-0.04) ng/ml Total Protein 7.6 (6.0-8.3) gm/dl Albumin 4.2 (3.4-5.0) gm/dl Globulin 3.4 (2.5-4.0) gm/dl Albumin/Globulin Ratio 1.2 (0.9-2) Lipase 15 (11-82) U/L Procalcitonin (0-0.5) ng/ml TSH (0.300-4.500) uIu/ml Urine Color Urine Appearance (Clear) Urine pH (4.5-7.5) Ur Specific [place] (1.000-1.030) Urine Protein (Negative) Urine Glucose (UA) (Negative) Urine Ketones (Negative) Urine Blood (Negative) Urine Nitrite (Negative) Urine Bilirubin (Negative) Urine Urobilinogen (Negative) Ur Leukocyte Esterase (Negative) SARS-CoV-2, RNA, NAAT (NEGATIVE) Diagnostic Findings CTAP: Lung base: The lung bases are clear. Heart size is mildly enlarged status post previous cardiothoracic surgery. Coronary artery calcifications present. Abdominal cavity: There is no evidence for abdominal mass, adenopathy or ascites. There is again a large ventral hernia containing mesenteric fat. No bowel loop herniation is seen. Liver: There is homogeneous attenuation of the liver parenchyma. There is no evidence for enhancing mass lesion. Spleen: There is homogeneous attenuation of the splenic parenchyma. There is no enhancing mass lesion. Pancreas: There is homogeneous attenuation of the pancreatic parenchyma. There is no evidence for mass lesion or peripancreatic fluid collection. Gall Bladder: The gallbladder is well distended with no evidence for intraluminal calculi, wall thickening or pericholecystic edema. There is dilatation of the common bile duct measuring 8 to 9 mm. It is unchanged. Adrenal glands: The adrenal glands are normal in size and attenuation. There is no evidence for enhancing mass lesion. Kidneys: There is homogeneous attenuation of the renal parenchyma bilaterally. There is no evidence for renal calculus or hydronephrosis. There is no evidence for enhancing mass. There are again bilateral renal cysts, right greater than left. Bowel: Compared to the previous examination, there is again evidence for partial colonic obstruction at the level of the sigmoid colon as seen on image [id number]. The transition is present with findings highly suspicious for an apple core lesion. The colon proximal to this site is again fluid-filled and distended. There is also again noted to be fluid-filled and distended small bowel. There are no inflammatory changes present. There is no evidence for free air. Bladder: The bladder is within normal limits with no evidence for focal mass, calculus or diverticulum. : There is no evidence for pelvic mass or adenopathy. There is no evidence for pelvic ascites. Vasculature: There is no evidence for aneurysmal dilatation of the abdominal aorta. Atherosclerotic calcification is present. Osseous structures: There is no acute osseous pathology. Degenerative changes are seen within the spine. IMPRESSION: 1. Compared to the previous examination, there is again evidence for an obstructing lesion of the sigmoid colon having the appearance of an apple core lesion. There is associated fluid-filled and dilated small and large bowel without evidence for disproportionate dilatation. 2. Additional nonacute findings are delineated above. KUB: FINDINGS: Tip of nasogastric tube is within the gastric fundus. There is persi stent small and large bowel dilatation, better depicted on CT. Contrast within the bladder is from recent CT. Surgical clips from prostatectomy are noted. Sensitivity for detection of free air is diminished on this supine exam. IMPRESSION: 1. Tip of nasogastric tube within the gastric fundus. 2. Persistent small and large bowel dilatation suggestive of a large bowel obstruction better depicted on CT. CXR: IMPRESSION: No acute cardiopulmonary disease.
--- NOTE | 2021-08-05 08:39 | Anesthesiology Consultation ---
Date of Service August 05, 2021 Assessment & Plan Chart Review Chart Review: manufacturing tech initiated History Height/Weight Height: 5 ft 8 in Weight: 81.8 kg Allergies Allergy/AdvReac Type Severity Reaction Status Date / Time enalapril Allergy Unknown Cough Verified 08/04/21 21:55 simvastatin AdvReac Mild muscle Verified 08/04/21 21:55 weakness aspirin AdvReac Unknown GI UPSET Verified 11/10/20 23:30 IN HIGH DOSES atorvastatin AdvReac Unknown MUSCLE Verified 08/04/21 21:55 ACHES Vzcodic-ZVD-BkN Reductase AdvReac Unknown MUSCLE Unverified 08/04/21 21:55 Inhibitor ACHES AND [Tavhodl-Sus-Zkg Reductase WEAKNESS/DIARRHEA Inhibitor] Medications Home Medications Medication Instructions Recorded Confirmed Last Taken omeprazole 20 mg capsule,delayed 20 mg PO QAM 10/26/19 08/04/21 11/10/20 release sertraline 100 mg tablet 100 mg PO DAILY 10/26/19 08/04/21 11/10/20 aspirin 81 mg tablet,delayed 81 mg PO AMPM 11/10/20 08/04/21 11/10/20 release (Aspirin Low Dose) melatonin 10 mg tablet 10 mg PO HS 11/10/20 08/04/21 11/09/20 ropinirole 1 mg tablet 1 mg PO HS 11/10/20 08/04/21 Unknown tamsulosin 0.4 mg capsule 0.4 mg PO DAILY 11/10/20 08/04/21 11/10/20 albuterol sulfate 90 mcg/actuation 2 puff INHALATION Q4 PRN 08/04/21 08/04/21 Unknown aerosol inhaler (ProAir HFA) amoxicillin 500 mg capsule 2,000 mg PO ONCE PRN 08/04/21 08/04/21 Unknown apixaban 5 mg tablet (Eliquis) 5 mg PO BID 08/04/21 08/04/21 Unknown cholecalciferol (vitamin D3) 25 25 mcg PO DAILY 08/04/21 08/04/21 Unknown mcg (1,000 unit) tablet (Vitamin D3) docusate sodium 100 mg capsule 100 mg PO BID 08/04/21 08/04/21 Unknown furosemide 20 mg tablet See Rx Instructions .ROUTE .COMPLEX 08/04/21 08/04/21 Unknown metoprolol succinate 50 mg 50 mg PO DAILY 08/04/21 08/04/21 Unknown tablet,extended release 24 hr polyethylene glycol 3350 17 gram 17 g PO DAILY 08/04/21 08/04/21 Unknown oral powder packet (Miralax) spironolactone 25 mg tablet 25 mg PO DAILY 08/04/21 08/04/21 Unknown Active Medications Generic Name Dose Route Start Last Admin Trade Name Kike PRN Reason Stop Dose Admin Piperacillin Sod/Tazobactam 115 mls @ 28.75 mls/hr 08/05/21 04:00 08/05/21 08:22 Sod 3.375 gm/ Dextrose IV 08/15/21 03:59 Infused Q8H LISA Infusion Protocol Lactated Ringer's 1,000 mls @ 60 mls/hr 08/05/21 03:54 08/05/21 04:21 Lr IV 08/05/21 20:33 60 mls/hr .[id number] STA Administration Pantoprazole Sodium 40 mg/ 10 mls @ 5 mls/min 08/05/21 07:00 08/05/21 08:14 Syringe IV 09/04/21 06:59 5 mls/min BID LISA Administration Insulin Aspart 0 units 08/05/21 06:15 08/05/21 06:45 Insulin Aspart Per Unit SC 09/04/21 06:14 2 units Q6 LISA Administration Metoprolol Tartrate 2.5 mg 08/05/21 06:00 08/05/21 06:32 Metoprolol Tartrate 1 Mg/Ml Vial IV 09/04/21 05:59 2.5 mg Q6 LISA Administration Past Medical History Medical History Family hx of colon cancer Fusion of spine Past Surgical History Surgical History History of carpal tunnel release 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 History of laminectomy History of prostatectomy History of total knee replacement Social History Smoking Status: Never smoker tobacco type: pipe Hx Alcohol Use: Yes Alcohol type: beer alcohol intake frequency: holidays/special occasions only Hx Substance Use: No substance use type: does not use Physical Exam Vital Signs Last Vital Signs Temp 95.4 F L 08/04/21 21:33 Pulse 72 08/05/21 08:29 Resp 20 08/05/21 08:29 BP 142/81 H 08/05/21 08:29 Pulse Ox 96 08/05/21 08:29 Testing Laboratory Results 08/04/21 22:10 08/04/21 23:42 PT 10.9 Seconds (9.0-12.0) 08/04/21 23:42 INR 1.1 (0.9-1.1) 08/04/21 23:42 APTT 26.2 Seconds (21.0-31.0) 08/04/21 23:42 Hemoglobin A1c 6.3 % (4.5-5.6) H 08/04/21 23:47 Urine Color Dark Yellow 08/05/21 00:50 Urine Appearance Clear (Clear) 08/05/21 00:50 Urine pH 5.0 (4.5-7.5) 08/05/21 00:50 Ur Specific [place] > 1.045 (1.000-1.030) H 08/05/21 00:50 Urine Protein Negative (Negative) 08/05/21 00:50 Urine Glucose (UA) Negative (Negative) 08/05/21 00:50 Urine Ketones Trace (Negative) H 08/05/21 00:50 Urine Nitrite Negative (Negative) 08/05/21 00:50 Ur Leukocyte Esterase Negative (Negative) 08/05/21 00:50 08/05/21 08/04/21 06:38 22:34 POC Glucose 187 H POC Glucose (other) 176 H Laboratory Tests 08/04/21 23:33 SARS-CoV-2, RNA, NAAT NEGATIVE Electrocardiogram Date: 08/04/21 Poor data quality, interpretation may be adversely affected Normal sinus rhythm, rate 66 bpm Left axis deviation 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 rate has decreased BY 49 BPM T wave inversion more evident in Anterolateral lead Chest X-Ray Date: 08/04/21 Findings: + NAD Echocardiogram Date: 11/14/21 There is normal LV wall thickness There is small sized wall motion abnormality with hypokinesis to akinesis of the basal posterior wall and basal inferior wall LV systolic function is normal EF 55-60% AV is mildly calcified Mild AV stenosis The aortic root and proximal ascending aorta are normal sized
[2021-08-05] MEDS ORDERED: NON-FORMULARY MEDICATION (Omeprazole 20 mg capsule,delayed release(DR/EC)) PO SCH (09:00)
[2021-08-05] MEDS: SERTRALINE HCL 100 MG TABLET PO SCH (10:02)
[2021-08-05] MEDS: ASPIRIN 81 MG ECTAB PO SCH ×2 (10:02→21:46)
[2021-08-05] MEDS: TAMSULOSIN HCL 0.4 MG CAP PO SCH (10:02)
[2021-08-05] MEDS ORDERED: TPN/PPN CONSULT PHARMACY STA (12:24)
[2021-08-05] MEDS ORDERED: TPN/PPN CONSULT PHARMACY PRN (12:26)
[2021-08-05 13:08] LABS: BUN Creatinine Ratio 41.2 (10-20); Calcium 8.1 mg/dl (8.5-10.1); Est GFR (African American) 79.5 ml/min; Est GFR (Non-African American) 68.6 ml/min; Phosphorus 6.1 mg/dl (2.5-4.9)
[2021-08-05] MEDS ORDERED: MINERAL OIL 30 ML UDC ONE ×2 (13:30→13:31)
--- NOTE | 2021-08-05 14:00 | GI REPORT ---
Patient Name: Bo Casey Procedure Date: 08/05/2021 1:36 PM Date of : 1940 Admit Type: Inpatient Age: 80 Gender: Male Attending MD: Kathe Reynolds MD Procedure: Flexible Sigmoidoscopy Providers: Kathe Reynolds MD Referring MD: Barndan Sánchez Do, Robert M. Hall Indications: Abnormal CT of the GI tract, For therapy of colonic obstruction Medicines: None Complications: No immediate complications. Estimated Blood Loss: Estimated blood loss: none. Procedure: Pre-Anesthesia Assessment: - Prior to the procedure, a History and Physical was performed, and patient medications, allergies and sensitivities were reviewed. The patient's tolerance of previous anesthesia was reviewed. - The risks and benefits of the procedure and the sedation options and risks were discussed with the patient. All questions were answered and informed consent was obtained. - Patient identification and proposed procedure were verified prior to the procedure by the physician and the nurse. The procedure was verified in the procedure room. - Pre-procedure physical examination revealed no contraindications to sedation. After obtaining informed consent, the endoscope was passed under direct vision. Throughout the procedure, the patient's blood pressure, pulse, and oxygen saturations were monitored continuously. The Endoscope was introduced through the anus and advanced to the descending colon. The flexible sigmoidoscopy was accomplished without difficulty. The patient tolerated the procedure well. The quality of the bowel preparation was poor. Findings: The perianal and digital rectal examinations were normal. Copious quantities of semi-solid stool was found in the entire colon, precluding visualization. A benign-appearing, intrinsic moderate stenosis measuring 1 cm (in length) was found in the sigmoid colon and was traversed. A colonic decompression tube was placed. There was large amount of stool in the colon, no significant air distention. Abdomen remained distended at the end of the procedure. Impression: - Stool in the entire examined colon. - Diverticulosis with diverticular related stricture in the sigmoid colon. This was traversed and a decompression tube placed. Recommendation: - Return patient to [facility] for [facility] care. - Follow up with Surgery as patient will likely need resection this admission. - NG tube to LIS. - Flush the rectal tube every 8 hours. Kathe Reynolds MD 08/05/2021 2:00:00 PM This report has been signed electronically. Note Initiated On: 08/05/2021 1:36 PM Number of Addenda: 0 I attest to the content of the Intraoperative Record and orders documented therein, exceptions below {[id number]}
[2021-08-05] MEDS ORDERED: DEXTROSE 10% 1,000 ML IV PRN (14:13)
--- NOTE | 2021-08-05 15:55 | Surgery Progress Note ---
Date of Service August 05, 2021 Assessment & Plan (1) Bowel obstruction: Plan: s/ sigmoidoscopy decompression tube ppn ordered tentative surgery if pt agrees likely colostomy with resection if possible try gentle prep/ atbx Dr Wild covering over weekend Admission and Anticipated Discharge Date Admission Date: August 05, 2021 Results & Data ([facility]) Vital Signs (Past 12 Hours) Vital Signs Temp Pulse Pulse Pulse Resp BP BP 08/05/21 15:26 36.3 C L 72 19 114/58 L 08/05/21 15:05 36.3 C L 72 19 114/58 L 08/05/21 14:48 71 18 146/77 H 08/05/21 13:02 36 C L 70 16 126/75 08/05/21 08:29 72 20 142/81 H 08/05/21 06:32 70 171/118 H 08/05/21 06:02 65 18 176/102 H 08/05/21 05:53 68 18 148/88 H 08/05/21 04:00 68 18 122/97 Pulse Ox Pulse Ox 08/05/21 15:26 94 08/05/21 15:05 94 08/05/21 14:48 97 08/05/21 13:02 96 08/05/21 08:29 96 08/05/21 06:32 08/05/21 06:02 95 95 08/05/21 05:53 95 08/05/21 04:00 95 PG Care Time/CCT Total # of Minutes Spent Total Time Spent with Patient: Total time spent is greater than 50% in coordination of care (as documented) at patient's floor/unit and/or counseling patient: Coding Level of Care Code None Diagnoses Bowel obstruction K56.609
[2021-08-05] MEDS ORDERED: PERIPHERAL TPN IV SCH (16:00)
[2021-08-05] MEDS ORDERED: AMINO ACIDS 4.25% IV SCH (16:00)
[2021-08-05] MEDS ORDERED: CLINOLIPID 20% IV FAT EMULSION 250 ML IV SCH (16:00)
[2021-08-05] MEDS ORDERED: D5W IV SCH (16:00)
[2021-08-05] MEDS: PROMETHAZINE HCL 12.5 MG in SODIUM CHLORIDE 0.9% 50 ML IV PRN (19:48)
[2021-08-05] MEDS: rOPINIRole HCL 1 MG TABLET PO SCH (21:47)
[2021-08-05] MEDS ORDERED: STOP CLINOLIPID ONE (22:00)
[2021-08-06] MEDS: INSULIN ASPART PER UNIT SC SCH ×4 (00:20→18:37)
[2021-08-06] MEDS: METOPROLOL TARTRATE 1 MG/ML VIAL IV SCH ×4 (00:22→19:51)
[2021-08-06] MEDS: PIPERACILLIN/TAZOBACTAM 3.375 GM in DEXTROSE 5% 100 ML IV SCH ×3 (04:25→20:01)
--- NOTE | 2021-08-06 06:37 | Electrocardiogram Report ---
Test Reason : Blood Pressure : / mmHG Vent. 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 rate has decreased BY 49 BPM T wave inversion more evident in Anterior leads Confirmed by Jack Smith ([id number]) on 08/06/2021 6:36:49 AM Referred By: REFERRED SELF Confirmed By:Jack Smith
[2021-08-06 06:47] LABS: Hematocrit (blood only) 46.4 % (42-52); Mean Corpuscular Hemoglobin 29.9 pg (25-34); Mean Corpuscular Hgb Conc 34.5 g/dL (32-36); Mean Corpuscular Volume 86.6 fL (80-100); Mean Platelet Volume 9.8 fL (7.4-10.4); Platelet Count 311 K/uL (130-400); RDW Standard Deviation 47.4 fL (36.4-46.3); Red Blood Count 5.36 M/uL (4.7-6.1); White Blood Count 9.76 K/uL (4.8-10.8)
[2021-08-06 07:13] LABS: Basophils # (auto) 0.01 K/uL (0-0.2); Basophils % (auto) 0.1 %; Immature Granulocytes # (auto) 0.03 K/uL (0.00-0.02); Immature Granulocytes % (auto) 0.3 %; Lymphocytes # (auto) 0.98 K/uL (1.2-3.4); Monocytes # (auto) 0.75 K/uL (0.11-0.59); Monocytes % (auto) 7.7 %; Neutrophils # (auto) 7.99 K/uL (1.4-6.5); Neutrophils % (auto) 81.9 %
--- NOTE | 2021-08-06 07:21 | Hospitalist Progress Note ---
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 Continue NGT decompression, bowel rest General surgery on case Hold patient NOAC in anticipation of procedure. ISS BG goal 1 10-1 40 DVT prophylaxis. SCDs while anticoagulation on hold in anticipation of procedure. Full code ROS-No Headache, No Visual Changes, No Nausea, No Vomiting, No Fever, No Chills, No Neck Pain or Stiffness, No Chest Pain, No Palpitations, No SOB, No ABBOTT, No Cough, No Sputum, No Wheezing, less Abdominal Pain, No Diarrhea, No Hematemesis, No Hemoptysis, No Unexpected Weight Loss, No Flank pain, No Melena, No Hematochezia, No Frequency, No Urgency, No Burning, No Hematuria, No Rashes, No Diaphoresis. Appetite is Normal Physical Exam Gen-AAO x 3, NAD, Afebrile, +NGT, +PPN Head-NCAT, EOMI, PERRLA, Anicteric Sclera, No Posterior Pharyngeal Erythema Neck-Supple, No JVD, No Thyromegaly, No Masses, No LAD, No Bruits Lungs-Clear to Auscultation Bilaterally, No Rales, No Rhonchi, No Wheezing, No Crepitus Chest-No S4, +S1, +S2, No S3, No Murmurs, No Rubs, No Gallops, No Ectopy Abdomen-Soft, Bowel Sounds Present, Non Tender, Distended, No Hepatomegaly, No Splenomegaly, No Palpable Masses, No Rebound, No Rigidity, No Guarding Musculoskeletal-Full Range of Motion Bilaterally, No CVAT Extremities-No Cyanosis, No Clubbing, No Edema Nuero-Cranial Nerves II-XII grossly intact, Motor WNL, DTRs WNL, Strength WNL, Non Focal Psych-Normal Mood Admission and Anticipated Discharge Date Admission Date: August 05, 2021 Results & Data Results & Data ([facility]) Vital Signs (Past 12 Hours) Vital Signs Temp Pulse Pulse Resp BP BP Pulse Ox 08/06/21 05:38 87 150/88 H 08/06/21 03:26 73 20 138/72 93 08/06/21 00:22 74 133/85 08/06/21 00:18 74 133/85 08/05/21 22:49 36.3 C L 84 18 137/80 91 08/05/21 22:41 97 H
[2021-08-06 07:50] LABS: BUN Creatinine Ratio 54.8 (10-20); Calcium 7.5 mg/dl (8.5-10.1); Creatinine Clr Calc Pharmacy 53.9 ml/min; Est GFR (African American) 77.7 ml/min; Magnesium 2.4 mg/dl (1.7-2.4); Potassium 2.9 mmol/L (3.5-5.1)
[2021-08-06] MEDS: PANTOprazole 40 MG in SYRINGE 0 ML IV SCH ×2 (08:50→20:02)
[2021-08-06] MEDS: ASPIRIN 81 MG ECTAB PO SCH ×2 (08:50→20:05)
[2021-08-06] MEDS: TAMSULOSIN HCL 0.4 MG CAP PO SCH (10:11)
[2021-08-06] MEDS: SERTRALINE HCL 100 MG TABLET PO SCH (10:11)
[2021-08-06] MEDS: POLYETHYLENE (MIRALAX) 17 GM PACK PO SCH ×2 (10:12→20:02)
[2021-08-06] MEDS: POTASSIUM CHLORIDE / WTR 10 MEQ/100 ML PLCT IV SCH ×6 (10:26→19:23)
--- NOTE | 2021-08-06 13:12 | Surgery Progress Note ---
Date of Service August 06, 2021 Assessment & Plan (1) Bowel obstruction: Plan: s/ sigmoidoscopy decompression tube ppn ordered tentative surgery likely colostomy with resection if possible - Sunday Received MiraLAX yesterday Admission and Anticipated Discharge Date Admission Date: August 05, 2021 Subjective Feeling about the same today. Complaining of heartburn. Some distention. Has not had a bowel movement today. Physical Exam Constitutional: WD/WN, vitals as above Gastrointestinal (Abdomen): Inspection/Auscultation: + abdomen distended Percussion/Palpation: abdomen soft; abdomen nontender, no guarding and abdomen not rigid Musculoskeletal: Extremities: no cyanosis and no clubbing Skin: no rashes, warm and dry Results & Data ([facility]) Vital Signs (Past 12 Hours) Vital Signs Temp Pulse Pulse Resp BP BP Pulse Ox 08/06/21 12:00 36.2 C L 81 18 161/91 H 93 08/06/21 08:00 36.3 C L 80 18 142/87 H 91 08/06/21 07:20 79 08/06/21 05:38 87 150/88 H 08/06/21 03:26 73 20 138/72 93 Laboratory Results 08/06/21 08/06/21 08/06/21 Range/Units 12:03 06:11 05:46 WBC 9.76 (4.8-10.8) K/uL RBC 5.36 (4.7-6.1) M/uL Hgb 16.0 (14.0-18.0) g/dL Hct 46.4 (42-52) % MCV 86.6 (80-100) fL MCH 29.9 (25-34) pg MCHC 34.5 (32-36) g/dL RDW Std Deviation 47.4 H (36.4-46.3) fL RDW Coeff of Jeanette 15.0 H (11.5-14.5) % Plt Count 311 (130-400) K/uL MPV 9.8 (7.4-10.4) fL Immature Gran % (Auto) 0.3 % Neut % (Auto) 81.9 % Lymph % (Auto) 10.0 % [place] % (Auto) 7.7 % Eos % (Auto) 0.0 % Baso % (Auto) 0.1 % Neut # (Auto) 7.99 H (1.4-6.5) K/uL Lymph # (Auto) 0.98 L (1.2-3.4) K/uL [place] # (Auto) 0.75 H (0.11-0.59) K/uL Eos # (Auto) 0.00 (0-0.5) K/uL Baso # (Auto) 0.01 (0-0.2) K/uL Immature Gran # (Auto) 0.03 H (0.00-0.02) K/uL Sodium (136-145) mmol/L Potassium (3.5-5.1) mmol/L Chloride (98-107) mmol/L Carbon Dioxide (21-32) mmol/L Anion Gap (3-11) BUN (6-23) mg/dl Creatinine (0.6-1.4) mg/dl Est Cr Clr Drug Dosing ml/min Est GFR ( Amer) ml/min Est GFR (Non-Af Amer) ml/min BUN/Creatinine Ratio (10-20) Glucose (70-99(Fasting)) mg/dl POC Glucose 147 H 153 H (70-99) mg/dl Calcium (8.5-10.1) mg/dl Phosphorus (2.5-4.9) mg/dl Magnesium (1.7-2.4) mg/dl 08/06/21 08/05/21 08/05/21 Range/Units 05:46 23:53 17:44 WBC (4.8-10.8) K/uL RBC (4.7-6.1) M/uL Hgb (14.0-18.0) g/dL Hct (42-52) % MCV (80-100) fL MCH (25-34) pg MCHC (32-36) g/dL RDW Std Deviation (36.4-46.3) fL RDW Coeff of Jeanette (11.5-14.5) % Plt Count (130-400) K/uL MPV (7.4-10.4) fL Immature Gran % (Auto) % Neut % (Auto) % Lymph % (Auto) % [place] % (Auto) % Eos % (Auto) % Baso % (Auto) % Neut # (Auto) (1.4-6.5) K/uL Lymph # (Auto) (1.2-3.4) K/uL [place] # (Auto) (0.11-0.59) K/uL Eos # (Auto) (0-0.5) K/uL Baso # (Auto) (0-0.2) K/uL Immature Gran # (Auto) (0.00-0.02) K/uL Sodium 136 (136-145) mmol/L Potassium 2.9 L D (3.5-5.1) mmol/L Chloride 103 (98-107) mmol/L Carbon Dioxide 20 L (21-32) mmol/L Anion Gap 13 H (3-11) BUN 57 H (6-23) mg/dl Creatinine 1.04 (0.6-1.4) mg/dl Est Cr Clr Drug Dosing 53.9 ml/min Est GFR ( Amer) 77.7 ml/min Est GFR (Non-Af Amer) 67.0 ml/min BUN/Creatinine Ratio 54.8 H (10-20) Glucose 170 H (70-99(Fasting)) mg/dl POC Glucose 162 H 146 H (70-99) mg/dl Calcium 7.5 L (8.5-10.1) mg/dl Phosphorus 3.0 D (2.5-4.9) mg/dl Magnesium 2.4 (1.7-2.4) mg/dl 08/05/21 Range/Units 12:33 WBC (4.8-10.8) K/uL RBC (4.7-6.1) M/uL Hgb (14.0-18.0) g/dL Hct (42-52) % MCV (80-100) fL MCH (25-34) pg MCHC (32-36) g/dL RDW Std Deviation (36.4-46.3) fL RDW Coeff of Jeanette (11.5-14.5) % Plt Count (130-400) K/uL MPV (7.4-10.4) fL Immature Gran % (Auto) % Neut % (Auto) % Lymph % (Auto) % [place] % (Auto) % Eos % (Auto) % Baso % (Auto) % Neut # (Auto) (1.4-6.5) K/uL Lymph # (Auto) (1.2-3.4) K/uL [place] # (Auto) (0.11-0.59) K/uL Eos # (Auto) (0-0.5) K/uL Baso # (Auto) (0-0.2) K/uL Immature Gran # (Auto) (0.00-0.02) K/uL Sodium 137 (136-145) mmol/L Potassium 4.0 (3.5-5.1) mmol/L Chloride 103 (98-107) mmol/L Carbon Dioxide 17 L (21-32) mmol/L Anion Gap 17 H (3-11) BUN 42 H (6-23) mg/dl Creatinine 1.02 (0.6-1.4) mg/dl Est Cr Clr Drug Dosing 55.0 ml/min Est GFR ( Amer) 79.5 ml/min Est GFR (Non-Af Amer) 68.6 ml/min BUN/Creatinine Ratio 41.2 H (10-20) Glucose 149 H (70-99(Fasting)) mg/dl POC Glucose (70-99) mg/dl Calcium 8.1 L (8.5-10.1) mg/dl Phosphorus 6.1 H (2.5-4.9) mg/dl Magnesium 2.0 (1.7-2.4) mg/dl
--- NOTE | 2021-08-06 13:34 | Gastroenterology Progress Note ---
Date of Service August 06, 2021 Assessment & Plan Admission and Anticipated Discharge Date Admission Date: August 05, 2021 Subjective Patient was seen and examined today, he feels better and finally able to get some rest. On exam: Abdomen is soft and less distended. NG to LIS with dark brown aspirate. Rectal tube with light brown stool. Recommend: Aggressively correct Potassium in view of obstruction related ileus. IV PPI. Avoid Opioids. Continue NG to LIS. Flush the rectal tube q 8hrs. Give rectal tap water enema q12hrs. Follow up with surgery for planned resection on Sunday. Recall GI if needed. Results & Data ([facility]) Vital Signs (Past 12 Hours) Vital Signs Temp Pulse Pulse Resp BP BP Pulse Ox 08/06/21 12:00 36.2 C L 81 18 161/91 H 93 08/06/21 08:00 36.3 C L 80 18 142/87 H 91 08/06/21 07:20 79 08/06/21 05:38 87 150/88 H 08/06/21 03:26 73 20 138/72 93
[2021-08-06] MEDS ORDERED: AMINO ACIDS 4.25% IV SCH (16:00)
[2021-08-06] MEDS ORDERED: PERIPHERAL TPN IV SCH (16:00)
[2021-08-06] MEDS ORDERED: D5W IV SCH (16:00)
[2021-08-06] MEDS ORDERED: CLINOLIPID 20% IV FAT EMULSION 250 ML IV SCH ×2 (17:00→22:00)
[2021-08-06] MEDS: rOPINIRole HCL 1 MG TABLET PO SCH (20:06)
[2021-08-06] MEDS ORDERED: STOP CLINOLIPID ONE ×2 (22:00→23:00)
[2021-08-06] MEDS: PROMETHAZINE HCL 12.5 MG in SODIUM CHLORIDE 0.9% 50 ML IV PRN (22:34)
[2021-08-07] MEDS: INSULIN ASPART PER UNIT SC SCH ×4 (00:08→18:20)
[2021-08-07] MEDS: METOPROLOL TARTRATE 1 MG/ML VIAL IV SCH ×4 (00:08→18:15)
[2021-08-07] MEDS ORDERED: dilTIAZem HCl 5 MG/ML 5 ML VIAL IV STA (03:15)
[2021-08-07] MEDS ORDERED: STAT IV STA (04:15)
[2021-08-07] MEDS ORDERED: CALCIUM GLUCONATE 10% 2,000 MG in DEXTROSE 5% 50 ML IV ONE (04:15)
[2021-08-07] MEDS: PIPERACILLIN/TAZOBACTAM 3.375 GM in DEXTROSE 5% 100 ML IV SCH ×3 (04:47→20:14)
[2021-08-07 05:41] LABS: Basophils # (auto) 0.01 K/uL (0-0.2); Basophils % (auto) 0.1 %; Eosinophils # (auto) 0.01 K/uL (0-0.5); Eosinophils % (auto) 0.1 %; Hematocrit (blood only) 43.8 % (42-52); Hemoglobin 15.1 g/dL (14.0-18.0); Immature Granulocytes # (auto) 0.03 K/uL (0.00-0.02); Immature Granulocytes % (auto) 0.3 %; Lymphocytes # (auto) 1.77 K/uL (1.2-3.4); Lymphocytes % (auto) 18.8 %; Mean Corpuscular Hemoglobin 30.1 pg (25-34); Mean Corpuscular Hgb Conc 34.5 g/dL (32-36); Mean Corpuscular Volume 87.3 fL (80-100); Mean Platelet Volume 9.8 fL (7.4-10.4); Monocytes % (auto) 12.7 %; Neutrophils # (auto) 6.42 K/uL (1.4-6.5); Platelet Count 288 K/uL (130-400); RDW Coefficient of Variation 15.2 % (11.5-14.5); RDW Standard Deviation 48.5 fL (36.4-46.3); Red Blood Count 5.02 M/uL (4.7-6.1); White Blood Count 9.44 K/uL (4.8-10.8)
[2021-08-07 06:05] LABS: Albumin Globulin Ratio 1.2 (0.9-2); Albumin Level 3.1 gm/dl (3.4-5.0); BUN Creatinine Ratio 52.3 (10-20); Bilirubin,Total 0.6 mg/dl (0.2-1.0); Calcium 7.8 mg/dl (8.5-10.1); Creatinine Clr Calc Pharmacy 63.7 ml/min; Est GFR (African American) 93.4 ml/min; Est GFR (Non-African American) 80.6 ml/min; Globulin 2.5 gm/dl (2.5-4.0); Magnesium 2.3 mg/dl (1.7-2.4); Potassium 3.6 mmol/L (3.5-5.1); Total Protein 5.6 gm/dl (6.0-8.3)
--- NOTE | 2021-08-07 06:37 | Surgery Progress Note ---
Date of Service August 07, 2021 Assessment & Plan (1) Bowel obstruction: Plan: s/p sigmoidoscopy Stable decompression tube tentative surgery for Sunday, likely sigmoidectomy with colostomy Admission and Anticipated Discharge Date Admission Date: August 05, 2021 Subjective States he is feeling the same today. Denies nausea. Denies significant pain Physical Exam Constitutional: WD/WN, vitals as above Gastrointestinal (Abdomen): Inspection/Auscultation: + abdomen distended Percussion/Palpation: abdomen soft; abdomen nontender, no guarding and abdomen not rigid Musculoskeletal: Extremities: no cyanosis and no clubbing Skin: no rashes, warm and dry Results & Data ([facility]) Vital Signs (Past 12 Hours) Vital Signs Temp Pulse Pulse Pulse Resp BP BP 08/07/21 06:06 117 H 08/07/21 05:48 135 H 123/75 08/07/21 05:47 135 H 14 123/75 08/07/21 03:17 36.4 C L 141 H 14 161/81 H 08/07/21 00:08 109 H 141/81 H 08/06/21 23:00 36.7 C 77 18 08/06/21 19:51 98 H 148/72 H 08/06/21 19:04 36.6 C 98 H 18 BP Pulse Ox 08/07/21 06:06 08/07/21 05:48 08/07/21 05:47 94 08/07/21 03:17 93 08/07/21 00:08 08/06/21 23:00 127/79 93 08/06/21 19:51 08/06/21 19:04 148/72 H 94
[2021-08-07] MEDS: POTASSIUM CHLORIDE / WTR 10 MEQ/100 ML PLCT IV SCH ×4 (06:57→10:17)
--- NOTE | 2021-08-07 07:59 | Hospitalist Progress Note ---
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 Continue NGT decompression, bowel rest General surgery on case Hold patient NOAC in anticipation of procedure. ISS BG goal 1 10-1 40 DVT prophylaxis. SCDs while anticoagulation on hold in anticipation of procedure. Full code ROS-No Headache, No Visual Changes, No Nausea, No Vomiting, No Fever, No Chills, No Neck Pain or Stiffness, No Chest Pain, No Palpitations, No SOB, No ABBOTT, No Cough, No Sputum, No Wheezing, less Abdominal Pain, No Diarrhea, No Hematemesis, No Hemoptysis, No Unexpected Weight Loss, No Flank pain, No Melena, No Hematochezia, No Frequency, No Urgency, No Burning, No Hematuria, No Rashes, No Diaphoresis. Appetite is Normal Physical Exam Gen-AAO x 3, NAD, Afebrile, +NGT, +PPN Head-NCAT, EOMI, PERRLA, Anicteric Sclera, No Posterior Pharyngeal Erythema Neck-Supple, No JVD, No Thyromegaly, No Masses, No LAD, No Bruits Lungs-Clear to Auscultation Bilaterally, No Rales, No Rhonchi, No Wheezing, No Crepitus Chest-Irreg/Irreg, No S4, +S1, +S2, No S3, No Murmurs, No Rubs, No Gallops, + Ectopy Abdomen-Soft, Bowel Sounds Present, Non Tender, Distended, No Hepatomegaly, No Splenomegaly, No Palpable Masses, No Rebound, No Rigidity, No Guarding Musculoskeletal-Full Range of Motion Bilaterally, No CVAT Extremities-No Cyanosis, No Clubbing, No Edema Nuero-Cranial Nerves II-XII grossly intact, Motor WNL, DTRs WNL, Strength WNL, Non Focal Psych-Normal Mood Admission and Anticipated Discharge Date Admission Date: August 05, 2021 Subjective States he is feeling the same today. RN reports AFIB RVR Results & Data Results & Data ([facility]) Vital Signs (Past 12 Hours) Vital Signs Temp Pulse Pulse Pulse Resp BP BP 08/07/21 07:19 106 H 08/07/21 07:18 35.9 C L 114 H 20 08/07/21 06:06 117 H 08/07/21 05:48 135 H 123/75 08/07/21 05:47 135 H 14 123/75 08/07/21 03:17 36.4 C L 141 H 14 161/81 H 08/07/21 00:08 109 H 141/81 H 08/06/21 23:00 36.7 C 77 18 BP Pulse Ox 08/07/21 07:19 08/07/21 07:18 106/80 93 08/07/21 06:06 08/07/21 05:48 08/07/21 05:47 94 08/07/21 03:17 93 08/07/21 00:08 08/06/21 23:00 127/79 93
[2021-08-07] MEDS ORDERED: SODIUM PHOSPHATE 3 MMOL/1 ML INFUSION IV STA (08:02)
[2021-08-07] MEDS ORDERED: SODIUM PHOSPHATE 12 MMOL in SODIUM CHLORIDE 0.9% 250 ML IV ONE (08:15)
[2021-08-07 09:22] LABS: Magnesium 2.2 mg/dl (1.7-2.4); Phosphorus 1.8 mg/dl (2.5-4.9)
[2021-08-07] MEDS: PANTOprazole 40 MG in SYRINGE 0 ML IV SCH ×2 (09:54→21:06)
[2021-08-07] MEDS: ASPIRIN 81 MG ECTAB PO SCH ×2 (09:54→21:06)
[2021-08-07] MEDS: POLYETHYLENE (MIRALAX) 17 GM PACK PO SCH ×2 (09:55→21:06)
[2021-08-07] MEDS: SERTRALINE HCL 100 MG TABLET PO SCH (09:56)
[2021-08-07] MEDS: TAMSULOSIN HCL 0.4 MG CAP PO SCH (09:58)
--- NOTE | 2021-08-07 13:24 | Cardiology Consultation ---
Date of Consultation August 07, 2021 Assessment & Plan (1) Bowel obstruction: (2) Paroxysmal atrial fibrillation: (3) CAD (coronary artery disease): (4) Preoperative cardiovascular examination: Patient with 5-hour episode of recurrent atrial fibrillation from 3 AM to 7:53 AM this morning, with noted subsequent conversion to sinus rhythm receiving IV Toprol and IV diltiazem by bolus therapy. He is on IV metoprolol while n.p.o. and heart rate and blood pressure are currently stable without any signs and symptoms of unstable angina. Patient has history of basal inferior wall myocardial infarction, CABG performed in 2014. T wave inversions are noted in the precordial leads but these are unchanged compared to October 2020. Mild aortic stenosis noted on echocardiogram, Oct, 2020. Patient remains on aspirin. Eliquis on hold appropriately pending surgical intervention. Potassium level this morning stable at 3.6. At present, believe patient is well optimized for surgical intervention of bowel obstruction as planned tomorrow. Patient has a recurrent bowel obstruction having been treated with nonoperative therapy in October 2020. 1-2 pay ongoing close attention to electrolytes perioperatively. Agree with IV metoprolol while unable to take oral medications. Recommend SCDs postoperatively for DVT prophylaxis, resume Eliquis postoperatively when deemed stable in terms of postoperative bleeding. History of Present Illness Attending Physician: Brandan Sánchez, History of Present Illness Bo Casey is an 80 year old male seen in cardiology consultation per the request of Dr Sánchez for the evaluation of paroxysmal atrial fibrillation and preoperative evaluation. The patient was admitted on 08/04/2021 for a recurrent bowel obstruction of the sigmoid colon. He had undergone sigmoidoscopy, has rectal tube and nasogastric tube in place, and surgical intervention is tentatively planned for tomorrow 08/08/2021. This morning at 3 AM he was noted to revert to atrial fibrillation with elevated ventricular rates as high as 150 bpm. He spontaneously converted back to sinus rhythm at 7:53 AM. At the time my assessment, sinus tachycardia noted on telemetry at 101 bpm. He had also been seen by cardiology at the time of his admission for bowel obstruction in Oct, 2020, with a brief episode of atrial fibrillation also noted at that time. At present, he denies any cardiac symptoms. Cardiac History: 1. Coronary heart disease, CABG x3 with CASTELLON to LAD, SVG to OM, SVG to PDA, [facility], 2015 2. Hypertension 3. Mild aortic valve stenosis 4. Paroxysmal atrial fibrillation 2D echocardiogram report summary [facility] November 14, 2020: Left ventricular ejection fraction 55-60%. Small size wall motion abnormality with hypokinesis to akinesis of the basal posterior and basal inferior wall. Mild aortic valve stenosis. Allergies Allergy/AdvReac Type Severity Reaction Status Date / Time enalapril Allergy Unknown Cough Verified 08/05/21 12:57 simvastatin AdvReac Mild muscle Verified 08/05/21 12:57 weakness aspirin AdvReac Unknown GI UPSET Verified 08/05/21 12:57 IN HIGH DOSES atorvastatin AdvReac Unknown MUSCLE Verified 08/05/21 12:57 ACHES [id number]-[id number] Reductase AdvReac Unknown MUSCLE Verified 08/05/21 12:57 Inhibitor ACHES AND [Coxbdlf-Fmw-Qgj Reductase WEAKNESS/DIARRHEA Inhibitor] Home Medications Medication Instructions Recorded Confirmed Type omeprazole 20 mg capsule,delayed 20 mg PO QAM 10/26/19 08/04/21 History release sertraline 100 mg tablet 100 mg PO DAILY 10/26/19 08/04/21 History aspirin 81 mg tablet,delayed 81 mg PO AMPM 11/10/20 08/04/21 History release (Aspirin Low Dose) melatonin 10 mg tablet 10 mg PO HS 11/10/20 08/04/21 History ropinirole 1 mg tablet 1 mg PO HS 11/10/20 08/04/21 History tamsulosin 0.4 mg capsule 0.4 mg PO DAILY 11/10/20 08/04/21 History albuterol sulfate 90 mcg/actuation 2 puff INHALATION Q4 PRN 08/04/21 08/04/21 History aerosol inhaler (ProAir HFA) amoxicillin 500 mg capsule 2,000 mg PO ONCE PRN 08/04/21 08/04/21 History apixaban 5 mg tablet (Eliquis) 5 mg PO BID 08/04/21 08/04/21 History cholecalciferol (vitamin D3) 25 25 mcg PO DAILY 08/04/21 08/04/21 History mcg (1,000 unit) tablet (Vitamin D3) docusate sodium 100 mg capsule 100 mg PO BID 08/04/21 08/04/21 History furosemide 20 mg tablet See Rx Instructions .ROUTE .COMPLEX 08/04/21 08/04/21 History metoprolol succinate 50 mg 50 mg PO DAILY 08/04/21 08/04/21 History tablet,extended release 24 hr polyethylene glycol 3350 17 gram 17 g PO DAILY 08/04/21 08/04/21 History oral powder packet (Miralax) spironolactone 25 mg tablet 25 mg PO DAILY 08/04/21 08/04/21 History Patient History Medical History (Updated 08/07/21 @ 13:19 by Bashir Dawn DO) Family hx of colon cancer Fusion of spine Surgical History History of carpal tunnel release 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 History of laminectomy History of prostatectomy History of total knee replacement Social History Smoking Status: Former smoker Second Hand Exposure: No; Do You Dip or Chew Tobacco: No; Tobacco Cessation Education Requested by Patient: No Hx Alcohol Use: Yes Alcohol type: hard liquor Hx Substance Use: No Preferred Language: Malay Communication Ability: Effective Surface Supply Breathing Apparatus Required: No Beliefs That Will Affect Care: None marital status: Current Living Situation: Family Current Living Situation Comment: lives with grandson and his family. How many Children do You have: 3 Other Information That Helps Us Care for You: No Feels Safe at Home: Yes Safety Concerns: Feels Safe At This Time Assistive Devices: Denture - Upper, Denture - Lower and Glasses Review of Systems Review of Systems: All systems reviewed & are unremarkable except as noted in HPI & below Physical Exam Physical Exam: Temp Pulse Resp BP Pulse Ox 36.8 C 96 H 20 125/72 96 08/07/21 12:03 08/07/21 12:03 08/07/21 12:03 08/07/21 12:03 08/07/21 12:03 Constitutional: + ill appearing Respiratory: normal respiratory effort, lungs clear to auscultation Cardiovascular: Rate/Rhythm: regular rate and regular rhythm Heart Sounds: + murmur (1/6 SM) Gastrointestinal (Abdomen): mild diffuse distension Neurologic: PERRL, EOMI, accommodation nl, no face palsy, no dysarthria Results & Data ([facility]) Vital Signs (Past 12 Hours) Vital Signs Temp Pulse Pulse Pulse Resp BP BP 08/07/21 12:03 36.8 C 96 H 20 08/07/21 11:46 93 H 158/88 H 08/07/21 07:19 106 H 08/07/21 07:18 35.9 C L 114 H 20 08/07/21 06:06 117 H 08/07/21 05:48 135 H 123/75 08/07/21 05:47 135 H 14 123/75 08/07/21 03:17 36.4 C L 141 H 14 161/81 H BP Pulse Ox 08/07/21 12:03 125/72 96 08/07/21 11:46 08/07/21 07:19 08/07/21 07:18 106/80 93 08/07/21 06:06 08/07/21 05:48 08/07/21 05:47 94 08/07/21 03:17 93 Laboratory Results EKG performed 08/07/2021: Sinus rhythm at 97 bpm, age-indeterminate inferior infarct pattern, unchanged dating back to 2014, T wave inversions noted in the precordial leads, unchanged compared to 08/04/2021. -T wave changes noted in the precordial leads, unchanged compared to 11/11/2020
[2021-08-07] MEDS: NEOMYCIN SULFATE 500 MG TAB PO SCH ×3 (13:59→21:07)
[2021-08-07] MEDS: ERYTHROMYCIN ETHYLSUCC SUSP 200 MG/5 ML 100 ML BTL PO SCH ×3 (14:25→21:49)
[2021-08-07] MEDS ORDERED: PERIPHERAL TPN IV SCH (16:00)
[2021-08-07] MEDS ORDERED: AMINO ACIDS 4.25% IV SCH (16:00)
[2021-08-07] MEDS ORDERED: SODIUM PHOSPHATE 18 MMOL in SODIUM CHLORIDE 0.9% 500 ML IV ONE (16:00)
[2021-08-07] MEDS ORDERED: CLINOLIPID 20% IV FAT EMULSION 250 ML IV SCH (16:00)
[2021-08-07] MEDS ORDERED: D5W IV SCH (16:00)
[2021-08-07 16:48] LABS: Magnesium 2.2 mg/dl (1.7-2.4)
[2021-08-07] MEDS: rOPINIRole HCL 1 MG TABLET PO SCH (21:06)
[2021-08-07] MEDS ORDERED: STOP CLINOLIPID ONE (22:00)
[2021-08-07] MEDS: PROMETHAZINE HCL 12.5 MG in SODIUM CHLORIDE 0.9% 50 ML IV PRN (22:34)
[2021-08-08] MEDS: INSULIN ASPART PER UNIT SC SCH ×4 (00:09→17:41)
[2021-08-08] MEDS: METOPROLOL TARTRATE 1 MG/ML VIAL IV SCH ×4 (00:09→18:15)
[2021-08-08 03:26] LABS: Basophils # (auto) 0.02 K/uL (0-0.2); Basophils % (auto) 0.2 %; Eosinophils # (auto) 0.04 K/uL (0-0.5); Eosinophils % (auto) 0.5 %; Hematocrit (blood only) 41.5 % (42-52); Immature Granulocytes # (auto) 0.12 K/uL (0.00-0.02); Immature Granulocytes % (auto) 1.5 %; Lymphocytes # (auto) 2.47 K/uL (1.2-3.4); Lymphocytes % (auto) 30.4 %; Mean Corpuscular Hgb Conc 33.7 g/dL (32-36); Mean Corpuscular Volume 88.9 fL (80-100); Mean Platelet Volume 9.6 fL (7.4-10.4); Monocytes # (auto) 1.42 K/uL (0.11-0.59); Monocytes % (auto) 17.5 %; Neutrophils # (auto) 4.06 K/uL (1.4-6.5); Neutrophils % (auto) 49.9 %; Platelet Count 305 K/uL (130-400); RDW Coefficient of Variation 15.3 % (11.5-14.5); RDW Standard Deviation 49.5 fL (36.4-46.3); Red Blood Count 4.67 M/uL (4.7-6.1); White Blood Count 8.13 K/uL (4.8-10.8)
[2021-08-08] MEDS: PIPERACILLIN/TAZOBACTAM 3.375 GM in DEXTROSE 5% 100 ML IV SCH ×3 (03:27→21:01)
[2021-08-08 03:35] LABS: INR 1.1 (0.9-1.1); Prothrombin Time 10.8 Seconds (9.0-12.0)
[2021-08-08 04:02] LABS: Albumin Globulin Ratio 1.5 (0.9-2); Albumin Level 2.9 gm/dl (3.4-5.0); BUN Creatinine Ratio 64.1 (10-20); Bilirubin,Total 0.4 mg/dl (0.2-1.0); Calcium 7.6 mg/dl (8.5-10.1); Creatinine Clr Calc Pharmacy 71.9 ml/min; Est GFR (African American) 98.1 ml/min; Est GFR (Non-African American) 84.7 ml/min; Magnesium 2.1 mg/dl (1.7-2.4); Potassium 4.4 mmol/L (3.5-5.1); Total Protein 4.9 gm/dl (6.0-8.3)
--- NOTE | 2021-08-08 06:29 | History & Physical Bridge Note ---
Date of Service August 08, 2021 History & Physical Bridge Note I have examined the patient, reviewed the History & Physical and in the interval since the performance of the History & Physical I have noted the following changes of clinical significance: no changes noted
--- NOTE | 2021-08-08 06:31 | Surgery Progress Note ---
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 Significantly dilated thin-walled proximal colon with decompressed rectal area Patient is 4 OR today-we will attempt resection of the diseased segment We will likely proceed with colostomy as patient is extreme risk for postoperative complication including leak at the anastomosis I have told the patient this could be reversible Patient may need ICU management perioperatively secondary to his cardiac issues Admission and Anticipated Discharge Date Admission Date: August 05, 2021 Results & Data ([facility]) Vital Signs (Past 12 Hours) Vital Signs Temp Pulse Pulse Pulse Resp BP BP 08/08/21 06:02 108 H 131/83 08/08/21 02:36 36.5 C 87 18 119/57 L 08/08/21 00:09 86 147/87 H 08/07/21 23:00 36.8 C 86 20 147/87 H 08/07/21 22:19 86 08/07/21 19:41 36.5 C 85 16 148/85 H Pulse Ox 08/08/21 06:02 08/08/21 02:36 94 08/08/21 00:09 08/07/21 23:00 93 08/07/21 22:19 08/07/21 19:41 96 PG Care Time/CCT Total # of Minutes Spent Total Time Spent with Patient: Total time spent is greater than 50% in coordination of care (as documented) at patient's floor/unit and/or counseling patient: Coding Level of Care Code None Diagnoses Colon obstruction K56.609
--- NOTE | 2021-08-08 06:50 | Anesthesiology Consultation ---
Date of Service August 08, 2021 Assessment & Plan Chart Review Chart Review: entry level programmer initiated History Surgery Operation Date: 08/05/21 16:25 Proposed Procedures p Flexible Sigmoidoscopy Dr Reynolds - Kathe Reynolds MD Operation Date: 08/08/21 08:30 Proposed Procedures p Colostomy - Reinaldo Torres MD, FACS Height/Weight Height: 5 ft 8 in Weight: 80.7 kg Allergies Allergy/AdvReac Type Severity Reaction Status Date / Time enalapril Allergy Unknown Cough Verified 08/05/21 12:57 simvastatin AdvReac Mild muscle Verified 08/05/21 12:57 weakness aspirin AdvReac Unknown GI UPSET Verified 08/05/21 12:57 IN HIGH DOSES atorvastatin AdvReac Unknown MUSCLE Verified 08/05/21 12:57 ACHES Rhxbznl-JCF-MoL Reductase AdvReac Unknown MUSCLE Verified 08/05/21 12:57 Inhibitor ACHES AND [Llirxag-Bzd-Sgw Reductase WEAKNESS/DIARRHEA Inhibitor] Medications Home Medications Medication Instructions Recorded Confirmed Last Taken omeprazole 20 mg capsule,delayed 20 mg PO QAM 10/26/19 08/04/21 11/10/20 release sertraline 100 mg tablet 100 mg PO DAILY 10/26/19 08/04/21 11/10/20 aspirin 81 mg tablet,delayed 81 mg PO AMP 11/10/20 08/04/21 11/10/20 release (Aspirin Low Dose) melatonin 10 mg tablet 10 mg PO 11/10/20 08/04/21 11/09/20 ropinirole 1 mg tablet 1 mg PO 11/10/20 08/04/21 Unknown tamsulosin 0.4 mg capsule 0.4 mg PO DAILY 11/10/20 08/04/21 11/10/20 albuterol sulfate 90 mcg/actuation 2 puff INHALATION Q4 PRN 08/04/21 08/04/21 Unknown aerosol inhaler (ProAir HFA) amoxicillin 500 mg capsule 2,000 mg PO ONCE PRN 08/04/21 08/04/21 Unknown apixaban 5 mg tablet (Eliquis) 5 mg PO BID 08/04/21 08/04/21 Unknown cholecalciferol (vitamin D3) 25 25 mcg PO DAILY 08/04/21 08/04/21 Unknown mcg (1,000 unit) tablet (Vitamin D3) docusate sodium 100 mg capsule 100 mg PO BID 08/04/21 08/04/21 Unknown furosemide 20 mg tablet See Rx Instructions .ROUTE .COMPLEX 08/04/21 08/04/21 Unknown metoprolol succinate 50 mg 50 mg PO DAILY 08/04/21 08/04/21 Unknown tablet,extended release 24 hr polyethylene glycol 3350 17 gram 17 g PO DAILY 08/04/21 08/04/21 Unknown oral powder packet (Miralax) spironolactone 25 mg tablet 25 mg PO DAILY 08/04/21 08/04/21 Unknown Active Medications Generic Name Dose Route Start Last Admin Trade Name Freq PRN Reason Stop Dose Admin Aspirin 81 mg 08/05/21 09:00 08/07/21 21:06 Aspirin 81 Mg Ectab PO 09/04/21 08:59 81 mg BID LISA Administration Piperacillin Sod/Tazobactam 115 mls @ 28.75 mls/hr 08/05/21 04:00 08/08/21 03:27 Sod 3.375 gm/ Dextrose IV 08/15/21 03:59 28.8 mls/hr Q8H LISA Administration Protocol Promethazine HCl 12.5 mg/ 50.5 mls @ 202 mls/hr 08/05/21 05:46 08/07/21 22:46 Sodium Chloride IV 09/04/21 05:45 Infused Q6H PRN Infusion Nausea And Vomiting Pantoprazole Sodium 40 mg/ 10 mls @ 5 mls/min 08/05/21 07:00 08/07/21 21:06 Syringe IV 09/04/21 06:59 5 mls/min BID LISA Administration Amino Acids 1,510 ml/ 1,510 mls @ 63 mls/hr 08/07/21 16:00 08/07/21 16:12 Nutrition (Parenteral) IV 08/08/21 15:58 63 mls/hr .[id number] LISA Administration Protocol Insulin Aspart 0 units 08/05/21 06:15 08/08/21 06:01 Insulin Aspart Per Unit SC 09/04/21 06:14 Not Given Q6 LISA Metoprolol Tartrate 5 mg 08/07/21 06:00 08/08/21 06:02 Metoprolol Tartrate 1 Mg/Ml Vial IV 09/06/21 05:59 5 mg Q6 LISA Administration Polyethylene Glycol 34 gm 08/06/21 09:00 02/13/22 21:06 Polyethylene (Miralax) 17 Gm Pack PO 09/05/21 08:59 34 gm BID LISA Administration Ropinirole HCl 1 mg 08/05/21 21:00 08/07/21 21:06 Ropinirole Hcl 1 Mg Tablet PO 09/04/21 20:59 1 mg HS LISA Administration Sertraline HCl 100 mg 08/05/21 09:00 08/07/21 09:56 Sertraline Hcl 100 Mg Tablet PO 09/04/21 08:59 100 mg DAILY LISA Administration Tamsulosin HCl 0.4 mg 08/05/21 09:00 08/07/21 09:58 Tamsulosin Hcl 0.4 Mg Cap PO 09/04/21 08:59 0.4 mg DAILY LISA Administration NPO Date Last Intake of Fluids: 08/05/21 Time Last Intake of Fluids: 00:00 Last Intake of Fluids Comment: ice chips Date Last Intake of Solids: 08/05/21 Time Last Intake of Solids: 00:00 Past Medical History Medical History Family hx of colon cancer Fusion of spine Past Surgical History Surgical History History of carpal tunnel release 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 History of laminectomy History of prostatectomy History of total knee replacement Social History Smoking Status: Former smoker tobacco type: pipe Do You Dip or Chew Tobacco: No Hx Alcohol Use: Yes Alcohol type: hard liquor alcohol intake frequency: a few times a week Alcohol Intake Frequency Comment: 1-2 times weekly, scotch. 'a shot' 1-2 Hx Substance Use: No substance use type: does not use Physical Exam Vital Signs Last Vital Signs Temp 97.7 F 08/08/21 02:36 Pulse 108 H 08/08/21 06:02 Resp 18 08/08/21 02:36 BP 131/83 08/08/21 06:02 Pulse Ox 94 08/08/21 02:36 Testing Laboratory Results 08/08/21 03:12 08/08/21 03:12 PT 10.8 Seconds (9.0-12.0) 08/08/21 03:12 INR 1.1 (0.9-1.1) 08/08/21 03:12 APTT 26.2 Seconds (21.0-31.0) 08/04/21 23:42 Hemoglobin A1c 6.3 % (4.5-5.6) H 08/04/21 23:47 Urine Color Dark Yellow 08/05/21 00:50 Urine Appearance Clear (Clear) 08/05/21 00:50 Urine pH 5.0 (4.5-7.5) 08/05/21 00:50 Ur Specific [place] > 1.045 (1.000-1.030) H 08/05/21 00:50 Urine Protein Negative (Negative) 08/05/21 00:50 Urine Glucose (UA) Negative (Negative) 08/05/21 00:50 Urine Ketones Trace (Negative) H 08/05/21 00:50 Urine Nitrite Negative (Negative) 08/05/21 00:50 Ur Leukocyte Esterase Negative (Negative) 08/05/21 00:50 08/08/21 08/08/21 05:56 00:06 POC Glucose 120 H 118 H Electrocardiogram Date: 08/07/21 Normal sinus rhythm, rate 97 bpm Possible Left atrial enlargement Left axis deviation Inferior infarct (cited on or before 19-JAN-2015) ST & T wave abnormality, consider anterior ischemia Abnormal ECG When compared with ECG of 04-AUG-2021 21:52, No significant change was found Chest X-Ray Date: 08/04/21 Findings: + NAD Echocardiogram Date: 11/14/21 There is normal LV wall thickness There is small sized wall motion abnormality with hypokinesis to akinesis of the basal posterior wall and basal inferior wall LV systolic function is normal EF 55-60% AV is mildly calcified Mild AV stenosis The aortic root and proximal ascending aorta are normal sized
[2021-08-08] MEDS: ASPIRIN 81 MG ECTAB PO SCH (07:12)
[2021-08-08] MEDS: POLYETHYLENE (MIRALAX) 17 GM PACK PO SCH (07:13)
[2021-08-08] MEDS: TAMSULOSIN HCL 0.4 MG CAP PO SCH (07:13)
[2021-08-08] MEDS: SERTRALINE HCL 100 MG TABLET PO SCH (07:13)
[2021-08-08] MEDS: PANTOprazole 40 MG in SYRINGE 0 ML IV SCH ×2 (07:25→21:03)
[2021-08-08] MEDS ORDERED: MIDAZOLAM HCL 1 MG/ML 2ML VIAL ONE (07:27)
[2021-08-08] MEDS ORDERED: fentaNYL citrate 100 MCG/2 ML VIAL ONE ×2 (07:27→08:55)
[2021-08-08] MEDS ORDERED: SUCCINYLCHOLINE CHLORIDE 20 MG/ML 10 ML VIAL IV ONE (07:27)
[2021-08-08] MEDS ORDERED: NEOSTIGMINE METHYLSULFATE 1 MG/ML 10ML VIAL ONE (07:27)
[2021-08-08] MEDS ORDERED: PROPOFOL IV EMULSION 10 MG/ML 20 ML VIAL IV ONE (07:27)
[2021-08-08] MEDS ORDERED: ROCURONIUM BROMIDE 10 MG/ML 5 ML VIAL IV ONE (07:27)
[2021-08-08] MEDS ORDERED: GLYCOPYRROLATE 0.2 MG/ML VIAL ONE (07:27)
[2021-08-08] MEDS ORDERED: LIDOCAINE 2% 2 ML VIAL/AMP(20MG/ML) INFIL ONE (07:27)
[2021-08-08] MEDS ORDERED: ONDANSETRON INJ 2 MG/ML 2 ML VIAL IV PRN (07:58)
[2021-08-08] MEDS ORDERED: HYDROmorphone INJ 1 MG/ML SYRINGE IV PRN (07:58)
[2021-08-08] MEDS ORDERED: ATROPINE SULFATE 0.1 MG/ML 10ML SYR IV PRN (07:58)
[2021-08-08] MEDS ORDERED: fentaNYL citrate 100 MCG/2 ML VIAL IV PRN (07:58)
[2021-08-08] MEDS ORDERED: ePHEDrine sulfate 50 MG/ML AMP IV PRN (07:58)
[2021-08-08] MEDS ORDERED: ALBUMIN HUMAN 5% 12.5 GM/250 ML VIAL IV ONE (08:27)
[2021-08-08] MEDS ORDERED: ONDANSETRON INJ 2 MG/ML 2 ML VIAL ONE (08:52)
[2021-08-08] MEDS ORDERED: ESMOLOL HCL INJ 10 MG/ML 10ML VIAL IV ONE (08:59)
[2021-08-08] MEDS ORDERED: HYDROmorphone INJ 2 MG/ML SYR/VIAL ONE (09:01)
[2021-08-08] MEDS ORDERED: ICU PROTOCOL FOR HYPERGLYCEMIA PRN (10:29)
--- NOTE | 2021-08-08 10:29 | Post Operative Brief Note ---
PG Immediate Post Op with CF Date of Surgery August 08, 2021 Pre & Post Diagnosis Operation Date: 08/05/21 16:25 Pre-Op Diagnosis: HTN URG, BOWEL OBS Post-Op Diagnosis: sigmoid stricture. Operation Date: 08/08/21 08:30 Pre-Op Diagnosis: Colon Obstruction Post-Op Diagnosis: Colon Obstruction, adhesions I identified the patient and participated in the time-out.: Yes Procedure Operation Date: 08/05/21 16:25 Actual Procedures p Colonoscopy with Decompression Tube Plac - Kathe Reynolds MD Operation Date: 08/08/21 08:30 Actual Procedures p Sigmoid Colectomy End Colostomy(Not Applicable) - Reinaldo Torres MD, FACS Surgeon Reinaldo Torres MD, FACS Intelligence Chief Monica Rivera Estimated Blood Loss 20 Findings Consistent with Post-Op Diagnosis Mass of the sigmoid colon causing colonic obstruction Severely dilated proximal sigmoid colon full of feculent matter Specimens Specimen Description: A. Sigmoid Colon--silk suture=proximal Drains Chou Catheter, Sagar-Ortiz Drain (15 Vietnamese) and Sybil Drain (5/8 ")
--- NOTE | 2021-08-08 11:22 | Anesthesiology Progress Note ---
Date of Service August 08, 2021 Anesthesia Post Procedure Vital Signs Vital Signs: Temp Pulse Pulse Pulse Pulse Pulse Resp 08/08/21 11:05 93 H 20 08/08/21 10:55 92 H 18 08/08/21 10:49 97.3 F L 87 14 08/08/21 07:51 97.5 F L 84 20 08/08/21 07:38 97.3 F L 88 20 08/08/21 06:02 108 H 08/08/21 02:36 97.7 F 87 18 08/08/21 00:09 86 08/07/21 23:00 98.2 F 86 20 08/07/21 22:19 86 08/07/21 19:41 97.7 F 85 16 08/07/21 18:22 97.5 F L 91 H 18 08/07/21 18:15 91 H 08/07/21 14:39 97.7 F 81 20 08/07/21 12:03 98.2 F 96 H 20 08/07/21 11:46 93 H BP BP BP Pulse Ox 08/08/21 11:05 131/78 97 08/08/21 10:55 136/75 97 08/08/21 10:49 152/77 H 96 08/08/21 07:51 130/80 97 08/08/21 07:38 133/85 94 08/08/21 06:02 131/83 08/08/21 02:36 119/57 L 94 08/08/21 00:09 147/87 H 08/07/21 23:00 147/87 H 93 08/07/21 22:19 08/07/21 19:41 148/85 H 96 08/07/21 18:22 149/75 H 93 08/07/21 18:15 149/75 H 08/07/21 14:39 144/77 H 96 08/07/21 12:03 125/72 96 08/07/21 11:46 158/88 H Pain Intensity Abdomen: Pain Intensity: 3 Transfer of Care Handoff Completed per policy Notes Mental Status: alert / awake / arousable and participated in evaluation Patient Amnestic to Procedure: Yes Nausea / Vomiting: adequately controlled Pain: adequately controlled Airway Patency, RR, SpO2: stable & adequate BP & HR: stable & adequate Hydration State: stable & adequate Anesthetic Complications: no major complications apparent and Pt Satisfied with anesthetic care
[2021-08-08] MEDS ORDERED: HYDROmorphone INJ 0.5 MG/0.5 ML SYR IV PRN (12:35)
[2021-08-08] MEDS ORDERED: HYDROmorphone INJ 0.5 MG/0.5 ML SYR ONE (12:44)
--- NOTE | 2021-08-08 12:52 | Critical Care Consultation ---
Date of Consultation August 08, 2021 Assessment & Plan (1) Colon obstruction: (2) Atrial flutter, paroxysmal: (3) Asthma: (4) Esophageal reflux: Impression: 80-year-old male admitted with recurrent large bowel obstruction status post colonic resection with ostomy placement today. He has atrial fibrillation as well as some electrolyte abnormalities but appears to be hemodynamically stable. Recommendations: 1. Postop bowel resection: Management per general surgery. PPN orders have been ordered. Would favor holding on parenteral nutrition given its potential risks unless the patient is going to be kept n.p.o. for greater than 10days. Would favor use of enteral feeding as soon as possible. Will defer to surgical team. Ostomy care per surgical service and wound care. 2. The patient's been initiated on antibiotics in the form of Zosyn. Will defer antimicrobial therapy to them. 3. ICU electrolyte replacement protocol will be ordered. Add incentive spirometry. Out of bed to chair as much as possible. Will discontinue Chou catheter as soon as possible. 4. We will check blood gas given the patient's decreasing CO2 levels. 5. DVT and GI prophylaxis are in place 6. Atrial fibrillation: Appreciate cardiology assistance. Will defer anticoagulation and rhythm/rate control to them. Thanks for the opportunity to assist in evaluation management this patient. Feel free to contact us if we can be of additional assistance. History of Present Illness Attending Physician: Brandan Sánchez DO History of Present Illness Asked by surgeon to assist in critical care evaluation management of this patient taken to the OR for diverting colostomy due to colonic obstruction. Discussed with general surgery service. EMR reviewed. Patient seen and examined as well. Patient is an 80-year-old male who was admitted to the facility 08/05/2021 with abdominal discomfort nausea and emesis. He was found to have a recurrent large bowel obstruction. GI consultation was obtained. He underwent sigmoidoscopy which revealed a benign-appearing moderate stenosis in the sigmoid colon. General surgery was consulted. The patient agreed to surgical resection and he was taken to the OR today by Dr. Torres for bowel obstruction. He had atrial fibrillation preoperatively and was seen by cardiology. Due to his advanced age, he was brought to the ICU postoperatively. The patient is currently extubated. He is on nasal cannula. He is slightly tachycardic with heart rates of about 100. He is hemodynamically stable and on 2 L of oxygen. He is complaining of some mild discomfort in his lower abdomen. He has a pink ostomy in place. Allergies Allergy/AdvReac Type Severity Reaction Status Date / Time enalapril Allergy Unknown Cough Verified 08/05/21 12:57 simvastatin AdvReac Mild muscle Verified 08/05/21 12:57 weakness aspirin AdvReac Unknown GI UPSET Verified 08/05/21 12:57 IN HIGH DOSES atorvastatin AdvReac Unknown MUSCLE Verified 08/05/21 12:57 ACHES Qaewqmq-NDG-HaS Reductase AdvReac Unknown MUSCLE Verified 08/05/21 12:57 Inhibitor ACHES AND [Hkauete-Buq-Ltz Reductase WEAKNESS/DIARRHEA Inhibitor] Home Medications Medication Instructions Recorded Confirmed Type omeprazole 20 mg capsule,delayed 20 mg PO QAM 10/26/19 08/04/21 History release sertraline 100 mg tablet 100 mg PO DAILY 10/26/19 08/04/21 History aspirin 81 mg tablet,delayed 81 mg PO AMPM 11/10/20 08/04/21 History release (Aspirin Low Dose) melatonin 10 mg tablet 10 mg PO HS 11/10/20 08/04/21 History ropinirole 1 mg tablet 1 mg PO HS 11/10/20 08/04/21 History tamsulosin 0.4 mg capsule 0.4 mg PO DAILY 11/10/20 08/04/21 History albuterol sulfate 90 mcg/actuation 2 puff INHALATION Q4 PRN 08/04/21 08/04/21 History aerosol inhaler (ProAir HFA) amoxicillin 500 mg capsule 2,000 mg PO ONCE PRN 08/04/21 08/04/21 History apixaban 5 mg tablet (Eliquis) 5 mg PO BID 08/04/21 08/04/21 History cholecalciferol (vitamin D3) 25 25 mcg PO DAILY 08/04/21 08/04/21 History mcg (1,000 unit) tablet (Vitamin D3) docusate sodium 100 mg capsule 100 mg PO BID 08/04/21 08/04/21 History furosemide 20 mg tablet See Rx Instructions .ROUTE .COMPLEX 08/04/21 08/04/21 History metoprolol succinate 50 mg 50 mg PO DAILY 08/04/21 08/04/21 History tablet,extended release 24 hr polyethylene glycol 3350 17 gram 17 g PO DAILY 08/04/21 08/04/21 History oral powder packet (Miralax) spironolactone 25 mg tablet 25 mg PO DAILY 08/04/21 08/04/21 History Patient History Medical History Family hx of colon cancer Fusion of spine Surgical History History of carpal tunnel release 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 History of laminectomy History of prostatectomy History of total knee replacement Social History Smoking Status: Former smoker Second Hand Exposure: No; Do You Dip or Chew Tobacco: No; Tobacco Cessation Education Requested by Patient: No Hx Alcohol Use: Yes Alcohol type: hard liquor Hx Substance Use: No Preferred Language: Kazakh Communication Ability: Effective 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 How many Children do You have: 3 Other Information That Helps Us Care for You: No Feels Safe at Home: Yes Safety Concerns: Feels Safe At This Time Assistive Devices: Denture - Upper, Denture - Lower and Glasses Review of Systems Review of Systems: All systems reviewed & are unremarkable except as noted in Subjective Physical Exam Constitutional: WD/WN, vitals as above Eyes: PERRL, conjunctivae normal, anicteric sclerae Neck: trachea midline, no thyromegaly Respiratory: normal respiratory effort, lungs clear to auscultation Cardiovascular: Rate/Rhythm: + tachycardic and + irregularly irregular Heart Sounds: normal S1, normal S2 and + murmur Extremities: no edema Gastrointestinal (Abdomen): Intermittent tinkling sounds, abd is soft but moderately distended, mild-moderate TTP diffusely but not focally. No rebound or guarding Skin: no rashes, warm and dry Psychiatric: A+Ox3, euthymic affect Results & Data Results & Data ([facility]) Vital Signs (Past 12 Hours) Vital Signs Temp Pulse Pulse Pulse Pulse Pulse Resp 08/08/21 11:45 100 H 15 08/08/21 11:35 97 H 17 08/08/21 11:25 36.3 C L 96 H 16 08/08/21 11:15 97 H 16 08/08/21 11:05 93 H 20 08/08/21 10:55 92 H 18 08/08/21 10:49 36.3 C L 87 14 08/08/21 07:51 36.4 C L 84 20 08/08/21 07:38 36.3 C L 88 20 08/08/21 06:02 108 H 08/08/21 02:36 36.5 C 87 18 BP BP Pulse Ox 08/08/21 11:45 122/75 93 08/08/21 11:35 133/73 93 08/08/21 11:25 120/73 93 08/08/21 11:15 122/70 97 08/08/21 11:05 131/78 97 08/08/21 10:55 136/75 97 08/08/21 10:49 152/77 H 96 08/08/21 07:51 130/80 97 08/08/21 07:38 133/85 94 08/08/21 06:02 131/83 08/08/21 02:36 119/57 L 94 Critical Care Results & Data Vital Signs (Past 12 Hours) Vital Signs Temp Pulse Pulse Pulse Pulse Pulse Resp 08/08/21 11:45 100 H 15 08/08/21 11:35 97 H 17 08/08/21 11:25 36.3 C L 96 H 16 08/08/21 11:15 97 H 16 08/08/21 11:05 93 H 20 08/08/21 10:55 92 H 18 08/08/21 10:49 36.3 C L 87 14 08/08/21 07:51 36.4 C L 84 20 08/08/21 07:38 36.3 C L 88 20 08/08/21 06:02 108 H 08/08/21 02:36 36.5 C 87 18 BP BP Pulse Ox 08/08/21 11:45 122/75 93 08/08/21 11:35 133/73 93 08/08/21 11:25 120/73 93 08/08/21 11:15 122/70 97 08/08/21 11:05 131/78 97 08/08/21 10:55 136/75 97 08/08/21 10:49 152/77 H 96 08/08/21 07:51 130/80 97 08/08/21 07:38 133/85 94 08/08/21 06:02 131/83 08/08/21 02:36 119/57 L 94 Lab & Micro Results (Past 24 Hours) RBC 4.67 M/uL (4.7-6.1) L 08/08/21 WBC 8.13 K/uL (4.8-10.8) 08/08/21 Hgb 14.0 g/dL (14.0-18.0) 08/08/21 Hct 41.5 % (42-52) L 08/08/21 MCV 88.9 fL (80-100) 08/08/21 MCH 30.0 pg (25-34) 08/08/21 MCHC 33.7 g/dL (32-36) 08/08/21 RDW Standard Deviation 49.5 fL (36.4-46.3) H 08/08/21 RDW Coefficient of Variation 15.3 % (11.5-14.5) H 08/08/21 Plt Count 305 K/uL (130-400) 08/08/21 MPV 9.6 fL (7.4-10.4) 08/08/21 Neutrophils (%) (Auto) 49.9 % 08/08/21 Lymphocytes (%) (Auto) 30.4 % 08/08/21 Monocytes # (Auto) 1.42 K/uL (0.11-0.59) H 08/08/21 Eosinophils # (Auto) 0.04 K/uL (0-0.5) 08/08/21 Immature Granulocyte % (Auto) 1.5 % 08/08/21 Neutrophils # (Auto) 4.06 K/uL (1.4-6.5) 08/08/21 Lymphocytes # (Auto) 2.47 K/uL (1.2-3.4) 08/08/21 Monocytes # (Auto) 1.42 K/uL (0.11-0.59) H 08/08/21 Eosinophils # (Auto) 0.04 K/uL (0-0.5) 08/08/21 Basophils # (Auto) 0.02 K/uL (0-0.2) 08/08/21 Immature Granulocyte # (Auto) 0.12 K/uL (0.00-0.02) H 08/08/21 Na 134 mmol/L (136-145) L 08/08/21 K 4.4 mmol/L (3.5-5.1) 08/08/21 Cl 110 mmol/L (98-107) H 08/08/21 CO2 16 mmol/L (21-32) L 08/08/21 Anion Gap 8 (3-11) 08/08/21 BUN 50 mg/dl (6-23) H 08/08/21 Creatinine 0.78 mg/dl (0.6-1.4) 08/08/21 Estimated GFR ( Amer) 98.1 ml/min 08/08/21 Estimated GFR (Non-Af Amer) 84.7 ml/min 08/08/21 BUN/Creatinine Ratio 64.1 (10-20) H 08/08/21 Glu 131 mg/dl (70-99(Fasting)) H 08/08/21 Ca 7.6 mg/dl (8.5-10.1) L 08/08/21 Phosphorus Level 3.0 mg/dl (2.5-4.9) 08/08/21 Total Bilirubin 0.4 mg/dl (0.2-1.0) 08/08/21 AST 8 U/L (13-39) L 08/08/21 ALT 6 U/L (7-52) L 08/08/21 Alkaline Phosphatase 25 U/L (34-104) L 08/08/21 TP 4.9 gm/dl (6.0-8.3) L 08/08/21 Albumin 2.9 gm/dl (3.4-5.0) L 08/08/21 Globulin 2.0 gm/dl (2.5-4.0) L 08/08/21 Albumin/Globulin Ratio 1.5 (0.9-2) 08/08/21 Mg 2.1 mg/dl (1.7-2.4) 08/08/21 03:12 08/08/21 Calcium Level 7.6 mg/dl (8.5-10.1) L 08/08/21 03:12 08/08/21 Prothromb Time International Ratio 1.1 (0.9-1.1) 08/08/21 03:12 08/08/21 I & O Totals 24 Hours 08/07/21 08/08/21 08/09/21 06:59 06:59 06:59 Intake Total 2552.833 / 2552.833 3307.36 / 3307.36 1765 / 1765 Output Total 2600 / 2600 2250 / 2250 460 / 460 Balance -47.167 / -47.167 1057.36 / 1057.36 1305 / 1305 Cumulative 08/04/21 21:29 thru 08/08/21 11:35 Intake Total 26097.693 Output Total 7611 Balance 3579.693 RT Ventilator Mngmt (Last Documented) Ventilator Ordered Settings Respiratory Rate 15 08/08/21 11:45 Ventilator - PT Measurements Respiratory Rate 15 Coding Level of Care Code 83726 Inpt Consult Level 4 Diagnoses Colon obstruction K56.609 Atrial flutter, paroxysmal I48.92 Asthma J45.909 Esophageal reflux K21.9
[2021-08-08] MEDS ORDERED: PHENYLEPHRINE 100MCG/ML 5ML SYR ONE (12:55)
[2021-08-08 13:24] LABS: Base Excess VBG -5.9 mEq/L; pH VBG 7.38 (7.36-7.41)
--- NOTE | 2021-08-08 13:30 | Pharmacy Report ---
PHA: Parenteral Nutrition Con - Date of Service August 08, 2021 - Scope Pharmacy was consulted on 08/05 to manage parenteral nutrition orders for this patient. - Subjective The patient is currently on day [#4] of [peripheral] parenteral nutrition - Objective Height: 5 ft 8 in Weight: 80.7 kg Diet: NPO Intake & Output (24hrs):: Intake & Output 08/06/21 08/07/21 08/08/21 08/09/21 06:59 06:59 06:59 06:59 Intake Total 1445.5 / 1445.5 2552.833 / 2552.833 3307.36 / 3307.36 1765 / 1765 Output Total 2301 / 2301 2600 / 2600 2250 / 2250 460 / 460 Balance -855.5 / -855.5 -47.167 / -47.167 1057.36 / 1057.36 1305 / 1305 Weight 79 kg 80.7 kg 80.7 kg Laboratory Data (Last 24 Hr):: 08/07/21 08/07/21 08/08/21 14:35 16:15 03:12 Sodium 134 L Potassium 4.4 D Chloride 110 H Carbon Dioxide 16 L BUN 50 H Creatinine 0.78 Glucose 131 H Calcium 7.6 L Phosphorus 2.0 L 2.0 L 3.0 D Magnesium 2.2 2.1 Total Bilirubin 0.4 AST 8 L ALT 6 L Alkaline Phosphatase 25 L Albumin 2.9 L Triglycerides 08/08/21 11:21 Sodium Potassium Chloride Carbon Dioxide BUN Creatinine Glucose Calcium Phosphorus Magnesium Total Bilirubin AST ALT Alkaline Phosphatase Albumin Triglycerides 184 H Nutrition Assessment:: Please refer to the Notes section of the EMR for the most recent civil service clerk note. - Plan Patient s/p OR today for bowel obstruction, today is day 4 of PPN. Per surgery anticipate trialing clears tomorrow and possibly 1-2 more days of PPN thereafter. Therefore, no plans for central access at this time. Provider wanting to limit fluids to approximately 80 ml/hr with PPN. * Na trending down today - plan to increase in PPN closer to 1/2 NS * K trending up - will scale back from 50 meq to 30 meq in bag * Ca low - increased today Macronutrients Amino acids 77 grams/day Dextrose 90 grams/day Lipids 50 grams/day Micronutrients Sodium chloride 40 mEq Sodium acetate 100 mEq Potassium phosphate 21 mMol Magnesium sulfate 4.06 mEq Calcium gluconate 9.3 mEq Multivitamins 10 mL Trace Elements 1 mL Additional additives: thiamine Total volume 1906 mL to be infused over 24 hrs will provide 1112 kcal/day Final osmolarity 881 mOsm/L (maximum for PPN is 900 mOsm/L) Labs, as indicated, will be ordered per protocol Pharmacy will continue to follow and adjust parenteral nutrition orders on a daily basis. Thank you for allowing us to participate in the care of this patient.
--- NOTE | 2021-08-08 15:05 | Hospitalist Progress Note ---
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 SCDs while anticoagulation on hold in anticipation of procedu re. Full code ROS-No Headache, No Visual Changes, No Nausea, No Vomiting, No Fever, No Chills, No Neck Pain or Stiffness, No Chest Pain, No Palpitations, No SOB, No ABBOTT, No Cough, No Sputum, No Wheezing, less Abdominal Pain, No Diarrhea, No Hematemesis, No Hemoptysis, No Unexpected Weight Loss, No Flank pain, No Melena, No Hematochezia, No Frequency, No Urgency, No Burning, No Hematuria, No Rashes, No Diaphoresis. Appetite is low Physical Exam Gen-AAO x 3, NAD, Afebrile, +NGT Head-NCAT, EOMI, PERRLA, Anicteric Sclera, No Posterior Pharyngeal Erythema Neck-Supple, No JVD, No Thyromegaly, No Masses, No LAD, No Bruits Lungs-Clear to Auscultation Bilaterally, No Rales, No Rhonchi, No Wheezing, No Crepitus Chest-Irreg/Irreg, No S4, +S1, +S2, No S3, No Murmurs, No Rubs, No Gallops, + Ectopy Abdomen-Soft, Bowel Sounds Present, Tender, non Distended, No Hepatomegaly, +colostomy No Splenomegaly, No Palpable Masses, No Rebound, No Rigidity, No Guarding Musculoskeletal-Full Range of Motion Bilaterally, No CVAT Extremities-No Cyanosis, No Clubbing, No Edema Nuero-Cranial Nerves II-XII grossly intact, Motor WNL, DTRs WNL, Strength WNL, Non Focal Psych-Normal Mood Admission and Anticipated Discharge Date Admission Date: August 05, 2021 Subjective States he is feeling horrible,I saw him post op in the ICU, Alert and lucid Results & Data Results & Data ([facility]) Vital Signs (Past 12 Hours) Vital Signs Temp Pulse Pulse Pulse Pulse Resp BP 08/08/21 12:46 102 H 126/75 08/08/21 11:45 100 H 15 08/08/21 11:35 97 H 17 08/08/21 11:25 36.3 C L 96 H 16 08/08/21 11:15 97 H 16 08/08/21 11:05 93 H 20 08/08/21 10:55 92 H 18 08/08/21 10:49 36.3 C L 87 14 08/08/21 07:51 36.4 C L 84 20 08/08/21 07:38 36.3 C L 88 20 08/08/21 06:02 108 H 131/83 BP Pulse Ox 08/08/21 12:46 08/08/21 11:45 122/75 93 08/08/21 11:35 133/73 93 08/08/21 11:25 120/73 93 08/08/21 11:15 122/70 97 08/08/21 11:05 131/78 97 08/08/21 10:55 136/75 97 08/08/21 10:49 152/77 H 96 08/08/21 07:51 130/80 97 08/08/21 07:38 133/85 94 08/08/21 06:02
--- NOTE | 2021-08-08 15:20 | Operative Report (OR) ---
DATE OF OPERATION: 08/08/2021. NAME OF OPERATION: Laparotomy with sigmoid colectomy and end colostomy. PREOPERATIVE DIAGNOSIS: Sigmoid obstruction. POSTOPERATIVE DIAGNOSIS: Sigmoid obstruction. STAFF SURGEON: Reinaldo Torres MD. VALVE REPAIRER: Kathrine Rivera PA-C. ANESTHESIA: General. DESCRIPTION OF PROCEDURE: The patient was brought in the operating room and placed on the operating table in supine position. Chou catheter was placed. The rectal tube was removed. His abdomen was prepped and draped in the usual fashion. After appropriate anesthetic, a midline incision was made b elow the umbilicus. I did have to increase the size of the incision to just above the umbilicus. Th e patient had prior prostate surgery and had significant scar tissue. His abdominal wall was somewhat tense. Upon entering the abdominal cavity, it was obvious the proximal sigmoid colon was severely dilated. There was a mass-like lesion in the sigmoid colon, which was relatively large. The sigmoid and rectu m were mobilized. The rectum was transected using a DIXON 80 stapler and then the mesocolon slowly tra nsected and ligated using 2-0 silk suture, 0 chromic suture and the LigaSure. The sigmoid colon was transected using the DIXON 80 stapler. The specimen was removed and sent for pathology. It was marked with a silk suture proximal. The colon was dilated. I was unable to decompress the colon because of dense stool within the colon. It was brought out through the left abdominal wall for an end colostomy. It was secured to the fas nestor using 3-0 silk suture and 0 chromic suture and then to the skin using 2-0 chromic and 0 chromic s uture. The abdomen was irrigated with antibiotic solution. A 15 round Sagar-Ortiz drain placed in to the pelvis, secured to the skin using 3-0 nylon suture. The posterior fascia and peritoneum reapp roximated using #1 chromic suture and the anterior fascia reapproximated using running #1 PDS suture with 2 interrupted sutures. Sybil drain placed in the subcutaneous space, secured to the skin using 4-0 nylon suture. Skin loo sely reapproximated using becky. A couple of sutures were used at the umbilicus. The colostomy wa s opened. The patient did have copious stool and gas coming from the colon, it was severely dilated. It was not matured. Appliance placed, dressing applied. The patient was transferred to [facility] in stable condition to be admitted to the intensive care unit. My media assistant helped with prepping and draping, the colon resection and closure of the wounds. Job ID: [id number]
[2021-08-08] MEDS: HYDROmorphone INJ 0.5 MG/0.5 ML SYR IV PRN ×2 (15:58→21:54)
[2021-08-08] MEDS ORDERED: D5W IV SCH (16:00)
[2021-08-08] MEDS ORDERED: PERIPHERAL TPN IV SCH (16:00)
[2021-08-08] MEDS ORDERED: CLINOLIPID 20% IV FAT EMULSION 250 ML IV SCH (16:00)
[2021-08-08] MEDS ORDERED: AMINO ACIDS 4.25% IV SCH (16:00)
--- NOTE | 2021-08-08 18:09 | Cardiology Progress Note ---
Date of Service August 08, 2021 Assessment & Plan (1) Bowel obstruction: (2) Paroxysmal atrial fibrillation: (3) CAD (coronary artery disease): Plan: History of prior wall myocardial infarction, CABG performed in 2014. Mild aortic stenosis noted on echocardiogram, Oct, 2020. Patient now postoperative day 0, status post laparotomy with sigmoid colectomy and end colostomy. Continue IV metoprolol. Likely resume aspirin tomorrow. SCDs postoperatively for DVT prophylaxis, resume Eliquis postoperatively when deemed stable in terms of postoperative bleeding. Admission and Anticipated Discharge Date Admission Date: August 05, 2021 Subjective Patient seen in postoperative cardiology follow-up, in ICU room 107. Patient with NG tube in place. He is comfortable, and recovering from sedation well. Telemetry reveals sinus rhythm and sinus tachycardia, postoperative EKG reveals sinus tachycardia 114 bpm with 1 noted PVC, T wave inversion noted in lead V2, stable compared to preoperative EKG. Prior to going to the operating room this morning, sinus rhythm in the 70s noted with occasional PVCs. Physical Exam Physical Exam: Temp Pulse Resp BP Pulse Ox 36.5 C 117 H 18 137/75 99 08/08/21 16:32 08/08/21 16:30 08/08/21 16:30 08/08/21 16:00 08/08/21 16:30 Constitutional: + ill appearing Respiratory: normal respiratory effort, lungs clear to auscultation Cardiovascular: Rate/Rhythm: regular rate and regular rhythm Heart Sounds: + murmur (1/6 SM) Neurologic: PERRL, EOMI, accommodation nl, no face palsy, no dysarthria
[2021-08-08] MEDS: ICU ELECTROLYTE REPLACEMENT PROTOCOL SCH (18:50)
--- NOTE | 2021-08-08 21:29 | Electrocardiogram Report ---
Test Reason : Blood Pressure : / mmHG Vent. Rate : 114 BPM Atrial Rate : 114 BPM P-R Int : 164 ms QRS Dur : 078 ms QT Int : 318 ms P-R-T Axes : 015 -46 098 degrees QTc Int : 438 ms Sinus tachycardia with occasional Premature ventricular complexes Left axis deviation Possible Lateral infarct , age undetermined Inferior infarct (cited on or before 19-JAN-2015) Abnormal ECG When compared with ECG of 26-OCT-2019 14:09, Premature ventricular complexes are now Present Vent. rate has increased BY 42 BPM Nonspecific T wave abnormality no longer evident in Inferior leads T wave inversion less evident in Anterior leads Confirmed by Alden Aj ([id number]) on 08/08/2021 9:29:29 PM Referred By: REFERRED SELF Confirmed By:Alden Aj
[2021-08-08] MEDS ORDERED: STOP CLINOLIPID ONE (22:00)
--- NOTE | 2021-08-08 22:16 | Electrocardiogram Report ---
Test Reason : Blood Pressure : / mmHG Vent. Rate : 097 BPM Atrial Rate : 097 BPM P-R Int : 154 ms QRS Dur : 084 ms QT Int : 338 ms P-R-T Axes : 006 -47 093 degrees QTc Int : 429 ms Normal sinus rhythm Possible Left atrial enlargement Left axis deviation Inferior infarct (cited on or before 19-JAN-2015) Abnormal ECG When compared with ECG of 04-AUG-2021 21:52, No significant change was found Confirmed by Alden Aj ([id number]) on 08/08/2021 10:16:37 PM Referred By: REFERRED SELF Confirmed By:Alden Aj
[2021-08-09] MEDS: METOPROLOL TARTRATE 1 MG/ML VIAL IV SCH ×4 (00:13→20:33)
[2021-08-09] MEDS: INSULIN ASPART PER UNIT SC SCH ×5 (00:19→20:34)
[2021-08-09] MEDS: HYDROmorphone INJ 0.5 MG/0.5 ML SYR IV PRN ×4 (02:54→22:54)
[2021-08-09] MEDS: PIPERACILLIN/TAZOBACTAM 3.375 GM in DEXTROSE 5% 100 ML IV SCH ×3 (04:49→20:33)
[2021-08-09 05:07] LABS: Hematocrit (blood only) 34.6 % (42-52); Hemoglobin 11.3 g/dL (14.0-18.0); Mean Corpuscular Hemoglobin 29.2 pg (25-34); Mean Corpuscular Hgb Conc 32.7 g/dL (32-36); Mean Corpuscular Volume 89.4 fL (80-100); Mean Platelet Volume 9.5 fL (7.4-10.4); Nucleated RBC # (auto) 0.03 K/uL (0-0); Nucleated RBC % (auto) 0.3 %; Platelet Count 306 K/uL (130-400); RDW Coefficient of Variation 15.4 % (11.5-14.5); RDW Standard Deviation 49.9 fL (36.4-46.3); Red Blood Count 3.87 M/uL (4.7-6.1); White Blood Count 10.18 K/uL (4.8-10.8)
[2021-08-09 05:31] LABS: BUN Creatinine Ratio 44.4 (10-20); Calcium 7.5 mg/dl (8.5-10.1); Creatinine Clr Calc Pharmacy 68.3 ml/min; Est GFR (African American) 92.5 ml/min; Est GFR (Non-African American) 79.8 ml/min; Magnesium 1.9 mg/dl (1.7-2.4); Phosphorus 3.1 mg/dl (2.5-4.9); Potassium 4.1 mmol/L (3.5-5.1)
[2021-08-09 05:32] LABS: Albumin Globulin Ratio 1.5 (0.9-2); Albumin Level 2.7 gm/dl (3.4-5.0); BUN Creatinine Ratio 43.3 (10-20); Bilirubin,Total 0.5 mg/dl (0.2-1.0); Calcium 7.6 mg/dl (8.5-10.1); Creatinine Clr Calc Pharmacy 68.3 ml/min; Est GFR (African American) 92.5 ml/min; Est GFR (Non-African American) 79.8 ml/min; Globulin 1.8 gm/dl (2.5-4.0); Phosphorus 3.1 mg/dl (2.5-4.9); Potassium 4.1 mmol/L (3.5-5.1); Total Protein 4.5 gm/dl (6.0-8.3)
[2021-08-09 05:33] LABS: Basophils # (auto) 0.07 K/uL (0-0.2); Basophils % (auto) 0.7 %; Immature Granulocytes # (auto) 0.53 K/uL (0.00-0.02); Immature Granulocytes % (auto) 5.2 %; Lymphocytes # (auto) 3.07 K/uL (1.2-3.4); Lymphocytes % (auto) 30.2 %; Monocytes # (auto) 1.56 K/uL (0.11-0.59); Monocytes % (auto) 15.3 %; Neutrophils # (auto) 4.85 K/uL (1.4-6.5); Neutrophils % (auto) 47.6 %; Polychromasia 1+
[2021-08-09] MEDS: ICU ELECTROLYTE REPLACEMENT PROTOCOL SCH (06:03)
--- NOTE | 2021-08-09 06:14 | Surgery Progress Note ---
Date of Service August 09, 2021 Assessment & Plan (1) S/P partial colectomy: Plan: Patient status post resection of disease: End colostomy-colon proximal to the obstruction was severely distended and full of stool We will DC patient's NG tube and begin clear liquids Limit p.o. meds for now Continue PPN Continue antibiotics, Chou catheter, TK drain, subcutaneous Tamiment drain Admission and Anticipated Discharge Date Admission Date: August 05, 2021 Results & Data ([facility]) Vital Signs (Past 12 Hours) Vital Signs Temp Pulse Resp BP Pulse Ox 08/09/21 05:34 106 H 130/72 08/09/21 04:10 110 H 12 99 08/09/21 04:08 36.6 C 08/09/21 04:00 108 H 13 136/69 98 08/09/21 03:50 109 H 14 97 08/09/21 03:40 113 H 13 97 08/09/21 03:30 121 H 19 97 08/09/21 03:20 117 H 14 98 08/09/21 03:10 113 H 13 97 08/09/21 03:00 115 H 14 128/72 96 08/09/21 02:50 103 H 17 98 08/09/21 02:40 96 H 15 98 08/09/21 02:30 105 H 15 98 08/09/21 02:20 104 H 15 98 08/09/21 02:10 109 H 15 98 08/09/21 02:00 99 H 23 137/71 99 08/09/21 01:50 100 H 17 98 08/09/21 01:40 100 H 14 99 08/09/21 01:30 106 H 18 98 08/09/21 01:20 102 H 16 98 08/09/21 01:10 101 H 15 98 08/09/21 01:00 94 H 23 129/71 97 08/09/21 00:50 101 H 22 99 08/09/21 00:40 101 H 15 99 08/09/21 00:30 100 H 15 99 08/09/21 00:20 104 H 15 99 08/09/21 00:13 123 H 124/66 08/09/21 00:10 99 H 13 99 08/09/21 00:00 100 H 19 124/66 98 08/08/21 23:50 102 H 14 98 08/08/21 23:40 100 H 15 97 08/08/21 23:35 37.7 C H 08/08/21 23:30 99 H 17 98 08/08/21 23:25 36.3 C L 08/08/21 23:20 101 H 16 98 08/08/21 23:10 101 H 18 98 08/08/21 23:00 103 H 16 131/68 98 08/08/21 22:50 104 H 16 98 08/08/21 22:40 104 H 17 97 08/08/21 22:30 104 H 15 99 08/08/21 22:20 107 H 16 99 08/08/21 22:10 125 H 21 99 08/08/21 22:00 113 H 13 130/73 100 08/08/21 21:50 107 H 19 98 08/08/21 21:40 107 H 16 99 08/08/21 21:30 108 H 17 100 08/08/21 21:20 107 H 17 100 08/08/21 21:10 106 H 18 100 08/08/21 21:00 103 H 14 148/90 H 98 08/08/21 20:50 113 H 17 99 08/08/21 20:40 110 H 22 99 08/08/21 20:30 108 H 22 99 08/08/21 20:20 106 H 19 99 08/08/21 20:10 104 H 23 100 08/08/21 20:00 106 H 16 113/85 100 08/08/21 19:50 102 H 15 99 08/08/21 19:40 102 H 15 100 08/08/21 19:30 98 H 12 99 08/08/21 19:20 104 H 16 99 08/08/21 19:10 95 H 17 99 08/08/21 19:00 104 H 14 146/86 H 100 08/08/21 18:45 101 H 18 100 08/08/21 18:30 100 H 15 100 08/08/21 18:15 107 H 17 127/85 98 PG Care Time/CCT Total # of Minutes Spent Total Time Spent with Patient: Total time spent is greater than 50% in coordination of care (as documented) at patient's floor/unit and/or counseling patient: Coding Level of Care Code None Diagnoses S/P partial colectomy Z90.49
[2021-08-09] MEDS: MAGNESIUM SULFATE / D5W 1 GM/100 ML BAG IV SCH ×2 (06:21→07:39)
[2021-08-09] MEDS: HEPARIN SOD 5,000 UNIT/0.5 ML VIAL SQ SCH ×2 (08:32→20:39)
[2021-08-09] MEDS: PANTOprazole 40 MG in SYRINGE 0 ML IV SCH ×2 (08:32→21:31)
--- NOTE | 2021-08-09 11:04 | Hospitalist Progress Note ---
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 SCDs while anticoagulation on hold in anticipation of procedure. Full code ROS-No Headache, No Visual Changes, No Nausea, No Vomiting, No Fever, No Chills, No Neck Pain or Stiffness, No Chest Pain, No Palpitations, No SOB, No ABBOTT, No Cough, No Sputum, No Wheezing, less Abdominal Pain, No Diarrhea, No Hematemesis, No Hemoptysis, No Unexpected Weight Loss, No Flank pain, No Melena, No Hematochezia, No Frequency, No Urgency, No Burning, No Hematuria, No Rashes, No Diaphoresis. Appetite is low Physical Exam Gen-AAO x 3, NAD, Afebrile, +NGT Head-NCAT, EOMI, PERRLA, Anicteric Sclera, No Posterior Pharyngeal Erythema Neck-Supple, No JVD, No Thyromegaly, No Masses, No LAD, No Bruits Lungs-Clear to Auscultation Bilaterally, No Rales, No Rhonchi, No Wheezing, No Crepitus Chest-Irreg/Irreg, No S4, +S1, +S2, No S3, No Murmurs, No Rubs, No Gallops, + Ectopy Abdomen-Soft, Bowel Sounds Present, Tender, non Distended, No Hepatomegaly, +colostomy No Splenomegaly, No Palpable Masses, No Rebound, No Rigidity, No Guarding Musculoskeletal-Full Range of Motion Bilaterally, No CVAT Extremities-No Cyanosis, No Clubbing, No Edema Nuero-Cranial Nerves II-XII grossly intact, Motor WNL, DTRs WNL, Strength WNL, Non Focal Psych-Normal Mood Admission and Anticipated Discharge Date Admission Date: August 05, 2021 Subjective Patient seen, resting comfortably Results & Data Results & Data ([facility]) Vital Signs (Past 12 Hours) Vital Signs Temp Pulse Resp BP Pulse Ox 08/09/21 09:00 112 H 19 119/68 96 08/09/21 08:00 80 18 109/59 L 93 08/09/21 07:00 97 H 23 109/68 96 08/09/21 06:00 100 H 12 121/69 98 08/09/21 05:34 106 H 130/72 08/09/21 05:00 108 H 27 H 130/72 96 08/09/21 04:10 110 H 12 99 08/09/21 04:08 36.6 C 08/09/21 04:00 108 H 13 136/69 98 08/09/21 03:50 109 H 14 97 08/09/21 03:40 113 H 13 97 08/09/21 03:30 121 H 19 97 08/09/21 03:20 117 H 14 98 08/09/21 03:10 113 H 13 97 08/09/21 03:00 115 H 14 128/72 96 08/09/21 02:50 103 H 17 98 08/09/21 02:40 96 H 15 98 08/09/21 02:30 105 H 15 98 08/09/21 02:20 104 H 15 98 08/09/21 02:10 109 H 15 98 08/09/21 02:00 99 H 23 137/71 99 08/09/21 01:50 100 H 17 98 08/09/21 01:40 100 H 14 99 08/09/21 01:30 106 H 18 98 08/09/21 01:20 102 H 16 98 08/09/21 01:10 101 H 15 98 08/09/21 01:00 94 H 23 129/71 97 08/09/21 00:50 101 H 22 99 08/09/21 00:40 101 H 15 99 08/09/21 00:30 100 H 15 99 08/09/21 00:20 104 H 15 99 08/09/21 00:13 123 H 124/66 08/09/21 00:10 99 H 13 99 08/09/21 00:00 100 H 19 124/66 98 08/08/21 23:50 102 H 14 98 02/14/22 23:40 100 H 15 97 08/08/21 23:35 37.7 C H 08/08/21 23:30 99 H 17 98 08/08/21 23:25 36.3 C L 08/08/21 23:20 101 H 16 98 08/08/21 23:10 101 H 18 98 Laboratory Results Reviewed
[2021-08-09] MEDS ORDERED: METOPROLOL SUCC 50MG EXT REL TAB PO SCH (14:19)
[2021-08-09] MEDS ORDERED: ALBUTEROL HFA 8 GM INHALER INH PRN (14:19)
--- NOTE | 2021-08-09 14:28 | Cardiology Progress Note ---
Date of Service August 09, 2021 Assessment & Plan (1) Bowel obstruction: (2) Paroxysmal atrial fibrillation: (3) CAD (coronary artery disease): Plan: History of prior wall myocardial infarction, CABG performed in 2014. Mild aortic stenosis noted on echocardiogram, Oct, 2020. Patient now postoperative day 1, status post laparotomy with sigmoid colectomy and end colostomy. Resume oral metoprolol, oral aspirin. Hemoglobin stable. SCDs postoperatively for DVT prophylaxis, resume Eliquis postoperatively when deemed stable in terms of postoperative bleeding. Admission and Anticipated Discharge Date Admission Date: August 05, 2021 Subjective Mr Casey was seen in cardiology follow-up this morning in ICU room 107. Sinus rhythm and sinus tachycardia with occasional PVCs noted overnight. Blood pressure stable. Pain relatively controlled. Nasogastric tube remains in place. Physical Exam Physical Exam: Temp Pulse Resp BP Pulse Ox 36.6 C 88 18 127/56 L 100 08/09/21 04:08 08/09/21 13:30 08/09/21 13:30 08/09/21 13:00 08/09/21 13:30 Constitutional: + ill appearing Respiratory: normal respiratory effort, lungs clear to auscultation Cardiovascular: Rate/Rhythm: regular rate and regular rhythm Heart Sounds: + murmur (1/6 SM) Neurologic: PERRL, EOMI, accommodation nl, no face palsy, no dysarthria Results & Data ([facility]) Laboratory Results Cardiac Enzymes 08/09/21 Range/Units 04:37 AST 9 L (13-39) U/L CBC 08/09/21 Range/Units 04:37 WBC 10.18 (4.8-10.8) K/uL RBC 3.87 L (4.7-6.1) M/uL Hgb 11.3 L (14.0-18.0) g/dL Hct 34.6 L (42-52) % Plt Count 306 (130-400) K/uL Neut # (Auto) 4.85 (1.4-6.5) K/uL Lymph # (Auto) 3.07 (1.2-3.4) K/uL [place] # (Auto) 1.56 H (0.11-0.59) K/uL Eos # (Auto) 0.10 (0-0.5) K/uL Baso # (Auto) 0.07 (0-0.2) K/uL Comprehensive Metabolic Panel 08/09/21 08/09/21 Range/Units 04:37 04:37 Sodium 137 138 (136-145) mmol/L Potassium 4.1 4.1 (3.5-5.1) mmol/L Chloride 111 H 111 H (98-107) mmol/L Carbon Dioxide 21 21 (21-32) mmol/L BUN 39 H 40 H (6-23) mg/dl Creatinine 0.90 0.90 (0.6-1.4) mg/dl Glucose 145 H 145 H (70-99(Fasting)) mg/dl Calcium 7.6 L 7.5 L (8.5-10.1) mg/dl AST 9 L (13-39) U/L ALT 8 (7-52) U/L Alkaline Phosphatase 23 L (34-104) U/L Total Protein 4.5 L (6.0-8.3) gm/dl Albumin 2.7 L (3.4-5.0) gm/dl Intake and Output 08/08/21 08/09/21 08/09/21 22:59 06:59 14:59 Intake Total 115 / 3752.32 362.32 / 3752.32 380 / 380 Output Total 300 / 1730 720 / 1730 550 / 550 Balance -185 / 2021.32 -357.68 / 2021.32 -170 / -170 Intake: IV 115 / 2102.32 362.32 / 2102.32 280 / 280 Clinolipid 20% IV Fat Emulsion 250 / 250 250 ml @ 41.667 mls/hr IV .Q6H LISA Rx#:[id number] Magnesium Sulfate / D5w 1 gm In 165 / 165 100 ml @ 50 mls/hr IV Q2H LISA Rx#:[id number] Piperacillin/Tazobactam 3.375 115 / 342.32 112.32 / 342.32 115 / 115 gm In Dextrose 5% 100 ml @ 28. 75 mls/hr IV Q8H LISA Rx#: [id number] Oral 100 / 100 Output: Stool 100 / 100 Urine Amount (Catheter) 250 / 1600 700 / 1600 450 / 450 Chou/Indwelling 250 / 1600 700 / 1600 450 / 450 Drain Output 50 / 110 20 / 110 TK 50 / 110 20 / 110 Other: Weight 85 kg Weight Measurement Method Built in Bedscale Diagnostic Findings Postoperative EKG performed 08/08/2020, 1554 and reviewed independently :Sinus tachycardia 114 bpm, with 1 PVC. T wave inversion noted in lead V2, unchanged compared to previous baseline.
[2021-08-09] MEDS ORDERED: AMINO ACIDS 4.25% IV SCH (16:00)
[2021-08-09] MEDS ORDERED: PERIPHERAL TPN IV SCH (16:00)
[2021-08-09] MEDS ORDERED: D5W IV SCH (16:00)
[2021-08-09] MEDS ORDERED: CLINOLIPID 20% IV FAT EMULSION 250 ML IV SCH (16:00)
[2021-08-09] MEDS ORDERED: METOPROLOL TARTRATE 1 MG/ML VIAL IV STA (17:41)
[2021-08-09] MEDS ORDERED: METOPROLOL TARTRATE 1 MG/ML VIAL IV ONE (17:47)
[2021-08-09] MEDS ORDERED: STOP CLINOLIPID ONE (22:00)
[2021-08-09] MEDS ORDERED: dilTIAZem HCl 5 MG/ML 5 ML VIAL IV STA (23:35)
[2021-08-10 00:10] LABS: Hematocrit (blood only) 32.2 % (42-52); Hemoglobin 10.4 g/dL (14.0-18.0); Mean Corpuscular Hemoglobin 29.3 pg (25-34); Mean Corpuscular Hgb Conc 32.3 g/dL (32-36); Mean Corpuscular Volume 90.7 fL (80-100); Mean Platelet Volume 9.6 fL (7.4-10.4); Nucleated RBC # (auto) 0.04 K/uL (0-0); Nucleated RBC % (auto) 0.4 %; Platelet Count 306 K/uL (130-400); RDW Coefficient of Variation 15.4 % (11.5-14.5); Red Blood Count 3.55 M/uL (4.7-6.1); White Blood Count 10.87 K/uL (4.8-10.8)
[2021-08-10 00:15] LABS: BUN Creatinine Ratio 33.3 (10-20); Calcium 7.8 mg/dl (8.5-10.1); Creatinine Clr Calc Pharmacy 73.2 ml/min; Est GFR (African American) 95.2 ml/min; Est GFR (Non-African American) 82.1 ml/min; Phosphorus 2.3 mg/dl (2.5-4.9); Potassium 3.5 mmol/L (3.5-5.1)
[2021-08-10 01:08] LABS: Basophils # (auto) 0.06 K/uL (0-0.2); Basophils % (auto) 0.6 %; Eosinophils # (auto) 0.12 K/uL (0-0.5); Eosinophils % (auto) 1.1 %; Immature Granulocytes # (auto) 0.72 K/uL (0.00-0.02); Immature Granulocytes % (auto) 6.6 %; Lymphocytes # (auto) 3.11 K/uL (1.2-3.4); Lymphocytes % (auto) 28.6 %; Monocytes # (auto) 1.96 K/uL (0.11-0.59); Neutrophils % (auto) 45.1 %; Polychromasia 1+
[2021-08-10] MEDS: PIPERACILLIN/TAZOBACTAM 3.375 GM in DEXTROSE 5% 100 ML IV SCH ×3 (04:17→20:37)
--- NOTE | 2021-08-10 07:41 | Surgery Progress Note ---
Date of Service August 10, 2021 Assessment & Plan (1) S/P partial colectomy: Plan: No acute events We will try to advance him to full liquids Continue PPN for now-depending on progress with diet Needs PT-very weak May begin Eliquis from surgical standpoint and DC subcu heparin Continue IV antibiotics for now-my concern is he had an element of colitis from his severe obstruction Which may have been the reason for his high blood white blood cell count on admission Will likely need extended care-rehab or other Admission and Anticipated Discharge Date Admission Date: August 05, 2021 Results & Data ([facility]) Vital Signs (Past 12 Hours) Vital Signs Temp Pulse Pulse Resp BP BP Pulse Ox 08/10/21 07:18 37.6 C H 71 18 110/65 94 08/10/21 03:05 36.8 C 101 H 20 99/56 L 92 08/09/21 23:22 36.8 C 126 H 20 116/85 92 08/09/21 23:15 37.2 C 117 H 20 106/71 97 08/09/21 22:30 122 H 08/09/21 20:33 74 115/67 PG Care Time/CCT Total # of Minutes Spent Total Time Spent with Patient: Total time spent is greater than 50% in coordination of care (as documented) at patient's floor/unit and/or counseling patient: Coding Level of Care Code None Diagnoses S/P partial colectomy Z90.49
[2021-08-10] MEDS: ASPIRIN 81 MG ECTAB PO SCH (08:00)
[2021-08-10] MEDS: PANTOprazole 40 MG in SYRINGE 0 ML IV SCH ×2 (08:00→20:34)
[2021-08-10] MEDS: METOPROLOL TARTRATE 1 MG/ML VIAL IV SCH ×4 (08:02→20:35)
[2021-08-10] MEDS: INSULIN ASPART PER UNIT SC SCH ×4 (08:09→20:31)
[2021-08-10] MEDS: APIXABAN 5 MG TABLET PO SCH ×2 (09:22→20:34)
[2021-08-10] MEDS: HYDROmorphone INJ 0.5 MG/0.5 ML SYR IV PRN (11:20)
[2021-08-10] MEDS: PROMETHAZINE HCL 12.5 MG in SODIUM CHLORIDE 0.9% 50 ML IV PRN (11:53)
--- NOTE | 2021-08-10 12:15 | Hospitalist Progress Note ---
Date of Service August 10, 2021 Assessment & Plan (1) Bowel obstruction: Plan: Large bowel obstruction: Recurrent issue secondary to persistent sigmoid lesion 08/08 s/p Sigmoid Colectomy End Colostomy - Surgeon Reinaldo Torres MD, FACS -- (+) colostomy outpatient advance to full liquids may restart Eliquis as per Dr. 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 - on Eliquis Full code Disposition patient prefers to return home with home health service upon discharge lives with [place] PT/OT plan of care discussed with patient in detail and at length all questions answered he is understanding, agreeable, comfortable with the plan of care Admission and Anticipated Discharge Date Admission Date: August 05, 2021 Subjective ff up for large bowel obstruction, s/p colectomy, colostomy placement, etc seen resting in bed, sitting up comfortable somewhat weak but alert, oriented x 3, answer all questions appropriately states he feels fine overall, just weak no abdominal pain, nausea, fever/chill no chest pain, dyspnea, palpitations, dizziness a fib on tele no other symptoms as per patient Review of Systems Review of Systems: all noted and negative except for above Physical Exam Physical Exam: General- oriented x 3, not in distress, speaks in sentences with no effort or accessory muscle use Head- atraumatic Eyes- PERRL, EOMI, anicteric ENT- oropharynx clear Neck- supple, no JVD, no adenopathy, no thyromegaly; carotids +2/2, no bruits appreciated Lungs- clear to auscultation bilaterally, no rales/wheezes Heart- normal rate, irregularly irregular rhythm; no murmur, no gallop, no rub appreciated Abdomen- normal bowel sounds, nondistended, soft, nontender, no masses or hepatosplenomegaly dressing in place- no bleeding, discharge colostomy- no bleeding, discharge; (+) liquid, greenish stool Extremities- no pretibial edema, no calf tenderness; peripheral pulses intact Neuro- alert, oriented x 3; CN 2-12 grossly intact; motor 5/5 bilaterally;sensation 100% on all extremities; no other gross focal neurologic deficits Skin- warm & dry Results & Data Results & Data ([facility]) Vital Signs (Past 12 Hours) Vital Signs Temp Pulse Pulse Resp BP BP Pulse Ox 08/10/21 11:08 36.4 C L 76 18 99/61 L 100 08/10/21 08:02 77 102/62 08/10/21 07:18 37.6 C H 71 18 110/65 94 08/10/21 03:05 36.8 C 101 H 20 99/56 L 92 all noted and reviewed including below
--- NOTE | 2021-08-10 14:00 | Electrocardiogram Report ---
Test Reason : Blood Pressure : / mmHG Vent. Rate : 131 BPM Atrial Rate : 147 BPM P-R Int : 000 ms QRS Dur : 088 ms QT Int : 320 ms P-R-T Axes : 000 -43 091 degrees QTc Int : 472 ms Atrial flutter with variable A-V block Left axis deviation Inferior infarct (cited on or before 19-JAN-2015) Abnormal ECG When compared with ECG of 07-AUG-2021 09:32, Atrial flutter has replaced Sinus rhythm T wave inversion less evident in Anterior leads Confirmed by Alden Aj ([id number]) on 08/10/2021 2:00:34 PM Referred By: REFERRED SELF Confirmed By:Alden Aj
--- NOTE | 2021-08-10 18:09 | Cardiology Progress Note ---
Date of Service August 10, 2021 Assessment & Plan (1) Bowel obstruction: (2) Paroxysmal atrial fibrillation: (3) CAD (coronary artery disease): Plan: History of prior wall myocardial infarction, CABG performed in 2014. Mild aortic stenosis noted on echocardiogram, Oct, 2020. Patient now postoperative day 2, status post laparotomy with sigmoid colectomy and end colostomy. Patient transitioned back to IV metoprolol on 08/09/2021, was concerned that perhaps the oral was not being absorbed well, as his tachycardia/atrial fibrillation seem to be worse after the IV metoprolol was discontinued. Hemoglobin stable. Eliquis reinitiated earlier today. Admission and Anticipated Discharge Date Admission Date: August 05, 2021 Subjective Patient with additional episodes of paroxysmal atrial fibrillation. During an episode of atrial fibrillation with ventricular rate in the rate of 80s to 90s, a 3-second asymptomatic pause was observed this morning at 8:39 AM. Physical Exam Constitutional: + ill appearing Respiratory: normal respiratory effort, lungs clear to auscultation Cardiovascular: Rate/Rhythm: regular rate and regular rhythm Heart Sounds: + murmur (1/6 SM) Neurologic: PERRL, EOMI, accommodation nl, no face palsy, no dysarthria Results & Data ([place]) Vital Signs (Past 12 Hours) Vital Signs Temp Pulse Pulse Pulse Resp BP BP 08/10/21 16:08 87 08/10/21 14:42 36.9 C 94 H 20 106/64 08/10/21 13:51 99 H 102/65 08/10/21 13:48 99 H 102/65 08/10/21 11:08 36.4 C L 76 18 99/61 L 08/10/21 08:02 77 102/62 08/10/21 08:00 91 H 08/10/21 07:18 37.6 C H 71 18 110/65 Pulse Ox 08/10/21 16:08 08/10/21 14:42 96 08/10/21 13:51 08/10/21 13:48 08/10/21 11:08 100 08/10/21 08:02 08/10/21 08:00 08/10/21 07:18 94 Laboratory Results Hemoglobin 10.4, potassium 3.5, phosphorus 2.3
[2021-08-11] MEDS: PIPERACILLIN/TAZOBACTAM 3.375 GM in DEXTROSE 5% 100 ML IV SCH ×3 (03:58→20:00)
[2021-08-11 08:02] LABS: Basophils # (auto) 0.02 K/uL (0-0.2); Basophils % (auto) 0.2 %; Eosinophils # (auto) 0.13 K/uL (0-0.5); Eosinophils % (auto) 1.1 %; Hematocrit (blood only) 26.7 % (42-52); Hemoglobin 8.9 g/dL (14.0-18.0); Immature Granulocytes # (auto) 0.37 K/uL (0.00-0.02); Immature Granulocytes % (auto) 3.2 %; Lymphocytes # (auto) 2.41 K/uL (1.2-3.4); Mean Corpuscular Hemoglobin 29.9 pg (25-34); Mean Corpuscular Hgb Conc 33.3 g/dL (32-36); Mean Corpuscular Volume 89.6 fL (80-100); Mean Platelet Volume 9.1 fL (7.4-10.4); Monocytes # (auto) 1.39 K/uL (0.11-0.59); Monocytes % (auto) 12.1 %; Neutrophils # (auto) 7.15 K/uL (1.4-6.5); Neutrophils % (auto) 62.4 %; Platelet Count 301 K/uL (130-400); RDW Coefficient of Variation 15.2 % (11.5-14.5); RDW Standard Deviation 49.5 fL (36.4-46.3); Red Blood Count 2.98 M/uL (4.7-6.1); White Blood Count 11.47 K/uL (4.8-10.8)
--- NOTE | 2021-08-11 08:16 | Surgery Progress Note ---
Date of Service August 11, 2021 Assessment & Plan (1) S/P partial colectomy: Plan: POD#3 open sigmoid colon resection with end colostomy WBC 11 (10.8). Hbg 8.9 (10.4) will monitor as pt back on eliquis VSS. Tmax 37.7 at 10:30pm last night Pt tolerating small amounts of full liquid diet. Abd pain controlled, no n/v. There is + stool in ostomy bag. Will trial advancing to low fiber today. PPN was stopped Discussed with RN about changing ostomy appliance as it appears it may be leaking some towards midline Continue IV zosyn Continue to work with PT/OT, currently recommending rehab but patient would like to try to progress towards home if able Admission and Anticipated Discharge Date Admission Date: August 05, 2021 Supervising Physician Co-Signing Physician Notes abd stable- good stoma function H/H down some- likely combo- Surg, chr disease, IV fluids could be GI component- colitis from chr stasis monitor regular diet IV atbx for now will need rehab/ extended care Subjective Patient says he did not sleep well last night. Otherwise abdominal pain is controlled, denies nausea/vomiting. He is tolerating small amounts of full liquid diet. Worked with PT/OT yesterday. Physical Exam Physical Exam: awake/alert, lying in bed eating bfast Respiratory: normal respiratory effort Gastrointestinal (Abdomen): Inspection/Auscultation: + abdominal surgical incision (midline becky w/ alec drain, scant drainage) Percussion/Palpation: + abdomen tender (mild sarahi incisional discomfort to palpation) and abdomen soft + ostomy in LLQ with + stool in bag Results & Data ([facility]) Vital Signs (Past 12 Hours) Vital Signs Temp Pulse Pulse Resp BP BP Pulse Ox 08/11/21 07:11 36.3 C L 83 18 117/66 92 08/11/21 03:18 37.3 C 86 18 101/50 L 95 08/11/21 01:02 83 08/10/21 22:31 37.7 C H 86 18 94/58 L 93 08/10/21 20:35 87 107/58 L PG Care Time/CCT Total # of Minutes Spent Total Time Spent with Patient: Total time spent is greater than 50% in coordination of care (as documented) at patient's floor/unit and/or counseling patient: Coding Level of Care Code None Diagnoses S/P partial colectomy Z90.49
[2021-08-11 08:28] LABS: BUN Creatinine Ratio 17.5 (10-20); Calcium 7.7 mg/dl (8.5-10.1); Creatinine Clr Calc Pharmacy 76.2 ml/min; Est GFR (African American) 97.1 ml/min; Est GFR (Non-African American) 83.8 ml/min; Potassium 3.5 mmol/L (3.5-5.1)
[2021-08-11] MEDS: INSULIN ASPART PER UNIT SC SCH ×4 (08:30→20:07)
[2021-08-11] MEDS: METOPROLOL TARTRATE 1 MG/ML VIAL IV SCH ×3 (09:56→17:17)
[2021-08-11] MEDS: PANTOprazole 40 MG in SYRINGE 0 ML IV SCH ×2 (09:57→20:06)
[2021-08-11] MEDS: APIXABAN 5 MG TABLET PO SCH ×2 (09:58→20:06)
[2021-08-11] MEDS: ASPIRIN 81 MG ECTAB PO SCH (09:58)
--- NOTE | 2021-08-11 17:17 | Hospitalist Progress Note ---
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 - on Eliquis Full code Disposition patient prefers to return home with home health service upon discharge lives with [place] PT/OT plan of care discussed with patient in detail and at length all questions answered he is understanding, agreeable, comfortable with the plan of care Admission and Anticipated Discharge Date Admission Date: August 05, 2021 Subjective ff up for bowel obstruction, etc seen resting in bed, comfortable brighter states he feels fine overall able to ambulate in the room with PT no abdominal pain ,nausea tolerating soft diet so far no chest pain, dyspnea, palpitations, dizziness no other symptoms Review of Systems Review of Systems: all noted and negative except for above Physical Exam Physical Exam: General- oriented x 2, not in distress, speaks in sentences with no effort or accessory muscle use Eyes- anicteric Neck- no JVD Lungs- clear breath sounds bilaterally, no rales/wheezes Heart- normal rate, regular rhythm; no murmurs Abdomen- normal bowel sounds, nondistended, soft, nontender dressing in place: no bleeding, dc colostomy bag in place: liquid brown output Extremities- no pretibial edema, no calf tenderness Neuro- alert, oriented x 3; no gross focal neurologic deficits Skin- warm & dry Results & Data Results & Data ([facility]) Vital Signs (Past 12 Hours) Vital Signs Temp Pulse Pulse Pulse Resp BP BP 08/11/21 16:00 37 C 96 H 84 20 108/67 08/11/21 12:26 110 H 113/67 08/11/21 12:00 36.8 C 101 H 20 08/11/21 11:32 37.5 C 105 H 16 113/67 02/17/22 09:56 83 117/66 08/11/21 08:00 101 H 08/11/21 07:11 36.3 C L 83 18 117/66 BP Pulse Ox 08/11/21 16:00 96 08/11/21 12:26 08/11/21 12:00 116/70 96 08/11/21 11:32 94 08/11/21 09:56 08/11/21 08:00 08/11/21 07:11 92 all noted and reviewed including below
--- NOTE | 2021-08-11 18:22 | Cardiology Progress Note ---
Date of Service August 11, 2021 Assessment & Plan (1) Bowel obstruction: (2) Paroxysmal atrial fibrillation: (3) CAD (coronary artery disease): Plan: History of prior wall myocardial infarction, CABG performed in 2014. Mild aortic stenosis noted on echocardiogram, Oct, 2020. Patient now postoperative day 3, status post laparotomy with sigmoid colectomy and end colostomy. Continue aspirin for CAD, Eliquis for stroke prevention in setting of paroxysmal atrial fibrillation. Discontinue IV metoprolol. Resume oral metoprolol tomorrow, this time titrate formulation 25 mg twice daily. Admission and Anticipated Discharge Date Admission Date: August 05, 2021 Subjective Patient seen in follow-up. He notes being tired, but in general is trending toward improvement. His ostomy dressing was being changed at the time my assessment. Sinus rhythm in the 80s noted on telemetry, sinus rhythm with PACs noted this morning. Physical Exam Constitutional: + ill appearing; no acute distress Respiratory: normal respiratory effort; no labored breathing, no cough and not tachypneic Cardiovascular: RRR, no murmur, no edema Results & Data ([facility]) Vital Signs (Past 12 Hours) Vital Signs Temp Pulse Pulse Pulse Resp BP BP 08/11/21 17:17 94 H 108/67 08/11/21 16:00 37 C 96 H 84 20 108/67 08/11/21 12:26 110 H 113/67 08/11/21 12:00 36.8 C 101 H 20 08/11/21 11:32 37.5 C 105 H 16 113/67 08/11/21 09:56 83 117/66 08/11/21 08:00 101 H 08/11/21 07:11 36.3 C L 83 18 117/66 BP Pulse Ox 08/11/21 17:17 08/11/21 16:00 96 08/11/21 12:26 08/11/21 12:00 116/70 96 08/11/21 11:32 94 08/11/21 09:56 08/11/21 08:00 08/11/21 07:11 92 Laboratory Results Hemoglobin 8.9, potassium 3.5
[2021-08-12] MEDS: PIPERACILLIN/TAZOBACTAM 3.375 GM in DEXTROSE 5% 100 ML IV SCH (03:59)
[2021-08-12] MEDS: METOPROLOL TARTRATE 25 MG TAB PO SCH ×2 (07:47→21:47)
[2021-08-12] MEDS: ASPIRIN 81 MG ECTAB PO SCH (07:47)
[2021-08-12] MEDS: PANTOprazole 40 MG in SYRINGE 0 ML IV SCH (07:48)
[2021-08-12] MEDS: APIXABAN 5 MG TABLET PO SCH ×2 (07:48→21:47)
[2021-08-12] MEDS: INSULIN ASPART PER UNIT SC SCH ×4 (08:19→20:21)
--- NOTE | 2021-08-12 08:29 | Surgery Progress Note ---
Date of Service August 12, 2021 Assessment & Plan (1) S/P partial colectomy: Plan: POD#4 open sigmoid colon resection with end colostomy limited intake, will try Boost supplements Continue IV zosyn Continue to work with PT/OT Admission and Anticipated Discharge Date Admission Date: August 05, 2021 Supervising Physician Co-Signing Physician Notes Dr Park d/c TK d/c sara d/c zosyn prob needs a couple more days in hospital to [facility] soon discussed with son- [place] Subjective tolerating few bites of food but not much appetite, no complaints Physical Exam Gastrointestinal (Abdomen): Inspection/Auscultation: + abdomen distended (less) Percussion/Palpation: abdomen soft ostomy output today more liquid Results & Data ([facility]) Vital Signs (Past 12 Hours) Vital Signs Temp Pulse Pulse Pulse Resp BP Pulse Ox 08/12/21 07:39 37.0 C 80 16 124/70 92 08/12/21 07:28 89 08/12/21 02:12 36.9 C 99 H 18 110/54 L 93 08/11/21 23:47 98 H 08/11/21 22:49 37.3 C 89 18 116/70 95 PG Care Time/CCT Total # of Minutes Spent Total Time Spent with Patient: Total time spent is greater than 50% in coordination of care (as documented) at patient's floor/unit and/or counseling patient: Coding Level of Care Code None Diagnoses S/P partial colectomy Z90.49
[2021-08-12 10:49] LABS: Basophils # (auto) 0.03 K/uL (0-0.2); Basophils % (auto) 0.2 %; Eosinophils # (auto) 0.16 K/uL (0-0.5); Eosinophils % (auto) 1.2 %; Hematocrit (blood only) 28.1 % (42-52); Hemoglobin 9.2 g/dL (14.0-18.0); Immature Granulocytes # (auto) 0.24 K/uL (0.00-0.02); Immature Granulocytes % (auto) 1.9 %; Lymphocytes # (auto) 1.87 K/uL (1.2-3.4); Lymphocytes % (auto) 14.6 %; Mean Corpuscular Hemoglobin 29.2 pg (25-34); Mean Corpuscular Hgb Conc 32.7 g/dL (32-36); Mean Corpuscular Volume 89.2 fL (80-100); Mean Platelet Volume 8.8 fL (7.4-10.4); Monocytes # (auto) 0.85 K/uL (0.11-0.59); Monocytes % (auto) 6.6 %; Neutrophils # (auto) 9.66 K/uL (1.4-6.5); Neutrophils % (auto) 75.5 %; Platelet Count 333 K/uL (130-400); RDW Coefficient of Variation 15.1 % (11.5-14.5); Red Blood Count 3.15 M/uL (4.7-6.1); White Blood Count 12.81 K/uL (4.8-10.8)
[2021-08-12 11:07] LABS: BUN Creatinine Ratio 13.2 (10-20); Calcium 7.9 mg/dl (8.5-10.1); Creatinine Clr Calc Pharmacy 73.8 ml/min; Est GFR (African American) 99.2 ml/min; Est GFR (Non-African American) 85.6 ml/min; Magnesium 1.7 mg/dl (1.7-2.4); Potassium 3.4 mmol/L (3.5-5.1)
--- NOTE | 2021-08-12 12:44 | Hospitalist Progress Note ---
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 - on Eliquis Full code Disposition d/c to [facility] when medically stable plan of care discussed with patient in detail and at length all questions answered he is understanding, agreeable, comfortable with the plan of care Admission and Anticipated Discharge Date Admission Date: August 05, 2021 Subjective ff up for bowel obstruction, a fib etc seen resting in bed, comfortable states he feels fine overall weakness improving gradually tolerating soft diet well no nausea, abdominal pain no chest pain, dyspnea, palpitations, dizziness no other symptoms Review of Systems Review of Systems: all noted and negative except for above Physical Exam Physical Exam: General- oriented x 2, not in distress, speaks in sentences with no effort or accessory muscle use Eyes- anicteric Neck- no JVD Lungs- clear BS BL no rales/wheezing Heart- normal rate, regular rhythm; no murmurs Abdomen- normal bowel sounds, nondistended, soft, nontender dressing in place: no bleeding, discharge colostomy bag: soft, brown stool Extremities- no pretibial edema, no calf tenderness Neuro- alert, oriented x 2; no gross focal neurologic deficits Skin- warm & dry Results & Data Results & Data ([facility]) Vital Signs (Past 12 Hours) Vital Signs Temp Pulse Pulse Pulse Resp BP Pulse Ox 08/12/21 11:46 37.0 C 70 17 118/80 94 08/12/21 07:39 37.0 C 80 16 124/70 92 08/12/21 07:28 89 08/12/21 02:12 36.9 C 99 H 18 110/54 L 93 all noted and reviewed including below
[2021-08-12] MEDS ORDERED: POTASSIUM CHLORIDE 20 MEQ/15 ML UDC PO STA (15:25)
--- NOTE | 2021-08-12 16:35 | Cardiology Progress Note ---
Date of Service August 12, 2021 Assessment & Plan (1) Bowel obstruction: (2) Paroxysmal atrial fibrillation: (3) CAD (coronary artery disease): Plan: History of prior wall myocardial infarction, CABG performed in 2014. Mild aortic stenosis noted on echocardiogram, Oct, 2020. Patient now postoperative day 4, status post laparotomy with sigmoid colectomy and end colostomy. Continue aspirin for CAD, Eliquis for stroke prevention in setting of paroxysmal atrial fibrillation. This morning, 08/12/2021, patient had been in sinus rhythm in the 80s. This afternoon, reverted back to atrial fibrillation, mildly elevated ventricular rates in the 90s to low 100s. Continue metoprolol tartrate 25 mg twice daily, continue Eliquis for stroke prophylaxis. Hypokalemia noted, potassium 3.4, 40 mEq potassium ordered/administered. Admission and Anticipated Discharge Date Admission Date: August 05, 2021 Subjective Patient resting comfortably. No complaints. Physical Exam Constitutional: + ill appearing; no acute distress Respiratory: normal respiratory effort, lungs clear to auscultation normal respiratory effort; no labored breathing, no cough and not tachypneic Cardiovascular: RRR, no murmur, no edema Rate/Rhythm: regular rate and regular rhythm Heart Sounds: + murmur (1/6 SM) Neurologic: PERRL, EOMI, accommodation nl, no face palsy, no dysarthria Results & Data ([facility]) Vital Signs (Past 12 Hours) Vital Signs Temp Pulse Pulse Resp BP Pulse Ox 08/12/21 14:57 78 08/12/21 11:46 37.0 C 70 17 118/80 94 08/12/21 07:39 37.0 C 80 16 124/70 92 08/12/21 07:28 89
[2021-08-12] MEDS: PANTOprazole 40 MG TAB PO SCH (21:47)
--- NOTE | 2021-08-13 05:16 | Surgery Progress Note ---
Date of Service August 13, 2021 Assessment & Plan (1) Bowel obstruction: Plan: Postop day #5 sigmoid colon resection with colostomy Continue diet as tolerated Continue analgesics as needed Continue ostomy care Activity as tolerated Plan is for patient to go to [facility] for rehab once bed available Patient takes Eliquis and therefore no further DVT prevention is required as above. resting comfortably. no acute surgical issues at this time. awaiting placement. Admission and Anticipated Discharge Date Admission Date: August 05, 2021 Subjective Patient is resting in bed. He denies any nausea vomiting. He is tolerating solid food. He denies any worsening abdominal pain. He is voiding without difficulty. Physical Exam Gastrointestinal (Abdomen): Soft and nondistended. His ostomy appears pink and viable and there is a large amount of stool in the collection bag. Patient does have a Sybil drain in his incision with some serosanguineous drainage. Results & Data ([facility]) Vital Signs (Past 12 Hours) Vital Signs Temp Pulse Pulse Resp BP BP Pulse Ox 08/13/21 03:23 37.2 C 84 18 111/67 96 08/12/21 23:02 37.1 C 94 H 18 128/73 96 08/12/21 22:42 95 H 08/12/21 19:39 37.0 C 101 H 20 114/66 97 PG Care Time/CCT Total # of Minutes Spent Total Time Spent with Patient: Total time spent is greater than 50% in coordination of care (as documented) at patient's floor/unit and/or counseling patient: Coding Level of Care Code None Diagnoses Bowel obstruction K56.609
[2021-08-13 07:12] LABS: BUN Creatinine Ratio 13.9 (10-20); Calcium 8.2 mg/dl (8.5-10.1); Creatinine Clr Calc Pharmacy 77.8 ml/min; Est GFR (African American) 101.4 ml/min; Est GFR (Non-African American) 87.5 ml/min; Potassium 3.7 mmol/L (3.5-5.1)
[2021-08-13] MEDS: METOPROLOL TARTRATE 25 MG TAB PO SCH (07:42)
[2021-08-13] MEDS: PANTOprazole 40 MG TAB PO SCH (07:42)
[2021-08-13] MEDS: ASPIRIN 81 MG ECTAB PO SCH (07:42)
[2021-08-13] MEDS: APIXABAN 5 MG TABLET PO SCH (07:43)
[2021-08-13] MEDS: INSULIN ASPART PER UNIT SC SCH (08:14)
--- NOTE | 2021-08-13 11:14 | Hospitalist Progress Note ---
Date of Service August 13, 2021 Assessment & Plan (1) Bowel obstruction: Plan: Large bowel obstruction: Recurrent secondary to persistent sigmoid lesion 08/08 s/p Sigmoid Colectomy End Colostomy - Surgeon Reinaldo Torres MD, FACS Pathology report: Colon, sigmoid, resection: - Segment of colon with marked stenosis and multiple diverticula - Negative for malignancy -- (+) colostomy output: Brown, soft diet advanced gradually to soft- tolerating well Patient received IV Zosyn -- PT recommending Rehab --Continue daily colostomy care Follow-up with general surgeon Dr. 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 - on Eliquis Full code Disposition d/c to [facility] Follow-up with general surgery Dr. Reinaldo Torres in 1 week Follow-up with PCP in 1 week plan of care discussed with patient in detail and at length all questions answered he is understanding, agreeable, comfortable with the plan of care Admission and Anticipated Discharge Date Admission Date: August 05, 2021 Subjective Follow-up for bowel obstruction, A. fib, etc. Seen resting in bed, awake, oriented, answers questions appropriately Comfortable, not in distress States he feels fine overall Tolerating diet well, no abdominal pain, nausea, vomiting Positive colostomy output No chest pain, palpitations, dizziness No other symptoms States he is ready and would like to be discharged today Review of Systems Review of Systems: all noted and negative except for above Physical Exam Physical Exam: General- oriented x 2, not in distress, speaks in sentences with no effort or accessory muscle use Eyes- anicteric Neck- no JVD Lungs- clear BS BL no rales/wheezing Heart- normal rate, regular rhythm; no murmurs Abdomen- normal bowel sounds, nondistended, soft, nontender Surgical dressing in place: No bleeding or discharge Colostomy: Positive brown soft stools Extremities- no pretibial edema, no calf tenderness Neuro- alert, oriented x 2; no gross focal neurologic deficits Skin- warm & dry Results & Data Results & Data ([facility]) Vital Signs (Past 12 Hours) Vital Signs Temp Pulse Pulse Pulse Resp BP BP 08/13/21 07:42 37.0 C 75 18 116/62 08/13/21 07:22 88 08/13/21 03:23 37.2 C 84 18 111/67 Pulse Ox 08/13/21 07:42 96 08/13/21 07:22 08/13/21 03:23 96 all noted and reviewed including below
--- NOTE | 2021-08-13 11:17 | Discharge Summary ---
Date of Service August 13, 2021 Admission HPI Per Admitting Provider History obtained from patient and records. 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 Last confinement October 2020 for large bowel obstruction secondary to sigmoid colon stricture/diverticular stricture. Patient underwent flex sigmoidoscopy. MiraLAX twice daily recommended. 3 weeks ago, patient noted nausea/emesis symptoms. The last few days, patient noted achy abdominal pain mostly upper with loose stools. No fever, no chills, no chest pain, no S OB. Patient brought to ER for evaluation. NGT inserted for bowel obstruction. IV Zosyn administered at the ER. Medical Historyas above Surgical History : Knee surgeries, CABG, neck surgery, radical prostatectomy Family History : Heart disease, stroke, prostate cancer Personal/Social history : Past pipe smoker, occasional EtOH intake, retired mailman Admission Exam (Per Admitting) Constitutional GENERAL: Slightly uncomfortable, no respiratory distress SKIN: Normal color, warm HEENT: Alopecia, pink palpebral conjunctivae, no ptosis, dry buccal mucosa, NGT in place NECK : Supple, no tenderness CHEST : Decreased breath sounds, no tenderness HEART : RRR, no obvious murmurs ABDOMEN: Some distention, minimal central abdominal tenderness EXTREMITIES : No LE swelling/tenderness, no other conspicuous deformities noted NEUROLOGIC : Coherent, no facial asymmetry, no other gross focality Discharge Data Consultations 08/04/21 23:39 Consult General Surgery Stat ED Decision to Admit Stat 08/05/21 00:12 Consult Gastroenterology Routine 08/07/21 07:18 Consult Cardiology Routine 08/08/21 10:29 Consult Grab Hooker Routine Procedures Performed Operation Date: 08/05/21 16:25 Actual Procedures p Colonoscopy with Decompression Tube Plac - Kathe Reynolds MD Operation Date: 08/08/21 08:30 Actual Procedures p Sigmoid Colectomy End Colostomy(Not Applicable) - Reinaldo Torres MD, FACS CT abd pelvis IV con only CLINICAL HISTORY: Nausea and vomiting COMPARISON STUDY: 11/10/2020 CT DOSE: 516.43 mGy.cm TECHNIQUE: Standard CT of the Abdomen and Pelvis was performed with IV contrast. A dose lowering technique was utilized adhering to the principles of ALARA. Contrast Volume: Optiray 320, 95 ml. The patient did not receive oral contrast. FINDINGS: Lung base: The lung bases are clear. Heart size is mildly enlarged status post previous cardiothoracic surgery. Coronary artery calcifications present. Abdominal cavity: There is no evidence for abdominal mass, adenopathy or ascites. There is again a large ventral hernia containing mesenteric fat. No bowel loop herniation is seen. Liver: There is homogeneous attenuation of the liver parenchyma. There is no evidence for enhancing mass lesion. Spleen: There is homogeneous attenuation of the splenic parenchyma. There is no enhancing mass lesion. Pancreas: There is homogeneous attenuation of the pancreatic parenchyma. There is no evidence for mass lesion or peripancreatic fluid collection. Gall Bladder: The gallbladder is well distended with no evidence for intraluminal calculi, wall thickening or pericholecystic edema. There is dilatation of the common bile duct measuring 8 to 9 mm. It is unchanged. Adrenal glands: The adrenal glands are normal in size and attenuation. There is no evidence for enhancing mass lesion. Kidneys: There is homogeneous attenuation of the renal parenchyma bilaterally. There is no evidence for renal calculus or hydronephrosis. There is no evidence for enhancing mass. There are again bilateral renal cysts, right greater than left. Bowel: Compared to the previous examination, there is again evidence for partial colonic obstruction at the level of the sigmoid colon as seen on image 353. The transition is present with findings highly suspicious for an apple core lesion. The colon proximal to this site is again fluid-filled and distended. There is also again noted to be fluid-filled and distended small bowel. There are no inflammatory changes present. There is no evidence for free air. Bladder: The bladder is within normal limits with no evidence for focal mass, calculus or diverticulum. : There is no evidence for pelvic mass or adenopathy. There is no evidence for pelvic ascites. Vasculature: There is no evidence for aneurysmal dilatation of the abdominal aorta. Atherosclerotic calcification is present. Osseous structures: There is no acute osseous pathology. Degenerative changes are seen within the spine. IMPRESSION: 1. Compared to the previous examination, there is again evidence for an obstructing lesion of the sigmoid colon having the appearance of an apple core lesion. There is associated fluid-filled and dilated small and large bowel without evidence for disproportionate dilatation. 2. Additional nonacute findings are delineated above. ACT 112: Negative or not required by law. Electronically signed by: Maurice Frank M.D. 08/04/2021 11:16 PM Hospital Course (1) Bowel obstruction: Large bowel obstruction: Recurrent secondary to persistent sigmoid lesion s/p sigmoid colectomy, end colostomy 08/08 s/p Sigmoid Colectomy End Colostomy - Surgeon Reinaldo Torres MD, FACS Pathology report: Colon, sigmoid, resection: - Segment of colon with marked stenosis and multiple diverticula - Negative for malignancy -- (+) colostomy output: Brown, soft diet advanced gradually to soft- tolerating well Patient received IV Zosyn -- PT recommending Rehab --Continue daily colostomy care Follow-up with general surgeon Dr. 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 - on Eliquis Full code Disposition d/c to [facility] Follow-up with general surgery Dr. Reinaldo Torres in 1 week Follow-up with PCP in 1 week plan of care discussed with patient in detail and at length all questions answered he is understanding, agreeable, comfortable with the plan of care
== END 2021-08-13 13:00 | DRG 330 ==
LOC: ED 21:29 → EDINP 08-05 04:31 → SUATTDRO 08-05 04:31 → 2N 08-05 05:53 → 1E 08-08 12:08 → 2N 08-09 13:54

== ENCOUNTER 2024-02-10 13:06 | Inpatient (IN) ==
--- OUTSIDE RECORDS SUMMARY | 2024-02-10 13:13 | External Medical Summary | Summary of Care ---
Author Name Unknown Organization [facility] Address [address] [place] [address] Phone [phone] Care Team Providers Care Direct Care Counselor Name Role Phone Erica Wells DO Primary Care Provider [phone] Reason for Visit * Reason Comments eRx-Medication Refill Encounter Details Date Type Department Care Team (Late st Contact Info) Description 09/14/2023 Refill Family Practice [facility] [address] [place] [address] Erica Wells DO [address] [place] [address] Depression with anxiety Allergies Active Allergy Reactions Criticality Noted Date Comments Apixaban 04/04/2022 Enalapril Cough Medium 08/11/2014 Atorvastatin Calcium Muscle pain Medium 06/23/2005 muscle aches and pains Simvastatin 10/11/2001 diarrhea, abdominal cramps Statins 09/06/1999 diarrhea, documented as of this encounter (statuses as of 09/15/2023) Medications Medication Sig Dispensed Refills Start Date End Date Status amoxicillin (AMOXIL) 500 MG Capsule 4 capsules one hour prior to dental appts 0 6 Active Melatonin 10 MG Oral Tablet Take 1 Tablet by mouth at bedtime. 0 Active Vitamin D3 25 MCG (1000 UT) Oral Capsule 25 mcg . 0 2 Active ProAir HFA 108 (90 Base) MCG/ACT Inhalation Aerosol SolutionIndicatio ns:History of tobacco use,Asthma, allergic, mild intermittent, uncomplicated INHALE 2 PUFFS BY MOUTH EVERY 4 HOURS NEEDED FOR WHEEZING. 8.5 g 1 2 Active Acetaminophen 325 MG Oral Tablet (Tylenol)Indicati ons:Colostomy status (HCC) Take 3 Tablets by mouth every 6 hours. 36 Tablet 0 2 Active Triamcinolone Acetonide 0.1 % External Cream (Aristocort)Indic ations:Intrinsic eczema Apply topically to affected area 2 times a day. To affected area.apply eucerin after 453.6 g 5 3 Active Eucerin External Cream Apply topically to affected area 2 times a day. After triamcinolone 240 g 11 3 Active Aspirin EC 81 MG Oral Tablet Delayed ReleaseIndication s:S/P CABG x 3 Take 1 Tablet by mouth in the morning. 100 Tablet 3 3 Active B-12-SL 1000 MCG Sublingual Tablet Sublingual (Cyanocobalamin) Place 1,000 mcg under the tongue in the morning. 90 Tablet 3 3 Active Metoprolol Tartrate 25 MG Oral Tablet (Lopressor) TAKE 1 TABLET BY MOUTH ONCE IN THE MORNING, THEN 1 TABLET AT BEDTIME 180 Tablet 1 4 Active Sertraline HCl 100 MG Oral Tablet (Zoloft)Indicatio ns:Depression with anxiety TAKE 1 TABLET BY MOUTH IN THE MORNING 90 Tablet 1 4 Active Spironolactone 25 MG Oral Tablet (Aldactone) TAKE 1 TABLET BY MOUTH ONCE DAILY IN THE MORNING 90 Tablet 1 4 Active rOPINIRole HCl 1 MG Oral Tablet (Requip) TAKE 1 TABLET BY MOUTH ONCE DAILY AT BEDTIME 90 Tablet 1 4 Active Omeprazole 20 MG Oral Capsule Delayed Release (PriLOSEC) TAKE 1 CAPSULE BY MOUTH ONCE DAILY IN THE MORNING ONE HOUR BEFORE FIRST MEAL OF THE DAY 90 Capsule 1 4 Active Cetirizine HCl 10 MG Oral Tablet (ZyrTEC) TAKE 1 TABLET BY MOUTH IN THE MORNING 90 Tablet 1 4 Active Cetirizine HCl 10 MG Oral Tablet (ZyrTEC) TAKE 1 TABLET BY MOUTH IN THE MORNING 90 Tablet 1 3 09/15/19 24 Discontinued Metoprolol Tartrate 25 MG Oral Tablet (Lopressor) TAKE 1 TABLET BY MOUTH ONCE IN THE MORNING, THEN 1 TABLET AT BEDTIME 180 Tablet 1 3 09/15/19 24 Discontinued Spironolactone 25 MG Oral Tablet (Aldactone) TAKE 1 TABLET BY MOUTH ONCE DAILY IN THE MORNING 90 Tablet 1 3 09/15/19 24 Discontinued Sertraline HCl 100 MG Oral Tablet (Zoloft)Indicatio ns:Depression with anxiety TAKE 1 TABLET BY MOUTH IN THE MORNING 90 Tablet 1 3 09/15/19 24 Discontinued Omeprazole 20 MG Oral Capsule Delayed Release (PriLOSEC) TAKE 1 CAPSULE BY MOUTH ONCE DAILY IN THE MORNING ONE HOUR BEFORE FIRST MEAL OF THE DAY 90 Capsule 1 3 09/15/19 24 Discontinued rOPINIRole HCl 1 MG Oral Tablet (Requip) TAKE 1 TABLET BY MOUTH ONCE DAILY AT BEDTIME 90 Tablet 1 3 09/15/19 24 Discontinued documented as of this encounter (statuses as of 09/15/2023) Active Problems Problem Noted Date Diagnosed Date Aortic valve stenosis 06/13/2022 Altered bowel elimination due to intestinal osto my 09/16/2021 History of prostate cancer 09/16/2021 PAF (paroxysmal atrial fibrillation) 08/31/2021 Left foot drop 08/27/2019 Diabetic polyneuropathy asso ciated with type 2 diabetes mellitus 03/25/2019 Type 2 diabetes mellitus wit h diabetic neuropathy, unspecified 09/13/[address] elevation myocardial infarction (S ELROY) 09/11/2018 Hx of actinic keratosis 04/02/2017 RLS (restless legs syndrome) 03/02/2017 Statin intolerance 02/19/2015 S/P CABG x 3 01/20/2015 Overview: Off Pump CABG x 3, Endoscopic Vein [place] CASTELLON-LAD, Ao-OM using reversed saphenous vein graft, Ao-PDA using reversed saphenous vein graft Cervical disc disorder with myelopathy 4 Vitamin D deficiency 02/09/2014 Gouty arthropathy, chronic, without tophi 2012 Type 2 diabetes mellitus wit h hemoglobin A1c goal of less than 7.0% 09/09/2012 Overview: ICD-10 update of inactive term Dyslipidemia, goal LDL below 100 09/09/2012 History of tobacco use 05/25/2012 Left KNEE JOINT REPLACEMENT STATUS 06/25/2010 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 LOC PRIM [id number] 03/25/2004 HTN, goal below 140/90 04/25/2001 Reflux esophagitis Panic disorder History of colonic polyps Overview: 07/26/11: intact anastomosis repeat 3 years 03/23/10: carcinoid tumor of the terminal ileum 12/31: villous adenoma of ceacum, repeat 01/01 12/28: 3 <1cm adenomas, repeat 3-5 years documented as of this encounter (statuses as of 09/15/2023) Resolved Problems Problem Noted Date Diagnosed Date Resolved Date Colostomy status 06/17/2022 09/06/2022 Asthma, allergic 04/05/2015 02/18/[address] elevation myocardia l infarction (STEMI) involving right coronary artery 01/20/2015 09/11/2018 BUDDY-inhibitor cough 08/05/2014 10/01/19 20 Overview: enalapril Meralgia paraesthetica 02/09/201409/30 Kidney disease, chronic, sta ge III (GFR 30-59 ml/min) 04/30/2013 04/30/2013 Sinobronchitis 05/25/2012 09/09/2012 Cough 05/25/2012 09/09/2012 PMR (polymyalgia rheumatica) 01/11/2012 03/11/2012 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 07/03/2017 Diverticulosis of colon 09/06/200501/2020 Malignant neoplasm of prostate 04/28/1999 09/13/2018 Dyslipidemia, goal to be determined 09/09/2012 Urticaria 04/02/2017 Diverticulitis of colon 06/2018 documented as of this encounter (statuses as of 09/15/2023) Immunizations Name Administration Dates Next Due COVID-19 mRNA, LNP-s, No Pre serve, 2-Dose Series (Pfizer) 09/24/2020,09/03/2020 H1N1 2009 Influenza, IM 07/07/2009 Pneumococcal Conjugate Vacc, 13 Valent (Prevnar) 05/17/2015 Pneumococcal Polysaccharide PPV23 (Pneumovax) 08/29/2016 Seasonal Influenza Virus Vac cine, Unspecified Formulation 04/29/2019,07/03/2017,05/26/2016,04/05,03/02/2014,04/04/2013,03/11/2012 ,03/14/2011,03/29/2010,03/25/2009,06/2007,03/25/2007,04/10/2006, 5,05/13/2003,05/31/2000 Seasonal Influenza, Quadriva lent, No Preserve, IM 05/26/2016,04/05/2015 Seasonal Influenza, Split, I IV3, With Preserve, Inj 03/02/2014,04/04/2013,03/11/2012,03/14,03/29/2010,03/25/2009,03/25/2008 ,03/25/2007,04/10/2006 Seasonal Influenza, Trivalen t, High Dose, No Preserve, IM 04/29/2019,07/03/2017 TDAP (age 11 and older)(Adacel) 10/20/2011 Varicella Zoster Vaccine (Adult) 11/13/2011 Zoster Vaccine Recombinant (Shingrix) 04/04/2022 ,05/11/2020 documented as of this encounter Social History Tobacco Use Types Packs/Day Years Used Date Smoking Tobacco: Former Pipe Smokeless Tobacco: Never Comments:pipe smoker inhaled and no cigarettes Alcohol Use Standard Drinks/Week Comments Yes 0 (1 standard drink = 0.6 oz pur e alcohol) scotch 1-2 a week PHQ-2 Answer Date Recorded PHQ-2 Score 0 08/27/2019 Sex and Gender Information Value Date Recorded Sex Assigned at Not on file Gender Identity Not on file Sexual Orientation Not on file Job Start Date Occupation Industry Not on file Not on file Not on file documented as of this encounter Functional Status Functional Status Response Date of Assess ment Are you deaf or do you have serious difficulty h earing? No 06/16/2022 Are you blind or do you have serious difficulty seeing, even when wearing glasses? No 06/16/2022 Do you have serious difficul ty walking or climbing stairs? (5 years old or older) No 06/16/2022 Do you have difficulty dress ing or bathing? (5 years old or older) No 06/16/2022 Because of a physical, menta l, or emotional condition, do you have difficulty doing errands alone such as visiting a doctor s office or shopping? (15 years old or older) No 06/16/20 22 Cognitive Status Response Date of Assessm ent Because of a physical, menta l, or emotional condition, do you have serious difficulty concentrating, remembering, or making decisions? (5 years old or older) No 06/16/2022 documented as of this encounter Miscellaneous Notes * Telephone Encounter - Erica Wells, - 09/15/2023 4:38 PM EDTSigned Prescriptions: Disp Refills Metoprolol Tartrate 25 MG Oral Tablet (Lop*180 Ta*1 Sig: TAKE 1 TABLET BY MOUTH ONCE IN THE MORNING, THEN 1 TABLET AT BEDTIME Authorizing Provider: ERICA WELLS Ordering User: MATTY LOPEZ Sertraline HCl 100 MG Oral Tablet (Zoloft) 90 Tab*1 Sig: TAKE 1 TABLET BY MOUTH IN THE MORNING Authorizing Provider: ERICA WELLS Ordering User: MATTY LOPEZ Spironolactone 25 MG Oral Tablet ([place]*90 Tab*1 Sig: TAKE 1 TABLET BY MOUTH ONCE DAILY IN THE MORNING Authorizing Provider: ERICA WELLS Ordering User: MATTY LOPEZ rOPINIRole HCl 1 MG Oral Tablet (Requip) 90 Tab*1 Sig: TAKE 1 TABLET BY MOUTH ONCE DAILY AT BEDTIME Authorizing Provider: ERICA WELLS Omeprazole 20 MG Or al Capsule Delayed Rele*90 Cap*1 Sig: TAKE 1 CAPSULE BY MOUTH ONCE DAILY IN THE MORNING ONE HOUR BEFORE FIRST MEAL OF THE DAY Authorizing Provider: ERICA WELLS Ordering User: MATTY LOPEZ Cetirizine HCl 10 MG Oral Tablet (ZyrTEC) 90 Tab*1 Sig: TAKE 1 TABLET BY MOUTH IN THE MORNING Authorizing Provider: ERICA WELLS Ordering User: MATTY LOPEZ ------- * Telephone Encounter - Matty Lopez [facility] - 09/15/2023 12:16 PM EDT Pending Prescriptions: Disp Refills rOPINIRole HCl 1 MG Oral Tablet (Requip) 90 Tab*1 Sig: TAKE 1 TABLET BY MOUTH ONCE DAILY AT BEDTIME Signed Prescriptions: Disp Refills Metoprolol Tartrate 25 MG Oral Tablet (Lop*180 Ta*1 Sig: TAKE 1 TABLET BY MOUTH ONCE IN THE MORNING, THEN 1 TABLET AT BEDTIME Authorizing Provider: ERICA WELLS User: MATTY LOPEZ Sertraline HCl 100 MG Oral Tablet (Zoloft) 90 Tab*1 Sig: TAKE 1 TABLET BY MOUTH IN THE MORNING Authorizing Provider: ERICA WELLS Ordering User: MATTY LOPEZ Spironolactone 25 MG Oral Tablet ([place]*90 Tab*1 Sig: TAKE 1 TABLET BY MOUTH ONCE DAILY IN THE MORNING Authorizing Provider: ERICA WELLS Ordering User: MATTY LOPEZ Omeprazole 20 MG Oral Capsule Delayed Rele*90 Cap*1 Sig: TAKE 1 CAPSULE BY MOUTH ONCE DAILY IN THE MORNING ONE HOUR BEFORE FIRST MEAL OF THE DAY Authorizing Provider: ERICA WELLS Ordering User: MATTY LOPEZ Cetirizine HCl 10 MG Oral Tablet (ZyrTEC) 90 Tab*1 Sig: TAKE 1 TABLET BY MOUTH IN THE MORNING Authorizing Provider: ERICA WELLS Ordering User: BRICE LOPEZ * Telephone Encounter - Matty Lopez RP - 09/15/2023 12:14 PM EDT Pending Prescriptions: Disp Refills rOPINIRole HCl 1 MG Oral Tablet (Requip) *90 Tab*1 Sig: TAKE 1 TABLET BY MOUTH ONCE DAILY AT BEDTIME Signed Prescriptions: Disp Refills Metoprolol Tartrate 25 MG Oral Tablet (Lop*180 Ta*1 Sig: TAKE 1 TABLET BY MOUTH ONCE IN THE MORNING, THEN 1 TABLET AT BEDTIME Authorizing Provider: ERICA WELLS Ordering User: MATTY LOPEZ Sertraline HCl 100 MG Oral Tablet (Zoloft) 90 Tab*1 Sig: TAKE 1 TABLET BY MOUTH IN THE MORNING Authorizing Provider: ERICA WELLS Ordering User: MATTY LOPEZ Spironolactone 25 MG Oral Tablet (Aldacton*90 Tab*1 Sig: TAKE 1 TABLET BY MOUTH ONCE DAILY IN THE MORNING Authorizing Provider: ERICA WELLS Ordering User: MATTY LOPEZ Omeprazole 20 MG Oral Capsule Delayed Rele*90 Cap*1 Sig: TAKE 1 CAPSULE BY MOUTH ONCE DAILY IN THE MORNING ONE HOUR BEFORE FIRST MEAL OF THE DAY Authorizing Provider: ERICA WELLS Ordering User: MATTY LOPEZ Cetirizine HCl 10 MG Oral Tablet (ZyrTEC) 90 Tab*1 Sig: TAKE 1 TABLET BY MOUTH IN THE MORNING Authorizing Provider: ERICA WELLS Ordering User: MATTY LOPEZ Last Visit: 05/01/2023 (in office), 10/01/2019 (telemedicine) Next Visit: 11/21/2023 If no future appointments scheduled, and last appointment is greater than a year ago, please schedule patient for a follow-up appointment Last date the medication was ordered: 06/22/23 Pharmacy: [facility] [address] Is this request for a controlled substance? No Urine Drug Screen:No results found. However, due to the size of the patient record, not all encounters were searched. Please check Results Review for a complete set of results. Patient Phone Numbers Labs: Lab Results Component Value Date/Time CREAT 1.0 02/21/2023 09:46 AM CREAT 1.1 02/27/2020 12:45 PM POTASSIUM 4.7 02/21/2023 09:46 AM POTASSIUM 5.0 02/27/2020 12:45 PM TSH 2.700 12/07/2016 12:00 AM TSH 2.09 01/19/2015 06:24 PM LDLCALC 159 (H) 02/21/2023 09:46 AM LDLCALC 137 (H) 04/29/2019 09:06 AM LDLDIRECT NOT APPLICABLE 04/29/2019 09:06 AM LDLDIRECT 169 (H) 02/17/2016 04:01 PM ALT 9 (L) 02/21/2023 09:46 AM ALT 15 09/27/2018 03:54 PM HGBA1C 6.6 (H) 02/21/2023 09:46 AM HGBA1C 6.5 (H) 02/27/2020 12:45 PM documented in this encounter Plan of Treatment Upcoming Encounters Date Type Department Care Team (Late st Contact Info) Description 11/21/2023 9:20 AM EDT Office Visit Family Practice [facility] [place] [address] [facility] [place], [place] [address] Erica Wells, DO [address] [facility] [place], [place] [address] Health Maintenance Due Date Last Done Comments Depression Screening 08/26/2020 08/27/2019 DTaP,Tdap,and Td Vaccines (2 - Td or Tdap) 10/19/2021 10/20/2011, 03/31/2002 COVID-19 Vaccine (3 - season) 2023 09/24/2020, 09/03/2020 Influenza Vaccine (FLU shot) (#1) 2023 04/29/2019, 04/29/2019, 07/03/2017, Additional history exists Diabetic Eye Exam 04/04/2023 04/04/2022, 03/25/2019 Albumin/Creatinine Ratio 06/07/202306/07/2 022, 04/04/2022, 09/20/2020, Additional history exists HbA1c 08/23/2023 02/21/2023, 03/25, 09/16/2021, Additional history exists Diabetic Foot Exam 02/22/2024 02/21/2023, 1 , 09/20/2020, Additional history exists GFR 02/22/2024 02/21/2023, 05/26, 06/17/2022, Additional history exists Pneumococcal Vaccine: 65+ Years Completed 08/29/2016, 05/17/2015, 03/25/2004 Zoster Vaccines Completed 04/04/2022, 04/25, 11/13/2011 GARDASIL-HPV IMMUNIZATION SERIES Aged Out No longer eligible based on patient's age to complete this topic Hepatitis B Aged Out No longer eligi ble based on patient's age to complete this topic MENINGOCOCCAL (MENACTRA/MENVEO) Aged Out No longer eligible based on patient's age to complete this topic documented as of this encounter Medical Devices Implanted Type Area Tobacco Curer Device Identifier Shelf Expiration Date Model / Serial / Lot Chip Cancellous 15cc [id number] - [id number] Implanted:Qty : 1 on 04/17/2014 at [facility] Tissue - Human N/A: Spine Cervical MUSCULOSKELETAL TRANSPLANT FND 12/05/2016 [id number] / [id number] / Dbx 5cc [id number] - [id number] Implanted:Qty : 1 on 04/17/2014 at [facility] Tissue - Human N/A: Spine Cervical MUSCULOSKELETAL TRANSPLANT FND 12/04/2015 [id number] / [id number] / Vitoss Bimodal Foam Pack 5cc - [id number] Implanted:Qty : 1 on 04/17/2014 at [facility] N/A: Spine Cervical BITA : SPINE 12/22/2014 [id number] / / [id number] Kae Oasys Ulrdes Ii 3.5mm - [id number] Implanted:Qty : 6 on 04/17/2014 at [facility] N/A: Spine Cervical BITA : SPINE [id number] / / Screw Oasys Poly 3.5x14 - [id number] Implanted:Qty : 6 on 04/17/2014 at [facility] N/A: Spine Cervical BITA : SPINE [id number] / / Sukhjinder 3.5x40mm - [id number] Implanted:Qty : 2 on 04/17/2014 at [facility] N/A: Spine Cervical BITA : SPINE [id number] / / Sut Steel 6 M654g - [id number] Implanted:Qty : 4 on 01/20/2015 by Rito Ahn MD at OR [facility] N/A: Chest JNJ : [employer] 01/22/2019 [id number] / / [id number] [facility]er [facility] - [id number] Implanted:Qty : 2 on 01/20/2015 by Rito Ahn MD at OR [facility] N/A: Aorta [employer] 08/22/2017 [facility] / / [id number] documented as of this encounter Visit Diagnoses Diagnosis Depression with anxiety Dysthymic disorder documented in this encounter Advance Directives Latest Code Status on File Code Status Date Activated Date Inactivated Comments Full Code 06/16/2022 1:41 PM 06/18/2022 4:41 PM Thi s order reflects the patients wishes and were consensually agreed upon. Question Answer Comments Discussion of Advance Directives occurred with: Patient Does the patient have a Living Will? No Does the patient have Health Care Power of [place]? No Code Status History Code Status Date Activated Date Inactivated Comments Full Code 01/20/2015 8:15 PM 01/24/2015 4:35 PM This o rder reflects the patients wishes and were consensually agreed upon. Full Code 01/19/2015 4:07 PM 01/20/2015 3:29 PM This order reflects the patients wishes and were consensually agreed upon. Question Answer Comments Discussion of Advance Directives occurred with: Patient Does the patient have a Living Will? No Does the patient have Health Care Power of [place]? No Full Code 04/17/2014 10:58 AM 04/20/2014 6:12 PM Th is order reflects the patients wishes and were consensually agreed upon. Care Teams Direct Care Counselor Relationship Specialty Start Date End Date Erica Wells DO [address] [place], [place] [address] PCP - General Family Medicine 12/08/16 documented as of this encounter
--- OUTSIDE RECORDS SUMMARY | 2024-02-10 13:13 | External Medical Summary ---
Author Name Unknown Address Unknown Organization K01:[facility]ORY [facility] - [address] [place] [address] Laboratory Report Ordering Provider Test Date Status YULY MALDONADOALISIA 11/21/2023 10:23:32 Final Normal: <30 mg/g creatinine< br/>High: 30-300 mg/g creatinine
Very High: >300 mg/g creatinine
Nephrotic: >2200 mg/g creatinine Observation Date Value Abnormality Reference (Units ) Status Albumin, Urine 11/21/2023 10:23:32 1.30 (mg/dL) Final Creatinine, Urine 11/21/2023 10:23:32 250 (mg/dL) Final Albumin/Creatinine [Mass Ratio] in Urine 11/21/2023 10:23:32 5 <30 (mg/g Creat) Final Performing Location [facility] - [address] [place] [address]
--- OUTSIDE RECORDS SUMMARY | 2024-02-10 13:13 | External Medical Summary | Summary of Care ---
Author Name Unknown Organization [facility] Address [address] [place] [address] Phone [phone] Care Team Providers Care Communications Department Chair Name Role Phone Tulio Azevedo DO Primary Care Provider [phone] Reason for Visit * Reason Comments eRx-Medication Refill Encounter Details Date Type Department Care Team (Late st Contact Info) Description 12/13/2023 Refill Family Practice [facility] [address] [place] [address] Tulio Azevedo DO [address] [facility] [place] [address] Depression with anxiety Allergies Active Allergy Reactions Criticality Noted Date Comments Apixaban 04/04/2022 Enalapril Cough Medium 08/11/2014 Atorvastatin Calcium Muscle pain Medium 06/23/2005 muscle aches and pains Simvastatin 10/11/2001 diarrhea, abdominal cramps Statins 09/06/1999 diarrhea, documented as of this encounter (statuses as of 12/13/2023) Medications Medication Sig Dispensed Refills Start Date End Date Status amoxicillin (AMOXIL) 500 MG Capsule 4 capsules one hour prior to dental appts 02/12/2016 Active ProAir HFA 108 (90 Base) MCG/ACT Inhalation Aerosol SolutionIndications :History of tobacco use,Asthma, allergic, mild intermittent, uncomplicated INHALE 2 PUFFS BY MOUTH EVERY 4 HOURS NEEDED FOR WHEEZING. 8.5 g 1 10/26/2021 Active Acetaminophen 325 MG Oral Tablet (Tylenol)Indication s:Colostomy status (HCC) Take 3 Tablets by mouth every 6 hours. 36 Tablet 06/19/2022 Active Triamcinolone Acetonide 0.1 % External Cream (Aristocort)Indicat ions:Intrinsic eczema Apply topically to affected area 2 times a day. To affected area.apply eucerin after 453.6 g 5 09/06/2022 Active Eucerin External Cream Apply topically to affected area 2 times a day. After triamcinolone 240 g 11 09/06/2022 Active Aspirin EC 81 MG Oral Tablet Delayed ReleaseIndications: S/P CABG x 3 Take 1 Tablet by mouth in the morning. 100 Tablet 3 10/16/2022 Active Metoprolol Tartrate 25 MG Oral Tablet (Lopressor) TAKE 1 TABLET BY MOUTH ONCE IN THE MORNING, THEN 1 TABLET AT BEDTIME 180 Tablet 1 09/15/2023 Active Sertraline HCl 100 MG Oral Tablet (Zoloft)Indications :Depression with anxiety TAKE 1 TABLET BY MOUTH IN THE MORNING 90 Tablet 1 09/15/2023 Active Spironolactone 25 MG Oral Tablet (Aldactone) TAKE 1 TABLET BY MOUTH ONCE DAILY IN THE MORNING 90 Tablet 1 09/15/2023 Active rOPINIRole HCl 1 MG Oral Tablet (Requip) TAKE 1 TABLET BY MOUTH ONCE DAILY AT BEDTIME 90 Tablet 1 09/15/2023 Active Omeprazole 20 MG Oral Capsule Delayed Release (PriLOSEC) TAKE 1 CAPSULE BY MOUTH ONCE DAILY IN THE MORNING ONE HOUR BEFORE FIRST MEAL OF THE DAY 90 Capsule 1 09/15/2023 Active Cetirizine HCl 10 MG Oral Tablet (ZyrTEC) TAKE 1 TABLET BY MOUTH IN THE MORNING 90 Tablet 1 09/15/2023 Active B-12-SL 1000 MCG Sublingual Tablet Sublingual (Cyanocobalamin) Place 1,000 mcg under the tongue in the morning. 90 Tablet 3 11/21/2023 Active Vitamin D3 25 MCG (1000 UT) Oral Capsule Take 1000 IUs daily 90 Capsule 11/21/2023 Active Melatonin 10 MG Oral Tablet Take 1 Tablet by mouth at bedtime. 90 Tablet 3 11/21/2023 Active documented as of this encounter (statuses as of 12/13/2023) Active Problems Problem Noted Date Diagnosed Date [...] Off Pump CABG x 3, Endoscopic Vein [place] CASTELLON-LAD, Ao-OM using reversed saphenous vein graft, Ao-PDA using reversed saphenous vein graft Cervical disc disorder with myelopathy 4 Vitamin D deficiency 02/09/2014 Gouty arthropathy, chronic, without tophi 2012 Type 2 diabetes mellitus wit h hemoglobin A1c goal of less than 7.0% 09/09/2012 Overview: ICD-10 update of inactive term Dyslipidemia, goal LDL below 100 09/09/2012 History of tobacco use 05/25/2012 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 01/20/2015 09/11/2018 BUDDY-inhibitor cough 08/05/2014 10/01/19 Overview: enalapril Meralgia paraesthetica 02/09/201409/30 Kidney disease, chronic, sta ge III (GFR 30-59 ml/min) 04/30/2013 04/30/2013 Sinobronchitis 05/25/2012 09/09/2012 Cough 05/25/2012 09/09/2012 PMR (polymyalgia rheumatica) 01/11/2012 03/11/2012 Left KNEE JOINT REPLACEMENT STATUS 06/25/2010 11/21/2023 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 07/03/2017 Diverticulosis of colon 09/06/200501/2020 Malignant neoplasm of prostate 04/28/1999 09/13/2018 Dyslipidemia, goal to be determined 09/09/2012 Urticaria 04/02/2017 History of colonic polyps Overview: 07/26/11: intact anastomosis repeat 3 years 03/23/10: carcinoid tumor of the terminal ileum 12/31: villous adenoma of ceacum, repeat 01/01 12/28: 3 <1cm adenomas, repeat 3-5 years Diverticulitis of colon 06/2018 documented as of this encounter (statuses as of 12/13/2023) Immunizations Name Administration Dates Next Due COVID-19 mRNA, LNP-s, No Pre serve, 2-Dose Series (Ad.IQ) 09/24/2020,09/03/2020 H1N1 2009 Influenza, IM 07/07/2009 Pneumococcal Conjugate Vacc, 13 Valent (Prevnar) 05/17/2015 Pneumococcal Polysaccharide PPV23 (Pneumovax) 08/29/2016 Seasonal Influenza Virus Vac cine, Unspecified Formulation 04/29/2019,07/03/2017,05/26/2016,04/05,03/02/2014,04/04/2013,03/11/2012 ,03/14/2011,03/29/2010,03/25/2009,06/2007,03/25/2007,04/10/2006, 5,05/13/2003,05/31/2000 Seasonal Influenza, Quadriva lent, No Preserve, IM 05/26/2016,04/05/2015 Seasonal Influenza, Split, I IV3, With Preserve, Inj 03/02/2014,04/04/2013,03/11/2012,03/14,03/29/2010,03/25/2009,03/25/2008 ,03/25/2007,04/10/2006 Seasonal Influenza, Trivalen t, High Dose, No Preserve, IM 04/29/2019,07/03/2017 TDAP, Age 7 and older, IM (Adacel) 10/20/2011 Varicella Zoster Vaccine (Adult) 11/13/2011 Zoster Vaccine Recombinant (Shingrix) 04/04/2022 ,05/11/2020 documented as of this encounter Social History Tobacco Use Types Packs/Day Years Used Date Smoking Tobacco: Former Pipe Q uit: 06/25/1982 Smokeless Tobacco: Never Comments:pipe smoker inhaled and [...] (15 years old or older) No 06/16/20 Cognitive Status Response Date of Assessm ent Because of a physical, menta l, or emotional condition, do you have serious difficulty concentrating, remembering, or making decisions? (5 years old or older) No 06/16/2022 documented as of this encounter Miscellaneous Notes * Telephone Encounter - Jenae Anaya [facility] - 12/13/2023 2:12 PM EDTRefused Prescriptions: Disp Refills Metoprolol Tartrate 25 MG Oral Tablet (Lop*180 Ta*1 Sig: TAKE 1TABLET BY MOUTH ONCE IN THE MORNING, THEN 1 TABLET AT BEDTIMERefused By: JENAE ANAYA forRefusal: Too soon Sertraline HCl 100 MG Oral Tablet (Zoloft) 90 Tab*1 Sig: TAKE 1 TABLET BY MOUTH IN THE MORNINGRefused By: JENAE ANAYA for Refusal: Too soon Spironolactone 25 MG OralTablet (Aldacton*90 Tab*1 Sig: TAKE 1 TABLET BY MOUTH ONCE DAILY IN THE MORNINGRefused By: JENAE ANAYA for Refusal: Too soon documented in this encounter Plan of Treatment Upcoming Encounters Date Type Department Care Team (Late st Contact Info) Description 06/13/2024 10:00 AM EST Office Visit Family [facility] [address] [place] [address] Tulio Azevedo, [address] [facility] [place] [address] Health Maintenance Due Date Last Done Comments Depression Screening 08/26/2020 08/27/2019 DTaP,Tdap,and Td Vaccines (2 - Td or Tdap) 10/19/2021 10/20/2011, 03/31/2002 COVID-19 Vaccine (3 - season) 2023 09/24/2020, 09/03/2020 Diabetic Eye Exam 04/04/2023 04/04/2022, 03/25/2019 Diabetic Foot Exam 02/22/2024 02/21/2023, 1 , 09/20/2020, Additional history exists Influenza Vaccine (FLU shot) (Season Ended) 2024 04/29/2019, 04/29/2019, 07/03/2017, Additional history exists HbA1c 05/23/2024 11/21/2023, 08, 04/04/2022, Additional history exists Albumin/Creatinine Ratio 11/20/202411/20/2 024, 06/07/2022, 04/04/2022, Additional history exists GFR 11/20/2024 11/21/2023, /, 06/18/2022, Additional history exists Pneumococcal Vaccine: 65+ Years [...] this encounter Medical Devices Implanted Type Area Scarf And Anneal Operator Device Identifier Shelf Expiration Date Model / Serial / Lot Chip Cancellous 15cc [id number] - [id number] Implanted:Qty : 1 on 04/17/2014 at [place] [facility] [place] [place] Tissue - Human N/A: Spine Cervical MUSCULOSKELETAL TRANSPLANT FND 12/05/2016 [id number] / [id number] / Dbx [facility] [id number] - [id number] Implanted:Qty : 1 on 04/17/2014 at OR [facility] [place] [place] Tissue - Human N/A: Spine Cervical MUSCULOSKELETAL TRANSPLANT FND 12/04/2015 [id number] / [id number] / Vitoss Bimodal Foam Pack 5cc - [id number] Implanted:Qty : 1 on 04/17/2014 at [place] [facility] [place] [place] N/A: Spine Cervical BITA : SPINE 12/22/2014 [id number] / / [id number] Kae Oasys Lurdes Ii 3.5mm - [id number] Implanted:Qty : 6 on 04/17/2014 at OR [facility] [place] [place] N/A: Spine Cervical BITA : SPINE [id number] / / Screw Oasys Poly 3.5x14 - [id number] Implanted:Qty : 6 on 04/17/2014 at [place] [facility] [place] [place] N/A: Spine Cervical BITA : SPINE [id number] / / Sukhjinder 3.5x40mm - [id number] Implanted:Qty : 2 on 04/17/2014 at OR [facility] [place] [place] N/A: Spine Cervical BITA : SPINE [id number] / / Sut Steel 6 M654g - [id number] Implanted:Qty : 4 on 01/20/2015 by Rito Ahn MD at OR [facility] [place] [place] N/A: Chest JNJ : [employer] 01/22/2019 [id number] / / [id number] Marker Coronary [facility] - [id number] Implanted:Qty : 2 on 01/20/2015 by Rito Ahn MD at [place] [facility] [place] [place] N/A: Aorta [employer] [facility]22/[facility] / [id number] documented as of this encounter Visit Diagnoses Diagnosis Depression with anxiety Dysthymic disorder documented in this encounter Advance Directives * Full Code (Latest Code Status on File) Date Activated Date Inactivated Comments 06/16/2022 1:41 PM 06/18/2022 4:41 PM This order reflects the patients wishes and were consensually agreed upon. Question Answer Comments Discussion of Advance Directives occurred with: Patient Does the patient have a Living Will? No Does the patient have Health Care Power of Attor alhaji? No * Full Code Date Activated Date Inactivated Comments 01/20/2015 8:15 PM 01/24/2015 4:35 PM This order re flects the patients wishes and were consensually agreed upon. * Full Code Date Activated Date Inactivated Comments 01/19/2015 4:07 PM 01/20/2015 3:29 PM This order r eflects the patients wishes and were consensually agreed upon. Question Answer Comments Discussion of Advance Directives occurred with: Patient Does the patient have a Living Will? No Does the patient have Health Care Power of Attor alhaji? No * Full Code Date Activated Date Inactivated Comments 04/17/2014 10:58 AM 04/20/2014 6:12 PM This orde r reflects the patients wishes and were consensually agreed upon. Care Teams Communications Department Chair Relationship Specialty Start Date End Date Tulio Azevedo DO [address] [place] [address] PCP - General Family Medicine 12/08/16 documented as of this encounter
--- OUTSIDE RECORDS SUMMARY | 2024-02-10 13:13 | External Medical Summary ---
Author Name Unknown Address Unknown Organization K09:[facility] [place] [address] Laboratory Report Ordering Provider Test Date Status RUSSELL MALDONADO 11/21/2023 10:18:11 Final Observation Date Value Abnormality Reference (Units ) Status BUN 11/21/2023 10:18:11 18 6-20 (mg/dL) Final Creatinine 11/21/2023 10:18:11 1.3 Above high normal 0.6-1.2 (mg/dL) Final Glomerular filtration rate/1.73 sq M.predicted [Volume Rate/Area] in Serum, Plasma or Blood by Creatinine-based formula (CKD-EPI) 11/21/2023 10:18:11 57 Below low normal >=60 (mL/min) Final eGFR is calculated based on the CKD-EPI 2020 equation Sodium 11/21/2023 10:18:11 137 135-146 (m mol/L) Final Potassium 11/21/2023 10:18:11 4.7 3.5-5.1 (m mol/L) Final Cl 11/21/2023 10:18:11 100 98-107 (mm ol/L) Final CO2 11/21/2023 10:18:11 26 22-32 (mmo l/L) Final Anion gap 11/21/2023 10:18:11 11 7-15 (mmol /L) Final Glucose 11/21/2023 10:18:11 128 Above high normal 70 -120 (mg/dL) Final Albumin 11/21/2023 10:18:11 4.0 3.8-5.0 (g /dL) Final AST (Aspartate aminotransferase) 11/21/2023 10:18:11 16 10-50 (U/L) Fin al Alk Phos 11/21/2023 10:18:11 61 35-130 (U/ L) Final Bilirubin, Total 11/21/2023 10:18:11 0.4 <=1 .2 (mg/dL) Final Calcium 11/21/2023 10:18:11 9.7 8.4-10.2 ( mg/dL) Final Protein 11/21/2023 10:18:11 6.9 6.0-8.3 (g /dL) Final ALT (Alanine aminotransferase) 11/21/2023 10:18:11 12 10-50 (U/L) Stephen herrera Performing Location [facility] [place] [address]
--- OUTSIDE RECORDS SUMMARY | 2024-02-10 13:13 | External Medical Summary | Summary of Care ---
Author Name Unknown Organization [facility] Address [address] [place] [address] Phone [phone] Care Team Providers Care Germination Worker Name Role Phone SammyTulio duong Sonia SERVIN Primary Care Provider [phone] Reason for Visit * Reason Comments Outpatient Testing Encounter Details Date Type Department Care Team (Late st Contact Info) Description 11/21/2023 10:20 AM EDT Laboratory Laboratory [facility] [address] [place] [address] [facility] [address] [facility] [place] [address] Encounter for long-term (current) use of other medications; B12 deficiency; Type 2 diabetes mellitus with hemoglobin A1c goal of less than 7.0% ([facility]); Dyslipidemia, goal LDL below 100 Allergies Active Allergy Reactions Criticality Noted Date Comments Apixaban 04/04/2022 Enalapril Cough Medium 08/11/2014 Atorvastatin Calcium Muscle pain Medium 06/23/2005 muscle aches and pains Simvastatin 10/11/2001 diarrhea, abdominal cramps Statins 09/06/1999 diarrhea, documented as of this encounter (statuses as of 11/21/2023) Medications Medication Sig Dispensed Refills Start Date [...] Capsule Take 1000 IUs daily 90 Capsule 3 11/21/2023 Active Melatonin 10 MG Oral Tablet Take 1 Tablet by mouth at bedtime. 90 Tablet 3 11/21/2023 Active documented as of this encounter (statuses as of 11/21/2023) Active Problems Problem Noted Date Diagnosed Date [...] Off Pump CABG x 3, Endoscopic Vein [place] CASTELLON-LAD, Ao-OM using reversed saphenous vein graft, [...] brochure offered , patient declined. LOC PRIM [id number] 03/25/2004 HTN, goal below 140/90 04/25/2001 Reflux esophagitis Panic disorder documented as of this encounter (statuses as of 11/21/2023) Resolved Problems Problem Noted Date Diagnosed Date [...] as of this encounter (statuses as of 11/21/2023) Immunizations Name Administration Dates Next Due COVID-19 mRNA, LNP-s, No Pre serve, 2-Dose Series (IIZI group) 09/24/2020,09/03/2020 Diptheria/Tetanus (Adult) 03/31/2002 H1N1 2009 Influenza, IM 07/07/2009 Pneumococcal Conjugate Vacc, 13 Valent (Prevnar) 05/17/2015 Pneumococcal Polysaccharide PPV23 (Pneumovax) 08/29/2016,03/25/2004 Seasonal Influenza Virus Vac cine, Unspecified Formulation 04/29/2019,07/03/2017,05/26/2016,04/05,03/02/2014,04/04/2013,03/11/2012 ,03/14/2011,03/29/2010,03/25/2009,06/2007,03/25/2007,04/10/2006, 5,05/13/2003,05/31/2000 Seasonal Influenza, Quadriva lent, No Preserve, IM 05/26/2016,04/05/2015 Seasonal Influenza, Split, I IV3, With Preserve, Inj 03/02/2014,04/04/2013,03/11/2012,03/14,03/29/2010,03/25/2009,03/25/2008 ,03/25/2007,04/10/2006,04/05/2005,04/25,05/31/2000 Seasonal Influenza, Trivalen t, High Dose, No [...] No 06/16/2022 documented as of this encounter Plan of Treatment Upcoming Encounters Date Type Department Care Team (Late st Contact Info) Description 12/19/2023 8:40 AM EDT NeuroDiagnostic Study Neurophysiology [address] [place] [address] [facility], [place] [address] Anastacio Lindo, DO [address] [facility] [place], [place] [address] 06/13/2024 10:00 AM EST Office Visit Family Practice [facility] [place] [address] [facility] [place] [address] Tulio Azevedo, DO [address] [facility] [place] [place] [address] Pending Results Name Type Priority Associated Diagnoses Date /Time MAGNESIUM Lab Routine Encounter for long-term (current) use of other medications 11/21/2023 10:18 AM EDT VITAMIN B12 Lab Routine B12 deficiency 11/21/2023 10:18 AM EDT HEMOGLOBIN A1C Lab Routine Type 2 diabetes mellitus with hemoglobin A1c goal of less than 7.0% ([facility]) 11/21/2023 10:18 AM EDT COMPREHENSIVE METABOLIC PANEL Lab Routine Type 2 diabetes mellitus with hemoglobin A1c goal of less than 7.0% ([facility]) Dyslipidemia, goal LDL below 100 11/21/2023 10:18 AM EDT ALBUMIN / CREATININE RATIO, URINE Lab Routine Type 2 diabetes mellitus with hemoglobin A1c goal of less than 7.0% ([facility]) 11/21/2023 10:23 AM EDT Health Maintenance Due Date Last Done Comments Depression Screening 08/26/2020 08/27/2019 DTaP,Tdap,and Td Vaccines (2 - Td or Tdap) 10/19/2021 10/20/2011, 03/31/2002 COVID-19 Vaccine (3 - season) 2023 09/24/2020, 09/03/2020 Diabetic Eye Exam 04/04/2023 04/04/2022, 03/25/2019 Albumin/Creatinine Ratio 06/07/202306/07/2 022, 04/04/2022, 09/20/2020, Additional history exists HbA1c 08/23/2023 02/21/2023, 03/25, 09/16/2021, Additional history exists Diabetic Foot Exam 02/22/2024 02/21/2023, 1 , 09/20/2020, Additional history exists GFR 02/22/2024 02/21/2023, 05/26, 06/17/2022, Additional history exists Influenza Vaccine (FLU shot) (Season Ended) 2024 04/29/2019, 04/29/2019, 07/03/2017, Additional history exists Pneumococcal Vaccine: 65+ Years [...] this encounter Medical Devices Implanted Type Area Magnetic Healer Device Identifier Shelf Expiration Date Model / Serial / Lot Chip Cancellous 15cc [id number] - [id number] Implanted:Qty : 1 on 04/17[place] [facility] [place] - Human N/A: Spine Cervical MUSCULOSKELETAL TRANSPLANT FND 12/05/2016 [id number] / [id number] / Dbx 5cc [id number] - [id number] Implanted:Qty : 1 on 04/17/2014 [place] [facility] [place] - Human N/A: Spine Cervical MUSCULOSKELETAL TRANSPLANT FND 12/04/2015 [id number] / [id number] / Vitoss Bimodal Foam Pack 5cc - [id number] Implanted:Qty : 1 on 04/17/2014 [place] [facility] [place]A: Spine Cervical BITA : SPINE 12/22/2014 [id number] / / [id number] Kae Oasys Lurdes Ii 3.5mm - [id number] Implanted:Qty : 6 on 04/17/2014 [place] [facility] [place]A: Spine Cervical BITA : SPINE [id number] / / Screw Oasys Poly 3.5x14 - [id number] Implanted:Qty : 6 on 04/17/2014 at [place] [facility] [place] N/A: Spine Cervical BITA : SPINE [id number] / / Sukhjinder 3.5x40mm - [id number] Implanted:Qty : 2 on 04/17/2014 at [place] [facility] [place] N/A: Spine Cervical BITA : SPINE [id number] / / Sut Steel 6 M654g - [id number] Implanted:Qty : 4 on 01/20/2015 by Rito Ahn MD at [facility] N/A: Chest JNJ : [employer] 01/22/2019 [id number] / / [id number] Marker Coronary [facility] - [id number] Implanted:Qty : 2 on 01/20/2015 by Rito Ahn MD [place] [facility] [place] N/A: Aorta [employer] 08/22/2017 [facility] / / [id number] documented as of this encounter Visit Diagnoses Diagnosis Encounter for long-term (current) use of other medications B12 deficiency Other B-complex deficiencies Type 2 diabetes mellitus with hemoglobin A1c goal of less than 7.0% (HCC) Dyslipidemia, goal LDL below 100 Other and unspecified hyperlipidemia documented in this encounter Advance Directives * [...] and were consensually agreed upon. Care Teams Germination Worker Relationship Specialty Start Date End Date Tulio Azevedo DO [address] [place] [address] [place] [address] PCP - General Family Medicine 12/08/16 documented as of this encounter
--- OUTSIDE RECORDS SUMMARY | 2024-02-10 13:13 | External Medical Summary | Summary of Care ---
Author Name Unknown Organization [facility] Address [address] [place] [address] Phone [phone] Care Team Providers Care Counter Dish Carrier Name Role Phone Tulio Azevedo DO Primary Care Provider [phone] Reason for Referral * Evaluate & Treat - Unlimited Visits (Within 30 days (routine)) - Pending Review Specialty Diagnoses / Procedures Referred By Sabine glass Referred To Contact Optometry Diagnoses Diabetic polyneuropathy associated with type 2 diabetes mellitus (HCC) Type 2 diabetes mellitus with hemoglobin A1c goal of less than 7.0% (HCC) Tulio Azevedo DO [address] [place] [address] Referral ID Status Reason Start Date Expiration Date Visits Requested Visits Authorized [id number] Pending Review Specialty Services Required 11/21/2023 1 1 Question Answer Referring for: Optometry Conditions Optometry Conditions Diabetic Eye Exam without Retinopathy Referral Priority Within 30 days (routine) Where should this appointment be scheduled? 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 8.5 g 1 10/26/2021 Active Acetaminophen 325 MG Oral Tablet (Tylenol)Indicatio ns:Colostomy status ([facility]) Take 3 Tablets by mouth every 6 hours. 36 Tablet 06/19/2022 Active Triamcinolone Acetonide 0.1 % External Cream (Aristocort)Indica tions:Intrinsic eczema Apply topically to affected area 2 times a day. To affected area.apply eucerin after 453.6 g 5 09/06/2022 Active Eucerin External Cream Apply topically to affected area 2 times a day. After triamcinolone 240 g 11 09/06/2022 Active Aspirin EC 81 MG Oral Tablet Delayed ReleaseIndications :S/P CABG x 3 Take 1 Tablet by mouth in the morning. 100 Tablet 3 10/16/2022 Active Metoprolol Tartrate 25 MG Oral Tablet (Lopressor) TAKE 1 TABLET BY MOUTH ONCE IN THE MORNING, THEN 1 TABLET AT BEDTIME 180 Tablet 1 09/15/2023 Active Sertraline HCl 100 MG Oral Tablet (Zoloft)Indication s:Depression with anxiety TAKE 1 TABLET BY MOUTH [...] at bedtime. 90 Tablet 3 11/21/2023 Active Melatonin 10 MG Oral Tablet Take 1 Tablet by mouth at bedtime. 11/21/19 24 Discontinu ed(Refill) Vitamin D3 25 MCG (1000 UT) Oral Capsule 25 mcg . 08/13/2021 11/21/19 24 Discontinu ed(Refill) B-12-SL 1000 MCG Sublingual Tablet Sublingual (Cyanocobalamin) Place 1,000 mcg under the tongue in the morning. 90 Tablet 3 05/01/2023 11/21/19 24 Discontinu ed(Refill) documented as of this encounter (statuses as [...] Off Pump CABG x 3, Endoscopic Vein [place] CASTELLON-LAD, Ao-OM using reversed saphenous vein graft, [...] brochure offered , patient declined. LOC PRIM [id number] 03/25/2004 HTN, goal below 140/90 04/25/2001 Reflux [...] on file documented as of this encounter Last Filed Vital Signs Vital Sign Reading Time Taken Comments Blood Pressure 124/84 11/21/2023 9:20 AM EDT Pulse 62 11/21/2023 9:20 AM EDT Temperature 36 C (96.8 F) 11/21/2023 9:20 AM EDT Respiratory Rate 18 11/21/2023 9:20 AM EDT Oxygen Saturation 95% 11/21/2023 9:20 AM EDT Inhaled Oxygen Concentration - - Weight 86 kg (189 lb 9.6 oz) 11/21/2023 9:20 AM EDT Height - - Body Mass Index 30.84 02/21/2023 9:02 AM EDT documented in this encounter Functional Status Functional Status Response [...] No 06/16/2022 documented as of this encounter Progress Notes * Tulio Azevedo, - 11/21/2023 9:36 AM EDT Subjective: Bo Casey is a 83 year old male. Chief Complaint Patient presents with Re-Check HPI: Pt here in follow-up. He has numbness in his fingers and toes. We discussed chronic causes and also some possible acute ones that could be fixed. He has had prior neck and lumbar sine surgeries. No back pain or neck pain. Due for blood work today. He had part of his colon removed and had adhesions from that. Bowels have been great lately. Eating is a little too much. Weight down some actually. His biggest fear is tripping. HE does nt lift his foot high enpough and they catch. He says he doesbring a cane and a walking stick. HE has a walker if need be. He cut back to one per day of baby aspirin. We discussed risks and benefits of this. I offered to see cardiology but he does not want to. PMHx, meds, and allergies reviewed Patient Active Problem List Diagnosis HTN, goal below 140/90 LOC PRIM [id number] Reflux esophagitis Panic disorder ADVANCE DIRECTIVE INFORMATION Benign carcinoid tumor of ileum History of tobacco use Type 2 diabetes mellitus with hemoglobin A1c goal of less than 7.0% ([facility]) Dyslipidemia, goal LDL below 100 Gouty arthropathy, chronic, without tophi Vitamin D deficiency Cervical disc disorder with myelopathy S/P CABG x 3 Statin intolerance RLS (restless legs syndrome) Hx of actinic keratosis History of ST elevation myocardial infarction (STEMI) Type 2 diabetes mellitus with diabetic neuropathy, unspecified ([facility]) Diabetic polyneuropathy associated with type 2 diabetes mellitus ([facility]) Left foot drop PAF (paroxysmal atrial fibrillation) ([facility]) Altered bowel elimination due to intestinal ostomy ([facility]) History of prostate cancer Aortic valve stenosis Current Outpatient Medications Medication Sig Dispense Refill amoxicillin (AMOXIL) 500 MG Capsule 4 capsules one hour prior to dental appts Melatonin 10 MG Oral Tablet Take 1 Tablet by mouth at bedtime. Vitamin D3 25 MCG (1000 UT) Oral Capsule 25 mcg . ProAir HFA 108 (90 Base) MCG/ACT Inhalation Aerosol Solution INHALE 2 PUFFS BY MOUTH EVERY 4 HOURS NEEDED FOR WHEEZING. 8.5 g 1 Acetaminophen 325 MG Oral Tablet (Tylenol) Take 3 Tablets by mouth every 6 hours. 36 Tablet 0 Triamcinolone Acetonide 0.1 % External Cream (Aristocort) Apply topically to affected area 2 times a day. To affected area.apply eucerin after 453.6 g 5 Eucerin External Cream Apply topically to affected area 2 times a day. After triamcinolone 240 g 11 Aspirin EC 81 MG Oral Tablet Delayed Release Take 1 Tablet by mouth in the morning. 100 Tablet 3 B-12-SL 1000 MCG Sublingual Tablet Sublingual (Cyanocobalamin) Place 1,000 mcg under the tongue in the morning. 90 Tablet 3 Metoprolol Tartrate 25 MG Oral Tablet (Lopressor) TAKE 1 TABLET BY MOUTH ONCE IN THE MORNING, THEN 1 TABLET AT BEDTIME 180 Tablet 1 Sertraline HCl 100 MG Oral Tablet (Zoloft) TAKE 1 TABLET BY MOUTH IN THE MORNING 90 Tablet 1 Spironolactone 25 MG Oral Tablet (Aldactone) TAKE 1 TABLET BY MOUTH ONCE DAILY IN THE MORNING 90 Tablet 1 rOPINIRole HCl 1 MG Oral Tablet (Requip) TAKE 1 TABLET BY MOUTH ONCE DAILY AT BEDTIME 90 Tablet 1 Omeprazole 20 MG Oral Capsule Delayed Release (PriLOSEC) TAKE 1 CAPSULE BY MOUTH ONCE DAILY IN THE MORNING ONE HOUR BEFORE FIRST MEAL OF THE DAY 90 Capsule 1 Cetirizine HCl 10 MG Oral Tablet (ZyrTEC) TAKE 1 TABLET BY MOUTH IN THE MORNING 90 Tablet 1 No current facility-administered medications for this visit. Review of patient's allergies indicates: Allergen Reactions Enalapril Cough Lipitor [Atorvastatin Calcium] Muscle pain muscle aches and pains Eliquis [Apixaban] Simvastatin diarrhea, abdominal cramps Statins diarrhea, OBJECTIVE: BP 124/84 | Pulse 62 | Temp 36 C (96.8 F) (Tympanic) | Resp 18 | Wt 86 kg (189 lb 9.6 oz) | SpO2 95% | BMI 30.84 kg/m | BSA 2 m Estimated body mass index is 30.84 kg/m as calculated from the following: Height as of 02/21/23: 1.67 m (5' 5.75"). Weight as of this encounter: 86 kg (189 lb 9.6 oz). BP Readings from Last 3 Encounters: 11/21/23 124/84 05/01/23 130/70 02/21/23 124/70 Wt Readings from Last 3 Encounters: 11/21/23 86 kg (189 lb 9.6 oz) 05/01/23 88.4 kg (194 lb 12.8 oz) 02/21/23 88.8 kg (195 lb 12 oz) ROS: Negative except for above PHYSICAL EXAM: General: alert, healthy, and no distress Head: Normocephalic, No masses, lesions, tenderness or abnormalities Heart: regular rate & rhythm, no gallops, and JULIETTE 2/6 Lungs: chest symmetric with normal AP diameter, no chest deformities noted, no chest wall tenderness, lungs clear to auscultation ASSESSMENT/Plan Type 2 diabetes mellitus with hemoglobin A1c goal of less than 7.0% ([facility]) (Primary) - COMPREHENSIVE METABOLIC PANEL; Future; Expected date: 11/21/2023 - HEMOGLOBIN A1C; Future; Expected date: 11/21/2023 - ALBUMIN / CREATININE RATIO, URINE; Future; Expected date: 11/21/2023 - ADULT/PEDS OPHTHALMOLOGY/OPTOMETRY REFERRAL OP Benign carcinoid tumor of ileum PAF (paroxysmal atrial fibrillation) ([facility]) Diabetic polyneuropathy associated with type 2 diabetes mellitus ([facility]) - ADULT/PEDS OPHTHALMOLOGY/OPTOMETRY REFERRAL OP Altered bowel elimination due to intestinal ostomy ([facility]) Dyslipidemia, goal LDL below 100 - COMPREHENSIVE METABOLIC PANEL; Future; Expected date: 11/21/2023 B12 deficiency - VITAMIN B12; Future; Expected date: 11/21/2023 Paresthesia of both lower extremities - EMG Paresthesia and pain of both upper extremities - EMG Other orders - B-12-SL 1000 MCG Sublingual Tablet Sublingual (Cyanocobalamin); Place 1,000 mcg under the tongue in the morning. - Vitamin D3 25 MCG (1000 UT) Oral Capsule; Take 1000 IUs daily - Melatonin 10 MG Oral Tablet; Take 1 Tablet by mouth at bedtime. I spent a total of 30 minutes on the date of service in preparation, delivery, and documentation ofthe care provided to this patient, excluding any time spent on the performance of any procedure or separately billable services. Check blood work and EMG. This could be CTS as his first three fingers are the worst of it. The above was discussed and understanding was expressed. Tulio Azevedo DO documented in this encounter Nursing Notes * Esthela Shankar LPN - 11/21/2023 9:15 AM EDT Bo Casey presents for 6 month recheck. Medications & HM reviewed. documented in this encounter Plan of Treatment Upcoming Encounters Date Type Department Care Team (Late st Contact Info) Description 12/19/2023 8:40 AM EDT NeuroDiagnostic Study Neurophysiology [facility] [address] [facility] [place] [address] Anastacio Lindo, DO [address] [facility] [place] [address] 06/13/2024 10:00 AM EST Office Visit Family Practice [facility] [place] [address] [place] [address] Tulio Azevedo, DO [address] [facility] [place] [address] Pending Results Name Type Priority Associated Diagnoses Date /Time COMPREHENSIVE METABOLIC PANEL Lab Routine Type 2 diabetes mellitus with hemoglobin A1c goal of less than 7.0% (HCC) Dyslipidemia, goal LDL below 100 11/21/2023 10:18 AM EDT Scheduled Orders Name Type Priority Associated Diagnoses Orde r Schedule COMPREHENSIVE METABOLIC PANEL Lab Routine Type 2 diabetes mellitus with hemoglobin A1c goal of less than 7.0% (HCC) Dyslipidemia, goal LDL below 100 Expected: 11/21/2023 (Approximate), Expires: 11/20/2024 Scheduled Referrals Name Type Priority Associated Diagnoses Orde r Schedule ADULT/PEDS OPHTHALMOLOGY/OPTO METRY REFERRAL OP Referral Within 30 days (routine) Diabetic polyneuropathy associated with type 2 diabetes mellitus (HCC) Type 2 diabetes mellitus with hemoglobin A1c goal of less than 7.0% (HCC) Ordered: 11/21/2023 Health Maintenance Due Date Last Done Comments Depression Screening 08/26/2020 08/27/2019 DTaP,Tdap,and Td Vaccines (2 - Td or Tdap) 10/19/2021 10/20/2011, 03/31/2002 COVID-19 Vaccine ( season) 2023 09/24/2020, 09/03/2020 Diabetic Eye Exam [...] this encounter Medical Devices Implanted Type Area Player Development Manager Device Identifier Shelf Expiration Date Model / Serial / Lot Chip Cancellous 15cc [id number] - [id number] Implanted:Qty : 1 on 04/17/2014 at [place] [facility] [place] Tissue - Human N/A: Spine Cervical MUSCULOSKELETAL TRANSPLANT FND 12/05/2016 [id number] / [id number] / Dbx 5c [id number] - [id number] Implanted:Qty : 1 on 04/17/2014 at [place] [facility] [place] Tissue - Human N/A: Spine Cervical MUSCULOSKELETAL TRANSPLANT FND 12/04/2015 [id number] / [id number] / Vitoss Bimodal Foam Pack 5cc - [id number] Implanted:Qty : 1 on 04/17/2014 at [place] [facility] [place] N/A: Spine Cervical BITA : SPINE 12/22/2014 [id number] / / [id number] Kae Oasys Lurdes Ii 3.5mm - [id number] Implanted:Qty : 6 on 04/17/2014 at [place] [facility] [place] N/A: Spine Cervical BITA : SPINE [id number] / / Screw Oasys Poly 3.5x14 - [id number] Implanted:Qty : 6 on 04/17/2014 at [place] [facility] [place] N/A: Spine Cervical BITA : SPINE [id number] / / Sukhjinder 3.5x40mm - [id number] Implanted:Qty : 2 on 04/17/2014 at [facility] [place] N/A: Spine Cervical BITA : SPINE [id number] / / Sut Steel 6 M654g - [id number] Implanted:Qty : 4 on 01/20/2015 by Rito Ahn MD at [facility] [place] N/A: Chest JNJ : [employer] 01/22/2019 [id number] / / [id number] Marker Coronary Am-Sd - [id number] Implanted:Qty : 2 on 01/20/2015 by Rito Ahn MD at [facility] [place] N/A: Aorta [employer] 08/22/2017 AM-SD / / [id number] documented as of this encounter Visit Diagnoses Diagnosis Type 2 diabetes mellitus with hemoglobin A1c goal of less than 7.0% (HCC)- Primary Benign carcinoid tumor of ileum Benign carcinoid tumor of the ileum PAF (paroxysmal atrial fibrillation) (HCC) Atrial fibrillation Diabetic polyneuropathy associated with type 2 diabetes mellitus (HCC) 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 Care Teams Counter Dish Carrier Relationship Specialty Start Date End Date Tulio Azevedo DO [address] [place] [address] PCP - General Family Medicine 12/08/16 documented as of this encounter
--- OUTSIDE RECORDS SUMMARY | 2024-02-10 13:13 | External Medical Summary ---
Author Name Unknown Address Unknown Organization [id number]:[facility] [place] [address] [place] [address] Laboratory Report Ordering Provider Test Date Status RUSSELL MALDONADO 11/21/2023 10:18:11 Final Observation Date Value Abnormality Reference (Units ) Status HbA1C 11/21/2023 10:18:11 6.6 Above high normal 4. 0-5.6 (%) Final The use of HbA1c to monitor glycemic status is based on normal hemoglobin and HbA composition. This test should not be used in patients with abnormal hemoglobin that affects the half life of the red blood cell or the in vivo glycation rates. Glucose, estimated average 11/21/2023 10:18:11 143 Above high normal <126 (mg/dL) Stephen herrera Performing Location [facility] [place] [address] [facility] [address]
--- OUTSIDE RECORDS SUMMARY | 2024-02-10 13:13 | External Medical Summary ---
Author Name Unknown Address Unknown Organization [id number]:[facility] [place] [address] [place] [address] Laboratory Report Ordering Provider Test Date Status RUSSELL MALDONADO 11/21/2023 10:18:11 Final Observation Date Value Abnormality Reference (Units ) Status Vitamin B12 11/21/2023 10:18:11 >2000 Above high normal 232-1245 (pg/mL) Final Performing Location LABORATORY [facility] - [address] [place] [address]
--- OUTSIDE RECORDS SUMMARY | 2024-02-10 13:13 | External Medical Summary | Summary of Care ---
Author Name Unknown Organization [facility] Address [address] [place] [address] Phone [phone] Care Team Providers Care Horticultural Technical Officer Name Role Phone SammyTulio duong Sonia SERVIN Primary Care Provider [phone] Reason for Visit * Reason Comments Outpatient Testing Encounter Details Date Type Department Care Team (Late st Contact Info) Description 11/21/2023 10:20 AM EDT Laboratory Laboratory [facility] [address] [place] [address] [facility] [address] [facility] [place] [address] Encounter for long-term (current) use of other medications; B12 deficiency; Type 2 diabetes mellitus with hemoglobin A1c goal of less than 7.0% ([facility]); Dyslipidemia, goal LDL below 100 Allergies Active [...] Off Pump CABG x 3, Endoscopic Vein [place] CASTELLON-LAD, Ao-OM using reversed saphenous vein graft, [...] brochure offered , patient declined. LOC PRIM [id number] 03/25/2004 HTN, goal below 140/90 04/25/2001 Reflux [...] mRNA, LNP-s, No Pre serve, 2-Dose Series ([employer]) 09/24/2020,09/03/2020 Diptheria/Tetanus (Adult) 03/31/2002 H1N1 2009 Influenza, [...] AM EDT NeuroDiagnostic Study Neurophysiology [facility] [place] [address] [facility], [place] [address] Anastacio Lindo, DO [address] [facility] [place], [place] [address] 06/13/2024 10:00 AM EST Office Visit Family Practice [facility] [place] [address] [facility] [place] [address] Tulio Azevedo, DO [address] [facility] [place] [place] [address] Pending Results Name Type Priority Associated Diagnoses Date /Time MAGNESIUM Lab Routine Encounter for long-term (current) use of other medications 11/21/2023 10:18 AM EDT VITAMIN B12 Lab Routine B12 deficiency 11/21/2023 10:18 AM EDT HEMOGLOBIN A1C Lab Routine Type 2 diabetes mellitus with hemoglobin A1c goal of less than 7.0% ([facility]) 11/21/2023 10:18 AM EDT COMPREHENSIVE METABOLIC PANEL Lab Routine Type 2 diabetes mellitus with hemoglobin A1c goal of less than 7.0% ([facility]) Dyslipidemia, goal LDL below 100 11/21/2023 10:18 AM EDT ALBUMIN / CREATININE RATIO, URINE Lab Routine Type 2 diabetes mellitus with hemoglobin A1c goal of less than 7.0% ([facility]) 11/21/2023 10:23 AM EDT Health Maintenance Due [...] this encounter Medical Devices Implanted Type Area Cloth Colors Examiner Device Identifier Shelf Expiration Date Model / Serial / Lot Chip Cancellous 15cc [id number] - [id number] Implanted:Qty : 1 on 04/17/2014 at [place] [facility] [place] Tissue - Human N/A: Spine Cervical MUSCULOSKELETAL TRANSPLANT FND 12/05/2016 [id number] / [id number] / Dbx 5cc [id number] - [id number] Implanted:Qty : 1 on 04/17/2014 at [place] [facility] [place] Tissue - Human N/A: Spine Cervical MUSCULOSKELETAL TRANSPLANT FND 12/04/2015 [id number] / [id number] / Vitoss Bimodal Foam Pack 5cc - [id number] Implanted:Qty : 1 on 04/17/2014 at [place] [facility] [place] N/A: Spine Cervical BITA : SPINE 12/22/2014 [id number] / / [id number] Kae Oasys Lurdes Ii 3.5mm - [id number] Implanted:Qty : 6 on 04/17/2014 at [place] [facility] [place] N/A: Spine Cervical BITA : SPINE [id number] / / Screw Oasys Poly 3.5x14 - [id number] Implanted:Qty : 6 on 04/17/2014 at [place] [facility] [place] N/A: Spine Cervical BITA : SPINE [id number] / / Sukhjinder 3.5x40mm - [id number] Implanted:Qty : 2 on 04/17/2014 at [place] [facility] [place] N/A: Spine Cervical BITA : SPINE [id number] / / Sut Steel 6 M654g - [id number] Implanted:Qty : 4 on 01/20/2015 by Rito Ahn MD at [facility] N/A: Chest JNJ : [employer] 01/22/2019 M654G / / [id number] Marker Coronary [facility]-Sd - [id number] Implanted:Qty : 2 on 01/20/2015 by Rito Ahn MD at [place] [facility] [place] N/A: Aorta [employer] 08/22/2017 [facility]-SD / / [id number] documented as of this encounter Visit Diagnoses [...] and were consensually agreed upon. Care Teams Horticultural Technical Officer Relationship Specialty Start Date End Date Tulio Azevedo DO [address] [place] [address] [place] [address] PCP - General Family Medicine 12/08/16 documented as of this encounter
--- OUTSIDE RECORDS SUMMARY | 2024-02-10 13:13 | External Medical Summary ---
Author Name Unknown Address Unknown Organization [id number]:LAB[facility]ATORY [place] [address] Laboratory Report Ordering Provider Test Date Status TRISTIN FUCHS 11/21/2023 10:18:11 Final Observation Date Value Abnormality Reference (Units ) Status Magnesium 11/21/2023 10:18:11 1.9 1.5-2.6 (m g/dL) Final Performing Location [facility] [place] [address]
[2024-02-10 14:25] LABS: Hematocrit (blood only) 45.2 % (42.0-52.0); Hemoglobin 14.9 g/dl (14.0-18.0); Mean Corpuscular Hemoglobin 26.7 pg (25.0-34.0); Mean Corpuscular Volume 80.9 fL (80.0-100.0); Mean Platelet Volume 11.5 fL (9.4-12.4); Platelet Count 190 K/uL (130-400); RDW Coefficient of Variation 15.5 % (11.5-14.5); RDW Standard Deviation 44.6 fL (36.4-46.3); Red Blood Count 5.59 M/uL (4.70-6.10); White Blood Count 13.94 K/ul (4.8-10.8)
[2024-02-10 14:32] LABS: Albumin Globulin Ratio 0.9 (0.9-2); Albumin Level 3.5 gm/dl (3.4-5.0); BUN Creatinine Ratio 40.6 (10-20); Bilirubin,Total 1.5 mg/dl (0.2-1.0); Calcium 9.3 mg/dl (8.6-10.3); Creatinine Clr Calc Pharmacy 45.5 ml/min; Est GFR (African American) 59.2 ml/min; Est GFR (Non-African American) 51.1 ml/min; Globulin 3.8 gm/dl (2.5-4.0); Potassium 3.3 mmol/L (3.5-5.1); Total Protein 7.3 gm/dl (6.0-8.3)
[2024-02-10] MEDS: SODIUM CHLORIDE 0.9% 500 ML IV ONE (14:33)
[2024-02-10 14:46] LABS: Basophils # (auto) 0.07 K/uL (0.00-0.20); Basophils % (auto) 0.5 %; Dohle Bodies 1+; Eosinophils # (auto) 0.11 K/uL (0.00-0.50); Eosinophils % (auto) 0.8 %; Immature Granulocytes # (auto) 1.03 K/uL (0.01-0.20); Immature Granulocytes % (auto) 7.4 %; Lymphocytes # (auto) 0.93 K/uL (1.20-3.40); Lymphocytes % (auto) 6.7 %; Monocytes # (auto) 0.81 K/uL (0.11-0.59); Monocytes % (auto) 5.8 %; Neutrophils # (auto) 10.99 K/uL (1.40-6.50); Neutrophils % (auto) 78.8 %; Polychromasia 1+
--- NOTE | 2024-02-10 15:05 | Emergency Department Note ---
Impression & Plan Fall, Generalized weakness, Hypoxia, Productive cough, Acute dehydration, Atrial fibrillation with rapid ventricular response ED Provider Note NAME: FADI BRIGGS AGE: 83 SEX: Male INFORMANT: Patient ED PROVIDER(S): Peng Escobedo MD CHIEF COMPLAINT: Fall PLAN: Disposition: Admitted Outpatient prescription management: none Referral: None MEDICAL DECISION MAKING: Patient presented because of a fall. He had a productive cough. He has not done well over the last few days due to severe weakness. Patient was hydrated. COVID testing was ordered. CT imaging of the head and cervical spine ordered as well. Chest x-ray, blood work and urinalysis ordered. Patient was mildly hypoxic and responded well to nasal cannula supplemental oxygen. He had mild rapid A-fib on ECG. Patient's bio fire testing was negative. Mild elevation of cardiac troponin and BNP. CT imaging was negative. Patient did have a slight leukocytosis and chest x-ray was negative as well. He was dehydrated on chemistry panel. Patient seem to do well with hydration and he was also given 2.5 mg of Lopressor for rate control. Leukocytosis may be due to dehydration as there was not an obvious source of infection on workup at this point. Patient was given aspirin due to the elevated troponin. Further management in the hospital be necessary. [facility] Patient was evaluated in the ER and admitted for further management. Care/management discussed with: web services manager Level of care consideration(s): After review of the information above and other included data, I feel the patient requires escalation of care to admission Triage Nursing notes: reviewed and agree them. Vital Signs: reviewed and remarkable for hypertension and tachycardia Additional History obtained from: Patient's family. Family reports the patient's weakness and supports history as noted below. Chronic Medical/Social Conditions affecting care: A-fib, diabetes Prior/ Outside/ External records reviewed: none Differential Diagnosis: Infection, dehydration, trauma, metabolic abnormality, hypo/hyperglycemia, electrolyte disturbance, anemia, hypoxia, cardiac sources, intracerebral event, toxicologic, neurologic, as well as other pathologies. Diagnostics, independently interpreted by me: ECG: Twelve-lead ECG reveals atrial fibrillation at 114 bpm. PVC present. Left axis deviation. Inferior posterior Q wave present. Cardiac Monitoring: Cardiac monitoring ordered by me: The patient was placed on continuous cardiac monitoring and observed. It revealed atrial fibrillation with rapid ventricular sponsor 108 bpm. Medical decision rules: none Imaging studies: Chest x-ray. Findings: A chest x-ray was performed and revealed no pneumothorax, effusion, infiltrate, pulmonary edema, free air under the diaphragm, or wide mediastinum. Impression: No acute disease. HPI: 83 year old Male arrives for evaluation of a fall. Patient's family present and helps with history. They had not seen the patient for about 2 days. Family heard him calling from his apartment which is next to the residence and they found him lying on the floor. Patient states he was too weak to get up. He has had a productive cough and cold over the last several days. Patient states he feels very dehydrated. Notes dark urine. Patient states he has some discomfort in his neck but that is a chronic issue for him. Does not feel like he suffered any significant injury from the fall. He was placed in cervical collar. On arrival he was noted to have dropped his O2 saturations below 90% and was placed on nasal cannula oxygen. Pt denies LOC, headache, fevers, chills, diaphoresis, visual changes, chest pain, breathing difficulties, nausea, vomiting, abdominal pain, back pain, melena, hematochezia, numbness, rash, or other complaints. PAST MEDICAL HISTORY: See Below, A-fib, SBO PAST SURGICAL HISTORY: See Below, bowel resection SOCIAL HISTORY: See Below, retired HOME MEDICATIONS: See Below ALLERGIES: See Below VITALS: See Below PHYSICAL EXAMINATION: GENERAL: Awake, alert, mildly ill appearing, in no distress HENT: Normocephalic, atraumatic. Oropharynx unremarkable. EYES: Normal conjunctiva. Sclera non-icteric. NECK: Inspection normal. Non-tender. Cervical collar in place, trachea midline. No masses. RESPIRATORY: Clear to auscultation. No wheezes. No rales. Normal respiratory effort. CARDIAC: Tachycardic rate. Irregular rhythm. No murmurs. No rubs. Extremities warm and well perfused. Pulses equal. No JVD. GI: Soft, non-distended. No tenderness to palpation. No rebound or guarding. No masses. RECTAL: Deferred. MUSCULOSKELETAL: Atraumatic. Chest examination reveals no tenderness. The back is symmetrical on inspection without obvious abnormality. There is no CVA tenderness to palpation. No joint edema. LOWER EXTREMITIES: Calves are equal size bilaterally and non-tender. No edema. No discoloration. NEURO: Normal sensorium. Generally weak but no focal sensory or motor deficits noted. SKIN: Mild mottling noted however no rash or jaundice noted. PROCEDURES: none CRITICAL CARE: none OBSERVATION NOTE: none Past Med/Surg History Problem List (Updated 02/10/24 @ 15:05 by Peng Escobedo MD) Atrial fibrillation with rapid ventricular response (Acute) Acute dehydration (Acute) Productive cough (Acute) Hypoxia (Acute) Generalized weakness (Acute) Fall (Acute) History of bowel resection (08/08/21) Laparotomy with sigmoid colectomy and end colostomy. Dr. 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) Acute [place], inferior wall (Acute) Bradycardia (Acute) Chest pain (Acute) Generalized weakness (Acute) Nausea (Acute) Epigastric abdominal pain (Acute) Large bowel obstruction Colonic mass CAD (coronary artery disease) HTN (hypertension) Diabetes type 2, controlled Medical History (Updated 02/10/24 @ 15:05 by Peng Escobedo MD) Fusion of spine Family hx of colon cancer Surgical History (Updated 08/24/21 @ 05:06 by Reinaldo Torres MD, FACS) History of laminectomy 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 History of prostatectomy History of total knee replacement History of carpal tunnel release Social History Smoking Status: Former smoker Tobacco Type: Cigarettes Second Hand Exposure: No; Do You Dip or Chew Tobacco: No; Tobacco Cessation Education Requested by Patient: No Hx Alcohol Use: No Hx Substance Use: No Preferred Language: Kazakh Communication Ability: Effective Visual Impairment: No Limitations Design Center Consultant Required: No Beliefs That Will Affect Care: None marital status: Current Living Situation: Family Current Living Situation Comment: lives with grandson and family How many Children do You have: 3 Other Information That Helps Us Care for You: No Feels Safe at Home: Yes Safety Concerns: Feels Safe At This Time Assistive Devices: Denture - Upper, Denture - Lower and Glasses Allergies Allergies Allergy/AdvReac Type Severity Reaction Status Date / Time enalapril Allergy Unknown Cough Verified 02/10/24 16:39 simvastatin AdvReac Mild muscle Verified 02/10/24 16:39 weakness aspirin AdvReac Unknown GI UPSET Verified 11/09/21 08:57 IN HIGH DOSES atorvastatin AdvReac Unknown MUSCLE Verified 02/10/24 16:39 ACHES Smakjaj-JSF-WfX Reductase AdvReac Unknown MUSCLE Verified 02/10/24 16:39 Inhibitor ACHES AND [Rgfvcav-Lci-Pwg Reductase WEAKNESS/DIARRHEA Inhibitor] apixaban [From EliEtable] AdvReac Unknown Verified 02/10/24 16:39 Home Meds Home Medications Medication Instructions Recorded Confirmed omeprazole 20 mg capsule,delayed 20 mg PO QAM 10/26/19 02/10/24 release sertraline 100 mg tablet 100 mg PO QAM 10/26/19 02/10/24 aspirin 81 mg tablet,delayed 81 mg PO QAM 11/10/20 02/10/24 release (Christine Low Dose Aspirin) melatonin 10 mg tablet 10 mg PO HS 11/10/20 02/10/24 ropinirole 1 mg tablet 1 mg PO 11/10/20 02/10/24 amoxicillin 500 mg capsule 2,000 mg PO ONCE PRN 1 hour prior 08/04/21 02/10/24 to dentist cholecalciferol (vitamin D3) 25 25 mcg PO DAILY 08/04/21 02/10/24 mcg (1,000 unit) tablet (Vitamin D3) spironolactone 25 mg tablet 25 mg PO DAILY 08/04/21 02/10/24 cetirizine 10 mg tablet 10 mg PO QAM 02/10/24 02/10/24 cyanocobalamin (vitamin B-12) 1,000 mcg sublingual QAM 02/10/24 02/10/24 1,000 mcg sublingual tablet Previous Rx's Medication Instructions Recorded acetaminophen 325 mg capsule 650 mg (2 x 325 mg) PO Q6H PRN 08/13/21 fever or pain #30 caps metoprolol tartrate 25 mg tablet 25 mg PO BID #60 tabs 08/13/21 Results & Data (ED) Vital Signs Vital Signs - 24 hr 02/10/24 15:15 02/10/24 15:15 02/10/24 15:20 Pulse Rate 116 H Pulse Rate [Apical] 128 H Pulse Rate from SpO2 Sensor 113 H Respiratory Rate 27 H 18 Blood Pressure 146/92 H Blood Pressure [Right Arm] 146/93 H Blood Pressure Mean 117 Blood Pressure Mean [Right Arm] 110 Pulse Oximetry 96 94 Oxygen Delivery Method Nasal Cannula Oxygen Flow Rate 2 2 02/10/24 15:21 02/10/24 15:36 02/10/24 16:03 Pulse Rate 122 H 116 H 119 H Pulse Rate [Apical] Pulse Rate from SpO2 Sensor 119 H 113 H 114 H Respiratory Rate 20 28 H 24 Blood Pressure Blood Pressure [Right Arm] Blood Pressure Mean Blood Pressure Mean [Right Arm] Pulse Oximetry 94 96 92 Oxygen Delivery Method Oxygen Flow Rate 2 2 02/10/24 16:06 02/10/24 16:06 02/10/24 16:06 Pulse Rate 80 Pulse Rate [Apical] Pulse Rate from SpO2 Sensor 89 Respiratory Rate 21 Blood Pressure 122/83 122/83 Blood Pressure [Right Arm] Blood Pressure Mean 104 104 Blood Pressure Mean [Right Arm] Pulse Oximetry 94 Oxygen Delivery Method Oxygen Flow Rate 02/10/24 16:27 02/10/24 16:30 02/10/24 16:33 Pulse Rate 93 H 102 H Pulse Rate [Apical] Pulse Rate from SpO2 Sensor 93 H 98 H Respiratory Rate 16 22 Blood Pressure 120/96 Blood Pressure [Right Arm] Blood Pressure Mean 108 Blood Pressure Mean [Right Arm] Pulse Oximetry 94 94 Oxygen Delivery Method Oxygen Flow Rate 2 2 02/10/24 16:42 02/10/24 16:51 02/10/24 16:57 Pulse Rate 97 H 101 H 101 H Pulse Rate [Apical] Pulse Rate from SpO2 Sensor 94 H 103 H Respiratory Rate 16 16 Blood Pressure Blood Pressure [Right Arm] Blood Pressure Mean Blood Pressure Mean [Right Arm] Pulse Oximetry 92 95 Oxygen Delivery Method Oxygen Flow Rate 2 2 Laboratory Data 02/11/24 05:32 02/11/24 05:32 Lab Results 02/10/24 02/10/24 02/10/24 Range/Units 13:50 14:22 14:53 WBC 13.94 H (4.8-10.8) K/ul RBC 5.59 (4.70-6.10) M/uL Hgb 14.9 (14.0-18.0) g/dl Hct 45.2 (42.0-52.0) % MCV 80.9 (80.0-100.0) fL MCH 26.7 (25.0-34.0) pg MCHC 33.0 (32.0-36.0) g/dL RDW Std Deviation 44.6 (36.4-46.3) fL RDW Coeff of Jeanette 15.5 H (11.5-14.5) % Plt Count 190 (130-400) K/uL MPV 11.5 (9.4-12.4) fL Immature Gran % (Auto) 7.4 % Neut % (Auto) 78.8 % Lymph % (Auto) 6.7 % [place] % (Auto) 5.8 % Eos % (Auto) 0.8 % Baso % (Auto) 0.5 % Neut # (Auto) 10.99 H (1.40-6.50) K/uL Lymph # (Auto) 0.93 L (1.20-3.40) K/uL [place] # (Auto) 0.81 H (0.11-0.59) K/uL Eos # (Auto) 0.11 (0.00-0.50) K/uL Baso # (Auto) 0.07 (0.00-0.20) K/uL Immature Gran # (Auto) 1.03 H (0.01-0.20) K/uL Dohle Bodies 1+ Polychromasia 1+ Sodium 133 L (136-145) mmol/L Potassium 3.3 L (3.5-5.1) mmol/L Chloride 95 L (98-107) mmol/L Carbon Dioxide 21 (21-32) mmol/L Anion Gap 17 H (3-11) BUN 52 H (6-23) mg/dl Creatinine 1.28 (0.6-1.4) mg/dl Est Cr Clr Drug Dosing 45.5 ml/min Est GFR ( Amer) 59.2 ml/min Est GFR (Non-Af Amer) 51.1 ml/min BUN/Creatinine Ratio 40.6 H (10-20) Glucose 104 H (70-99(Fasting)) mg/dl Calcium 9.3 (8.6-10.3) mg/dl Magnesium 2.0 (1.7-2.4) mg/dl Total Bilirubin 1.5 H (0.2-1.0) mg/dl AST 34 (13-39) U/L ALT 22 (7-52) U/L Alkaline Phosphatase 89 (34-104) U/L Total Creatine Kinase (30-223) U/L Troponin I High Sens 216.2 H* (0-20) pg/ml B-Natriuretic Peptide 433 H (0-100) pg/ml Total Protein 7.3 (6.0-8.3) gm/dl Albumin 3.5 (3.4-5.0) gm/dl Globulin 3.8 (2.5-4.0) gm/dl Albumin/Globulin Ratio 0.9 (0.9-2) Urine Color [place] Urine Appearance Cloudy A (Clear) Urine pH 5.5 (4.5-7.5) Ur Specific [place] 1.024 (1.000-1.030) Urine Protein 1+ H (Negative) Urine Glucose (UA) Negative (Negative) Urine Ketones 1+ H (Negative) Urine Blood 1+ H (Negative) Urine Nitrite Negative (Negative) Urine Bilirubin 2+ H (Negative) Urine Urobilinogen Negative (Negative) Ur Leukocyte Esterase 1+ H (Negative) Urine WBC (Auto) 0-5 (0-5) /hpf Urine RBC (Auto) 0-2 (0-2) /hpf U Hyaline Cast (Auto) >20 H (0-2) /lpf U Epithel Cells (Auto) 11-20 H (0-2) /hpf Urine Bacteria (Auto) None Seen (None Seen) Adenovirus (PCR) Not Detected (NotDetected) B. pertussis DNA (PCR) Not Detected (NotDetected) B.parapertussis DNA PCR Not Detected (NotDetected) C. pneumoniae DNA (PCR) Not Detected (NotDetected) Coronavirus OC43 (PCR) Not Detected (NotDetected) Coronavirus HKU1 (PCR) Not Detected (NotDetected) Coronavirus 229E (PCR) Not Detected (NotDetected) SARS-CoV-2 (PCR) Not Detected (NotDetected) Coronavirus NL63 (PCR) Not Detected (NotDetected) Human Metapneumovir PCR Not Detected (NotDetected) Influenza Type A (PCR) Not Detected (NotDetected) Influenza Type B (PCR) Not Detected (NotDetected) M. pneumoniae (PCR) Not Detected (NotDetected) Parainfluenza 1 (PCR) Not Detected (NotDetected) Parainfluenza 2 (PCR) Not Detected (NotDetected) Parainfluenza 3 (PCR) Not Detected (NotDetected) Parainfluenza 4 (PCR) Not Detected (NotDetected) RSV (PCR) Not Detected (NotDetected) Entero/Rhino (PCR) Not Detected (NotDetected) 02/10/24 Range/Units 16:14 WBC (4.8-10.8) K/ul RBC (4.70-6.10) M/uL Hgb (14.0-18.0) g/dl Hct (42.0-52.0) % MCV (80.0-100.0) fL MCH (25.0-34.0) pg MCHC (32.0-36.0) g/dL RDW Std Deviation (36.4-46.3) fL RDW Coeff of Jeanette (11.5-14.5) % Plt Count (130-400) K/uL MPV (9.4-12.4) fL Immature Gran % (Auto) % Neut % (Auto) % Lymph % (Auto) % [place] % (Auto) % Eos % (Auto) % Baso % (Auto) % Neut # (Auto) (1.40-6.50) K/uL Lymph # (Auto) (1.20-3.40) K/uL [place] # (Auto) (0.11-0.59) K/uL Eos # (Auto) (0.00-0.50) K/uL Baso # (Auto) (0.00-0.20) K/uL Immature Gran # (Auto) (0.01-0.20) K/uL Dohle Bodies Polychromasia Sodium (136-145) mmol/L Potassium (3.5-5.1) mmol/L Chloride (98-107) mmol/L Carbon Dioxide (21-32) mmol/L Anion Gap (3-11) BUN (6-23) mg/dl Creatinine (0.6-1.4) mg/dl Est Cr Clr Drug Dosing ml/min Est GFR ( Amer) ml/min Est GFR (Non-Af Amer) ml/min BUN/Creatinine Ratio (10-20) Glucose (70-99(Fasting)) mg/dl Calcium (8.6-10.3) mg/dl Magnesium (1.7-2.4) mg/dl Total Bilirubin (0.2-1.0) mg/dl AST (13-39) U/L ALT (7-52) U/L Alkaline Phosphatase (34-104) U/L Total Creatine Kinase 348 H (30-223) U/L Troponin I High Sens 180.2 H* (0-20) pg/ml B-Natriuretic Peptide (0-100) pg/ml Total Protein (6.0-8.3) gm/dl Albumin (3.4-5.0) gm/dl Globulin (2.5-4.0) gm/dl Albumin/Globulin Ratio (0.9-2) Urine Color Urine Appearance (Clear) Urine pH (4.5-7.5) Ur Specific [place] (1.000-1.030) Urine Protein (Negative) Urine Glucose (UA) (Negative) Urine Ketones (Negative) Urine Blood (Negative) Urine Nitrite (Negative) Urine Bilirubin (Negative) Urine Urobilinogen (Negative) Ur Leukocyte Esterase (Negative) Urine WBC (Auto) (0-5) /hpf Urine RBC (Auto) (0-2) /hpf U Hyaline Cast (Auto) (0-2) /lpf U Epithel Cells (Auto) (0-2) /hpf Urine Bacteria (Auto) (None Seen) Adenovirus (PCR) (NotDetected) B. pertussis DNA (PCR) (NotDetected) B.parapertussis DNA PCR (NotDetected) C. pneumoniae DNA (PCR) (NotDetected) Coronavirus OC43 (PCR) (NotDetected) Coronavirus HKU1 (PCR) (NotDetected) Coronavirus 229E (PCR) (NotDetected) SARS-CoV-2 (PCR) (NotDetected) Coronavirus NL63 (PCR) (NotDetected) Human Metapneumovir PCR (NotDetected) Influenza Type A (PCR) (NotDetected) Influenza Type B (PCR) (NotDetected) M. pneumoniae (PCR) (NotDetected) Parainfluenza 1 (PCR) (NotDetected) Parainfluenza 2 (PCR) (NotDetected) Parainfluenza 3 (PCR) (NotDetected) Parainfluenza 4 (PCR) (NotDetected) RSV (PCR) (NotDetected) Entero/Rhino (PCR) (NotDetected) Administered Medications Aspirin (Aspirin 81 Mg Ectab) 81 mg PO [facility] Stop: 03/12/24 08:59 Last Admin: 02/11/24 08:52 Dose: 81 mg Documented By: GLADYS Cyanocobalamin (Cyanocobalamin (B-12) 500 Mcg Tablet) 1,000 mcg PO [facility] Stop: 03/12/24 08:59 Last Admin: 02/11/24 08:52 Dose: 1,000 mcg Documented By: GLADYS Sodium Chloride (Nss) 1,000 mls @ 75 mls/hr IV .[id number] [facility] Stop: 02/11/24 19:39 Last Admin: 02/11/24 06:06 Dose: 75 mls/hr Documented By: Infusion: 02/11/24 06:06 Dose: Infused Documented By: Admin: 02/10/24 17:18 Dose: 75 mls/hr Documented By: ZACH Melatonin (Melatonin 3 Mg Tab) 9 mg PO [facility] Stop: 03/11/24 20:59 Last Admin: 02/10/24 20:05 Dose: 9 mg Documented By: ROSY Metoprolol Tartrate (Metoprolol Tartrate 25 Mg Tab) 25 mg PO BID [facility] Stop: 03/11/24 20:59 Last Admin: 02/11/24 08:52 Dose: 25 mg Documented By: Admin: 02/10/24 20:05 Dose: 25 mg Documented By: ROSY Pantoprazole Sodium (Pantoprazole 40 Mg Tab) 40 mg PO [facility] Stop: 03/12/24 08:59 Last Admin: 02/11/24 08:52 Dose: 40 mg Documented By: GLADYS Ropinirole HCl (Ropinirole Hcl 1 Mg Tablet) 1 mg PO [facility] Stop: 03/11/24 20:59 Last Admin: 02/10/24 20:05 Dose: 1 mg Documented By: ROSY Sertraline HCl (Sertraline Hcl 100 Mg Tablet) 100 mg PO QAM [facility] Stop: 03/12/24 08:59 Last Admin: 02/11/24 08:52 Dose: 100 mg Documented By: GLADYS Vitamin D (Cholecalciferol 25 Mcg (1000 Units) Tab) 25 mcg PO DAILY [facility] Stop: 03/12/24 08:59 Last Admin: 02/11/24 08:52 Dose: 25 mcg Documented By: GLADYS Discontinued Medications Aspirin (Aspirin Chew 324 Mg) 324 mg PO NOW STA Stop: 02/10/24 15:54 Last Admin: 02/10/24 16:04 Dose: 324 mg Documented By: ZACH Sodium Chloride (Nss) 500 mls @ 999 mls/hr IV .Q31M ONE Stop: 02/10/24 14:57 Last Infusion: 02/10/24 15:31 Dose: Infused Documented By: Admin: 02/10/24 14:33 Dose: 999 mls/hr Documented By: MEHDI Sodium Chloride (Nss) 1,000 mls @ 125 mls/hr IV .Q8H [facility] Stop: 03/11/24 14:29 Last Infusion: 02/10/24 19:56 Dose: Infused Documented By: Admin: 02/10/24 15:30 Dose: 125 mls/hr Documented By: ZACH Metoprolol Tartrate (Metoprolol Tartrate 1 Mg/Ml Vial) 2.5 mg IV NOW STA Stop: 02/10/24 15:48 Last Admin: 02/10/24 16:04 Dose: 2.5 mg Documented By: ZACH Potassium Chloride (Potassium Chloride Crtab 20 Meq Tabcr) 40 meq PO NOW STA Stop: 02/10/24 16:58 Last Admin: 02/10/24 17:18 Dose: 40 meq Documented By: ZACH Discharge Plan Visit Data Chief Complaint: Fall Stated Complaint: FALL ED Provider: Peng Escobedo Discharge Problem: Fall, Generalized weakness, Hypoxia, Productive cough, Acute dehydration, Atrial fibrillation with rapid ventricular response Patient Disposition: Admitted As Inpatient Discharge Instructions Interventions: ED Discharge Assessment Last Done: 02/10/24 20:53
[2024-02-10 15:06] LABS: Troponin I High Sensitivity 216.2 pg/ml (0-20)
[2024-02-10 15:23] LABS: Appearance Urine Cloudy (Clear); Bacteria Urine Automated None Seen (None Seen); Bilirubin Urine 2+ (Negative); Blood Urine 1+ (Negative); Cast Urine Automated >20 /lpf (0-2); Color Urine Orange; Glucose Urine UA Negative (Negative); Ketones Urine 1+ (Negative); Leukocyte Esterase Urine 1+ (Negative); Nitrite Urine Negative (Negative); Protein Urine 1+ (Negative); RBC Urine Automated 0-2 /hpf (0-2); Specific Gravity Urine 1.024 (1.000-1.030); Urobilinogen Urine Negative (Negative); WBC Urine Automated 0-5 /hpf (0-5); pH Urine 5.5 (4.5-7.5)
[2024-02-10] MEDS: SODIUM CHLORIDE 0.9% 1,000 ML IV SCH ×2 (15:30→17:18)
--- NOTE | 2024-02-10 15:33 | CT Scan Report ---
HEAD CT NONCONTRAST CT DOSE: 1139.09 mGy.cm HISTORY: fall TECHNIQUE: Multiaxial CT images of the head were performed without the use of intravenous contrast. A utomated exposure control was utilized for this study. A dose lowering technique was utilized adheri ng to the principles of ALARA. Comparison: Head CT 12/07/2016. Findings: The paranasal sinuses and mastoid air cells are clear. The calvarium and skull base are int act. There is no mass, hematoma, midline shift, acute infarct. White matter hypodensity is nonspecifi c but suggestive of microvascular ischemic change. The ventricles and sulci demonstrate mild age-rela gillian involutional changes. Impression: No acute intracranial abnormality. Atrophy and microvascular ischemic changes. ACT 112: Negative or not required by law. Electronically signed by: Bruce Jaramillo M.D. 02/10/2024 3:31 PM
--- NOTE | 2024-02-10 15:37 | CT Scan Report ---
CERVICAL SPINE CT CT DOSE: HISTORY: fall TECHNIQUE: Multiaxial CT images of the cervical spine were performed and reformatted in the sagittal and coronal plane without the use of contrast. A dose lowering technique was utilized adhering to th e principles of ALARA. COMPARISON: None. FINDINGS: No fractures. No subluxation. Prevertebral soft tissues and the C1-C2 interval are intact. No pneumothorax. Posterior decompression and fusion from C3 through C5 with pedicle screws and rods. IMPRESSION: No fractures within the cervical spine. ACT 112: Negative or not required by law. Electronically signed by: Bruce Jaramillo M.D. 02/10/2024 3:34 PM
[2024-02-10 15:40] LABS: Adenovirus PCR Not Detected (NotDetected); Bordetella parapertussis PCR Not Detected (NotDetected); Bordetella pertussis PCR Not Detected (NotDetected); Chlamydia pneumoniae PCR Not Detected (NotDetected); Coronavirus 229E PCR Not Detected (NotDetected); Coronavirus CoV-2 (COVID19)PCR Not Detected (NotDetected); Coronavirus HKU1 PCR Not Detected (NotDetected); Coronavirus NL63 PCR Not Detected (NotDetected); Coronavirus OC43PCR Not Detected (NotDetected); Human Metapneumovirus PCR Not Detected (NotDetected); Influenza A PCR Not Detected (NotDetected); Influenza B PCR Not Detected (NotDetected); Mycoplasma pneumoniae PCR Not Detected (NotDetected); Parainfluenza Virus 1 PCR Not Detected (NotDetected); Parainfluenza Virus 2 PCR Not Detected (NotDetected); Parainfluenza Virus 3 PCR Not Detected (NotDetected); Parainfluenza Virus 4 PCR Not Detected (NotDetected); Respiratory Syncytial VirusPCR Not Detected (NotDetected); Rhinovirus/Enterovirus PCR Not Detected (NotDetected)
[2024-02-10] MEDS: ASPIRIN CHEW 324 MG PO STA (16:04)
[2024-02-10] MEDS: METOPROLOL TARTRATE 1 MG/ML VIAL IV STA (16:04)
--- NOTE | 2024-02-10 16:14 | XRay Report ---
XR chest 1V portable HISTORY: Dyspnea COMPARISON: Chest 08/04/2021. FINDINGS: No pneumothorax. No pleural effusions. There are low lung volumes. The heart is mildly enla rged. No focal lung consolidations to suggest a pneumonia. No evidence for pulmonary edema. There are poststernotomy changes. Calcifications within the aortic knob. No acute fractures. Partially visuali zed cervical spinal fusion hardware. IMPRESSION: 1. No acute process within the chest. 2. Low lung volumes and mild cardiomegaly. ACT 112: Negative or not required by law. Electronically signed by: Bruce Jaramillo M.D. 02/10/2024 4:13 PM
[2024-02-10 16:52] LABS: Troponin I High Sensitivity 180.2 pg/ml (0-20)
[2024-02-10] MEDS ORDERED: POLYETHYLENE (MIRALAX) 17 GM PACK PO PRN (16:59)
[2024-02-10] MEDS ORDERED: ALUMINUM/MAGNESIUM SUSP 30 ML UDC PO PRN (16:59)
[2024-02-10] MEDS ORDERED: NITROGLYCERIN SL 0.4 MG/TAB TAB SL PRN (16:59)
[2024-02-10] MEDS ORDERED: ONDANSETRON INJ 2 MG/ML 2 ML VIAL IV PRN (16:59)
[2024-02-10] MEDS ORDERED: MAGNESIUM HYDROXIDE SUSP 30 ML UDC PO PRN (16:59)
--- NOTE | 2024-02-10 16:59 | History & Physical Report ---
Date of Service February 10, 2024 Assessment & Plan (1) Atrial fibrillation with rapid ventricular response: Plan Weakness Possible fall, mechanical Clinical dehydration Patient came in with weakness/fall as per patient's son. Noted to be clinically dehydrated at presentation. Patient himself denies fall or hitting head, admitting C-spine CT and CT head with no acute finding. Fall precaution, PT/OT, IV fluid resuscitation. Get vitamin D level and CPK level. Resp biofire neg, UA ? uti but pt denies pain or burning while passing urine. Acute kidney injury: Baseline creatinine around 0.7-0.8, admitting creatinine of 1.28 and BUN also elevated at 52. Patient reports not being able to effectively drink and eat since last several days, patient clinically dehydrated at presentation. Status post 500 mL NS at ED. Will continue with IV fluid for now, BMP in AM. avoid nephrotoxic's, hold diuretics. Will get US renal. A-fib RVR: Patient noted to be in A-fib RVR with heart rate in 114 per admitting EKG. Likely secondary to dehydration and missing of a.m. doses of metoprolol. Patient given 2.5 Mg IV metoprolol in the ED, rate improved to 90s to early 100. Continue with home dose of metoprolol from [facility]. Continue telemetry monitoring. 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 c/w ivf as above, labs in am. expect to improve w/ improving appetite. Likely demand ischemia: Troponin elevated at 216, patient with no chest pain, EKG with no acute ST or T changes, trend troponin, continue telemetry monitoring. Other chronic medical conditions: HTN, HLD, PAFcontinue with/resume home meds as when able. DVT prophylaxis: Patient on Eliquis DNR/DNI PT/OT, CM to assist with this planning. History of Present Illness Chief Complaint: Weakness, fall Primary Care Provider: Tulio Azevedo, 83-year-old male with PMH of T2DM, diabetic polyneuropathy, HLD, gouty arthropathy, HTN, PAF on Eliquis, vitamin D deficiency, reflux esophagitis, RLS, left foot drop who lives in the basement at his grandson's place, who walks independently/reluctant to use walker per patient's son, was noted to be on the floor today morning by patient's son and was brought to the hospital. Per patient's son, they had conversation over the phone on morning when he was noted to be apparently in his usual state of health, and apparently after that he got weak and was confined to the bed, he might have slid out of bed while trying to get out of the bed up to the phone to try to call and ask for help. Patient was noted on the floor on sideways by patient's son today morning. Patient is oriented x3, denies that he fell, reports that he has been weak since last 6 days, also reports that he has severe spinal stenosis and it is difficult to get around because of his back. He denies use of walker. He denies any fever or sore throat or chest pain or palpitation. He denies any pain or burning with passing urine. Since he has not been able to eat in the last 6 days due to confinement in the bed per patient, he has not had any bowel movement. He reports missing medications today morning only, reports he has been taking his medications until last evening. Medications were reviewed from outpatient chart, patient not 100% sure of medication doses. Patient denies smoking/ recreational drug use. Uses alcohol 2-3 times a year. Patient reports DO NOT RESUSCITATE/DO NOT INTUBATE. Patient's son was also given a phone call, plan of care was discussed with patient and patient's son. They both voiced understanding and were agreeable to plan of care. Allergies Allergy/AdvReac Type Severity Reaction Status Date / Time enalapril Allergy Unknown Cough Verified 02/10/24 16:39 simvastatin AdvReac Mild muscle Verified 02/10/24 16:39 weakness aspirin AdvReac Unknown GI UPSET Verified 11/09/21 08:57 IN HIGH DOSES atorvastatin AdvReac Unknown MUSCLE Verified 02/10/24 16:39 ACHES Trgsrru-HNJ-HdR Reductase AdvReac Unknown MUSCLE Verified 02/10/24 16:39 Inhibitor ACHES AND [Rvmujxz-Aae-Uks Reductase WEAKNESS/DIARRHEA Inhibitor] apixaban [From Eliquis] AdvReac Unknown Verified 02/10/24 16:39 Home Medications Medication Instructions Recorded Confirmed Type omeprazole 20 mg capsule,delayed 20 mg PO QAM 10/26/19 11/09/21 History release sertraline 100 mg tablet 100 mg PO DAILY 10/26/19 11/09/21 History aspirin 81 mg tablet,delayed 81 mg PO AMPM 11/10/20 11/09/21 History release (Christine Low Dose Aspirin) melatonin 10 mg tablet 10 mg PO HS 11/10/20 11/09/21 History ropinirole 1 mg tablet 1 mg PO HS 11/10/20 11/09/21 History amoxicillin 500 mg capsule 2,000 mg PO ONCE PRN 1 hour prior 08/04/21 11/09/21 History to dentist cholecalciferol (vitamin D3) 25 25 mcg PO DAILY 08/04/21 11/09/21 History mcg (1,000 unit) tablet (Vitamin D3) spironolactone 25 mg tablet 25 mg PO DAILY 08/04/21 11/09/21 History acetaminophen 325 mg capsule 650 mg (2 x 325 mg) PO Q6H PRN 08/13/21 11/09/21 Rx fever or pain #30 caps metoprolol tartrate 25 mg tablet 25 mg PO BID #60 tabs 08/13/21 11/09/21 Rx cetirizine 10 mg tablet 10 mg PO QAM 02/10/24 02/10/24 History cyanocobalamin (vitamin B-12) 1,000 mcg sublingual QAM 02/10/24 02/10/24 History 1,000 mcg sublingual tablet Past Med/Surg History Problem List (Updated 02/10/24 @ 15:05 by Peng Escobedo MD) Atrial fibrillation with rapid ventricular response (Acute) Acute dehydration (Acute) Productive cough (Acute) Hypoxia (Acute) Generalized weakness (Acute) Fall (Acute) History of bowel resection (08/08/21) Laparotomy with sigmoid colectomy and end colostomy. Dr. 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) Acute WI, inferior wall (Acute) Bradycardia (Acute) Chest pain (Acute) Generalized weakness (Acute) Nausea (Acute) Epigastric abdominal pain (Acute) Large bowel obstruction Colonic mass CAD (coronary artery disease) HTN (hypertension) Diabetes type 2, controlled Medical History (Updated 02/10/24 @ 15:05 by Peng Escobedo MD) Fusion of spine Family hx of colon cancer Surgical History (Updated 08/24/21 @ 05:06 by Reinaldo Torres MD, FACS) History of laminectomy 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 History of prostatectomy History of total knee replacement History of carpal tunnel release Social History Smoking Status: Never smoker Second Hand Exposure: No; Do You Dip or Chew Tobacco: No; Hx Alcohol Use: Yes Alcohol type: hard liquor Hx Substance Use: No Preferred Language: Latvian Communication Ability: Effective Visual Impairment: No Limitations Food Service Order Clerk Required: No Beliefs That Will Affect Care: None marital status: Current Living Situation: Family Current Living Situation Comment: lives with grandson and his family. How many Children do You have: 3 Feels Safe at Home: Yes Assistive Devices: None Review of Systems Review of Systems: Negative otherwise mentioned in HPI. Physical Exam Physical Exam: GENERAL: Alert and oriented x3. NAD, on 2L NC O2 HEENT: No pallor, no icterus. Pupils equal, round and reactive to light. Oral mucosa dry. NECK: No JVD, no neck masses. HEART: S1 and S2 heard. irregular rate and rhythm. rates in 90 to 100. No murmur, no gallop. RESPIRATORY SYSTEM: Normal AP diameter. No accessory muscle use. No wheezing, RLL crackles. ABDOMEN: Soft, bowel sounds present, nontender, no distention. CENTRAL NERVOUS SYSTEM: No facial droop. Speech is clear. Obeys simple commands. Moves extremities. EXTREMITIES: No edema, no erythema seen. Small volume dark concentrated urine noted in urinal by bedside. Results & Data Results & Data Vital Signs (Past 12 Hours) Vital Signs Temp Pulse Pulse Resp BP BP Pulse Ox 02/10/24 15:20 128 H 18 146/93 H 94 02/10/24 14:57 111/90 02/10/24 14:52 108 H 22 02/10/24 14:52 114 H 22 02/10/24 13:20 36.4 C L 120 H 20 144/73 H O2 Del Method O2 Flow Rate 08/18/24 15:20 Nasal Cannula 2 02/10/24 14:57 02/10/24 14:52 Nasal Cannula 2 02/10/24 14:52 02/10/24 13:20
[2024-02-10] MEDS: POTASSIUM CHLORIDE CRTAB 20 MEQ TABCR PO STA (17:18)
[2024-02-10] MEDS: rOPINIRole HCL 1 MG TABLET PO SCH (20:05)
[2024-02-10] MEDS: METOPROLOL TARTRATE 25 MG TAB PO SCH (20:05)
[2024-02-10] MEDS: MELATONIN 3 MG TAB PO SCH (20:05)
[2024-02-11 06:45] LABS: Hematocrit (blood only) 38.6 % (42.0-52.0); Hemoglobin 12.9 g/dl (14.0-18.0); Mean Corpuscular Hemoglobin 26.7 pg (25.0-34.0); Mean Corpuscular Hgb Conc 33.4 g/dL (32.0-36.0); Mean Corpuscular Volume 79.8 fL (80.0-100.0); Mean Platelet Volume 11.4 fL (9.4-12.4); Platelet Count 162 K/uL (130-400); RDW Coefficient of Variation 15.5 % (11.5-14.5); RDW Standard Deviation 44.7 fL (36.4-46.3); Red Blood Count 4.84 M/uL (4.70-6.10); White Blood Count 12.55 K/ul (4.8-10.8)
[2024-02-11 07:03] LABS: BUN Creatinine Ratio 45.4 (10-20); Calcium 8.4 mg/dl (8.6-10.3); Creatinine Clr Calc Pharmacy 59.8 ml/min; Est GFR (African American) 82.7 ml/min; Est GFR (Non-African American) 71.4 ml/min; Magnesium 1.9 mg/dl (1.7-2.4); Phosphorus 3.9 mg/dl (2.5-4.9); Potassium 3.4 mmol/L (3.5-5.1)
--- NOTE | 2024-02-11 08:21 | Ultrasound Report ---
US renal/blad retro comp CLINICAL HISTORY: acute kidney injury TECHNIQUE: Multiple sonographic real-time images of the kidneys and bladder were obtained. COMPARISON: Comparison is made to CT abdomen pelvis 08/04/2021 FINDINGS: The right kidney measures 12.9 cm in length, and the left kidney measures 12.5 cm in length. The right kidney is normal in size, contour, cortical thickness, and echogenicity. No hydronephrosis is identified. Multiple cysts noted, the largest measuring 8 x 5 x 7 cm The left kidney is normal in size, contour, cortical thickness and echogenicity. No hydronephrosis i s identified. Multiple cysts noted, the largest measuring 1.5 cm. A Chou catheter is seen in the collapsed bladder. No large intraluminal mass is seen. IMPRESSION: Unremarkable examination and in particular no evidence of hydronephrosis. ACT 112: Negative or not required by law. Electronically signed by: Luis Doshi M.D. 02/11/2024 8:19 AM
[2024-02-11] MEDS: ASPIRIN 81 MG ECTAB PO SCH (08:52)
[2024-02-11] MEDS: SERTRALINE HCL 100 MG TABLET PO SCH (08:52)
[2024-02-11] MEDS: CYANOCOBALAMIN (B-12) 500 MCG TABLET PO SCH (08:52)
[2024-02-11] MEDS: CHOLECALCIFEROL 25 MCG (1000 UNITS) TAB PO SCH (08:52)
[2024-02-11] MEDS: PANTOprazole 40 MG TAB PO SCH (08:52)
--- NOTE | 2024-02-11 09:07 | Electrocardiogram Report ---
Test Reason : Blood Pressure : */* mmHG Vent. 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
--- NOTE | 2024-02-11 09:17 | Electrocardiogram Report ---
Test Reason : Blood Pressure : */* mmHG Vent. 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
--- NOTE | 2024-02-11 12:00 | Hospitalist Progress Note ---
Date of Service February 11, 2024 Assessment & Plan (1) Atrial fibrillation with rapid ventricular response: Plan Weakness Possible fall, mechanical Clinical dehydration Patient came in with weakness/fall as per patient's son. Noted to be clinically dehydrated at presentation. Patient himself denies fall or hitting head, admitting C-spine CT and CT head with no acute finding. Fall precaution, PT/OT, IV fluid resuscitation. Get vitamin D level and CPK level. Resp biofire neg, UA ? uti but pt denies pain or burning while passing urine. Acute kidney injury: Baseline creatinine around 0.7-0.8, admitting creatinine of 1.28 and BUN also elevated at 52. Patient reports not being able to effectively drink and eat since last several days, patient clinically dehydrated at presentation. Status post 500 mL NS at ED. Will decrease IV fluid, BMP in AM. avoid nephrotoxic's, hold diuretics. US renal reviewed. No hydronephrosis noted. Cre 0.97 this am A-fib RVR: Patient noted to be in A-fib RVR with heart rate in 114 per admitting EKG. Likely secondary to dehydration and missing of a.m. doses of metoprolol. Patient was given 2.5 Mg IV metoprolol in the ED, rate improved to 90s to early 100. [facility] Continue telemetry monitoring. Rate is controlled at present Mild hyponatremia: 2/2 poor appetite [employer]. c/w ivf as above, labs in am. expect to improve w/ improving appetite. 133-->135 Mild hypokalemia: Replace potassium. Trend labs Likely demand ischemia: Troponin elevated at 216, patient with no chest pain, EKG with no acute ST or T changes, trend troponin, continue telemetry monitoring. 216-->180-->147 Other chronic medical conditions: HTN, HLD, PAFcontinue with/resume home meds as when able. DVT prophylaxis: Patient on Eliquis DNR/DNI PT/OT, CM to assist with this planning. A total of 51 minutes spent in care coordination, documentation and overall care for this patient Admission and Anticipated Discharge Date Admission Date: February 10, 2024 Subjective Patient seen at bedside. Vital signs, chart and data reviewed Patient remains on O2 via nasal cannula Patient states he feels very weak Review of Systems Review of Systems: Constitutional- no fever; feels weak and fatigued Eyes- no acute visual changes ENT- no ST Pulmonary- no cough, no wheezing, + shortness of breath Cardiac- no chest pain, no palpitations, GI- no nausea, no vomiting, no diarrhea, no melena, no hematochezia - no dysuria, no hematuria Derm- no rashes, Hematologic- no unusual bruising, no unusual bleeding Lymphatics- no adenopathy Neuro- no headaches, no focal neurologic symptoms Psych- no anxiety, no depression Physical Exam Physical Exam: General- adult, frail, chronic ill appearing male seen at bedside Head- atraumatic Eyes- PERRL, EOMI, anicteric ENT- oropharynx clear Neck- supple, no JVD, no adenopathy, no thyromegaly; carotids +2/2, no bruits appreciated Lungs- clear to auscultation and percussion Heart-irregularly irregular with controlled rate at present; d Abdomen- normal bowel sounds, soft, nontender, no masses or hepatosplenomegaly Extremities- trace pretibial edema, no calf tenderness; peripheral pulses intact Neuro- alert, oriented x 3; PERRL, EOMI; no facial palsy; no gross focal defisits Skin- warm & dry Results & Data Results & Data Vital Signs (Past 12 Hours) Vital Signs Temp Pulse Pulse Resp BP Pulse Ox Pulse Ox 02/11/24 11:44 36.5 C 85 18 112/89 97 02/11/24 09:58 96 02/11/24 08:52 105 H 02/11/24 08:52 02/11/24 07:36 36.4 C L 91 H 16 101/68 96 02/11/24 04:19 36.9 C 94 H 21 109/67 95 02/11/24 02:13 82 02/11/24 02:04 O2 Del Method O2 Flow Rate O2 Flow Rate 02/11/24 11:44 Nasal Cannula 2 02/11/24 09:58 2 02/11/24 08:52 02/11/24 08:52 Nasal Cannula 2 02/11/24 07:36 Nasal Cannula 2 02/11/24 04:19 Nasal Cannula 2 02/11/24 02:13 02/11/24 02:04 Nasal Cannula 2 Diagnostic Findings Laboratory Results WBC 12.55 K/ul (4.8-10.8) H 02/11/24 05:32 RBC 4.84 M/uL (4.70-6.10) 02/11/24 05:32 Hgb 12.9 g/dl (14.0-18.0) L 02/11/24 05:32 Hct 38.6 % (42.0-52.0) L 02/11/24 05:32 MCV 79.8 fL (80.0-100.0) L 02/11/24 05:32 MCH 26.7 pg (25.0-34.0) 02/11/24 05:32 MCHC 33.4 g/dL (32.0-36.0) 02/11/24 05:32 RDW Std Deviation 44.7 fL (36.4-46.3) 02/11/24 05:32 RDW Coeff of Jeanette 15.5 % (11.5-14.5) H 02/11/24 05:32 Plt Count 162 K/uL (130-400) 02/11/24 05:32 MPV 11.4 fL (9.4-12.4) 02/11/24 05:32 Immature Gran % (Auto) 7.4 % 02/10/24 13:50 Neut % (Auto) 78.8 % 02/10/24 13:50 Lymph % (Auto) 6.7 % 02/10/24 13:50 [place] % (Auto) 5.8 % 02/10/24 13:50 Eos % (Auto) 0.8 % 02/10/24 13:50 Baso % (Auto) 0.5 % 02/10/24 13:50 Neut # (Auto) 10.99 K/uL (1.40-6.50) H 02/10/24 13:50 Lymph # (Auto) 0.93 K/uL (1.20-3.40) L 02/10/24 13:50 [place] # (Auto) 0.81 K/uL (0.11-0.59) H 02/10/24 13:50 Eos # (Auto) 0.11 K/uL (0.00-0.50) 02/10/24 13:50 Baso # (Auto) 0.07 K/uL (0.00-0.20) 02/10/24 13:50 Immature Gran # (Auto) 1.03 K/uL (0.01-0.20) H 02/10/24 13:50 Dohle Bodies 1+ 02/10/24 13:50 Polychromasia 1+ 02/10/24 13:50 Sodium 135 mmol/L (136-145) L 02/11/24 05:32 Potassium 3.4 mmol/L (3.5-5.1) L 02/11/24 05:32 Chloride 103 mmol/L (98-107) 02/11/24 05:32 Carbon Dioxide 21 mmol/L (21-32) 02/11/24 05:32 Anion Gap 11 (3-11) 02/11/24 05:32 BUN 44 mg/dl (6-23) H 02/11/24 05:32 Creatinine 0.97 mg/dl (0.6-1.4) D 02/11/24 05:32 Est Cr Clr Drug Dosing 59.8 ml/min 02/11/24 05:32 Est GFR ( Amer) 82.7 ml/min 02/11/24 05:32 Est GFR (Non-Af Amer) 71.4 ml/min 02/11/24 05:32 BUN/Creatinine Ratio 45.4 (10-20) H 02/11/24 05:32 Glucose 87 mg/dl (70-99(Fasting)) 02/11/24 05:32 Calcium 8.4 mg/dl (8.6-10.3) L 02/11/24 05:32 Phosphorus 3.9 mg/dl (2.5-4.9) 02/11/24 05:32 Magnesium 1.9 mg/dl (1.7-2.4) 02/11/24 05:32 Total Bilirubin 1.5 mg/dl (0.2-1.0) H 02/10/24 13:50 AST 34 U/L (13-39) 02/10/24 13:50 ALT 22 U/L (7-52) 02/10/24 13:50 Alkaline Phosphatase 89 U/L (34-104) 02/10/24 13:50 Total Creatine Kinase 348 U/L (30-223) H 02/10/24 16:14 Troponin I High Sens 147.7 pg/ml (0-20) H* 02/10/24 22:30 B-Natriuretic Peptide 433 pg/ml (0-100) H 02/10/24 13:50 Total Protein 7.3 gm/dl (6.0-8.3) 02/10/24 13:50 Albumin 3.5 gm/dl (3.4-5.0) 02/10/24 13:50 Globulin 3.8 gm/dl (2.5-4.0) 02/10/24 13:50 Albumin/Globulin Ratio 0.9 (0.9-2) 02/10/24 13:50 25-OH Vitamin D Total 28.7 ng/ml (30-100) L 02/11/24 05:32 Urine Color [place] 02/10/24 14:53 Urine Appearance Cloudy (Clear) A 02/10/24 14:53 Urine pH 5.5 (4.5-7.5) 02/10/24 14:53 Ur Specific [place] 1.024 (1.000-1.030) 02/10/24 14:53 Urine Protein 1+ (Negative) H 02/10/24 14:53 Urine Glucose (UA) Negative (Negative) 02/10/24 14:53 Urine Ketones 1+ (Negative) H 02/10/24 14:53 Urine Blood 1+ (Negative) H 02/10/24 14:53 Urine Nitrite Negative (Negative) 02/10/24 14:53 Urine Bilirubin 2+ (Negative) H 02/10/24 14:53 Urine Urobilinogen Negative (Negative) 02/10/24 14:53 Ur Leukocyte Esterase 1+ (Negative) H 02/10/24 14:53 Urine WBC (Auto) 0-5 /hpf (0-5) 02/10/24 14:53 Urine RBC (Auto) 0-2 /hpf (0-2) 02/10/24 14:53 U Hyaline Cast (Auto) >20 /lpf (0-2) H 02/10/24 14:53 U Epithel Cells (Auto) 11-20 /hpf (0-2) H 02/10/24 14:53 Urine Bacteria (Auto) None Seen (None Seen) 02/10/24 14:53 Adenovirus (PCR) Not Detected (NotDetected) 02/10/24 14:22 B. pertussis DNA (PCR) Not Detected (NotDetected) 02/10/24 14:22 B.parapertussis DNA PCR Not Detected (NotDetected) 02/10/24 14:22 C. pneumoniae DNA (PCR) Not Detected (NotDetected) 02/10/24 14:22 Coronavirus OC43 (PCR) Not Detected (NotDetected) 02/10/24 14:22 Coronavirus HKU1 (PCR) Not Detected (NotDetected) 02/10/24 14:22 Coronavirus 229E (PCR) Not Detected (NotDetected) 02/10/24 14:22 SARS-CoV-2 (PCR) Not Detected (NotDetected) 02/10/24 14:22 Coronavirus NL63 (PCR) Not Detected (NotDetected) 02/10/24 14:22 Human Metapneumovir PCR Not Detected (NotDetected) 02/10/24 14:22 Influenza Type A (PCR) Not Detected (NotDetected) 02/10/24 14:22 Influenza Type B (PCR) Not Detected (NotDetected) 02/10/24 14:22 M. pneumoniae (PCR) Not Detected (NotDetected) 02/10/24 14:22 Parainfluenza 1 (PCR) Not Detected (NotDetected) 02/10/24 14:22 Parainfluenza 2 (PCR) Not Detected (NotDetected) 02/10/24 14:22 Parainfluenza 3 (PCR) Not Detected (NotDetected) 02/10/24 14:22 Parainfluenza 4 (PCR) Not Detected (NotDetected) 02/10/24 14:22 RSV (PCR) Not Detected (NotDetected) 02/10/24 14:22 Entero/Rhino (PCR) Not Detected (NotDetected) 02/10/24 14:22 Impressions Chest X-Ray 02/10/24 14:10 XR chest 1V portable HISTORY: Dyspnea COMPARISON: Chest 08/04/2021. FINDINGS: No pneumothorax. No pleural effusions. There are low lung volumes. The heart is mildly enlarged. No focal lung consolidations to suggest a pneumonia. No evidence for pulmonary edema. There are poststernotomy changes. Calcifications within the aortic knob. No acute fractures. Partially visualized cervical spinal fusion hardware. IMPRESSION: 1. No acute process within the chest. 2. Low lung volumes and mild cardiomegaly. ACT 112: Negative or not required by law. Electronically signed by: Bruce Jaramillo M.D. 02/10/2024 4:[address] 02/10/24 14:[address] DOSE: HISTORY: fall TECHNIQUE: Multiaxial CT images of the cervical spine were performed and reformatted in the sagittal and coronal plane without the use of contrast. A dose lowering technique was utilized adhering to the principles of ALARA. COMPARISON: None. FINDINGS: No fractures. No subluxation. Prevertebral soft tissues and the C1-C2 interval are intact. No pneumothorax. Posterior decompression and fusion from C3 through C5 with pedicle screws and rods. IMPRESSION: No fractures within the cervical spine. ACT 112: Negative or not required by law. Electronically signed by: Bruce Jaramillo M.D. 02/10/2024 3:[address] 02/10/24 14:[address] DOSE: 1139.09 mGy.cm HISTORY: fall TECHNIQUE: Multiaxial CT images of the head were performed without the use of intravenous contrast. Automated exposure control was utilized for this study. A dose lowering technique was utilized adhering to the principles of ALARA. Comparison: Head CT 12/07/2016. Findings: The paranasal sinuses and mastoid air cells are clear. The calvarium and skull base are intact. There is no mass, hematoma, midline shift, acute infarct. White matter hypodensity is nonspecific but suggestive of microvascular ischemic change. The ventricles and sulci demonstrate mild age-related involutional changes. Impression: No acute intracranial abnormality. Atrophy and microvascular ischemic changes. ACT 112: Negative or not required by law. Electronically signed by: Bruce Jaramillo M.D. 02/10/2024 3:31 PM Renal Ultrasound 02/10/24 17:02 US renal/blad retro comp CLINICAL HISTORY: acute kidney injury TECHNIQUE: Multiple sonographic real-time images of the kidneys and bladder were obtained. COMPARISON: Comparison is made to CT abdomen pelvis 08/04/2021 FINDINGS: The right kidney measures 12.9 cm in length, and the left kidney measures 12.5 cm in length. The right kidney is normal in size, contour, cortical thickness, and echogenicity. No hydronephrosis is identified. Multiple cysts noted, the largest measuring 8 x 5 x 7 cm The left kidney is normal in size, contour, cortical thickness and echogenicity. No hydronephrosis is identified. Multiple cysts noted, the largest measuring 1.5 cm. A Chou catheter is seen in the collapsed bladder. No large intraluminal mass is seen. IMPRESSION: Unremarkable examination and in particular no evidence of hydronephrosis. ACT 112: Negative or not required by law. Electronically signed by: Luis Doshi M.D. 02/11/2024 8:19 AM
[2024-02-12 06:48] LABS: Hematocrit (blood only) 33.5 % (42.0-52.0); Hemoglobin 11.6 g/dl (14.0-18.0); Mean Corpuscular Hemoglobin 26.5 pg (25.0-34.0); Mean Corpuscular Hgb Conc 34.6 g/dL (32.0-36.0); Mean Corpuscular Volume 76.5 fL (80.0-100.0); Mean Platelet Volume 11.4 fL (9.4-12.4); Platelet Count 178 K/uL (130-400); RDW Coefficient of Variation 15.4 % (11.5-14.5); RDW Standard Deviation 42.8 fL (36.4-46.3); Red Blood Count 4.38 M/uL (4.70-6.10); White Blood Count 16.03 K/ul (4.8-10.8)
[2024-02-12 07:06] LABS: BUN Creatinine Ratio 32.9 (10-20); Calcium 8.1 mg/dl (8.6-10.3); Creatinine Clr Calc Pharmacy 68.8 ml/min; Est GFR (African American) 92.7 ml/min; Magnesium 1.8 mg/dl (1.7-2.4); Potassium 3.3 mmol/L (3.5-5.1)
[2024-02-12] MEDS: POTASSIUM CHLORIDE CRTAB 20 MEQ TABCR PO STA (08:11)
[2024-02-12] MEDS: CHOLECALCIFEROL 25 MCG (1000 UNITS) TAB PO SCH (09:08)
--- NOTE | 2024-02-12 12:24 | Hospitalist Progress Note ---
Date of Service February 12, 2024 Assessment & Plan (1) Atrial fibrillation with rapid ventricular response: Plan Weakness Possible fall, mechanical Clinical dehydration Patient came in with weakness/fall as per patient's son. Noted to be clinically dehydrated at presentation. Patient himself denies fall or hitting head, admitting C-spine CT and CT head with no acute finding. Fall precaution, PT/OT, IV fluid resuscitation. Get vitamin D level and CPK level. Resp biofire neg, UA ? uti but pt denies pain or burning while passing urine. Acute kidney injury: Baseline creatinine around 0.7-0.8, admitting creatinine of 1.28 and BUN also elevated at 52. Patient reports not being able to effectively drink and eat since last several days, patient clinically dehydrated at presentation. Status post 500 mL NS at ED. avoid nephrotoxic's, hold diuretics. US renal reviewed. No hydronephrosis noted. Cre 0.97--> 0.85 this am A-fib RVR: Patient noted to be in A-fib RVR with heart rate in 114 per admitting EKG. Likely secondary to dehydration and missing of a.m. doses of metoprolol. Patient was given 2.5 Mg IV metoprolol in the ED, rate improved to 90s to early 100. Continue with home dose of metoprolol Continue telemetry monitoring. 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 expect to improve w/ improving appetite. 133-->135-->132 Mild hypokalemia: Replace potassium. Trend labs 3.3 this am Likely demand ischemia: Troponin elevated at 216, patient with no chest pain, EKG with no acute ST or T changes, trend troponin, continue telemetry monitoring. 216-->180-->147 Other chronic medical conditions: HTN, HLD, PAFcontinue with/resume home meds as when able. DVT prophylaxis: Patient on Eliquis DNR/DNI PT/OT, CM to assist with this planning. Pt wants to go to [facility] Admission and Anticipated Discharge Date Admission Date: February 10, 2024 Subjective Patient seen at bedside with nursing present. Vital signs, chart and data reviewed Patient remains on O2 via nasal cannula Patient states he still feels very weak Not much of an appetite Complains of numbness in hands. 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 Pt agrees He denies CP, resting SOB, N, V, D, SANCHEZ, fever or chills Physical Exam Physical Exam: General- adult, frail, chronic ill appearing male seen at bedside Eyes- PERRL, EOMI, anicteric ENT- oropharynx clear Neck- supple, no JVD, no adenopathy, Lungs- clear to auscultation and percussion Heart-irregularly irregular with controlled rate at present; Abdomen- normal bowel sounds, soft, nontender, no masses or hepatosplenomegaly Extremities- trace pretibial edema, no calf tenderness; peripheral pulses intact Neuro- alert, oriented x 3; PERRL, EOMI; no facial palsy; no gross focal deficits Skin- warm & dry Results & Data Results & Data Vital Signs (Past 12 Hours) Vital Signs Temp Pulse Resp BP BP Pulse Ox O2 Del Method 02/12/24 11:35 36.4 C L 86 18 115/73 91 Room Air 02/12/24 07:54 36.5 C 99 H 20 103/65 94 Room Air 02/12/24 03:45 36.8 C 100 H 20 103/65 93 Room Air Diagnostic Findings Laboratory Results WBC 16.03 K/ul (4.8-10.8) H 02/12/24 05:55 RBC 4.38 M/uL (4.70-6.10) L 02/12/24 05:55 Hgb 11.6 g/dl (14.0-18.0) L 02/12/24 05:55 Hct 33.5 % (42.0-52.0) L 02/12/24 05:55 MCV 76.5 fL (80.0-100.0) L 02/12/24 05:55 MCH 26.5 pg (25.0-34.0) 02/12/24 05:55 MCHC 34.6 g/dL (32.0-36.0) 02/12/24 05:55 RDW Std Deviation 42.8 fL (36.4-46.3) 02/12/24 05:55 RDW Coeff of Jeanette 15.4 % (11.5-14.5) H 02/12/24 05:55 Plt Count 178 K/uL (130-400) 02/12/24 05:55 MPV 11.4 fL (9.4-12.4) 02/12/24 05:55 Immature Gran % (Auto) 7.4 % 02/10/24 13:50 Neut % (Auto) 78.8 % 02/10/24 13:50 Lymph % (Auto) 6.7 % 02/10/24 13:50 [place] % (Auto) 5.8 % 02/10/24 13:50 Eos % (Auto) 0.8 % 02/10/24 13:50 Baso % (Auto) 0.5 % 02/10/24 13:50 Neut # (Auto) 10.99 K/uL (1.40-6.50) H 02/10/24 13:50 Lymph # (Auto) 0.93 K/uL (1.20-3.40) L 02/10/24 13:50 [place]ferro # (Auto) 0.81 K/uL (0.11-0.59) H 02/10/24 13:50 Eos # (Auto) 0.11 K/uL (0.00-0.50) 02/10/24 13:50 Baso # (Auto) 0.07 K/uL (0.00-0.20) 02/10/24 13:50 Immature Gran # (Auto) 1.03 K/uL (0.01-0.20) H 02/10/24 13:50 Dohle Bodies 1+ 02/10/24 13:50 Polychromasia 1+ 02/10/24 13:50 Sodium 132 mmol/L (136-145) L 02/12/24 05:55 Potassium 3.3 mmol/L (3.5-5.1) L 02/12/24 05:55 Chloride 102 mmol/L (98-107) 02/12/24 05:55 Carbon Dioxide 19 mmol/L (21-32) L 02/12/24 05:55 Anion Gap 11 (3-11) 02/12/24 05:55 BUN 28 mg/dl (6-23) H 02/12/24 05:55 Creatinine 0.85 mg/dl (0.6-1.4) 02/12/24 05:55 Est Cr Clr Drug Dosing 68.8 ml/min 02/12/24 05:55 Est GFR ( Amer) 92.7 ml/min 02/12/24 05:55 Est GFR (Non-Af Amer) 80.0 ml/min 02/12/24 05:55 BUN/Creatinine Ratio 32.9 (10-20) H 02/12/24 05:55 Glucose 108 mg/dl (70-99(Fasting)) H 02/12/24 05:55 Calcium 8.1 mg/dl (8.6-10.3) L 02/12/24 05:55 Phosphorus 3.9 mg/dl (2.5-4.9) 02/11/24 05:32 Magnesium 1.8 mg/dl (1.7-2.4) 02/12/24 05:55 Total Bilirubin 1.5 mg/dl (0.2-1.0) H 02/10/24 13:50 AST 34 U/L (13-39) 02/10/24 13:50 ALT 22 U/L (7-52) 02/10/24 13:50 Alkaline Phosphatase 89 U/L (34-104) 02/10/24 13:50 Total Creatine Kinase 348 U/L (30-223) H 02/10/24 16:14 Troponin I High Sens 147.7 pg/ml (0-20) H* 02/10/24 22:30 B-Natriuretic Peptide 433 pg/ml (0-100) H 02/10/24 13:50 Total Protein 7.3 gm/dl (6.0-8.3) 02/10/24 13:50 Albumin 3.5 gm/dl (3.4-5.0) 02/10/24 13:50 Globulin 3.8 gm/dl (2.5-4.0) 02/10/24 13:50 Albumin/Globulin Ratio 0.9 (0.9-2) 02/10/24 13:50 Vitamin B12 > 1500 pg/ml (180-914) H 02/12/24 06:03 25-OH Vitamin D Total 28.7 ng/ml (30-100) L 02/11/24 05:32 Urine Color [place] 02/10/24 14:53 Urine Appearance Cloudy (Clear) A 02/10/24 14:53 Urine pH 5.5 (4.5-7.5) 02/10/24 14:53 Ur Specific [place] 1.024 (1.000-1.030) 02/10/24 14:53 Urine Protein 1+ (Negative) H 02/10/24 14:53 Urine Glucose (UA) Negative (Negative) 02/10/24 14:53 Urine Ketones 1+ (Negative) H 02/10/24 14:53 Urine Blood 1+ (Negative) H 02/10/24 14:53 Urine Nitrite Negative (Negative) 02/10/24 14:53 Urine Bilirubin 2+ (Negative) H 02/10/24 14:53 Urine Urobilinogen Negative (Negative) 02/10/24 14:53 Ur Leukocyte Esterase 1+ (Negative) H 02/10/24 14:53 Urine WBC (Auto) 0-5 /hpf (0-5) 02/10/24 14:53 Urine RBC (Auto) 0-2 /hpf (0-2) 02/10/24 14:53 U Hyaline Cast (Auto) >20 /lpf (0-2) H 02/10/24 14:53 U Epithel Cells (Auto) 11-20 /hpf (0-2) H 02/10/24 14:53 Urine Bacteria (Auto) None Seen (None Seen) 02/10/24 14:53 Adenovirus (PCR) Not Detected (NotDetected) 02/10/24 14:22 B. pertussis DNA (PCR) Not Detected (NotDetected) 02/10/24 14:22 B.parapertussis DNA PCR Not Detected (NotDetected) 02/10/24 14:22 C. pneumoniae DNA (PCR) Not Detected (NotDetected) 02/10/24 14:22 Coronavirus OC43 (PCR) Not Detected (NotDetected) 02/10/24 14:22 Coronavirus HKU1 (PCR) Not Detected (NotDetected) 02/10/24 14:22 Coronavirus 229E (PCR) Not Detected (NotDetected) 02/10/24 14:22 SARS-CoV-2 (PCR) Not Detected (NotDetected) 02/10/24 14:22 Coronavirus NL63 (PCR) Not Detected (NotDetected) 02/10/24 14:22 Human Metapneumovir PCR Not Detected (NotDetected) 02/10/24 14:22 Influenza Type A (PCR) Not Detected (NotDetected) 02/10/24 14:22 Influenza Type B (PCR) Not Detected (NotDetected) 02/10/24 14:22 M. pneumoniae (PCR) Not Detected (NotDetected) 02/10/24 14:22 Parainfluenza 1 (PCR) Not Detected (NotDetected) 02/10/24 14:22 Parainfluenza 2 (PCR) Not Detected (NotDetected) 02/10/24 14:22 Parainfluenza 3 (PCR) Not Detected (NotDetected) 02/10/24 14:22 Parainfluenza 4 (PCR) Not Detected (NotDetected) 02/10/24 14:22 RSV (PCR) Not Detected (NotDetected) 02/10/24 14:22 Entero/Rhino (PCR) Not Detected (NotDetected) 02/10/24 14:22 Impressions Chest X-Ray 02/10/24 14:10 XR chest 1V portable HISTORY: Dyspnea COMPARISON: Chest 08/04/2021. FINDINGS: No pneumothorax. No pleural effusions. There are low lung volumes. The heart is mildly enlarged. No focal lung consolidations to suggest a pneumonia. No evidence for pulmonary edema. There are poststernotomy changes. Calcifications within the aortic knob. No acute fractures. Partially visualized cervical spinal fusion hardware. IMPRESSION: 1. No acute process within the chest. 2. Low lung volumes and mild cardiomegaly. ACT 112: Negative or not required by law. Electronically signed by: Bruce Jaramillo M.D. 02/10/2024 4:[address] 02/10/24 14:[address] DOSE: HISTORY: fall TECHNIQUE: Multiaxial CT images of the cervical spine were performed and reformatted in the sagittal and coronal plane without the use of contrast. A dose lowering technique was utilized adhering to the principles of ALARA. COMPARISON: None. FINDINGS: No fractures. No subluxation. Prevertebral soft tissues and the C1-C2 interval are intact. No pneumothorax. Posterior decompression and fusion from C3 through C5 with pedicle screws and rods. IMPRESSION: No fractures within the cervical spine. ACT 112: Negative or not required by law. Electronically signed by: Bruce Jaramillo M.D. 02/10/2024 3:[address] 02/10/24 14:[address] DOSE: 1139.09 mGy.cm HISTORY: fall TECHNIQUE: Multiaxial CT images of the head were performed without the use of intravenous contrast. Automated exposure control was utilized for this study. A dose lowering technique was utilized adhering to the principles of ALARA. Comparison: Head CT 12/07/2016. Findings: The paranasal sinuses and mastoid air cells are clear. The calvarium and skull base are intact. There is no mass, hematoma, midline shift, acute infarct. White matter hypodensity is nonspecific but suggestive of microvascular ischemic change. The ventricles and sulci demonstrate mild age-related involutional changes. Impression: No acute intracranial abnormality. Atrophy and microvascular ischemic changes. ACT 112: Negative or not required by law. Electronically signed by: Bruce Jaramillo M.D. 02/10/2024 3:31 PM Renal Ultrasound 02/10/24 17:02 US renal/blad retro comp CLINICAL HISTORY: acute kidney injury TECHNIQUE: Multiple sonographic real-time images of the kidneys and bladder were obtained. COMPARISON: Comparison is made to CT abdomen pelvis 08/04/2021 FINDINGS: The right kidney measures 12.9 cm in length, and the left kidney measures 12.5 cm in length. The right kidney is normal in size, contour, cortical thickness, and echogenicity. No hydronephrosis is identified. Multiple cysts noted, the largest measuring 8 x 5 x 7 cm The left kidney is normal in size, contour, cortical thickness and echogenicity. No hydronephrosis is identified. Multiple cysts noted, the largest measuring 1.5 cm. A Chou catheter is seen in the collapsed bladder. No large intraluminal mass is seen. IMPRESSION: Unremarkable examination and in particular no evidence of hydronephrosis. ACT 112: Negative or not required by law. Electronically signed by: Luis Doshi M.D. 02/11/2024 8:19 AM
[2024-02-13 05:57] LABS: Hematocrit (blood only) 33.9 % (42.0-52.0); Hemoglobin 11.5 g/dl (14.0-18.0); Mean Corpuscular Hemoglobin 26.4 pg (25.0-34.0); Mean Corpuscular Hgb Conc 33.9 g/dL (32.0-36.0); Mean Corpuscular Volume 77.8 fL (80.0-100.0); Mean Platelet Volume 11.2 fL (9.4-12.4); Platelet Count 222 K/uL (130-400); RDW Coefficient of Variation 15.7 % (11.5-14.5); RDW Standard Deviation 44.1 fL (36.4-46.3); Red Blood Count 4.36 M/uL (4.70-6.10); White Blood Count 15.84 K/ul (4.8-10.8)
[2024-02-13 06:11] LABS: BUN Creatinine Ratio 29.3 (10-20); Calcium 8.1 mg/dl (8.6-10.3); Creatinine Clr Calc Pharmacy 71.4 ml/min; Est GFR (African American) 94.1 ml/min; Est GFR (Non-African American) 81.2 ml/min; Potassium 3.5 mmol/L (3.5-5.1)
--- NOTE | 2024-02-13 12:56 | Electrocardiogram Report ---
Test Reason : Blood Pressure : */* mmHG Vent. 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
--- NOTE | 2024-02-13 15:08 | Hospitalist Progress Note ---
Date of Service February 13, 2024 Assessment & Plan (1) Atrial fibrillation with rapid ventricular response: Plan Weakness Possible fall, mechanical Clinical dehydration Patient came in with weakness/fall as per patient's son. Noted to be clinically dehydrated at presentation. Patient himself denies fall or hitting head, admitting C-spine CT and CT head with no acute finding. Fall precautions, PT/OT, IV fluid resuscitation. Vitamin D level low- supplemented Resp biofire neg, UA with questionable uti but pt denies pain or burning while passing urine. pt with increasing leukocytosis, repeat UA pending. Acute kidney injury: Baseline creatinine around 0.7-0.8, admitting creatinine of 1.28 and BUN also elevated at 52. Patient reports not being able to effectively drink and eat since last several days, patient clinically dehydrated at presentation. Status post 500 mL NS at ED. avoid nephrotoxic's, hold diuretics. US renal reviewed. No hydronephrosis noted. Cre 0.97--> 0.85 this am. resolved currently. A-fib RVR: Patient noted to be in A-fib RVR with heart rate in 114 per admitting EKG. Likely secondary to dehydration and missing of a.m. doses of metoprolol. Patient was given 2.5 Mg IV metoprolol in the ED, rate improved to 90s to early 100. Continue with home dose of metoprolol Continue telemetry monitoring. 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 expect to improve w/ improving appetite. 133-->135-->132 Mild hypokalemia: Replace potassium. Trend labs 3.3 this am Likely demand ischemia: Troponin elevated at 216, patient with no chest pain, EKG with no acute ST or T changes, trend troponin, continue telemetry monitoring. 216-->180-->147 Other chronic medical conditions: HTN, HLD, PAFcontinue with/resume home meds as when able. DVT prophylaxis: Patient on Eliquis DNR/DNI PT/OT, CM to assist with this planning. Pt wants to go to [facility] Admission and Anticipated Discharge Date Admission Date: February 10, 2024 Subjective pt was seen laying in bed sleeping. easily arousable. Denies chest pain, SOB or palpitations. Review of Systems Review of Systems: All systems reviewed & are unremarkable except as noted in Subjective Physical Exam Physical Exam: General: Alert, oriented. Psych: Appropriate mood and affect HEENT: NC/AT CV: Irregular Resp: Breath sounds clear bilaterally, no increased effort of breathing Abdomen: Soft, nontender, nondistended Extremities: No edema in lower extremities bilaterally. Results & Data Results & Data Vital Signs (Past 12 Hours) Vital Signs Temp Pulse Pulse Resp BP Pulse Ox O2 Del Method 02/13/24 11:35 36.8 C 96 H 18 94/62 L 98 Room Air 02/13/24 08:00 Room Air 02/13/24 07:40 36.7 C 97 H 20 106/63 96 Room Air 02/13/24 07:00 85 02/13/24 03:21 36.5 C 95 H 19 106/63 92 Room Air
[2024-02-13 17:27] LABS: Appearance Urine Cloudy (Clear); Bacteria Urine Automated 4+ (None Seen); Bilirubin Urine Negative (Negative); Blood Urine Negative (Negative); Cast Urine Automated 0-2 /lpf (0-2); Color Urine Yellow; Epithelial Cell Urine Auto 0-2 /hpf (0-2); Glucose Urine UA Negative (Negative); Ketones Urine Negative (Negative); Leukocyte Esterase Urine Trace (Negative); Nitrite Urine Positive (Negative); Protein Urine Trace (Negative); RBC Urine Automated 0-2 /hpf (0-2); Specific Gravity Urine 1.018 (1.000-1.030); Urobilinogen Urine Negative (Negative); WBC Urine Automated 0-5 /hpf (0-5)
[2024-02-14] MEDS: ACETAMINOPHEN 325 MG TAB PO PRN (04:50)
[2024-02-14 06:11] LABS: Albumin Globulin Ratio 0.7 (0.9-2); Albumin Level 2.5 gm/dl (3.4-5.0); BUN Creatinine Ratio 23.3 (10-20); Bilirubin,Total 0.9 mg/dl (0.2-1.0); Calcium 8.3 mg/dl (8.6-10.3); Creatinine Clr Calc Pharmacy 67.7 ml/min; Est GFR (African American) 92.3 ml/min; Est GFR (Non-African American) 79.6 ml/min; Globulin 3.8 gm/dl (2.5-4.0); Magnesium 1.6 mg/dl (1.7-2.4); Phosphorus 3.6 mg/dl (2.5-4.9); Potassium 3.6 mmol/L (3.5-5.1); Total Protein 6.3 gm/dl (6.0-8.3)
[2024-02-14 06:14] LABS: Hematocrit (blood only) 33.3 % (42.0-52.0); Hemoglobin 11.5 g/dl (14.0-18.0); Mean Corpuscular Hemoglobin 26.3 pg (25.0-34.0); Mean Corpuscular Hgb Conc 34.5 g/dL (32.0-36.0); Mean Platelet Volume 11.4 fL (9.4-12.4); Platelet Count 275 K/uL (130-400); RDW Coefficient of Variation 15.5 % (11.5-14.5); RDW Standard Deviation 42.5 fL (36.4-46.3); Red Blood Count 4.38 M/uL (4.70-6.10); White Blood Count 11.84 K/ul (4.8-10.8)
[2024-02-14 06:44] LABS: Basophils # (auto) 0.04 K/uL (0.00-0.20); Basophils % (auto) 0.3 %; Eosinophils # (auto) 0.05 K/uL (0.00-0.50); Eosinophils % (auto) 0.4 %; Immature Granulocytes # (auto) 0.48 K/uL (0.01-0.20); Immature Granulocytes % (auto) 4.1 %; Lymphocytes # (auto) 1.67 K/uL (1.20-3.40); Lymphocytes % (auto) 14.1 %; Monocytes # (auto) 0.61 K/uL (0.11-0.59); Monocytes % (auto) 5.2 %; Neutrophils # (auto) 8.99 K/uL (1.40-6.50); Neutrophils % (auto) 75.9 %
--- NOTE | 2024-02-14 11:40 | Hospitalist Progress Note ---
Date of Service February 14, 2024 Assessment & Plan (1) Atrial fibrillation with rapid ventricular response: Plan Weakness Possible fall, mechanical Clinical dehydration Patient came in with weakness/fall as per patient's son. Noted to be clinically dehydrated at presentation. Patient himself denies fall or hitting head, admitting C-spine CT and CT head with no acute finding. Fall precautions, PT/OT, IV fluid resuscitation. Vitamin D level low- supplemented Resp biofire neg, UA with questionable uti but pt denies pain or burning while passing urine. pt with increasing leukocytosis, repeat UA with UTI (see below Acute Complicated UTI UA suggestive of infection Urine Cx currently growing gram neg bacteria On Rocephin, follow Cx and narrow Acute kidney injury: Baseline creatinine around 0.7-0.8, admitting creatinine of 1.28 and BUN also elevated at 52. Patient reports not being able to effectively drink and eat since last several days, patient clinically dehydrated at presentation. Status post 500 mL NS at ED. avoid nephrotoxic's, hold diuretics. US renal reviewed. No hydronephrosis noted. Cre 0.97--> 0.85 this am. resolved currently. A-fib RVR: Patient noted to be in A-fib RVR with heart rate in 114 per admitting EKG. Likely secondary to dehydration and missing of a.m. doses of metoprolol. Patient was given 2.5 Mg IV metoprolol in the ED, rate improved to 90s to early 100. Continue with home dose of metoprolol Continue telemetry monitoring. 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 expect to improve w/ improving appetite. 133-->135-->132 Mild hypokalemia: Replace potassium. Trend labs 3.3 this am Likely demand ischemia: Troponin elevated at 216, patient with no chest pain, EKG with no acute ST or T changes, trend troponin, continue telemetry monitoring. 216-->180-->147 Other chronic medical conditions: HTN, HLD, PAFcontinue with/resume home meds as when able. DVT prophylaxis: Patient on Eliquis DNR/DNI PT/OT, CM to assist with this planning. Pt wants to go to [facility] Admission and Anticipated Discharge Date Admission Date: February 10, 2024 Subjective pt was seen in the AM, sitting up in bed. denied dysuria Denied acute concerns. Review of Systems Review of Systems: All systems reviewed & are unremarkable except as noted in Subjective Physical Exam Physical Exam: General: Alert, oriented. Psych: Appropriate mood and affect HEENT: NC/AT CV: Irregular Resp: Breath sounds clear bilaterally, no increased effort of breathing Abdomen: Soft, nontender, nondistended Extremities: No edema in lower extremities bilaterally. Results & Data Results & Data Vital Signs (Past 12 Hours) Vital Signs Temp Pulse Resp BP Pulse Ox O2 Del Method 02/14/24 11:37 36.7 C 98 H 18 111/78 94 Room Air 02/14/24 07:41 36.8 C 96 H 20 101/78 94 Room Air 02/14/24 03:24 36.7 C 95 H 18 115/76 93 Room Air
[2024-02-14] MEDS: cefTRIAXone SODIUM 2,000 MG/50 ML BAG IV SCH (11:46)
[2024-02-14] MEDS: MAGNESIUM OXIDE 400 MG TAB PO SCH (12:54)
[2024-02-15 06:30] LABS: Basophils # (auto) 0.03 K/uL (0.00-0.20); Basophils % (auto) 0.3 %; Eosinophils # (auto) 0.08 K/uL (0.00-0.50); Eosinophils % (auto) 0.9 %; Hematocrit (blood only) 34.6 % (42.0-52.0); Hemoglobin 11.8 g/dl (14.0-18.0); Immature Granulocytes # (auto) 0.39 K/uL (0.01-0.20); Immature Granulocytes % (auto) 4.3 %; Lymphocytes # (auto) 1.47 K/uL (1.20-3.40); Lymphocytes % (auto) 16.4 %; Mean Corpuscular Hemoglobin 26.3 pg (25.0-34.0); Mean Corpuscular Hgb Conc 34.1 g/dL (32.0-36.0); Mean Corpuscular Volume 77.1 fL (80.0-100.0); Mean Platelet Volume 11.5 fL (9.4-12.4); Monocytes # (auto) 0.54 K/uL (0.11-0.59); Neutrophils # (auto) 6.47 K/uL (1.40-6.50); Neutrophils % (auto) 72.1 %; Platelet Count 294 K/uL (130-400); RDW Coefficient of Variation 15.9 % (11.5-14.5); RDW Standard Deviation 44.2 fL (36.4-46.3); Red Blood Count 4.49 M/uL (4.70-6.10); White Blood Count 8.98 K/ul (4.8-10.8)
[2024-02-15 06:53] LABS: Albumin Level 2.5 gm/dl (3.4-5.0); Bilirubin,Total 0.7 mg/dl (0.2-1.0); Calcium 8.2 mg/dl (8.6-10.3); Magnesium 1.6 mg/dl (1.7-2.4); Potassium 3.9 mmol/L (3.5-5.1)
[2024-02-15 06:59] LABS: Albumin Globulin Ratio 0.6 (0.9-2); BUN Creatinine Ratio 19.3 (10-20); Creatinine Clr Calc Pharmacy 66.3 ml/min; Est GFR (African American) 91.4 ml/min; Est GFR (Non-African American) 78.9 ml/min; Globulin 3.9 gm/dl (2.5-4.0); Phosphorus 3.4 mg/dl (2.5-4.9); Total Protein 6.4 gm/dl (6.0-8.3)
[2024-02-15 08:41] VITALS: RESP 18
[2024-02-15 11:26] VITALS: TEMP 98.1; O2SAT 94
[2024-02-15] MEDS: MAGNESIUM SULFATE / D5W 1 GM/100 ML BAG IV SCH (11:42)
--- NOTE | 2024-02-15 14:20 | Discharge Summary ---
Discharge Summary Date of Service February 15, 2024 Principal Dx & Hospital Course #1 = Principal Diagnosis (1) Atrial fibrillation with rapid ventricular response: Plan Weakness Possible fall, mechanical Clinical dehydration Patient came in with weakness/fall as per patient's son. Noted to be clinically dehydrated at presentation. Patient himself denies fall or hitting head, admitting C-spine CT and CT head with no acute finding. Fall precautions, PT/OT, IV fluid resuscitation. Vitamin D level low- supplemented with increased dose of 50mcg daily Resp biofire neg UA with noted infection on 02/13/24 (see below) PT/OT recommended acute rehab. Pt discharged to [facility] on 02/15/24. Acute Complicated UTI UA suggestive of infection Urine Cx grew E coli sensitive to Rocephin. Discharged with 8 more days of po cefdinir. Acute kidney injury: Baseline creatinine around 0.7-0.8, admitting creatinine of 1.28 and BUN also elevated at 52. Patient reports not being able to effectively drink and eat for several days, patient clinically dehydrated at presentation. Status post 500 mL NS at ED. avoid nephrotoxic meds, hold diuretics. US renal reviewed. No hydronephrosis noted. resolved currently. A-fib RVR: Patient noted to be in A-fib RVR with heart rate in 114 per admitting EKG. Likely secondary to dehydration and missing of a.m. doses of metoprolol. Patient was given 2.5 Mg IV metoprolol in the ED, rate improved to 90s to early 100. Continue with home dose of metoprolol Continue telemetry monitoring. Rate is controlled at present. Mild hyponatremia: 2/2 poor appetite FRONT [employer]ACER. c/w ivf as above, stable Mild hypokalemia: repleted as needed Likely demand ischemia: Troponin elevated at 216, patient with no chest pain, EKG with no acute ST or T changes, trend troponin, continue telemetry monitoring. 216-->180-->147 Other chronic medical conditions: HTN, HLD, PAFcontinue with/resume home meds as when able. Notes For Next Care Provider Please ensure followup with Cardiology for pt's atrial fibrillation Hx. Medication Changes From Visit Increased Vit D to 50mcg daily cefdinir 300mg BID x 8 more days Admission HPI Per Admitting Provider 83-year-old male with PMH of T2DM, diabetic polyneuropathy, HLD, gouty arthropathy, HTN, PAF on Eliquis, vitamin D deficiency, reflux esophagitis, RLS, left foot drop who lives in the basement at his grandson's place, who walks independently/reluctant to use walker per patient's son, was noted to be on the floor today morning by patient's son and was brought to the hospital. Per patient's son, they had conversation over the phone on morning when he was noted to be apparently in his usual state of health, and apparently after that he got weak and was confined to the bed, he might have slid out of bed while trying to get out of the bed up to the phone to try to call and ask for help. Patient was noted on the floor on sideways by patient's son today morning. Patient is oriented x3, denies that he fell, reports that he has been weak since last 6 days, also reports that he has severe spinal stenosis and it is difficult to get around because of his back. He denies use of walker. He denies any fever or sore throat or chest pain or palpitation. He denies any pain or burning with passing urine. Since he has not been able to eat in the last 6 days due to confinement in the bed per patient, he has not had any bowel movement. He reports missing medications today morning only, reports he has been taking his medications until last evening. Medications were reviewed from outpatient chart, patient not 100% sure of medication doses. Patient denies smoking/ recreational drug use. Uses alcohol 2-3 times a year. Patient reports DO NOT RESUSCITATE/DO NOT INTUBATE. Patient's son was also given a phone call, plan of care was discussed with patient and patient's son. They both voiced understanding and were agreeable to plan of care. Admission Exam Per Admitting Provider GENERAL: Alert and oriented x3. NAD, on 2L NC O2 HEENT: No pallor, no icterus. Pupils equal, round and reactive to light. Oral mucosa dry. NECK: No JVD, no neck masses. HEART: S1 and S2 heard. irregular rate and rhythm. rates in 90 to 100. No murmur, no gallop. RESPIRATORY SYSTEM: Normal AP diameter. No accessory muscle use. No wheezing, RLL crackles. ABDOMEN: Soft, bowel sounds present, nontender, no distention. CENTRAL NERVOUS SYSTEM: No facial droop. Speech is clear. Obeys simple commands. Moves extremities. EXTREMITIES: No edema, no erythema seen. Small volume dark concentrated urine noted in urinal by bedside. Discharge Exam General: Alert, oriented. Psych: Appropriate mood and affect HEENT: NC/AT CV: Irregular Resp: Breath sounds clear bilaterally, no increased effort of breathing Abdomen: Soft, nontender, nondistended Extremities: No edema in lower extremities bilaterally. Updated Medication List Medication Instructions Recorded Confirmed Type omeprazole 20 mg capsule,delayed 20 mg PO QAM 10/26/19 02/10/24 History release sertraline 100 mg tablet 100 mg PO QAM 10/26/19 02/10/24 History aspirin 81 mg tablet,delayed 81 mg PO QAM 11/10/20 02/10/24 History release (Christine Low Dose Aspirin) melatonin 10 mg tablet 10 mg PO 11/10/20 02/10/24 History ropinirole 1 mg tablet 1 mg PO 11/10/20 02/10/24 History amoxicillin 500 mg capsule 2,000 mg PO ONCE PRN 1 hour prior 08/04/21 02/10/24 History to dentist spironolactone 25 mg tablet 25 mg PO DAILY 08/04/21 02/10/24 History acetaminophen 325 mg capsule 650 mg (2 x 325 mg) PO Q6H PRN 08/13/21 02/10/24 Rx fever or pain #30 caps metoprolol tartrate 25 mg tablet 25 mg PO BID #60 tabs 08/13/21 02/10/24 Rx cetirizine 10 mg tablet 10 mg PO QAM 02/10/24 02/10/24 History cyanocobalamin (vitamin B-12) 1,000 mcg sublingual QAM 02/10/24 02/10/24 History 1,000 mcg sublingual tablet cefdinir 300 mg capsule 300 mg PO BID #16 caps 02/15/24 Rx cholecalciferol (vitamin D3) 25 50 mcg (2 x 25 mcg (1,000 unit)) 02/15/24 Rx mcg (1,000 unit) capsule PO DAILY #30 caps Hospital Stay Data Consultations 02/10/24 16:31 ED Decision to Admit Stat Diagnostic Imagining Performed 02/10/24 14:27 CT cervical spine wo con Stat CT head/brain wo con Stat 02/10/24 17:02 US Renal Bladder [US renal/blad retro comp] Routine Chest X-Ray 02/10/24 14:10 XR chest 1V portable HISTORY: Dyspnea COMPARISON: Chest 08/04/2021. FINDINGS: No pneumothorax. No pleural effusions. There are low lung volumes. The heart is mildly enlarged. No focal lung consolidations to suggest a pneumonia. No evidence for pulmonary edema. There are poststernotomy changes. Calcifications within the aortic knob. No acute fractures. Partially visualized cervical spinal fusion hardware. IMPRESSION: 1. No acute process within the chest. 2. Low lung volumes and mild cardiomegaly. ACT 112: Negative or not required by law. Electronically signed by: Bruce Jaramillo M.D. 02/10/2024 4:[address] 02/10/24 14:[address] DOSE: HISTORY: fall TECHNIQUE: Multiaxial CT images of the cervical spine were performed and reformatted in the sagittal and coronal plane without the use of contrast. A dose lowering technique was utilized adhering to the principles of ALARA. COMPARISON: None. FINDINGS: No fractures. No subluxation. Prevertebral soft tissues and the C1-C2 interval are intact. No pneumothorax. Posterior decompression and fusion from C3 through C5 with pedicle screws and rods. IMPRESSION: No fractures within the cervical spine. ACT 112: Negative or not required by law. Electronically signed by: Bruce Jaramillo M.D. 02/10/2024 3:[address] 02/10/24 14:[address] DOSE: 1139.09 mGy.cm HISTORY: fall TECHNIQUE: Multiaxial CT images of the head were performed without the use of intravenous contrast. Automated exposure control was utilized for this study. A dose lowering technique was utilized adhering to the principles of ALARA. Comparison: Head CT 12/07/2016. Findings: The paranasal sinuses and mastoid air cells are clear. The calvarium and skull base are intact. There is no mass, hematoma, midline shift, acute infarct. White matter hypodensity is nonspecific but suggestive of microvascular ischemic change. The ventricles and sulci demonstrate mild age-related involutional changes. Impression: No acute intracranial abnormality. Atrophy and microvascular ischemic changes. ACT 112: Negative or not required by law. Electronically signed by: Bruce Jaramillo M.D. 02/10/2024 3:31 PM Renal Ultrasound 02/10/24 17:02 US renal/blad retro comp CLINICAL HISTORY: acute kidney injury TECHNIQUE: Multiple sonographic real-time images of the kidneys and bladder were obtained. COMPARISON: Comparison is made to CT abdomen pelvis 08/04/2021 FINDINGS: The right kidney measures 12.9 cm in length, and the left kidney measures 12.5 cm in length. The right kidney is normal in size, contour, cortical thickness, and echogenicity. No hydronephrosis is identified. Multiple cysts noted, the largest measuring 8 x 5 x 7 cm The left kidney is normal in size, contour, cortical thickness and echogenicity. No hydronephrosis is identified. Multiple cysts noted, the largest measuring 1.5 cm. A Chou catheter is seen in the collapsed bladder. No large intraluminal mass is seen. IMPRESSION: Unremarkable examination and in particular no evidence of hydronephrosis. ACT 112: Negative or not required by law. Electronically signed by: Luis Doshi M.D. 02/11/2024 8:19 AM Pending Results Patient Have Any Pending Studies at Discharge: No Discharge Instructions Given to Patient (Per Discharging Provider) Bo, [facility]. You were treated for an acute kidney injury and a urinary tract infection. We a re discharging you with 8 more days of antibiotic treatment. Please keep close follow up with your primary care provider after discharge. Please do not hesitate to come back to the emergency room if your symptoms worsen or return. It was a pleasure taking care of you while you were here. Total Time Total Time Spent Total Time Spent (In Minutes): 65
[2024-02-15 14:27] VITALS: BP 131/96
[2024-02-15 14:50] VITALS: PULSE 76
== END 2024-02-15 15:41 | DRG 683 ==
LOC: ED 13:06 → SUATTDRO 17:00 → 2E 17:00